=== PATIENT | male | born 1950 | race Caucasian/White ===

== ENCOUNTER → 2017-09-26 09:36 | Outpatient (CLI) | payer MEDICARE, SELFPAY ==
[2017-09-26 10:35] LABS: Absolute Neutrophil Count 4.8 X10^3/uL (2.0-7.7); Basophil# 0.02 X10^3/uL; Basophil% 0.3 % (0-1); Eosinophil# 0.12 X10^3/uL; Eosinophils% 1.7 % (0-5); Hematocrit 47.8 % (40-54); Hemoglobin 16.2 g/dl (13.0-16.5); Lymphocyte % 19.6 % (19-41); Mean Corp Hgb Conc 33.9 g/gl (32-36); Mean Corpuscular Hgb 30.5 pg (27.0-32.0); Mean Corpuscular Volume 89.8 fL (80-94); Mean Platelet Vol. 12.4 fl (6.2-12.0); Monocyte# 0.73 X10^3/uL; Monocyte% 10.2 % (0-10); Neutrophil # 4.81 X10^3/uL (2.7-7.7); Neutrophil % 67.5 % (47-70); Platelet Count 176 K/mm3 (150-450); RBC Distribution Width CV 13.5 % (11.6-14.6); RBC Distribution Width SD 44.8 fl (35.1-43.9); Red Blood Count 5.32 M/mm3 (4.6-6.2); White Blood Count 7.1 K/mm3 (4.4-11.0)
[2017-09-26 10:52] LABS: POSITIVE COUNT NO; POSITIVE DIFFERENTIAL NO; POSITIVE MORPHOLOGY NO
[2017-09-26 11:11] LABS: Hemoglobin A1c 5.9 % (4.2-6.3)
[2017-09-26 11:15] LABS: ALB/GLOB Ratio 1.1 RATIO (0.9-2.4); AST(SGOT) 20 U/L (15-37); Alanine Aminotransfer ALT/SGPT 43 U/L (16-61); Albumin, Serum 3.8 g/dL (3.2-5.0); Alkaline Phosphatase 112 U/L (45-117); Anion Gap 6 (5-15); BUN 16 mg/dL (7-18); BUN/Creat Ratio 15.1 RATIO (10-20); Calcium,Total 8.8 mg/dL (8.5-10.1); Chloride 107 mmol/L (98-107); Cholesterol 198 mg/dL (200); Creatinine, Serum 1.06 mg/dL (0.70-1.30); EST Glomerular Filtration Rate 74 mL/min (>60); Est Glom Filt Rate - Afr Amer 90 mL/min (>60); Globulin 3.5 g/dL (2.2-4.2); Glucose 105 mg/dL (74-106); High Density Lipoprotein 38 mg/dL; PSA,Total - Annual Screen 1.05 ng/mL (0.00-4.00); Potassium 4.2 mmol/L (3.5-5.1); Protein, Total 7.3 g/dL (6.4-8.2); Sodium Level 142 mmol/L (136-145); Thyroid Stim Hormone (TSH) 2.07 uIU/mL (0.358-3.74); Triglycerides 165 mg/dL; Very Low Density Lipoprotein 33 mg/dL (5-40)
[2017-09-27 09:49] LABS: Vitamin B12 709 pg/mL (211-911); Vitamin D,25 Hydroxy 25.1 ng/mL (29.95-100.01)
[2017-09-27 13:14] LABS: Protein, Urine (Random) 15.4 mg/dL (<11.9)
== END ==
DX: R73.9 Hyperglycemia, unspecified (principal); E55.9 Vitamin D deficiency, unspecified; E53.9 Vitamin B deficiency, unspecified; I10 Essential (primary) hypertension; Z12.5 Encounter for screening for malignant neoplasm of prostate
CPT/HCPCS: 80053; 80061; 82306; 82570; 82607; 83036; 84153; 84156; 84443; 85025; G0103

== ENCOUNTER → 2018-10-04 14:02 | Outpatient (CLI) | payer OTHER, MEDICARE, SELFPAY ==
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
== END ==
DX: R07.9 Chest pain, unspecified (principal)
CPT/HCPCS: 71250

== ENCOUNTER 2019-06-09 09:36 | Emergency (ER) | payer MEDICARE, OTHER, SELFPAY ==
[2019-06-09 09:37] VITALS: BP 189/104; PULSE 92; RESP 16; TEMP 36.7; O2SAT 97; BMI 26.6
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
== END 2019-06-09 11:27 | disposition home or self-care (01) ==
PROVIDERS: Emergency Provider Physician Assistant Medical
DX: J20.9 Acute bronchitis, unspecified (principal); J45.909 Unspecified asthma, uncomplicated
CPT/HCPCS: 71046; 99282

== ENCOUNTER 2020-02-11 10:46 | Emergency (ER) | payer MEDICARE, OTHER, SELFPAY ==
[2020-02-11 10:48] VITALS: BP 204/124; PULSE 96; RESP 15; TEMP 36.4; O2SAT 97; BMI 26.2
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
== END 2020-02-11 11:24 | disposition home or self-care (01) ==
LOC: ED 11:13
PROVIDERS: Emergency Provider Student in an Organized Health Care Education/Training Program
DX: M25.561 Pain in right knee (principal); M25.562 Pain in left knee; H92.01 Otalgia, right ear; H83.8X1 Other specified diseases of right inner ear
CPT/HCPCS: 99282

== ENCOUNTER → 2020-10-30 09:26 | Outpatient (CLI) | payer MEDICARE, OTHER, SELFPAY ==
--- NOTE | 2020-10-30 | IMM_PTH ---
PATIENT: MEDINA MCKOY II LOC: LAB U#:[id number] AGE/SX: 74/M ROOM: RE10/30/[address]: Dr. Corey Roberts MD : 1950 BED: DIS: SPEC #: [id number] RECD: 11/03/20 10:57 STATUS: MICHELLE REQ #: [id number] ADRY: 10/30/20 00:[address]: Corey Roberts DEPT: IMMUNOHISTOCHEMISTRY RECD BY: Noreen Denton ENTERED: 11/03/20 10:58 SP TYPE: IMMUNO OTHR DR: [facility] Tissues: Neck, NOS Procedures: SMA (add) Vimentin (add) NEUROFIL (add) Pankeratin (initial) S-100 (add) PHYSICIAN & INSTITUTION [place] [id number] SPECIMEN INFORMATION: Tissue Source: Right neck mass, fine needle aspiration Clinical Info: Right neck mass Specimen Number: [id number] CPT code: 61560, 75678 x4 METHODOLOGY: Deparaffinized sections of prefer/formalin-fixed tissue or PAP/DQ stained slides are incubated with monoclonal/polyclonal antibodies/oligonucleotide probes. Localization is made via biotin free immunoperoxidase method. Appropriate controls are performed and reacted as expected. Results on target cell population are indicated in the following table: RESULTS: ANTIBODY / CLONE RESULT AE1-3 (AE1/AE3/PCK26) negative Vimentin (V9) positive Actin (1A4) negative S-100 (4C4.9) positive Neurofil (2F11) negative These tests were developed and their performance characteristics determined by [facility]. They may not have been cleared or approved by the U.S. Food and Drug Administration. The FDA has determined that such clearance or approval is not necessary. The above immunohistochemical/dualISH markers are ordered and reviewed by the Pathologist. 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 See comment. AM:estee 11/04/2020 Comment: A pleomorphic adenoma cannot be ruled out. Case has been reviewed in consultation with Dr. Eagle who concurs with the above diagnosis. IDC:[id number]
--- NOTE | 2020-10-30 | ASPOS_PTH ---
PATIENT: MEDINA MCKOY II LOC: [facility] U#:[id number] AGE/SX: 74/M ROOM: RE10/30/[address]: Dr. Corey Roberts MD : 1950 BED: DIS: SPEC #: [id number] RECD: 10/30/20 11:00 STATUS: MICHELLE NEHA #: [id number] ADRY: 10/30/20 00:[address]: Corey Roberts DEPT: CYTOLOGY RECD BY: Mirza Enriquez ENTERED: 10/30/20 12:18 SP TYPE: ASP HERE OTHR DR: [facility] Tissues: Neck, NOS Procedures: Surgery Specimen Level IV Cytology Other Fine Needle Asp on Site HEADER OPERATION: Right neck mass, fine needle aspiration PRE-OP DIAGNOSIS: Right neck mass TISSUE SUBMITTED: Right neck mass FNA DIAGNOSIS CYTOLOGY Fine needle aspiration, right neck mass (smears and cell block): Consistent with spindle cell neoplasm. See comment. AM:estee 11/04/2020 COMMENT The specimen is evaluated at the time of FNA by Dr. Villeags. 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 A pleomorphic adenoma cannot be ruled out. Immunohistochemistry ([id number]) supports the above diagnosis. Case has been reviewed in consultation with Dr. Eagle who concurs with the above diagnosis. IDC:[id number] CYTOLOGY STUDY Slides are reviewed. CYTOLOGY GROSS Received is 0.25 ml of reddish fluid labeled with the patient's name, and designated right neck mass. Four imprints and four paps are made from the submitted fluid and the rest is added to CytoLyt for cell block preparation. Submitted for cytology study. / AM:estee 10/30/2020 TC:? CPT: 29129, 72582, 69956, 33004 ADDENDUM ADDENDUM ADDENDUM ADDENDUM ADDENDUM ADDENDUM ADDENDUM ADDENDUM ADDENDUM ADDENDUM 12/06/2022 09:11 ADDENDUM 12/06/2022 09:11 ADDENDUM 12/06/2022 09:11 ADDENDUM 12/06/2022 09:11 ADDENDUM 12/06/2022 09:11 This addendum is added to incorporate an outside pathology consultation report. The case was examined at [facility] (#[id number]) and the following diagnosis was rendered. Right neck mass, fine needle aspiration: Spindle cell lesion. Please see complete above mentioned consultation report in EMR
== END ==
PROVIDERS: Referring Provider Otolaryngology; Visit Provider Otolaryngology
DX: R22.1 Localized swelling, mass and lump, neck (principal)
CPT/HCPCS: 10021; 88161; 88305; 88341; 88342

== ENCOUNTER → 2020-11-17 13:46 | Outpatient (CLI) | payer MEDICARE, SELFPAY ==
--- NOTE | 2020-11-17 14:00 | CT_ITS ---
STUDY: CT SOFT TISSUE NECK WITH CONTRAST REASON FOR EXAM: Male, 70 years old. RIGHT NECK MASS RADIATION DOSAGE (If Supplied By Facility): CTDIvol = ( 15.89 ) mGy, DLP = ( 432.76 ) mGycm TECHNIQUE: The patient was scanned in a multi-detector CT scanner. High resolution transaxial imaging was performed following intravenous administration of IV 100mL Isovue-300. Sagittal and coronal images were reconstructed. Individualized dose optimization techniques were used for this CT. COMPARISON: None. FINDINGS: Normal bilateral parotid glands. Normal bilateral territory account manager spaces. Normal bilateral parapharyngeal spaces. Normal bilateral carotid spaces. Normal bilateral sublingual and submandibular glands and spaces. Normal visualized nasopharynx. Normal retropharyngeal space. Normal perivertebral space. Normal visualized bilateral faucial tonsils. The visualized tongue, tongue base and oropharynx are normal. There is a 2.5 cm x 3.3 cm x 3.9 cm rounded inhomogeneous soft tissue mass in the anterior triangle of the right side of the neck. This abuts the right sternocleidomastoid mastoid posteriorly as well as the vascular sheath. This extends medially into the right lateral aspect of the larynx. A neoplastic process should be ruled out. Subcentimeter lymph nodes are seen in the left side of the neck as well. There is no demonstrated solid or cystic mass lesion. There is no abnormal contrast enhancement. Normal epiglottis, bilateral vallecula and hypopharynx. The pre-epiglottic and paraglottic adipose spaces are normal. Normal visualized bilateral piriform sinuses, aryepiglottic folds, vocal cords, and arytenoid-cricoid articulations. Normal subglottic trachea. Normal bilateral lobes of the thyroid gland. Normal visualized pulmonary apices. Normal visualized paranasal sinuses. There is multilevel degenerative changes of the cervical spine. CT/Soft Tissue Neck WITH Contrast IMPRESSION: The palpable amount to correspond to 2.5 cm x 3.3 cm x 3.9 cm rounded homogeneous soft tissue mass in the anterior triangle of the right-sided the neck as described. This most likely represents adenopathy. Electronically Signed: Nigel Shi MD at 14:54 EDT , Service support ,
[2020-11-17 14:05] LABS: CREATININE FINGERSTICK 1.2 mg/dL (0.70-1.30); EGFR FINGERSTICK > 60.0000 mL/min (>60)
== END ==
PROVIDERS: Referring Provider Otolaryngology; Visit Provider Otolaryngology
DX: R22.1 Localized swelling, mass and lump, neck (principal)
CPT/HCPCS: 70491; Q9967

== ENCOUNTER → 2020-12-01 08:05 | Outpatient (CLI) | payer MEDICARE, OTHER, SELFPAY ==
[2020-12-01 09:12] LABS: ALB/GLOB Ratio 0.9 RATIO (0.9-2.4); AST(SGOT) 9 U/L (15-37); Alanine Aminotransfer ALT/SGPT 26 U/L (16-61); Albumin, Serum 3.7 g/dL (3.2-5.0); Alkaline Phosphatase 125 U/L (45-117); Anion Gap 2 (5-15); BUN 20 mg/dL (7-18); BUN/Creat Ratio 17.9 RATIO (10-20); Calcium,Total 9.3 mg/dL (8.5-10.1); Chloride 106 mmol/L (98-107); Cholesterol 181 mg/dL (200); Creatinine, Serum 1.12 mg/dL (0.70-1.30); EST Glomerular Filtration Rate 69 mL/min (>60); Est Glom Filt Rate - Afr Amer 83 mL/min (>60); Globulin 3.9 g/dL (2.2-4.2); Glucose 152 mg/dL (74-106); High Density Lipoprotein 37 mg/dL; Potassium 4.3 mmol/L (3.5-5.1); Protein, Total 7.6 g/dL (6.4-8.2); Sodium Level 139 mmol/L (136-145); Triglycerides 129 mg/dL; Very Low Density Lipoprotein 26 mg/dL (5-40)
[2020-12-01 09:17] LABS: Hemoglobin A1c 6.1 % (3.8-5.6)
== END ==
DX: E11.9 Type 2 diabetes mellitus without complications (principal); I25.10 Atherosclerotic heart disease of native coronary artery without angina pectoris
CPT/HCPCS: 36415; 80053; 80061; 83036

== ENCOUNTER 2021-03-05 12:09 | Emergency (ER) | payer OTHER, MEDICARE, SELFPAY ==
[2021-03-05 12:09] VITALS: BP 195/104; PULSE 104; RESP 18; TEMP 36.4; O2SAT 99; BMI 26.2
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
[2021-03-05 13:54] VITALS: RESP 16
== END 2021-03-05 13:54 | disposition home or self-care (01) ==
LOC: ED 13:04
PROVIDERS: Emergency Provider Emergency Medicine
DX: H53.8 Other visual disturbances (principal); J45.909 Unspecified asthma, uncomplicated; Z79.82 Long term (current) use of aspirin; Z79.899 Other long term (current) drug therapy
CPT/HCPCS: 99283

== ENCOUNTER → 2022-04-19 | Outpatient (CLI) | payer MEDICARE, SELFPAY ==
[2022-04-19 12:45] LABS: Bacteria 0 SEEN /hpf (None Seen); Mucous, Urine 0 SEEN /hpf (<or=2+); Squamous Epithelial Cells - UA 0 SEEN /hpf (0-5)
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
[2022-04-19 14:14] LABS: Absolute Lymphocyte Count 1.44 X10^3/uL (0.83-4.51); Absolute Neutrophil Count 7.3 X10^3/uL (2.0-7.7); Basophil# 0.05 X10^3/uL; Basophil% 0.5 % (0-1); Color, Urine Yellow (Yellow); Eosinophil# 0.19 X10^3/uL; Eosinophils% 1.9 % (0-5); Glucose, Dipstick Normal (Normal); Hemoglobin 15.4 g/dL (13.0-16.5); Ketone-Dipstick 5 mg/dl (Negative); Leukocyte Esterase-Dipstick 25 /ul (Negative); Lymphocyte # 1.44 X10^3/ul (0.83-4.51); Lymphocyte % 14.6 % (19-41); Mean Corp Hgb Conc 32.8 g/dL (32-36); Mean Corpuscular Hgb 29.8 pg (27.0-32.0); Mean Corpuscular Volume 91.1 fL (80-94); Mean Platelet Vol. 12.5 fl (6.2-12.0); Monocyte# 0.79 X10^3/uL; NRBC Flagged by Analyzer 0 % (0-5); Neutrophil # 7.32 X10^3/uL (2.7-7.7); Neutrophil % 74.5 % (47-70); Nitrite-Dipstick Negative (Negative); Occult Blood-Urine 10 /ul (Negative); Platelet Count 206 K/mm3 (150-450); Protein-Dipstick 30 mg/dl (Negative); RBC Distribution Width CV 13.2 % (11.6-14.6); RBC Distribution Width SD 44.3 fl (35.1-43.9); Red Blood Count 5.16 M/mm3 (4.6-6.2); Specific Gravity, Urine 1.025 (1.002-1.030); Urine Bilirubin Dipstick Negative (Negative); Urine Clarity Clear (Clear); Urine Urobilinogen Normal (Normal); White Blood Count 9.8 K/mm3 (4.4-11.0)
[2022-04-19 14:24] LABS: Calcium Oxalate Crystals Ur 1+ /hpf (<or=2+); Red Blood Cells-Urine 0-5 SEEN /hpf (0-5); White Blood Cells 0-5 SEEN /hpf (0-5)
[2022-04-19 14:52] LABS: Hemoglobin A1c 6.7 % (3.8-5.6)
[2022-04-19 14:53] LABS: BNP,B-Type NATRIURETIC PEPTIDE 99.4 pg/mL (0-100)
[2022-04-19 14:57] LABS: Vitamin B12 422 pg/mL (211-911); Vitamin D,25 Hydroxy 33.6 ng/mL
[2022-04-19 14:58] LABS: ALB/GLOB Ratio 0.8 RATIO (0.9-2.4); AST(SGOT) 16 U/L (15-37); Alanine Aminotransfer ALT/SGPT 29 U/L (16-61); Albumin, Serum 3.5 g/dL (3.2-5.0); Alkaline Phosphatase 105 U/L (45-117); Anion Gap 5 (5-15); BUN 22 mg/dL (7-18); BUN/Creat Ratio 19.8 RATIO (10-20); Calcium,Total 9.4 mg/dL (8.5-10.1); Chloride 108 mmol/L (98-107); Cholesterol 187 mg/dL (200); Creatinine, Serum 1.11 mg/dL (0.70-1.30); EST Glomerular Filtration Rate 69 mL/min (>60); Est Glom Filt Rate - Afr Amer 84 mL/min (>60); Globulin 4.2 g/dL (2.2-4.2); Glucose 129 mg/dL (74-106); High Density Lipoprotein 36 mg/dL; Magnesium 2.3 mg/dL (1.6-2.6); PSA,Total- Diagnostic 1.66 ng/mL (0.0-4.0); Potassium 4.1 mmol/L (3.5-5.1); Protein, Total 7.7 g/dL (6.4-8.2); Sodium Level 142 mmol/L (136-145); Thyroid Stim Hormone (TSH) 2.08 uIU/mL (0.358-3.74); Triglycerides 122 mg/dL; Very Low Density Lipoprotein 24 mg/dL (5-40)
[2022-04-19 15:46] LABS: Microalbumin:Creatinine Ratio 117.5 mg/g CRE (<30 mg/g CRE); Protein, Urine (Random) 56.2 mg/dL (<11.9)
== END | disposition home or self-care (01) ==
LOC: LAB 12:39
DX: I25.10 Atherosclerotic heart disease of native coronary artery without angina pectoris (principal); E11.9 Type 2 diabetes mellitus without complications; I10 Essential (primary) hypertension; N40.0 Benign prostatic hyperplasia without lower urinary tract symptoms; D51.9 Vitamin B12 deficiency anemia, unspecified; E55.9 Vitamin D deficiency, unspecified; R06.00 Dyspnea, unspecified
CPT/HCPCS: 36415; 71046; 80053; 80061; 81001; 82043; 82306; 82570; 82607; 83036; 83735; 83880; 84153; 84156; 84443; 85025

== ENCOUNTER → 2022-04-21 | Outpatient (CLI) | payer MEDICARE, SELFPAY | END | disposition home or self-care (01) | LOC: PSN 11:31 | DX: I25.10 Atherosclerotic heart disease of native coronary artery without angina pectoris (principal); E11.9 Type 2 diabetes mellitus without complications; I10 Essential (primary) hypertension; N40.0 Benign prostatic hyperplasia without lower urinary tract symptoms | CPT/HCPCS: 93005 ==

== ENCOUNTER 2023-05-10 12:00 | Emergency (ER) | payer MEDICARE, SELFPAY ==
[2023-05-10 12:01] VITALS: BP 201/106; PULSE 98; RESP 18; TEMP 36.6; O2SAT 100; BMI 25.0
--- NOTE | 2023-05-10 12:55 | RAD_ITS ---
STUDY: X-RAY - LUMBAR SPINE REASON FOR EXAM: Male, 72 years old. Chronic low back pain. TECHNIQUE: 3 view(s) of the lumbar spine were obtained. COMPARISON: Comparison is made with prior study dated December 31, 2009. FINDINGS: Normal lumbar lordosis. There is no substantial scoliosis. There is a normal alignment of the vertebrae. Mild degree of anterior spondylolisthesis at the L1-L2 and L2-L3 levels. Mild degree of disc space narrowing at the L4-L5 level. Normal disc space heights. The patient is status post cholecystectomy. RAD/Lumbar Spine 2 or 3 Views IMPRESSION: Degenerative changes of the spine, as detailed above. Electronically Signed: Nigel Shi MD at 13:16 EDT ,
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
[2023-05-10 15:04] VITALS: RESP 16
== END 2023-05-10 15:05 | disposition home or self-care (01) ==
PROVIDERS: Emergency Provider Emergency Medicine; PCP Family Medicine; Visit Provider Emergency Medicine
DX: M53.3 Sacrococcygeal disorders, not elsewhere classified (principal); M47.816 Spondylosis without myelopathy or radiculopathy, lumbar region; M25.562 Pain in left knee; I10 Essential (primary) hypertension; G62.9 Polyneuropathy, unspecified; Z79.52 Long term (current) use of systemic steroids
CPT/HCPCS: 72100; 99282

== ENCOUNTER → 2023-06-07 | Outpatient (CLI) | payer MEDICARE, SELFPAY ==
[2023-06-07 15:33] LABS: Absolute Lymphocyte Count 0.91 X10^3/uL (0.83-4.51); Absolute Neutrophil Count 9.1 X10^3/uL (2.0-7.7); Basophil# 0.08 X10^3/uL; Basophil% 0.7 % (0-1); Eosinophil# 0.14 X10^3/uL; Eosinophils% 1.2 % (0-5); Hematocrit 47.7 % (40-54); Hemoglobin 14.8 g/dL (13.0-16.5); Lymphocyte # 0.91 X10^3/ul (0.83-4.51); Lymphocyte % 8.1 % (19-41); Mean Corpuscular Volume 93.3 fL (80-94); Monocyte# 0.92 X10^3/uL; Monocyte% 8.2 % (0-10); NRBC Flagged by Analyzer 0 % (0-5); Neutrophil # 9.13 X10^3/uL (2.7-7.7); Neutrophil % 81.2 % (47-70); Platelet Count 239 K/mm3 (150-450); RBC Distribution Width SD 44.2 fl (35.1-43.9); Red Blood Count 5.11 M/mm3 (4.6-6.2); White Blood Count 11.3 K/mm3 (4.4-11.0)
[2023-06-07 15:53] LABS: Vitamin D,25 Hydroxy 26.8 ng/mL
[2023-06-07 16:06] LABS: ALB/GLOB Ratio 0.8 RATIO (0.9-2.4); AST(SGOT) 14 U/L (15-37); Alanine Aminotransfer ALT/SGPT 26 U/L (16-61); Albumin, Serum 3.4 g/dL (3.2-5.0); Alkaline Phosphatase 114 U/L (45-117); Anion Gap 5 (5-15); BUN 20 mg/dL (7-18); BUN/Creat Ratio 21.1 RATIO (10-20); Calcium,Total 9.3 mg/dL (8.5-10.1); Chloride 107 mmol/L (98-107); Creatinine, Serum 0.95 mg/dL (0.70-1.30); EST Glomerular Filtration Rate 83 mL/min (>60); Est Glom Filt Rate - Afr Amer 100 mL/min (>60); Globulin 4.3 g/dL (2.2-4.2); Glucose 123 mg/dL (74-106); Potassium 4.4 mmol/L (3.5-5.1); Protein, Total 7.7 g/dL (6.4-8.2); Sodium Level 139 mmol/L (136-145); Thyroid Stim Hormone (TSH) 1.52 uIU/mL (0.358-3.74)
[2023-06-07 17:07] LABS: Erythrocyte Sedimentation Rate 29 mm/hr (0-20)
[2023-06-11 12:07] LABS: Adrenocorticotropic Hormone 26.7 pg/mL (7.2-63.3)
[2023-06-12 13:07] LABS: ANTINUCLEAR ANTIBODIES DIRECT Negative (Negative)
== END | disposition home or self-care (01) ==
PROVIDERS: PCP Family Medicine; Referring Provider Family Medicine; Visit Provider Family Medicine
DX: M79.10 Myalgia, unspecified site (principal)
CPT/HCPCS: 36415; 80053; 82024; 82306; 84443; 85025; 85652; 86038; 86140

== ENCOUNTER → 2023-06-19 | Outpatient (CLI) | payer MEDICARE, SELFPAY ==
[2023-06-19 09:28] LABS: Bacteria 0 SEEN /hpf (None Seen); Mucous, Urine 0 SEEN /hpf (<or=2+); Red Blood Cells-Urine 0 SEEN /hpf (0-5); Squamous Epithelial Cells - UA 0 SEEN /hpf (0-5); White Blood Cells 0 SEEN /hpf (0-5)
[2023-06-19 10:18] LABS: Erythrocyte Sedimentation Rate 17 mm/hr (0-20)
[2023-06-19 10:20] LABS: Absolute Neutrophil Count 14.7 X10^3/uL (2.0-7.7); Basophil# 0.05 X10^3/uL; Basophil% 0.3 % (0-1); Eosinophil# 0.01 X10^3/uL; Eosinophils% 0.1 % (0-5); Hemoglobin 14.9 g/dL (13.0-16.5); Lymphocyte % 6.6 % (19-41); Mean Corpuscular Volume 93.4 fL (80-94); Mean Platelet Vol. 12.3 fl (6.2-12.0); Monocyte# 0.69 X10^3/uL; Monocyte% 4.1 % (0-10); NRBC Flagged by Analyzer 0 % (0-5); Neutrophil # 14.68 X10^3/uL (2.7-7.7); Neutrophil % 87.8 % (47-70); Platelet Count 301 K/mm3 (150-450); RBC Distribution Width CV 13.2 % (11.6-14.6); RBC Distribution Width SD 45.2 fl (35.1-43.9); Red Blood Count 5.14 M/mm3 (4.6-6.2); White Blood Count 16.7 K/mm3 (4.4-11.0)
[2023-06-19 10:37] LABS: Hemoglobin A1c 6.9 % (3.8-5.6)
[2023-06-19 10:49] LABS: Vitamin B12 510 pg/mL (211-911); Vitamin D,25 Hydroxy 32.2 ng/mL
[2023-06-19 11:01] LABS: ALB/GLOB Ratio 0.8 RATIO (0.9-2.4); AST(SGOT) 11 U/L (15-37); Alanine Aminotransfer ALT/SGPT 31 U/L (16-61); Albumin, Serum 3.3 g/dL (3.2-5.0); Alkaline Phosphatase 122 U/L (45-117); Anion Gap 7 (5-15); BUN 33 mg/dL (7-18); BUN/Creat Ratio 26.2 RATIO (10-20); CPK Total, Creatine Kinase 36 U/L (39-308); Calcium,Total 9.7 mg/dL (8.5-10.1); Chloride 103 mmol/L (98-107); Cholesterol 149 mg/dL (200); Creatinine, Serum 1.26 mg/dL (0.70-1.30); EST Glomerular Filtration Rate 60 mL/min (>60); Est Glom Filt Rate - Afr Amer 72 mL/min (>60); Globulin 4.3 g/dL (2.2-4.2); Glucose 203 mg/dL (74-106); High Density Lipoprotein 48 mg/dL; Magnesium 2.4 mg/dL (1.6-2.6); Potassium 4.2 mmol/L (3.5-5.1); Protein, Total 7.6 g/dL (6.4-8.2); Rheumatoid Factor < 10.0 IU/mL (<15); Sodium Level 138 mmol/L (136-145); Thyroid Stim Hormone (TSH) 1.47 uIU/mL (0.358-3.74); Triglycerides 83 mg/dL; Uric Acid 5.9 mg/dL (3.5-7.2); Very Low Density Lipoprotein 17 mg/dL (5-40)
[2023-06-19 13:55] LABS: Color, Urine Yellow (Yellow); Glucose, Dipstick Normal (Normal); Ketone-Dipstick 5 mg/dl (Negative); Leukocyte Esterase-Dipstick Negative /ul (Negative); Nitrite-Dipstick Negative (Negative); Occult Blood-Urine Negative /ul (Negative); Protein-Dipstick 30 mg/dl (Negative); Specific Gravity, Urine 1.025 (1.002-1.030); Urine Bilirubin Dipstick Negative (Negative); Urine Clarity Clear (Clear); Urine Urobilinogen Normal (Normal)
[2023-06-19 14:06] LABS: Calcium Oxalate Crystals Ur 1+ /hpf (<or=2+)
[2023-06-20 16:09] LABS: Anti-Nuclear Antibody Test Negative (.)
== END | disposition home or self-care (01) ==
DX: I10 Essential (primary) hypertension (principal); E11.9 Type 2 diabetes mellitus without complications; N40.0 Benign prostatic hyperplasia without lower urinary tract symptoms; E55.9 Vitamin D deficiency, unspecified; D51.9 Vitamin B12 deficiency anemia, unspecified; M25.50 Pain in unspecified joint; E78.5 Hyperlipidemia, unspecified
CPT/HCPCS: 36415; 80053; 80061; 81001; 82306; 82550; 82607; 83036; 83735; 84443; 84550; 85025; 85652; 86038; 86431

== ENCOUNTER → 2023-06-21 | Outpatient (CLI) | payer MEDICARE, SELFPAY ==
[2023-06-21 12:34] LABS: Erythrocyte Sedimentation Rate 12 mm/hr (0-20)
[2023-06-21 12:37] LABS: Absolute Lymphocyte Count 0.58 X10^3/uL (0.83-4.51); Absolute Neutrophil Count 15.5 X10^3/uL (2.0-7.7); Basophil# 0.07 X10^3/uL; Basophil% 0.4 % (0-1); Eosinophil# 0.01 X10^3/uL; Eosinophils% 0.1 % (0-5); Hematocrit 50.2 % (40-54); Hemoglobin 15.4 g/dL (13.0-16.5); Lymphocyte # 0.58 X10^3/ul (0.83-4.51); Lymphocyte % 3.5 % (19-41); Mean Corp Hgb Conc 30.7 g/dL (32-36); Mean Corpuscular Hgb 28.9 pg (27.0-32.0); Mean Corpuscular Volume 94.2 fL (80-94); Mean Platelet Vol. 12.7 fl (6.2-12.0); Monocyte# 0.26 X10^3/uL; Monocyte% 1.6 % (0-10); NRBC Flagged by Analyzer 0 % (0-5); Neutrophil # 15.46 X10^3/uL (2.7-7.7); Neutrophil % 92.8 % (47-70); POSITIVE DIFFERENTIAL YES; Platelet Count 279 K/mm3 (150-450); RBC Distribution Width CV 13.4 % (11.6-14.6); RBC Distribution Width SD 46.5 fl (35.1-43.9); Red Blood Count 5.33 M/mm3 (4.6-6.2); White Blood Count 16.7 K/mm3 (4.4-11.0)
[2023-06-21 12:44] LABS: Differential Indicated SCAN CRITERIA MET
[2023-06-21 13:05] LABS: Differential Comment SCANNED
[2023-06-21 13:09] LABS: ALB/GLOB Ratio 0.9 RATIO (0.9-2.4); AST(SGOT) 12 U/L (15-37); Alanine Aminotransfer ALT/SGPT 30 U/L (16-61); Albumin, Serum 3.6 g/dL (3.2-5.0); Alkaline Phosphatase 116 U/L (45-117); Anion Gap 6 (5-15); BUN 26 mg/dL (7-18); BUN/Creat Ratio 24.1 RATIO (10-20); CRP 7.73 mg/L (0.0-3.0); Calcium,Total 9.4 mg/dL (8.5-10.1); Chloride 104 mmol/L (98-107); Creatinine, Serum 1.08 mg/dL (0.70-1.30); EST Glomerular Filtration Rate 71 mL/min (>60); Est Glom Filt Rate - Afr Amer 86 mL/min (>60); Globulin 4.2 g/dL (2.2-4.2); Glucose 269 mg/dL (74-106); Potassium 4.1 mmol/L (3.5-5.1); Protein, Total 7.8 g/dL (6.4-8.2); Rheumatoid Factor < 10.0 IU/mL (<15); Sodium Level 137 mmol/L (136-145)
[2023-06-21 13:31] LABS: Hepatitis B Surface Antibody Reactive; Hepatitis B Surface Antigen Non-Reactive (Nonreactive); Hepatitis C Antibody Non-Reactive (Nonreactive)
[2023-06-22 12:09] LABS: ANTINUCLEAR ANTIBODIES DIRECT Negative (Negative)
[2023-06-23 13:07] LABS: CCP IgG Antibodies 9 units (0-19)
== END | disposition home or self-care (01) ==
PROVIDERS: Referring Provider Internal Medicine Rheumatology; Visit Provider Internal Medicine Rheumatology
DX: M06.4 Inflammatory polyarthropathy (principal); Z79.899 Other long term (current) drug therapy
CPT/HCPCS: 36415; 80053; 85025; 85652; 86038; 86140; 86200; 86431; 86706; 86803; 87340

== ENCOUNTER → 2023-06-23 | Outpatient (CLI) | payer MEDICARE, SELFPAY ==
--- NOTE | 2023-06-23 12:44 | CDU_ITS ---
Reason For Study: Amaurosis Fugax Rt. Velocities/BP Lt. Velocities/BP Prox CCA 96.1/7.7 cm/sec. Prox CCA 115.5/12.3 cm/sec. Mid CCA 107.0/13.9 cm/sec. Mid CCA 67.0/13.0 cm/sec. Dist CCA 121.6/21.2 cm/sec. Dist CCA 58.4/14.2 cm/sec. Prox ICA 77.8/13.9 cm/sec. Prox ICA 46.9/15.7 cm/sec. Mid ICA 66.7/9.1 cm/sec. Mid ICA 56.3/19.5 cm/sec. Dist ICA 70.5/20.4 cm/sec. Dist ICA 76.1/21.4 cm/sec. Rt. ICA/CCA = 0.7. Lt. ICA/CCA = 1.1. Prox ECA 113.3/9.0 cm/sec. Prox ECA 146.2/16.7 cm/sec. Rt. Vert. 49.7/8.1 cm/sec. Lt. Vert. 39.3/8.1 cm/sec. Right Extracranial Non-vascularized heterogenous area measuring approximately 4.95cm x 4.26cm is noted on the throat/thyroid area. Patient states area is known and he has seen a specialist. There is homogeneous, smooth atherosclerotic plaque noted in the right common carotid artery. There is intimal thickening but no significant atherosclerotic plaque noted in the right internal carotid artery. The right external carotid artery is not well visualized. Antegrade flow is noted in the right vertebral artery. Left Extracranial There is homogeneous, smooth atherosclerotic plaque noted in the left common carotid artery. There is intimal thickening but no significant atherosclerotic plaque noted in the left internal carotid artery. There is homogeneous, smooth atherosclerotic plaque noted in the left external carotid artery. Antegrade flow is noted in the left vertebral artery. Procedure Carotid Duplex [id number]. This is a Carotid Duplex examination using B-mode, color flow and specral Doppler. The exam was diagnostic. Exam performed in department. VL/Carotid Duplex Ultrasound Interpretation Summary Normal right extracranial internal carotid. Normal left extracranial internal carotid. Patent and antegrade vertebrals bilaterally. Non-vascularized heterogenous area measuring approximately 4.95cm x 4.26cm is n oted on the throat/thyroid area Ordering Physician: Matt Fisher Referring Physician: N/A Performed By: Vega Ellison RVT
== END | disposition home or self-care (01) ==
LOC: CVS 12:42
PROVIDERS: Referring Provider Ophthalmology; Visit Provider Ophthalmology
DX: G45.3 Amaurosis fugax (principal)
CPT/HCPCS: 93880

== ENCOUNTER → 2023-09-13 | Outpatient (CLI) | payer MEDICARE, SELFPAY ==
[2023-09-13 08:55] LABS: Vitamin B12 776 pg/mL (211-911); Vitamin D,25 Hydroxy 22.5 ng/mL
[2023-09-13 09:25] LABS: ALB/GLOB Ratio 0.9 RATIO (0.9-2.4); AST(SGOT) 17 U/L (15-37); Alanine Aminotransfer ALT/SGPT 25 U/L (16-61); Albumin, Serum 3.5 g/dL (3.2-5.0); Alkaline Phosphatase 120 U/L (45-117); Anion Gap 5 (5-15); BUN 22 mg/dL (7-18); BUN/Creat Ratio 17.6 RATIO (10-20); Calcium,Total 9.9 mg/dL (8.5-10.1); Chloride 104 mmol/L (98-107); Creatinine, Serum 1.25 mg/dL (0.70-1.30); EST Glomerular Filtration Rate 60 mL/min (>60); Est Glom Filt Rate - Afr Amer 73 mL/min (>60); Glucose 369 mg/dL (74-106); Magnesium 2.1 mg/dL (1.6-2.6); Potassium 4.2 mmol/L (3.5-5.1); Protein, Total 7.5 g/dL (6.4-8.2); Sodium Level 137 mmol/L (136-145); Thyroid Stim Hormone (TSH) 2.22 uIU/mL (0.358-3.74)
[2023-09-13 10:39] LABS: Hemoglobin A1c 10.9 % (3.8-5.6)
[2023-09-14 13:08] LABS: Adrenocorticotropic Hormone 38.4 pg/mL (7.2-63.3)
== END | disposition home or self-care (01) ==
LOC: LAB 08:07
PROVIDERS: PCP Family Medicine
DX: E11.65 Type 2 diabetes mellitus with hyperglycemia (principal); M06.9 Rheumatoid arthritis, unspecified; E55.9 Vitamin D deficiency, unspecified; D51.9 Vitamin B12 deficiency anemia, unspecified; I10 Essential (primary) hypertension; Z79.52 Long term (current) use of systemic steroids
CPT/HCPCS: 36415; 80053; 82024; 82306; 82533; 82607; 83036; 83735; 84443

== ENCOUNTER → 2023-09-28 | Outpatient (CLI) | payer MEDICARE, SELFPAY ==
[2023-09-28 08:30] LABS: Insulin 4.3 mU/L (2.6-37.6)
== END | disposition home or self-care (01) ==
LOC: LAB 07:41
PROVIDERS: PCP Family Medicine; Referring Provider Family Medicine; Visit Provider Family Medicine
DX: E11.9 Type 2 diabetes mellitus without complications (principal)
CPT/HCPCS: 36415; 83525

== ENCOUNTER → 2023-11-02 | Outpatient (CLI) | payer MEDICARE, SELFPAY ==
[2023-11-02 10:45] LABS: Absolute Lymphocyte Count 0.85 X10^3/uL (0.83-4.51); Absolute Neutrophil Count 8.8 X10^3/uL (2.0-7.7); Basophil# 0.06 X10^3/uL; Basophil% 0.6 % (0-1); Eosinophil# 0.03 X10^3/uL; Eosinophils% 0.3 % (0-5); Hematocrit 46.3 % (40-54); Hemoglobin 14.5 g/dL (13.0-16.5); Lymphocyte # 0.85 X10^3/ul (0.83-4.51); Lymphocyte % 8.2 % (19-41); Mean Corp Hgb Conc 31.3 g/dL (32-36); Mean Corpuscular Volume 95.7 fL (80-94); Mean Platelet Vol. 12.3 fl (6.2-12.0); Monocyte# 0.63 X10^3/uL; NRBC Flagged by Analyzer 0 % (0-5); Neutrophil # 8.77 X10^3/uL (2.7-7.7); Neutrophil % 84.1 % (47-70); Platelet Count 198 K/mm3 (150-450); RBC Distribution Width CV 14.1 % (11.6-14.6); Red Blood Count 4.84 M/mm3 (4.6-6.2); White Blood Count 10.4 K/mm3 (4.4-11.0)
[2023-11-02 11:15] LABS: AST(SGOT) 15 U/L (15-37); Alanine Aminotransfer ALT/SGPT 24 U/L (16-61); Albumin, Serum 3.7 g/dL (3.2-5.0); Alkaline Phosphatase 96 U/L (45-117); Anion Gap 3 (5-15); BUN 29 mg/dL (7-18); BUN/Creat Ratio 28.4 RATIO (10-20); Calcium,Total 9.6 mg/dL (8.5-10.1); Chloride 110 mmol/L (98-107); Creatinine, Serum 1.02 mg/dL (0.70-1.30); EST Glomerular Filtration Rate 76 mL/min (>60); Est Glom Filt Rate - Afr Amer 92 mL/min (>60); Globulin 3.6 g/dL (2.2-4.2); Glucose 162 mg/dL (74-106); Potassium 4.5 mmol/L (3.5-5.1); Protein, Total 7.3 g/dL (6.4-8.2); Sodium Level 140 mmol/L (136-145)
== END | disposition home or self-care (01) ==
LOC: LAB 10:03
PROVIDERS: PCP Family Medicine; Visit Provider Internal Medicine Rheumatology
DX: M06.4 Inflammatory polyarthropathy (principal); I10 Essential (primary) hypertension; Z79.899 Other long term (current) drug therapy
CPT/HCPCS: 36415; 80053; 85025

== ENCOUNTER → 2023-12-13 | Outpatient (CLI) | payer MEDICARE, SELFPAY ==
[2023-12-13 18:12] LABS: Hemoglobin A1c 7.1 % (3.8-5.6)
== END | disposition home or self-care (01) ==
LOC: LAB 13:28
PROVIDERS: PCP Family Medicine; Referring Provider Family Medicine; Visit Provider Family Medicine
DX: E11.9 Type 2 diabetes mellitus without complications (principal)
CPT/HCPCS: 36415; 83036

== ENCOUNTER 2024-02-10 08:11 | Inpatient (IN) | payer OTHER, SELFPAY ==
[2024-02-10] VITALS (47 sets, daily range): BP systolic 94–218; BP diastolic 67–138; PULSE 75–153; RESP 16–28; TEMP 35.6–37.6; O2SAT 92–100; BMI 27.2; BMI 26.4
--- NOTE | 2024-02-10 08:37 | EKG12_ITS ---
Test Reason : Blood Pressure : / mmHG Vent. Rate : 078 BPM Atrial Rate : 078 BPM P-R Int : 178 ms QRS Dur : 082 ms QT Int : 450 ms P-R-T Axes : 063 021 099 degrees QTc Int : 513 ms Normal sinus rhythm Left ventricular hypertrophy with repolarization abnormality ( Sokolow-Floyd ) Cannot rule out Anteroseptal infarct (cited on or before 28-APR-2024) Prolonged QT Abnormal ECG When compared with ECG of 28-APR-2024 00:54, Significant changes have occurred Confirmed by Jimi Chavez ([id number]), news assignment editor KEYL RUBIO ([id number]) on 05/02/2024 1:10:41 PM Referred By: Confirmed By:Jimi Chavez
--- NOTE | 2024-02-10 08:37 | CT_ITS ---
STUDY: CTA CHEST REASON FOR EXAM: Male, 73 years old. CP, SOB, tachycardia RADIATION DOSAGE (If Supplied By Facility): CTDIvol = ( 18.42 ) mGy, DLP = ( 560.28 ) mGycm TECHNIQUE: The examination was performed with the intravenous administration of IV 100mL Isovue-370. Post-processing of the angiographic images was performed, with multiplanar reformation and 3D reconstruction. The protocol utilizes one or more of the following dose reduction techniques: automated exposure control, adjustment of mA and/or kV according to patient size,and/or use of iterative reconstruction technique. COMPARISON: October 04, 2018 FINDINGS: Normal enhancement of the main pulmonary artery and right and left pulmonary arteries. Normal enhancement of the bilateral peripheral pulmonary arteries. There is no demonstrated pulmonary embolism. Normal thoracic aorta and visualized great vessels. There are peripheral calcifications of the thoracic aorta. There is no demonstrated aortic dissection. There are calcifications of the coronary arteries. Normal mediastinum. Normal hilar regions. There is an endotracheal tube in place terminating 2.2 cm above the sapna. There are bilateral pleural effusions, left greater than right greater than left pleural effusion is partially loculated within the left major fissure. There are bilateral groundglass and patchy opacities as well as bilateral interlobular septal thickening. Normal chest wall structures. Normal osseous structures. The limited images of the upper abdomen demonstrate a left renal cyst. There is an enteric tube in place terminating within the gastric body. CT/CTA Chest W/WO Contrast IMPRESSION: No demonstrated pulmonary embolism or arterial dissection. Bilateral groundglass and patchy opacities concerning for multifocal edema and/or pneumonia. Bilateral pleural effusions. Bilateral interlobular septal thickening likely secondary to pulmonary edema. Atherosclerosis. Electronically Signed: Katelyn Mckenzie MD at 10:23 EDT ,
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
[2024-02-10] MEDS: Aspirin 81 MG TAB.CHEW 324 MG PO (08:44)
[2024-02-10] MEDS: Nitroglycerin Oint 1 INCH PACKET TD (08:45)
[2024-02-10 08:46] LABS: Absolute Lymphocyte Count 1.43 X10^3/uL (0.83-4.51); Absolute Neutrophil Count 8.1 X10^3/uL (2.0-7.7); Basophil# 0.05 X10^3/uL; Basophil% 0.5 % (0-1); Eosinophil# 0.15 X10^3/uL; Eosinophils% 1.4 % (0-5); Hematocrit 48.3 % (40-54); Hemoglobin 15.6 g/dL (13.0-16.5); Lymphocyte # 1.43 X10^3/ul (0.83-4.51); Lymphocyte % 13.3 % (19-41); Mean Corp Hgb Conc 32.3 g/dL (32-36); Mean Corpuscular Hgb 31.2 pg (27.0-32.0); Mean Corpuscular Volume 96.6 fL (80-94); Mean Platelet Vol. 12.6 fl (6.2-12.0); Monocyte% 8.3 % (0-10); NRBC Flagged by Analyzer 0 % (0-5); Neutrophil # 8.14 X10^3/uL (2.7-7.7); Neutrophil % 75.5 % (47-70); Platelet Count 234 K/mm3 (150-450); RBC Distribution Width CV 14.6 % (11.6-14.6); RBC Distribution Width SD 50.9 fl (35.1-43.9); White Blood Count 10.8 K/mm3 (4.4-11.0)
--- NOTE | 2024-02-10 09:03 | RAD_ITS ---
INDICATION: og tube placement EXAMINATION/TECHNIQUE: X-RAY - XR Abdomen 1 View COMPARISON: Chest radiograph dated February 10, 2024 FINDINGS: BOWEL GAS PATTERN: Non-obstructive. No bowel or stomach distention. There is an orogastric tube in place terminating within the expected region of the gastric body. FREE AIR: Not assessed on a single supine view. ORGANOMEGALY: Not seen. CALCIFICATIONS: No abnormal calcifications observed. LOWER CHEST: There are stable bilateral patchy opacities. There is an endotracheal tube in place terminating 3.6 cm above the sapna. BONES AND SOFT TISSUES: No acute pathology. RAD/Abdomen Single View (Portable) IMPRESSION: Orogastric tube terminating within the expected region of the gastric body. Bilateral ill-defined opacities may reflect edema and/or an infectious process. Electronically Signed: Katelyn Mckenzie MD at 10:08 EDT ,
[2024-02-10] MEDS: Propofol 10MG/Ml 1,000 MG/100 ML Bottle 4.7 MG CONT INF (09:05)
[2024-02-10 09:06] LABS: BNP,B-Type NATRIURETIC PEPTIDE 539.8 pg/mL (0-100)
[2024-02-10] MEDS: 0.9% Normal Saline (1000mL) 1,000 ML 999 ML IV (09:06)
[2024-02-10] MEDS: fentaNYL 100 MCG/2 ML Ampul 50 MCG IV (09:07)
[2024-02-10 09:09] LABS: Anion Gap 6 (5-15); BUN 32 mg/dL (7-18); Calcium,Total 9.9 mg/dL (8.5-10.1); Chloride 106 mmol/L (98-107); Creatinine, Serum 1.28 mg/dL (0.70-1.30); EST Glomerular Filtration Rate 59 mL/min (>60); Est Glom Filt Rate - Afr Amer 71 mL/min (>60); Estimated Creatinine Clearance 50.42 ml/min; Glucose 257 mg/dL (74-106); Potassium 3.8 mmol/L (3.5-5.1); Sodium Level 138 mmol/L (136-145); Troponin-I HS (w/2H Reflex) 1513 pg/mL (3.0-78.0)
[2024-02-10] MEDS: Succinylcholine Chloride 200 MG/10 ML SYRINGE 100 MG IV (09:13)
[2024-02-10] MEDS: Etomidate 20 MG/10 ML Vial IV (09:14)
--- NOTE | 2024-02-10 09:20 | RAD_ITS ---
INDICATION: ET tube placement EXAMINATION/TECHNIQUE: X-RAY - XR Chest 1 View COMPARISON: February 10, 2024 at 9:23 AM FINDINGS: LINES/DEVICES: There is an endotracheal tube in place terminating within the expected region of the gastric body. LUNGS: There are ill-defined opacities throughout the visualized right lung and the left mid and lower lung associated with bilateral prominent interstitial markings. No pneumothorax. MEDIASTINUM AND CARDIOVASCULAR STRUCTURES: Cardiac silhouette not enlarged. Central airways and mediastinal contour are unremarkable. BONES AND SOFT TISSUES: Unremarkable. RAD/Chest 1 View (Portable) IMPRESSION: Endotracheal tube terminating within the expected region of the gastric body. Bilateral ill-defined opacities associated with prominent interstitial markings may reflect edema and/or an infectious process. Electronically Signed: Katelyn Mckenzie MD at 10:07 EDT ,
[2024-02-10 09:29] LABS: Allen Test Positive; Base Excess -5 mmol/L (-2 to +2); Bicarbonate 23.3 mmol/L (22-26); Blood Gas Specimen Type ART; Mode AC; O2 Delivery Device Adult Vent; PEEP 5; PO2 417 mmHG (75-100); RR 16; SITE L Radial; SO2 100 % (95-99); Total Carbon Dioxide 25 mmol/L; pCO2 60.4 mmHg (35-45)
[2024-02-10 09:34] LABS: CPK Total, Creatine Kinase 57 U/L (39-308); Triglycerides 137 mg/dL
--- NOTE | 2024-02-10 09:58 | ED.RN ---
this rn attempted to call dtr at this time. when called, another persons name is on the voicemail so this rn called the son listed instead. pts son is located in [place] and will call sister to come be with the patient. charge nurse made aware.
--- NOTE | 2024-02-10 10:27 | ED.RN ---
this rn spoke with patient's daughter on the phone. this rn went over labs that we had avaliable and told dtr that pt was intubated and clinically very sick and would probably like it if someone could come be with him. pts dtr states hes pretty far away right now, i dont know if i can. this rn tells pt that we will call with updates.
[2024-02-10 10:34] LABS: International Normalized Ratio 0.9; Prothrombin Time (Protime)PT. 12.3 SECONDS (11.7-14.9)
[2024-02-10 10:35] LABS: Partial Thromboplast Time 29.1 Seconds (24.1-36.2)
[2024-02-10] MEDS: Furosemide 40 MG/4 ML Vial IV ×2 (10:35→17:46)
[2024-02-10] MEDS: Heparin Injection (Vial) 5,000 UNIT/ML VIAL 4000 UNIT IV (10:36)
[2024-02-10] MEDS: HEPARIN/D5w 25,000 UNITS 25,000 UNITS/250 ML IV.SOLN. 9 UNITS CONT INF (10:36)
[2024-02-10 10:41] LABS: Reflex Troponin-HS? (from REC) Y
[2024-02-10] MEDS: fentaNYL 100 MCG/2 ML Ampul IV (10:52)
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
--- NOTE | 2024-02-10 10:59 | ED.RN ---
pts watch removed and placed in a specimen cup. specimen cup inserted into shoe along with pts wallet and glasses. pt also has a cell phone, small dollar bills in shorts pocket and car keys.
[2024-02-10 11:08] LABS: Troponin-I HS 934 pg/mL (3.0-78.0)
[2024-02-10] MEDS: Midazolam 50 MG in 0.9% Normal Saline (100mL Bag) 90 ML CONT INF (11:15)
[2024-02-10 11:18] LABS: Magnesium 2.4 mg/dL (1.6-2.6); Phosphorus 4.1 mg/dL (2.5-4.9)
[2024-02-10] MEDS: Propofol 10MG/Ml 1,000 MG/100 ML Bottle 23.3 MG CONT INF (12:45)
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
--- NOTE | 2024-02-10 13:40 | CPS ---
1315 increased TV to [address] Olsen.
[2024-02-10] MEDS: fentaNYL drip 100 ML 2.5 MCG CONT INF (13:45)
[2024-02-10] MEDS: Chlorhexidine 15 ML PO ×2 (14:00→21:28)
[2024-02-10 14:31] LABS: Allen Test Positive; Base Excess -2 mmol/L (-2 to +2); Bicarbonate 22.7 mmol/L (22-26); Blood Gas Specimen Type ART; Mode AC; O2 Delivery Device Adult Vent; PEEP 5; PO2 76 mmHG (75-100); RR 16; SITE R Radial; SO2 96 % (95-99); Total Carbon Dioxide 24 mmol/L; pCO2 33.2 mmHg (35-45); pH 7.44 (7.35-7.45)
--- NOTE | 2024-02-10 14:37 | CPS ---
Called Dr Jade and gave ABG results. No changes @this time.
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
[2024-02-10 16:24] LABS: Bedside Glucose 223 mg/dL (74-106)
[2024-02-10 17:00] LABS: Partial Thromboplast Time 45.3 Seconds (24.1-36.2)
[2024-02-10] MEDS: Insulin Glargine-YFGN 100 UNIT/ML Pen 10 UNIT SC (17:43)
[2024-02-10] MEDS: Insulin Lispro 100 UNIT/ML INSULN.PEN SC (17:45)
[2024-02-10] MEDS: Pantoprazole Sodium 40 MG in 0.9% Normal Saline (100mL MB+) 100 ML 330 MG IV (17:49)
[2024-02-10] MEDS: 0.9% Saline Lock 10 ML Syringe IV (17:50)
[2024-02-10] MEDS: Propofol 10MG/Ml 1,000 MG/100 ML Bottle 11.7 MG CONT INF (19:00)
[2024-02-10] MEDS: Atorvastatin Calcium 40 MG Tablet PO (21:27)
[2024-02-10] MEDS: Senna/Docusate Sodium 1 Tablet 2 TABLET GT (21:27)
[2024-02-10] MEDS: Carvedilol 3.125 MG TABLET PO (21:27)
[2024-02-11] VITALS (29 sets, daily range): BP systolic 84–157; BP diastolic 54–97; PULSE 69–107; RESP 11–21; TEMP 36.6–37.7; O2SAT 93–99; BMI 25.1
[2024-02-11] MEDS: Propofol 10MG/Ml 1,000 MG/100 ML Bottle 14 MG CONT INF (03:46)
[2024-02-11 04:17] LABS: Absolute Lymphocyte Count 1.37 X10^3/uL (0.83-4.51); Absolute Neutrophil Count 8.7 X10^3/uL (2.0-7.7); Basophil# 0.04 X10^3/uL; Basophil% 0.4 % (0-1); Eosinophils% 0.9 % (0-5); Hematocrit 39.9 % (40-54); Lymphocyte # 1.37 X10^3/ul (0.83-4.51); Lymphocyte % 12.1 % (19-41); Mean Corp Hgb Conc 32.6 g/dL (32-36); Mean Corpuscular Hgb 30.8 pg (27.0-32.0); Mean Corpuscular Volume 94.5 fL (80-94); Mean Platelet Vol. 12.1 fl (6.2-12.0); Monocyte# 1.06 X10^3/uL; Monocyte% 9.4 % (0-10); NRBC Flagged by Analyzer 0 % (0-5); Neutrophil # 8.66 X10^3/uL (2.7-7.7); Neutrophil % 76.5 % (47-70); Platelet Count 183 K/mm3 (150-450); RBC Distribution Width CV 14.7 % (11.6-14.6); RBC Distribution Width SD 50.3 fl (35.1-43.9); Red Blood Count 4.22 M/mm3 (4.6-6.2); White Blood Count 11.3 K/mm3 (4.4-11.0)
[2024-02-11 04:32] LABS: Bedside Glucose 116 mg/dL (74-106)
[2024-02-11 04:46] LABS: AST(SGOT) 177 U/L (15-37); Alanine Aminotransfer ALT/SGPT 58 U/L (16-61); Albumin, Serum 2.8 g/dL (3.2-5.0); Alkaline Phosphatase 96 U/L (45-117); Anion Gap 7 (5-15); BUN 28 mg/dL (7-18); BUN/Creat Ratio 26.2 RATIO (10-20); Calcium,Total 8.2 mg/dL (8.5-10.1); Chloride 109 mmol/L (98-107); Cholesterol 137 mg/dL (200); Creatinine, Serum 1.07 mg/dL (0.70-1.30); EST Glomerular Filtration Rate 72 mL/min (>60); Est Glom Filt Rate - Afr Amer 87 mL/min (>60); Estimated Creatinine Clearance 55.49 ml/min; Globulin 2.9 g/dL (2.2-4.2); Glucose 128 mg/dL (74-106); High Density Lipoprotein 37 mg/dL; Potassium 3.2 mmol/L (3.5-5.1); Protein, Total 5.7 g/dL (6.4-8.2); Sodium Level 142 mmol/L (136-145); Thyroid Stim Hormone (TSH) 1.74 uIU/mL (0.358-3.74); Triglycerides 143 mg/dL; Very Low Density Lipoprotein 29 mg/dL (5-40)
[2024-02-11] MEDS: Potassium Chloride 10mEq/100mL 10 MEQ/100 ML IV.SOLN. 100 MEQ IV BOLUS ×4 (05:57→09:24)
[2024-02-11 06:35] LABS: Partial Thromboplast Time 53.8 Seconds (24.1-36.2)
[2024-02-11] MEDS: 0.9% Saline Lock 10 ML Syringe IV ×3 (08:00→17:21)
[2024-02-11 09:15] LABS: Bacteria 0 SEEN /hpf (None Seen); Mucous, Urine 0 SEEN /hpf (<or=2+); Squamous Epithelial Cells - UA 0 SEEN /hpf (0-5)
[2024-02-11] MEDS: Furosemide 40 MG/4 ML Vial IV ×2 (09:20→17:21)
[2024-02-11 09:22] LABS: Color, Urine Yellow (Yellow); Glucose, Dipstick Normal (Normal); Ketone-Dipstick 50 mg/dl (Negative); Leukocyte Esterase-Dipstick 500 /ul (Negative); Nitrite-Dipstick Negative (Negative); Occult Blood-Urine 250 /ul (Negative); Protein-Dipstick 30 mg/dl (Negative); Specific Gravity, Urine 1.025 (1.002-1.030); Urine Bilirubin Dipstick Negative (Negative); Urine Clarity Sl. Cloudy (Clear); Urine Urobilinogen 1 mg/dl (Normal)
[2024-02-11] MEDS: Chlorhexidine 15 ML PO (09:27)
[2024-02-11 09:31] LABS: Red Blood Cells-Urine 10-25 SEEN /hpf (0-5)
[2024-02-11 09:32] LABS: Amorphous Sediment 1+; White Blood Cells 5-10 SEEN /hpf (0-5)
[2024-02-11] MEDS: HEPARIN/D5w 25,000 UNITS 25,000 UNITS/250 ML IV.SOLN. 12 UNITS CONT INF (10:54)
[2024-02-11] MEDS: Losartan Potassium 50 MG Tablet PO ×2 (10:55→20:49)
[2024-02-11] MEDS: Carvedilol 3.125 MG TABLET PO ×2 (10:55→20:49)
--- NOTE | 2024-02-11 10:56 | PCM.PN.HOSP ---
Reason for Visit Reason for Visit: Diagnoses Non-ST elevation (NSTEMI) myocardial infarction (02/10/24) Acute pulmonary edema (02/10/24) Respiratory failure, unspecified with hypoxia (02/10/24) Subjective Subjective Patient was seen and examined today, he was on the ventilator and he was alert, he responded appropriately to questions, I made the decision this morning to extubate the patient. I talked with cardiology briefly about his care. Objective Data Objective Data Vital Signs: Vital Signs Temp Pulse Resp BP Pulse Ox O2 Del Method O2 Flow Rate 99.1 F 107 H 12 131/87 H 95 Mechanical Ventilator 2 02/11/24 04:00 02/11/24 08:54 02/11/24 08:54 02/11/24 07:00 02/11/24 08:54 02/11/24 08:00 02/10/24 08:21 FiO2 30 02/11/24 08:00 Oxygen Flow Rate (L/min) 2 Oxygen Delivery Method Mechanical Ventilator Weight: 71.7 kg Body Mass Index (BMI) 25.1 Intake & Output: Intake and Output for Last 24 Hours 02/09/24 02/10/24 02/11/24 23:59 23:59 23:59 Intake Total 1575.96 / 1591.58 622.42 / 622.42 Output Total 3375 / 3375 250 / 250 Balance -1799.04 / -1783.42 372.42 / 372.42 Lab / Micro Data 02/11/24 04:00 02/11/24 04:00 Labs: Laboratory Results - last 24 hr 02/10/24 10:35: Phosphorus 4.1, Magnesium 2.4, Troponin I High Sens 934 H* 02/10/24 16:00: APTT Cancelled 02/10/24 16:05: POC Glucose 223 H 02/10/24 16:40: APTT 45.3 H 02/10/24 23:40: APTT 44.0 H 02/11/24 04:00: WBC 11.3 H, RBC 4.22 L, Hgb 13.0, Hct 39.9 L, MCV 94.5 H, MCH 30.8, MCHC 32.6, RDW Std Deviation 50.3 H, RDW Coeff of Gracie 14.7 H, Plt Count 183, MPV 12.1 H, Immature Gran % (Auto) 0.700, Neut % (Auto) 76.5 H, Lymph % (Auto) 12.1 L, [place] % (Auto) 9.4, Eos % (Auto) 0.9, Baso % (Auto) 0.4, Absolute Neuts (auto) 8.7 H, Absolute Lymphs (auto) 1.37, Nucleated RBC % 0, Sodium 142, Potassium 3.2 L, Chloride 109 H, Carbon Dioxide 26.0, Anion Gap 7, BUN 28 H, Creatinine 1.07, Estim Creat Clear Calc 55.49, Est GFR (MDRD) Af Amer 87, Est GFR (MDRD) Non-Af 72, BUN/Creatinine Ratio 26.2 H, Glucose 128 H, Calcium 8.2 L, Total Bilirubin 0.50, AST 177 H, ALT 58, Alkaline Phosphatase 96, Total Protein 5.7 L, Albumin 2.8 L, Globulin 2.9, Albumin/Globulin Ratio 1.0, Triglycerides 143, Cholesterol 137, LDL Cholesterol 71, VLDL Cholesterol 29, HDL Cholesterol 37 L, TSH 1.74 02/11/24 04:15: POC Glucose 116 H 02/11/24 06:15: APTT 53.8 H 02/11/24 09:05: Urine Color Yellow, Urine Clarity Sl. Cloudy, Urine pH 5.0, Ur Specific [place] 1.025, Urine Protein 30 H, Urine Glucose (UA) Normal, Urine Ketones 50 H, Urine Occult Blood 250 H, Urine Nitrite Negative, Urine Bilirubin Negative, Urine Urobilinogen 1 H, Ur Leukocyte Esterase 500 H, Urine RBC 10-25 SEEN, Urine WBC 5-10 SEEN, Ur Squamous Epith Cells 0 SEEN, Amorphous Sediment 1+, Urine Bacteria 0 SEEN, Urine Mucus 0 SEEN Micro: Microbiology 02/10/24 08:09 Sputum, Expectorated/Coughed Gram Stain - Final ABG Data ABG results: ABG 02/10/24 02/10/24 09:31 14:26 Specimen Type Cancelled ART Sample Site Cancelled R Radial pH Cancelled 7.44 Bicarbonate Actual Cancelled 22.7 Total CO2 Cancelled 24 Base Excess Cancelled -2 O2 Saturation Cancelled 96 O2 % Cancelled 30.0 ABG pCO2 Cancelled 33.2 L ABG pO2 Cancelled 76 Madi Test Cancelled Positive Respiration Rate Cancelled 16 O2 Delivery Device Cancelled Adult Vent Liter Flow Cancelled Minute Volume Cancelled Vent Mode Cancelled AC Inspiratory Time Cancelled Expiratory Time Cancelled Tidal Volume Cancelled 450.0 Mean Airway Pressure Cancelled POC PEEP Cancelled 5 Peak Inspir Pressure Cancelled POC Pressure Suppt Cancelled Pressure Control Cancelled Pressure High Cancelled Pressure Low Cancelled Time High Cancelled Time Low Cancelled EPAP Cancelled IPAP Cancelled Blood Gas Comments Cancelled Crit Call To/Read Back Cancelled Blood Gas Notified Whom Cancelled Blood Gas Notified Time Cancelled Clinical Comments Cancelled Physical Exam Const alert, oriented x3, no apparent distress and healthy appearing Constitutional Narrative: Patient is alert, he is remains on the ventilator at the time my examination, he is not sedated General Appearance: cooperative, well kempt and well developed Orientation / Consciousness: awake, oriented to person, oriented to place and oriented to time HEENT normocephalic and moist oral mucous membranes Eyes PERRL, EOMs intact bilaterally and conjunctivae normal Neck supple, no JVD, thyroid normal and no carotid bruits General: trachea midline Resp normal respiratory effort and clear to auscultation bilaterally Auscultation: Negative for rales, rhonchi or wheezes Cardio regular rate, regular rhythm, S1 normal heart sound, S2 normal heart sound, no murmurs, no rub and no gallops GI normal to inspection, nondistended, normoactive bowel sounds, soft to palpation, non-tender and non-distended Extremity no clubbing, cyanosis or edema Skin no rashes or lesions noted General Skin Exam: no breakdown Neuro oriented x3, CN's II-XII intact bilaterally, moves all extremities, no focal motor deficits and no sensory deficits noted Neuro Narrative: Patient is alert and on the ventilator, he responds appropriately Sensorium / Orientation: awake and alert Psych affect normal Assessment & Plan Assessment/Plan (1) Acute hypoxemic respiratory failure: PLAN: Plan 1. Acute hypoxic respiratory failure-felt to be secondary to flash pulmonary edema, again I have ordered the patient to be extubated today, will observe him ICU #2 flash pulmonary edema-cardiology is participating in his care-patient may undergo a heart catheterization tomorrow, he remains on IV diuresis #3 [id number] cardiology is participating in his care, he will most likely undergo cardiac catheterization tomorrow if he remains medically stable #4 essential hypertension-patient's blood pressure will be monitored and his medications will be adjusted as necessary #5 type 2 diabetes-patient's blood sugar will be monitored, sliding scale insulin will be administered as necessary #6 hypokalemia-patient was given IV potassium, labs will be monitored Total clinical time spent by myself addressing the patient's medical issues, reviewing all of his data, and collaborating with patient's care team: 35 minutes Charges/Coding Visit Charges Inpatient E&M: 56087 Subs Hosp L2
[2024-02-11] MEDS: Pantoprazole Sodium 40 MG in 0.9% Normal Saline (100mL MB+) 100 ML 330 MG IV (11:02)
[2024-02-11] MEDS: Insulin Lispro 100 UNIT/ML INSULN.PEN SC ×2 (11:03→16:07)
[2024-02-11] MEDS: Insulin Glargine-YFGN 100 UNIT/ML Pen 10 UNIT SC (11:04)
[2024-02-11 11:13] LABS: Bedside Glucose 113 mg/dL (74-106)
[2024-02-11 11:25] LABS: Bedside Glucose 179 mg/dL (74-106)
--- NOTE | 2024-02-11 12:26 | PN.CC_ITS ---
Objective Data Objective Data Vital Signs: Vital Signs Last response 3 Temperature 37.1 C 02/11/24 12:00 Temperature Source Temporal 02/11/24 12:00 Pulse Rate 100 02/11/24 12:00 Respiratory Rate 19 H 02/11/24 12:00 Respiratory Effort Normal 02/11/24 12:00 Respiratory Depth Normal 02/11/24 12:00 Respiratory Pattern Normal 02/11/24 12:00 Blood Pressure 126/79 H 02/11/24 12:00 Blood Pressure Mean 94 02/11/24 12:00 Blood Pressure Source Monitor 02/11/24 12:00 Blood Pressure Position Sitting 02/11/24 12:00 Blood Pressure Location Left Arm 02/11/24 12:00 Pulse Ox 96 02/11/24 12:00 Oxygen Delivery Method Room Air 02/11/24 12:00 Oxygen Flow Rate (L/min) 2 02/11/24 11:00 Fraction of Inspired Oxygen (FIO2) 25 02/11/24 09:00 I&O: I&O Last 24 Hours 3 02/10/24 02/11/24 02/11/24 23:59 11:59 23:59 Intake Total 567.03 / 1591.58 783.03 / 1143.03 360 / 1143.03 Output Total 3375 / 3375 250 / 1650 1400 / 1650 Balance -2807.97 / -1783.42 533.03 / -506.97 -1040 / -506.97 I&O: Total Stay 3 02/10/24 08:11 thru 02/11/24 12:00 Intake Total 2718.99 Output Total 5025 Balance -2306.01 Current Meds Ordered / Administered: Current meds ordered / Administered 3 Generic Name Dose Route Start Last Admin Trade Name Freq PRN Reason Stop Dose Admin Acetaminophen 650 mg 02/10/24 12:57 Acetaminophen 325 Mg Tablet PO Q6H PRN PRN Pain 1-10 Or Fever >100.7 Atorvastatin Calcium 40 mg 02/10/24 22:00 02/10/24 21:27 Atorvastatin Calcium 40 Mg Tablet PO 40 mg QHS BLACK Administration Carvedilol 3.125 mg 02/10/24 22:00 02/11/24 10:55 Carvedilol 3.125 Mg Tablet PO 3.125 mg BID BLACK Administration Furosemide 40 mg 02/10/24 18:00 02/11/24 09:20 Furosemide 40 Mg/4 Ml Vial IV 40 mg BID@1000,1800 BLACK Administration Heparin Sodium (Porcine) 0 unit 02/10/24 10:20 Heparin Injection (Vial) 5,000 Unit/Ml Vial IV UD PRN dose adjustment Protocol Sodium Chloride 250 mls @ 15 mls/hr 02/10/24 13:06 IV .[id number] PRN Additional IVPB Infusion Sodium Chloride 250 mls @ 15 mls/hr 02/10/24 13:06 IV .[id number] PRN Saline Flush Pantoprazole Sodium 40 mg/ 110 mls @ 330 mls/hr 02/10/24 16:55 02/11/24 11:02 Sodium Chloride IV 330 mls/hr Q24 BLACK Administration Insulin Glargine 10 unit 02/10/24 16:35 02/11/24 11:04 Insulin Glargine-Yfgn 100 Unit/Ml Pen SC 10 unit DAILY BLACK Administration Insulin Human Lispro 0 unit 02/10/24 18:00 02/11/24 11:03 Insulin Lispro 100 Unit/Ml Insuln.Pen SC 2 units Q6 BLACK Administration Protocol Losartan Potassium 50 mg 02/11/24 10:25 02/11/24 10:55 Losartan Potassium 50 Mg Tablet PO 50 mg BID BLACK Administration Protocol Nitroglycerin 0.4 mg 02/10/24 12:57 Nitroglycerin (Inpatient Use) 0.4 Mg Tab.Subl SL Q5M PRN CARDIAC/CHEST PAIN Prochlorperazine Edisylate 5 mg 02/10/24 12:57 Prochlorperazine 10 Mg/2 Ml Vial IV Q4H PRN PRN Breakthrough Nausea/Vomiting Sodium Chloride 10 - 40 ml 02/10/24 13:06 02/11/24 09:23 0.9% Saline Lock 10 Ml Syringe IV 10 ml UD PRN Administration SALINE FLUSH Lab / Micro Data Attestation: I reviewed the patient's lab results. 02/11/24 04:00 02/11/24 04:00 Labs: Laboratory Results - last 24 hr 02/10/24 16:00: APTT Cancelled 02/10/24 16:05: POC Glucose 223 H 02/10/24 16:40: APTT 45.3 H 02/10/24 23:08: POC Glucose 113 H 02/10/24 23:40: APTT 44.0 H 02/11/24 04:00: WBC 11.3 H, RBC 4.22 L, Hgb 13.0, Hct 39.9 L, MCV 94.5 H, MCH 30.8, MCHC 32.6, RDW Std Deviation 50.3 H, RDW Coeff of Gracie 14.7 H, Plt Count 183, MPV 12.1 H, Immature Gran % (Auto) 0.700, Neut % (Auto) 76.5 H, Lymph % (Auto) 12.1 L, [place] % (Auto) 9.4, Eos % (Auto) 0.9, Baso % (Auto) 0.4, Absolute Neuts (auto) 8.7 H, Absolute Lymphs (auto) 1.37, Nucleated RBC % 0, Sodium 142, Potassium 3.2 L, Chloride 109 H, Carbon Dioxide 26.0, Anion Gap 7, BUN 28 H, Creatinine 1.07, Estim Creat Clear Calc 55.49, Est GFR (MDRD) Af Amer 87, Est GFR (MDRD) Non-Af 72, BUN/Creatinine Ratio 26.2 H, Glucose 128 H, Calcium 8.2 L, Total Bilirubin 0.50, AST 177 H, ALT 58, Alkaline Phosphatase 96, Total Protein 5.7 L, Albumin 2.8 L, Globulin 2.9, Albumin/Globulin Ratio 1.0, Triglycerides 143, Cholesterol 137, LDL Cholesterol 71, VLDL Cholesterol 29, HDL Cholesterol 37 L, TSH 1.74 02/11/24 04:15: POC Glucose 116 H 02/11/24 06:15: APTT 53.8 H 02/11/24 09:05: Urine Color Yellow, Urine Clarity Sl. Cloudy, Urine pH 5.0, Ur Specific [place] 1.025, Urine Protein 30 H, Urine Glucose (UA) Normal, Urine Ketones 50 H, Urine Occult Blood 250 H, Urine Nitrite Negative, Urine Bilirubin Negative, Urine Urobilinogen 1 H, Ur Leukocyte Esterase 500 H, Urine RBC 10-25 SEEN, Urine WBC 5-10 SEEN, Ur Squamous Epith Cells 0 SEEN, Amorphous Sediment 1+, Urine Bacteria 0 SEEN, Urine Mucus 0 SEEN 02/11/24 11:03: POC Glucose 179 H Micro: Microbiology 02/10/24 08:09 Sputum, Expectorated/Coughed Gram Stain - Final ABG Data ABG results: ABG 02/10/24 02/10/24 09:31 14:26 Specimen Type Cancelled ART Sample Site Cancelled R Radial pH Cancelled 7.44 Bicarbonate Actual Cancelled 22.7 Total CO2 Cancelled 24 Base Excess Cancelled -2 O2 Saturation Cancelled 96 O2 % Cancelled 30.0 ABG pCO2 Cancelled 33.2 L ABG pO2 Cancelled 76 Madi Test Cancelled Positive Respiration Rate Cancelled 16 O2 Delivery Device Cancelled Adult Vent Liter Flow Cancelled Minute Volume Cancelled Vent Mode Cancelled AC Inspiratory Time Cancelled Expiratory Time Cancelled Tidal Volume Cancelled 450.0 Mean Airway Pressure Cancelled POC PEEP Cancelled 5 Peak Inspir Pressure Cancelled POC Pressure Suppt Cancelled Pressure Control Cancelled Pressure High Cancelled Pressure Low Cancelled Time High Cancelled Time Low Cancelled EPAP Cancelled IPAP Cancelled Blood Gas Comments Cancelled Crit Call To/Read Back Cancelled Blood Gas Notified Whom Cancelled Blood Gas Notified Time Cancelled Clinical Comments Cancelled Assessment and Plan . Assessment and plan: #acute respiratory failure in the setting of bilateral infiltrates, likely edema #NSTEMI #acute pulmonary edema #diabetes Suggest: 1. SBT anticipate extubation shortly 2. standard ICU px 3. Risk stratification/ LHC per Cards Discussed acer with staff. No family at bedside this AM Critical Care Time: 50 minutes The entirety of this encounter was done via Telemedicine Physical Exam Const alert General Appearance: patient mechanically ventilated HEENT head/scalp atraumatic Neck full ROM and no JVD Resp Auscultation: clear to auscultation bilaterally Cardio regular rate Subjective Subjective Improved globally; awake, alert nodding with ETT in place
[2024-02-11 16:28] LABS: Bedside Glucose 207 mg/dL (74-106)
[2024-02-12] VITALS (14 sets, daily range): BP systolic 100–139; BP diastolic 48–97; PULSE 68–89; RESP 15–19; TEMP 36.7–37; O2SAT 91–99
[2024-02-12 00:22] LABS: Bedside Glucose 146 mg/dL (74-106)
[2024-02-12 05:50] LABS: Anion Gap 6 (5-15); BUN 30 mg/dL (7-18); BUN/Creat Ratio 29.7 RATIO (10-20); Calcium,Total 8.5 mg/dL (8.5-10.1); Chloride 107 mmol/L (98-107); Creatinine, Serum 1.01 mg/dL (0.70-1.30); EST Glomerular Filtration Rate 77 mL/min (>60); Est Glom Filt Rate - Afr Amer 93 mL/min (>60); Estimated Creatinine Clearance 58.78 ml/min; Glucose 131 mg/dL (74-106); Potassium 3.1 mmol/L (3.5-5.1); Sodium Level 139 mmol/L (136-145)
[2024-02-12 05:52] LABS: Bedside Glucose 146 mg/dL (74-106)
--- NOTE | 2024-02-12 08:12 | DCINST_ITS ---
Discharge Instructions Diet Discharge Diet: 1800 Calorie Control Diet Activity Discharge Activity: Return to Normal Activity Weight Bearing Status: Full weight bearing Follow Up Care Test Results: Test results from this visit will be discussed in further detail at your follow- up appointment, if applicable. Discharge Plan Admission Admit Date/Time: 02/10/24 10:47 Primary Reason for Your Visit: respiratory failure, NSTEMI Attending Provider: Milton Navarro Primary Care Provider: Dawna Ashley Consulting Providers: Maikel Hargrove; Nick Olsen Instructions Additional Instructions / Restrictions: Take aspirin 81 mg daily Discharge Orders/Prescriptions Prescriptions: New losartan 50 mg Tablet 50 mg PO BID Qty: 60 0RF carvedilol 3.125 mg Tablet 3.125 mg PO BID Qty: 60 0RF atorvastatin [Lipitor] 20 mg tablet 20 mg PO DAILY Qty: 30 0RF furosemide [Lasix] 40 mg tablet 40 mg PO DAILY Qty: 30 0RF Continued prednisone 5 mg tablet 5 mg PO QDAY losartan 100 mg tablet 50 mg PO QDAY nitroglycerin 0.4 mg/hr patch 24 hour 1 patch topical QDAY niacin 500 mg tablet 500 mg PO DAILY magnesium oxide 400 mg magnesium tablet 400 mg PO DAILY methotrexate (PF) 25 mg/0.4 mL auto-injector 25 mg subcut QWEEK ascorbic acid (vitamin C) 1,000 mg capsule 1 g PO DAILY Discontinued Jardiance 10 mg tablet 10 mg PO DAILY Qty: 30 5RF Referrals / Follow Up: Dawna Ashley MD [Primary Care Provider] - See Referral Note (This week) Disposition Disposition (needs filled in before D/C Order can be placed): Home, Self Care
[2024-02-12] MEDS: Potassium Chloride Oral Tablet 20 MEQ 40 MEQ PO (08:33)
[2024-02-12] MEDS: Losartan Potassium 50 MG Tablet PO (08:38)
[2024-02-12] MEDS: Carvedilol 3.125 MG TABLET PO (08:38)
--- NOTE | 2024-02-12 08:51 | PCM.DC.SUM ---
Providers Date of Admission: 02/10/24 Date of Discharge: 02/12/24 Primary Care Physician: Dawna Ashley MD Consultations 02/10/24 12:57 Consult: Cardiology Routine Consulting Provider: Maikel Hargrove Reason for Consult: Chest Pain/NSTEMI EMERGENT Consult: No Notified: Yes Date Notified: 02/10/24 Time Notified: 10:53 Method of Notification: ED Physician Initiated Consult: Director Of Learning / Pulmonary Medicine Routine Consulting Provider: Intensivists/Pulmonary Med Reason for Consult: VENT management, inbtubated EMERGENT Consult: No Notified: Yes Date Notified: 02/10/24 Time Notified: 10:58 Method of Notification: Verbal Reason For Visit: ACUTE HYPOXIC RESPIRATORY FAILURE DUE TO PULMONARY Diagnosis Discharge Diagnosis (1) Acute hypoxemic respiratory failure: Status: Acute Code(s): J96.01 - Acute respiratory failure with hypoxia Plan 1. Acute hypoxic respiratory failure-felt to be secondary to flash pulmonary edema, again I have ordered the patient to be extubated today, will observe him ICU #2 flash pulmonary edema-cardiology is participating in his care-patient may undergo a heart catheterization tomorrow, he remains on IV diuresis #3 [id number] cardiology is participating in his care, he will most likely undergo cardiac catheterization tomorrow if he remains medically stable #4 essential hypertension-patient's blood pressure will be monitored and his medications will be adjusted as necessary #5 type 2 diabetes-patient's blood sugar will be monitored, sliding scale insulin will be administered as necessary #6 hypokalemia-patient was given IV potassium, labs will be monitored #7 acute congestive heart failure with pulmonary edema-ejection fraction unknown due to patient's refusal to undergo echocardiogram. Total clinical time spent by myself addressing the patient's medical issues, reviewing all of his data, and collaborating with patient's care team: 35 minutes Medications at Discharge Home Medications ascorbic acid (vitamin C) 1,000 mg capsule 1 g PO DAILY [facility] 02/08/24 losartan 100 mg tablet 50 mg PO QDAY heart 02/08/24 magnesium oxide 400 mg PO DAILY [facility] 02/08/24 methotrexate (PF) 25 mg/0.4 mL subcutaneous auto-injector 25 mg subcut QWEEK rheumatiod arthritis 02/08/24 niacin 500 mg tablet 500 mg PO DAILY [facility] 02/08/24 nitroglycerin 0.4 mg/hr transdermal 24 hour patch 1 patch topical QDAY heart 02/08/24 prednisone 5 mg tablet 5 mg PO QDAY rheumatoid arthritis 02/08/24 atorvastatin 20 mg tablet (Lipitor) 20 mg PO DAILY #30 tabs 02/12/24 carvedilol 3.125 mg tablet 3.125 mg PO BID #60 tabs 02/12/24 furosemide 40 mg tablet (Lasix) 40 mg PO DAILY #30 tabs 02/12/24 losartan 50 mg tablet 50 mg PO BID #60 tabs 02/12/24 Hospital Course Operations None Procedures None Summary of Care Provided Minutes Spent on Discharge: 32 Hospital Course: This 73-year-old white male was seen in the emergency room at [facility] with complaints of shortness of breath, during his emergency room evaluation, he became more acutely short of breath and had to be emergently intubated. Patient's chest x-ray showed pulmonary edema, patient's cardiac enzymes were elevated, patient's beta nitric peptide was elevated. CTA of the chest was performed that showed no demonstrated pulmonary embolism or arterial dissection, there is bilateral groundglass and patchy opacities concerning for edema, there is also noted to be bilateral pleural effusions. Patient was admitted to ICU, he was seen in consultation by critical care and was given IV diuresis. Patient was seen in consultation by cardiology, his blood pressure medications were adjusted and additional cardiac enzymes were obtained which were elevated. It was felt that the patient did have a non-STEMI. On 02/11/2024, patient appeared to be stable for extubation, he underwent extubation that day and did well off the ventilator. The plans were for the patient undergo cardiac catheterization, however, on 02/12/2024, patient stated that he did not wish to undergo any more testing and did not wish to undergo a cardiac catheterization or an echocardiogram. He preferred to follow-up with his physician for a second opinion. On 02/12/2024, patient was seen and examined: On examination he appeared in good health and spirits. Vital signs as documented. Skin warm and dry and without overt rashes. Neck without JVD, neck was supple, trachea midline, thyroid was normal. Lungs clear bilaterally, normal air movement was noted. Heart exam notable for regular rhythm, normal sounds and absence of murmurs, rubs or gallops. Abdomen unremarkable and without evidence of organomegaly, masses, or abdominal aortic enlargement. Bowel sounds are present, abdomen is not distended. Extremities nonedematous, no cyanosis was noted, no clubbing was noted. Neuro: Cranial nerves II through XII are grossly intact, no focal motor deficits were noted, sensation to light touch and pinprick intact, motor exam 5/5 throughout. Psych: Patient is alert and oriented x3, he does not appear anxious or depressed, he does not appear agitated. Patient was felt to be stable for discharge home on 02/12/2024, patient appeared aware of the consequences of not undergoing further testing while he was in the hospital here, he was instructed to follow-up this week with his PCP for further recommendations. Weight / BMI Weight Weight: 71.7 kg Body Mass Index (BMI) 25.1 ABG / Lab / Microbiology Data 02/11/24 04:00 02/12/24 05:24 Laboratory: Laboratory Results - last 24 hr 02/10/24 23:08: POC Glucose 113 H 02/11/24 09:05: Urine Color Yellow, Urine Clarity Sl. Cloudy, Urine pH 5.0, Ur Specific [place] 1.025, Urine Protein 30 H, Urine Glucose (UA) Normal, Urine Ketones 50 H, Urine Occult Blood 250 H, Urine Nitrite Negative, Urine Bilirubin Negative, Urine Urobilinogen 1 H, Ur Leukocyte Esterase 500 H, Urine RBC 10-25 SEEN, Urine WBC 5-10 SEEN, Ur Squamous Epith Cells 0 SEEN, Amorphous Sediment 1+, Urine Bacteria 0 SEEN, Urine Mucus 0 SEEN 02/11/24 11:03: POC Glucose 179 H 02/11/24 16:05: POC Glucose 207 H 02/12/24 00:02: POC Glucose 146 H 02/12/24 05:24: Sodium 139, Potassium 3.1 L, Chloride 107, Carbon Dioxide 26.0, Anion Gap 6, BUN 30 H, Creatinine 1.01, Estim Creat Clear Calc 58.78, Est GFR (MDRD) Af Amer 93, Est GFR (MDRD) Non-Af 77, BUN/Creatinine Ratio 29.7 H, Glucose 131 H, Calcium 8.5 02/12/24 05:34: POC Glucose 146 H Microbiology: Microbiology 02/10/24 08:09 Sputum, Expectorated/Coughed Gram Stain - Final D/C Instructions Discharge Diet: 1800 Calorie Control Diet Weight Bearing Status: Full weight bearing Meaningful Use Info Meaningful Use Meaningful Use Diagnoses (Choose all that apply): AMI and CHF AMI/Post PCI/Angioplasty Aspirin given w/in 24hrs of arrival?: Yes ASA at discharge?: Yes Antiplatelet Therapy at Discharge:: Yes Statins at discharge?: Yes Mark/ARB at discharge?: Yes Beta Angelic at discharge?: Yes Done w/ Acute [place] measure.: Yes CHF MARK/ARB ordered at discharge?: Yes Documented LVEF (%): 0 Ischemic Stroke Statin Dosing Therapy Reference: STATIN DOSE THERAPY REFERENCE: * Patients > 75 years receive moderate or high dose statin therapy. * Patients 75 years or YOUNGER should receive HIGH intensity statin dose unless contraindicated. You will be required to document reason for non-treatment if statin daily dose does not meet guidelines. HIGH DOSE STATIN THERAPY DAILY Atorvastatin > than or = to 40 mg Rosuvastatin > than or = to 20 mg Amlodipine + Atorvastatin > than or = to 2.5/40 mg Ezetimibe + Simvastatin 10/80 mg Simvastatin 80mg Discharge Plan Admission Admit Date/Time: 02/10/24 10:47 Primary Reason for Your Visit: respiratory failure, NSTEMI Attending Provider: Milton Navarro Primary Care Provider: Dawna Ashley Consulting Providers: Maikel Hargrove; Nick Olsen Instructions Additional Instructions / Restrictions: Take aspirin 81 mg daily Discharge Orders/Prescriptions Prescriptions: New losartan 50 mg Tablet 50 mg PO BID Qty: 60 0RF carvedilol 3.125 mg Tablet 3.125 mg PO BID Qty: 60 0RF atorvastatin [Lipitor] 20 mg tablet 20 mg PO DAILY Qty: 30 0RF furosemide [Lasix] 40 mg tablet 40 mg PO DAILY Qty: 30 0RF Continued prednisone 5 mg tablet 5 mg PO QDAY losartan 100 mg tablet 50 mg PO QDAY nitroglycerin 0.4 mg/hr patch 24 hour 1 patch topical QDAY niacin 500 mg tablet 500 mg PO DAILY magnesium oxide 400 mg magnesium tablet 400 mg PO DAILY methotrexate (PF) 25 mg/0.4 mL auto-injector 25 mg subcut QWEEK ascorbic acid (vitamin C) 1,000 mg capsule 1 g PO DAILY Discontinued Jardiance 10 mg tablet 10 mg PO DAILY Qty: 30 5RF Referrals / Follow Up: Dawna Ashley MD [Primary Care Provider] - See Referral Note (This week) Disposition Disposition (needs filled in before D/C Order can be placed): Home, Self Care Charges/Coding Visit Charges Inpatient E&M: 58667 Disch Hosp >30min
--- NOTE | 2024-02-12 09:40 | CASEMGMT ---
RN CM Face to Face with patient for initial transition planning/care coordination assessment. RN CM introduced self and role at [facility]. Patient sitting in chair, alert and oriented. Patient willing to participate in assessment and is able to answer all questions appropriately. Care providers, pharmacy, and demographics verified. PCP: Gabi Specialists: , Data Conversion Operator; Zeina Benjamin, RA Preferred Pharmacy: [facility] Insurance: [place], [facility] Prescription Benefit: yes Living Will/HPOA: yes, daughterStacey LNOK: daughter, son Living Arrangements: Patient lives alone in a 2 story home with bed and bath on first floor, ramp to enter the home. Patient is independent Transportation: self, friends DME/HHC: Patient states he has shower chair, crutches, and glucometer with supplies at home. No previous HHC or SNF Patient wishes to discharge home, denies need for home health at this time. Patient states he has no further needs or concerns at this time. CM to follow for discharge planning needs that may arise. Disposition Plan: Patient to discharge home with family support and follow-up plans in place. Nicolette MCINTOSH, RN, CM
== END 2024-02-12 10:54 | disposition home or self-care (01) | DRG 208 ==
LOC: ED 10:57 → ICU 11:39
PROVIDERS: Admitting Provider Internal Medicine; Emergency Provider Emergency Medicine; PCP Family Medicine; Visit Provider Internal Medicine
DX: J96.01 Acute respiratory failure with hypoxia (principal); I21.4 Non-ST elevation (NSTEMI) myocardial infarction; I16.1 Hypertensive emergency; I11.0 Hypertensive heart disease with heart failure; I50.9 Heart failure, unspecified; E11.9 Type 2 diabetes mellitus without complications; J45.909 Unspecified asthma, uncomplicated; J96.02 Acute respiratory failure with hypercapnia; E87.6 Hypokalemia; Z79.84 Long term (current) use of oral hypoglycemic drugs; Z79.899 Other long term (current) drug therapy
CPT/HCPCS: 31500; 31720; 36600; 51702; 71045; 71275; 74018; 80048; 80053; 80061; 81001; 82550; 82803; 82962; 83735; 83880; 84100; 84443; 84478; 84484; 85025; 85610; 85730; 87070; 87086; 87205; 93005; 94002; 94003; 94660; 94668; 94762; 97162; 97802; 99252; 99285; J7030; Q9967; A4216; G0463; J1940

== ENCOUNTER → 2024-02-23 | Outpatient (CLI) | payer MEDICARE, SELFPAY ==
[2024-02-23 11:59] LABS: Anion Gap 5 (5-15); BUN 27 mg/dL (7-18); BUN/Creat Ratio 23.7 RATIO (10-20); Calcium,Total 9.6 mg/dL (8.5-10.1); Chloride 106 mmol/L (98-107); Creatinine, Serum 1.14 mg/dL (0.70-1.30); EST Glomerular Filtration Rate 67 mL/min (>60); Est Glom Filt Rate - Afr Amer 81 mL/min (>60); Glucose 223 mg/dL (74-106); Potassium 4.6 mmol/L (3.5-5.1); Sodium Level 138 mmol/L (136-145)
== END | disposition home or self-care (01) ==
LOC: LAB 10:18
PROVIDERS: PCP Family Medicine; Referring Provider Physician Assistant Medical; Visit Provider Physician Assistant Medical
DX: E87.6 Hypokalemia (principal)
CPT/HCPCS: 36415; 80048

== ENCOUNTER → 2024-03-08 | Outpatient (CLI) | payer MEDICARE, SELFPAY ==
--- NOTE | 2024-03-08 09:48 | ECHOCS_ITS ---
Reason For Study: NSTEMI Procedure This was a 2D Doppler, Color Flow transthoracic echocardiogram. The study was technically difficult. Contrast injection was performed. Exam performed in department. Left Ventricle Normal LV size. Mild concentric left ventricular hypertrophy. Mid to distal septal and apical hypokinesis. Estimated left ventricular systolic ejection fraction 35%. Right Ventricle Normal right ventricle. Atria The left atrium is mildly enlarged. Normal right atrium. Mitral Valve Mild (1+) mitral valve insufficiency. Tricuspid Valve Trivial tricuspid valve insufficiency. Unable to estimate RV systolic pressure due to insufficient tricuspid regurgitant envelope. Aortic Valve Trisinus/trileaflet aortic valve. Mild (1+) aortic valve insufficiency. Pulmonic Valve The pulmonic valve is not well visualized. Great Vessels Normal sized aortic root. Pericardium/Pleural No pericardial effusion. Medication 22 gauge I.V. with prn adaptor inserted into right arm. Diluted definity 1.5ml given slow IV push to enhance endocardial definition. MMode/2D Measurements & Calculations LVIDd: 5.0 cm IVSd: 1.6 cm LVOT diam: 1.8 cm LVIDs: 3.6 cm LVPWd: 1.4 cm RVDd: 2.6 cm FS: 28.2 % LVOT area: 2.6 cm2 Ao root diam: 3.4 cm LAV(MOD-bp): 43.2 ml LVAd ap4: 39.9 cm2 LAV(MOD-bp) Indexed: 23.6 ml/m2 LVLd ap4: 8.2 cm LAV(MOD-sp2): 42.3 ml EDV(MOD-sp4): 154.0 ml LAV(MOD-sp4): 41.0 ml EDV(sp4-el): 163.7 ml LVAs ap4: 31.0 cm2 LVLs ap4: 7.6 cm ESV(MOD-sp4): 98.7 ml ESV(sp4-el): 107.3 ml EF(MOD-sp4): 35.9 % EF(sp4-el): 34.4 % SV(MOD-sp4): 55.3 ml SV(sp4-el): 56.3 ml LA A4 area: 15.5 cm2 LA dimension(2D): 4.0 cm RA A4 area: 9.5 cm2 TAPSE: 2.2 cm Time Measurements MV dec time: 0.18 sec Doppler Measurements & Calculations MV E max jacob: 73.0 cm/sec Lat Peak E' Jacob: 7.2 cm/sec Med Peak E' Jacob: 6.0 cm/sec MV A max jacob: 80.8 cm/sec E/E' lat: 10.2 E/E' med: 12.3 MV E/A: 0.90 MV V2 max: 109.5 cm/sec MV dec slope: 399.8 cm/sec2 Ao V2 max: 119.4 cm/sec MV max P.8 mmHg Ao max P.7 mmHg MV V2 mean: 54.5 cm/sec Ao V2 mean: 79.4 cm/sec MV mean P.5 mmHg Ao mean P.0 mmHg MV V2 VTI: 23.0 cm Ao V2 VTI: 23.4 cm MVA(VTI): 2.2 cm2 AV (velocity ratio): 0.81 GAGAN(I,D): 2.1 cm2 GAGAN(V,D): 2.1 cm2 AI max jacob: 472.6 cm/sec LV V1 max: 94.9 cm/sec SV(LVOT): 49.8 ml AI max P.3 mmHg LV V1 max P.6 mmHg LV V1 mean P.8 mmHg AI dec slope: 382.6 cm/sec2 LV V1 mean: 62.9 cm/sec AI P1/2t: 361.8 msec LV V1 VTI: 18.8 cm PA V2 max: 123.7 cm/sec PA V2 mean: 87.1 cm/sec ECHO/Echo Complete W/ Contrast Interpretation Summary Mid to distal septal and apical hypokinesis. Estimated left ventricular systoli c ejection fraction 35-40%%. The left atrium is mildly enlarged. Mild (1+) mitral valve insufficiency. Mild (1+) aortic valve insufficiency. Ordering Physician: Dawna Ashley Referring Physician: Dawna Ashley Performed By: Rebecca Shultz RCS
== END | disposition home or self-care (01) ==
PROVIDERS: PCP Family Medicine; Referring Provider Family Medicine; Visit Provider Family Medicine
DX: I21.4 Non-ST elevation (NSTEMI) myocardial infarction (principal); J81.1 Chronic pulmonary edema
CPT/HCPCS: 93306; Q9957; A4216; C8929

== ENCOUNTER 2024-04-27 23:05 | Inpatient (IN) | payer OTHER, SELFPAY ==
[2024-04-27 23:05] VITALS: BP 200/127; PULSE 127; RESP 26; TEMP 37.1; O2SAT 99; BMI 27.4
[2024-04-27 23:07] VITALS: BP 200/127; PULSE 127; RESP 18; TEMP 36.9; O2SAT 99
--- NOTE | 2024-04-27 23:09 | EKG12_ITS ---
Test Reason : REPEAT Blood Pressure : / mmHG Vent. Rate : 135 BPM Atrial Rate : 000 BPM P-R Int : 000 ms QRS Dur : 082 ms QT Int : 294 ms P-R-T Axes : 000 045 153 degrees QTc Int : 441 ms Atrial fibrillation with rapid ventricular response Minimal voltage criteria for LVH, may be normal variant ( Sokolow-Floyd ) Anteroseptal infarct , age undetermined Marked ST abnormality, possible lateral subendocardial injury Abnormal ECG Confirmed by Jimi Chavez ([id number]), editorial cartoonist TOSHIA MAGALLON ([id number]) on 04/29/2024 9:39:39 AM Referred By: SERGEI Confirmed By:Jimi Chavez
[2024-04-27 23:25] VITALS: PULSE 158; RESP 12; RESP 38; O2SAT 97
--- NOTE | 2024-04-27 23:35 | RAD_ITS ---
EXAM: XR CHEST, 1 VIEW CLINICAL INDICATION: chest pain chest pain TECHNIQUE: Frontal view of the chest. COMPARISON: Chest x-ray 02/10/2024 and 04/19/2022. FINDINGS: LUNGS AND PLEURAL SPACES: There are chronic fibrotic changes left lower lung field. There are bilateral interstitial and airspace infiltrates which probably represent CHF with pulmonary edema. Inflammatory or atypical infectious process is thought to be less likely but is not entirely excluded. No pneumothorax. No effusion. HEART: Unremarkable. Cardiac silhouette not enlarged. MEDIASTINUM: Central airways and mediastinal contour are unremarkable. BONES/JOINTS: There are multilevel degenerative changes in the visualized spine. No acute fracture. SOFT TISSUES: Unremarkable. VASCULATURE: There is atherosclerotic calcification of the aortic arch. RAD/Chest 1 View (Portable) IMPRESSION: Bilateral pulmonary infiltrates, probably representing pulmonary edema. Electronically Signed: James Lozada MD at 2:07 EDT Reading Location ID and State: [facility] / [place] , Service support ,
[2024-04-27] MEDS: Nitroglycerin SL (ED/IMG/CATH) 0.4 MG TABLET SL (23:39)
[2024-04-27] MEDS: Furosemide 40 MG/4 ML Vial IV (23:39)
[2024-04-27 23:50] VITALS: O2SAT 99
[2024-04-28] VITALS (45 sets, daily range): BP systolic 115–202; BP diastolic 74–167; PULSE 71–175; RESP 10–29; TEMP 36.6–37.2; O2SAT 93–100; BMI 26.2
[2024-04-28 00:03] LABS: Anion Gap 7 (5-15); BUN 30 mg/dL (7-18); BUN/Creat Ratio 25.6 RATIO (10-20); Calcium,Total 9.8 mg/dL (8.5-10.1); Chloride 105 mmol/L (98-107); Creatinine, Serum 1.17 mg/dL (0.70-1.30); EST Glomerular Filtration Rate 65 mL/min (>60); Est Glom Filt Rate - Afr Amer 79 mL/min (>60); Estimated Creatinine Clearance 55.01 ml/min; Glucose 267 mg/dL (74-106); Magnesium 2.1 mg/dL (1.6-2.6); Potassium 3.7 mmol/L (3.5-5.1); Sodium Level 137 mmol/L (136-145)
[2024-04-28] MEDS: Captopril 12.5 MG Tablet PO (00:03)
[2024-04-28 00:18] LABS: Absolute Lymphocyte Count 2.89 X10^3/uL (0.83-4.51); Absolute Neutrophil Count 7.6 X10^3/uL (2.0-7.7); Basophil# 0.09 X10^3/uL; Basophil% 0.7 % (0-1); Eosinophil# 0.33 X10^3/uL; Eosinophils% 2.6 % (0-5); Hematocrit 44.5 % (40-54); Hemoglobin 14.2 g/dL (13.0-16.5); Lymphocyte # 2.89 X10^3/ul (0.83-4.51); Lymphocyte % 22.8 % (19-41); Mean Corp Hgb Conc 31.9 g/dL (32-36); Mean Corpuscular Hgb 31.7 pg (27.0-32.0); Mean Corpuscular Volume 99.3 fL (80-94); Mean Platelet Vol. 12.3 fl (6.2-12.0); Monocyte# 1.61 X10^3/uL; Monocyte% 12.7 % (0-10); NRBC Flagged by Analyzer 0 % (0-5); Neutrophil # 7.63 X10^3/uL (2.7-7.7); Neutrophil % 60.2 % (47-70); POSITIVE DIFFERENTIAL YES; Platelet Count 252 K/mm3 (150-450); RBC Distribution Width CV 14.6 % (11.6-14.6); RBC Distribution Width SD 52.1 fl (35.1-43.9); Red Blood Count 4.48 M/mm3 (4.6-6.2); White Blood Count 12.7 K/mm3 (4.4-11.0)
[2024-04-28 00:29] LABS: Differential Indicated SCAN CRITERIA MET
--- NOTE | 2024-04-28 00:39 | EKG12_ITS ---
Test Reason : TACHY Blood Pressure : / mmHG Vent. Rate : 135 BPM Atrial Rate : 135 BPM P-R Int : 152 ms QRS Dur : 086 ms QT Int : 278 ms P-R-T Axes : 068 058 051 degrees QTc Int : 417 ms Sinus tachycardia Possible Left atrial enlargement Minimal voltage criteria for LVH, may be normal variant ( Sokolow-Floyd ) Nonspecific ST and T wave abnormality Abnormal ECG Confirmed by Jimi Chavez ([id number]), avid editor TOSHIA MAGALLON ([id number]) on 04/30/2024 8:32:18 AM Referred By: SERGEI Confirmed By:Jimi Chavez
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
[2024-04-28 00:50] LABS: BNP,B-Type NATRIURETIC PEPTIDE 252.8 pg/mL (0-100)
--- NOTE | 2024-04-28 01:03 | ED.RN ---
HOME NITRO PATCH REMOVED AT THIS TIME. SITE CLEAN, DRY, INTACT.
[2024-04-28] MEDS: Nitroglycerin Infusion 250 ML 3 MG CONT INF (01:07)
[2024-04-28] MEDS: APIXABAN 5 MG TABLET PO (01:07)
[2024-04-28 01:08] LABS: Differential Comment SCANNED
[2024-04-28] MEDS: Diltiazem 125 MG in Dextrose 5%-Water (100mL Bag) 100 ML IV (01:13)
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
--- NOTE | 2024-04-28 02:24 | ED.RN ---
Report called to ICU nurse, Noé, at this time. No further questions by the receiving nurse, they are ready for the pt.
--- NOTE | 2024-04-28 02:36 | RAD_ITS ---
EXAM: XR CHEST, 1 VIEW CLINICAL INDICATION: AE CHF. AE CHF. TECHNIQUE: Frontal view of the chest. COMPARISON: Chest x-ray 04/27/2024 and 02/10/2024. FINDINGS: LUNGS AND PLEURAL SPACES: There is interstitial prominence lower lungs bilaterally which probably represents acute CHF or underlying chronic interstitial lung disease. Lungs are hyperexpanded. No pneumothorax. No effusion. HEART: Unremarkable. Cardiac silhouette not enlarged. MEDIASTINUM: Central airways and mediastinal contour are unremarkable. BONES/JOINTS: There are multilevel degenerative changes in the visualized spine. No acute fracture. SOFT TISSUES: Unremarkable. VASCULATURE: There is atherosclerotic calcification of the aortic arch. RAD/Chest 1 View (Portable) IMPRESSION: Suspect acute CHF or underlying chronic interstitial lung disease. Electronically Signed: James Lozada MD at 3:46 EDT Reading Location ID and State: [facility] / [place] , Service support ,
[2024-04-28 06:56] LABS: Absolute Lymphocyte Count 0.78 X10^3/uL (0.83-4.51); Absolute Neutrophil Count 9.8 X10^3/uL (2.0-7.7); Basophil# 0.06 X10^3/uL; Basophil% 0.5 % (0-1); Eosinophil# 0.09 X10^3/uL; Eosinophils% 0.7 % (0-5); Hematocrit 40.5 % (40-54); Hemoglobin 13.1 g/dL (13.0-16.5); Lymphocyte # 0.78 X10^3/ul (0.83-4.51); Lymphocyte % 6.5 % (19-41); Mean Corp Hgb Conc 32.3 g/dL (32-36); Mean Platelet Vol. 11.9 fl (6.2-12.0); Monocyte# 1.16 X10^3/uL; Monocyte% 9.7 % (0-10); NRBC Flagged by Analyzer 0 % (0-5); Neutrophil # 9.84 X10^3/uL (2.7-7.7); Neutrophil % 81.9 % (47-70); Platelet Count 212 K/mm3 (150-450); RBC Distribution Width CV 14.5 % (11.6-14.6); Red Blood Count 4.22 M/mm3 (4.6-6.2)
[2024-04-28 07:29] LABS: AST(SGOT) 64 U/L (15-37); Alanine Aminotransfer ALT/SGPT 33 U/L (16-61); Albumin, Serum 3.5 g/dL (3.2-5.0); Alkaline Phosphatase 103 U/L (45-117); Anion Gap 7 (5-15); BUN 26 mg/dL (7-18); BUN/Creat Ratio 27.9 RATIO (10-20); Calcium,Total 9.1 mg/dL (8.5-10.1); Chloride 107 mmol/L (98-107); Creatinine, Serum 0.93 mg/dL (0.70-1.30); EST Glomerular Filtration Rate 84 mL/min (>60); Est Glom Filt Rate - Afr Amer 102 mL/min (>60); Estimated Creatinine Clearance 63.84 ml/min; Globulin 3.4 g/dL (2.2-4.2); Glucose 184 mg/dL (74-106); Magnesium 1.8 mg/dL (1.6-2.6); Phosphorus 3.5 mg/dL (2.5-4.9); Potassium 3.8 mmol/L (3.5-5.1); Protein, Total 6.9 g/dL (6.4-8.2); Sodium Level 140 mmol/L (136-145)
[2024-04-28] MEDS: Spironolactone 25 MG Tablet PO (08:46)
[2024-04-28] MEDS: Losartan Potassium 25 MG Tablet PO ×2 (08:46→12:37)
[2024-04-28] MEDS: Ascorbic Acid 500 MG Tablet 1000 MG PO (08:46)
[2024-04-28] MEDS: Folic Acid 1 MG Tablet PO (08:47)
[2024-04-28] MEDS: Furosemide 40 MG/4 ML Vial IV (08:47)
[2024-04-28] MEDS: predniSONE 5 MG Tablet PO (08:47)
[2024-04-28] MEDS: Magnesium Chloride 64 MG Delay Rel.Tablet 128 MG PO (08:47)
[2024-04-28] MEDS: Diltiazem 125 MG in Dextrose 5%-Water (100mL Bag) 100 ML 15 MG IV (10:18)
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
--- NOTE | 2024-04-28 11:53 | RDU_ITS ---
Reason For Study: HTN Right Renal Artery Left Renal Artery Right renal artery ostium 69.5/20.4 Left renal artery ostium 86.7/28.3 RSV/EDV. PSV/EDV. Right renal artery proximal Left renal artery proximal PSV/EDV 119.8/43.1 PSV/EDV. 100.3/32.7 . Right renal artery mid 110.7/37.6 Left renal artery mid 94.8/23.6 PSV/EDV. PSV/EDV . Right renal artery distal Left renal artery distal 129.5/43.6 138.1/41.3 PSV/EDV. PSV/EDV. Right RAR 1.78. Left RAR 1.66. Right Renal Parenchyma Left Renal Parenchyma Upper Pole Medula 39.2/14.5 Left upper pole medulla 21.9/6.5 PSV/EDV. PSV/EDV . Right upper pole medulla EDR 0.40 . Left upper pole medulla EDR 0.30 . Right upper pole medulla R.I. Left upper pole medulla R.I. 0.70 . 0.63 . UP Cortex 14.8/5.4 PSV/EDV. Upper Ds Cortx 21.9/9.8 PSV/EDV. Left upper pole cortex EDR 0.40 . Right upper pole cortex EDR 0.40 . Left upper pole cortex R.I. 0.63 . Right upper pole cortex R.I. 0.55 . Left lower Pole medulla 30.7/8.7 Right lower Pole medulla 32.9/9.8 PSV/EDV . PSV/EDV . Left lower pole medulla EDR 0.30 . Right lower pole medulla EDR 0.30 . Left lower pole medulla R.I. 0.72 . Right lower pole medulla R.I. Lower Pole Cortx 19.7/7.6 PSV/EDV. 0.70 . Left lower pole cortex EDR 0.40 . Lower Pole Cortex 18.1/7.1 PSV/EDV. Left lower pole cortex R.I. 0.61 . Right lower pole cortex EDR 0.40 . Left Renal Hilar Right lower pole cortex R.I. 0.61 . LT Hilar avg 72.4/23.0 PSV/EDV . Right Renal Hilar Left hilar acceleration time 50 Right Hilar avg 75.7/25.2 PSV/EDV. m/sec. Right hilar acceleration time 50 Left Renal Dimensions m/sec. Left kidney size 8.25 cm . Right Renal Dimensions Left cortical dimension 1.40 cm . Right kidney size 12.36 cm . Multiple anechoic non vascularized Right cortical dimension 1.93 cm . areas noted on kidney measuring Multiple anechoic non vascularized approximately 4.05cm x 4.65cm and areas noted on kidney measuring 4.19cm x 3.79cm. approximately 3.57cm x 3.31cm and 2.33cm x 2.33cm. Aorta Proximal abdominal aorta 2.30 x 2.28 cm . Proximal abdominal aorta peak systolic velocity is 59.7 cm/sec . Distal abdominal aorta 1.28 x 1.23 cm . Distal abdominal aorta peak systolic velocity is 77.8 cm/sec . VL/Renal Artery Duplex Ultrasound Interpretation Summary Right renal artery patent with normal velocities and no evidence of stenosis. Left renal artery patent with normal velocities and no evidence of stenosis. Right renal vein patent. Left renal vein patent. Right kidney normal in size. Multiple anechoic non vascularized areas noted on kidney measuring approximately 3.57cm x 3.31cm and 2.33cm x 2.33cm Left kidney diminshed in size.Multiple anechoic non vascularized areas noted on kidney measuring approximately 4.05cm x 4.65cm and 4.19cm x 3.79cm. Ordering Physician: Aryan Machuca Referring Physician: Dawna Ashley Performed By: Vega Ellison RVT
[2024-04-28] MEDS: Aspirin E.C. 81 MG Tablet PO (12:37)
[2024-04-28] MEDS: Nitroglycerin Oint 1 INCH PACKET TD ×2 (12:38→20:08)
[2024-04-28] MEDS: Carvedilol 3.125 MG TABLET PO ×2 (12:39→20:08)
[2024-04-28] MEDS: Empagliflozin 10 MG Tablet PO (12:39)
[2024-04-28] MEDS: 0.9% Saline Lock 10 ML Syringe IV (12:40)
[2024-04-28 13:16] LABS: Troponin-I HS 8884 pg/mL (3.0-78.0)
[2024-04-28 13:18] LABS: D-Dimer Quantitative (DVT/PE) 0.57 FEU/ug/m (0.27-0.49)
--- NOTE | 2024-04-28 14:46 | PCM.PN.BLA ---
Progress Note Here for CHF exacerbation, no real chest pain. Cardiology was consulted and obtained a D-dimer and troponin. The troponin was over 8000 and cardiology was notified, EKG was obtained which did not show a STEMI no changes were made in terms of care at this point. D-dimer was elevated but normal for age will continue current therapy appreciate cardiology's assistance.
[2024-04-28] MEDS: Furosemide 40 MG Tablet PO (17:28)
[2024-04-28] MEDS: Losartan Potassium 50 MG Tablet PO (20:08)
--- NOTE | 2024-04-28 23:20 | CPS ---
Pt refused BiPAP for tonight.
[2024-04-29] VITALS (10 sets, daily range): BP systolic 122–159; BP diastolic 70–108; PULSE 62–81; RESP 12–18; TEMP 36.4; O2SAT 94–99
[2024-04-29] MEDS: Senna/Docusate Sodium 1 Tablet 2 TABLET PO ×2 (01:42→08:58)
[2024-04-29] MEDS: Nitroglycerin Oint 1 INCH PACKET TD (05:41)
--- NOTE | 2024-04-29 07:58 | PN.CARD_ITS ---
Subjective Subjective Patient reports he is feeling much better today he is up in the chair at the bedside. He denies any shortness of breath is completely resolved since his diuresis. The patient's had no recurrence of his atrial fibrillation which occurred 04/28/2024 and was transient. Heart rate is now in the 60-70 bpm range. In sinus rhythm. The patient continues to decline any invasive evaluation. He is resistant to adding beta-rafal therapy to his medical regimen. 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 He did not give me the physician's name. I did request that he have that physician send me information and his recommendations once he is evaluated. Patient's enzymes troponin was 8884, repeat is pending. Patient denies any recurrence of his shortness of breath or indigestion type feeling that started this event on the evening of his presentation. This is a second hypertensive emergency that he is experienced since January 2024. The patient tells me that he had a catheterization remotely and had normal coronary arteries and carotid ultrasounds that showed no significant stenosis. He also tells me that high-dose prednisone caused him to have an anterior wall infarct or the current changes on his EKG was noticed after that. He does tell me that he did not have an anterior wall infarct on his EKG at the time of his previous cath when his coronaries were said to be normal. Objective Data Vital Signs: Vital Signs Temp Pulse Resp BP Pulse Ox O2 Del Method O2 Flow Rate 97.8 F 66 15 150/84 H 95 Room Air 4 04/28/24 19:00 04/29/24 07:00 04/29/24 07:00 04/29/24 07:00 04/29/24 07:00 04/29/24 07:00 04/28/24 07:37 FiO2 30 04/28/24 01:00 Oxygen Flow Rate (L/min) 4 Oxygen Delivery Method Room Air Weight: 162 lb 11.218 oz Body Mass Index (BMI) 26.2 Intake & Output: Intake and Output for Last 24 Hours 04/27/24 04/28/24 04/29/24 23:59 23:59 23:59 Intake Total 1480.45 / 1720.45 240 / 240 Output Total 3675 / 3675 400 / 400 Balance -2194.55 / -1954.55 -160 / -160 Lab / Micro Data Attestation: I reviewed the patient's lab results. 04/28/24 06:40 04/28/24 06:40 Labs: Laboratory Results - last 24 hr 04/28/24 12:45: D-Dimer Quant (PE/DVT) 0.57 H*, Troponin I High Sens 8884 H* Rhythm Strip Rhythm Strip: Sinus Rhythm Rate: 70 Cardiology Labs/Tests 04/28/24 12:45: D-Dimer Quant (PE/DVT) 0.57 H* Rhythm: EKG: ECHO: Stress Test: Cardiac Cath: PCI: CT Surgery: Holter monitor: EPS: PPM: CXR: Chest CT Scan: Physical Exam Const alert and oriented x3 HEENT normocephalic Eyes EOMs intact bilaterally Neck no JVD Neck Narrative: No JVD at 90 degrees in the chair. Chest inspection of chest normal Resp normal respiratory effort Auscultation: crackles bilateral base Cardio regular rate, regular rhythm, S1 normal heart sound and S2 normal heart sound Heart Sounds: murmur systolic I/ soft; Negative for click or gallop Extremity no pedal edema Neuro Neuro Narrative: Alert and oriented x 3 Psych mental status grossly normal Assessment & Plan Assessment/Plan (1) Acute on chronic systolic (congestive) heart failure: PLAN: Patient's acute congestive heart failure appears to be compensated. It is recommended that he add beta-rafal therapy to his current losartan and spironolactone as well as diarrhea loop diuretic therapy. However the patient is resistant to add any medications without seeking a second opinion with his physician friend in [place]. It is recommended the patient be on Coreg or an alternative beta-rafal, continue his losartan and spironolactone, and loop diuretic as needed for congestion. 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 He was evaluated in my office April 22 and this was discussed in detail. I did discuss the significance of this second hypertensive emergency resulting in acute congestive heart failure and an elevated troponin of 8884. His EKG is consistent with an old anterior septal infarct but he reports this occurred after prednisone therapy and that he had a negative cath. However, he does admit that the cath occurred prior to his EKG showing these changes. Ideally the patient should undergo invasive cardiac catheterization, he should have beta-blockers added and titrated to heart rate response, and he should be titrated while being monitored given his history of bradycardia. However, the patient is adamant that he wants to be discharged today he is a retired registered nurse and reports that if he is going to then he is okay with that. (2) Hypertensive emergency: PLAN: Patient's blood pressure is well-controlled at this point in time. But this is his second hypertensive emergency since January 2020 for both of which wanted up needing respiratory support to clear. (3) Atrial fibrillation with rapid ventricular response: PLAN: The patient had complained of heart rates in the 40-44 bpm range in his home environment on his pulse oximeter and his blood pressure machine. Most of the time his heart rate is 70?90. He stopped his Coreg because of these intermittent bradycardic events. In retrospect given his paroxysmal atrial fibs which was transient, this may have been what his devices were picking up in his home environment. I would recommend that he be on long-term oral anticoagulation therapy given this paroxysmal atrial fibs but it is unlikely that he will take it. The patient's [id number] score is 3 which would recommend oral anticoagulation to lower his yearly stroke risk of 3.2%. (4) Bradycardia: PLAN: As noted above the bradycardia may be related to his atrial fibrillation and his device is in his home environment not picking up every pulse. The patient was scheduled April 22 to obtain a Holter monitor which will be placed May 10 by the patient's report. This is in hopes of catching the bradycardia in his home environment. I did offer to institute beta-rafal therapy while the patient was here on telemetry but he is requesting discharge to home and does not want to start beta-blockers. PLAN: Plan 1. Recommend oral anticoagulation therapy long-term for paroxysmal atrial fibrillation. 2. Recommend addition of beta-rafal Coreg or metoprolol tartrate as tolerated. 3. Continue current losartan and spironolactone and as needed furosemide. 4. Proceed with Holter monitor as scheduled May 10, 2024. 5. The patient wishes to obtain second opinion with a personal friend graduate fellow in [place]. I recommend he get this done as soon as possible. 6. Patient should follow-up in the [facility] office after he has obtained his second opinion. Charges/Coding Visit Charges Inpatient E&M: 50556 Subs Hosp L3
[2024-04-29 08:19] LABS: Absolute Lymphocyte Count 1.52 X10^3/uL (0.83-4.51); Absolute Neutrophil Count 5.9 X10^3/uL (2.0-7.7); Basophil# 0.06 X10^3/uL; Basophil% 0.7 % (0-1); Eosinophil# 0.17 X10^3/uL; Eosinophils% 1.9 % (0-5); Hematocrit 45.1 % (40-54); Hemoglobin 14.4 g/dL (13.0-16.5); Lymphocyte # 1.52 X10^3/ul (0.83-4.51); Lymphocyte % 17.3 % (19-41); Mean Corp Hgb Conc 31.9 g/dL (32-36); Mean Corpuscular Volume 97.2 fL (80-94); Monocyte% 11.4 % (0-10); NRBC Flagged by Analyzer 0 % (0-5); Neutrophil # 5.92 X10^3/uL (2.7-7.7); Neutrophil % 67.4 % (47-70); Platelet Count 227 K/mm3 (150-450); RBC Distribution Width CV 14.6 % (11.6-14.6); RBC Distribution Width SD 51.1 fl (35.1-43.9); Red Blood Count 4.64 M/mm3 (4.6-6.2); White Blood Count 8.8 K/mm3 (4.4-11.0)
[2024-04-29 08:26] LABS: Anion Gap 10 (5-15); BUN 29 mg/dL (7-18); BUN/Creat Ratio 25.7 RATIO (10-20); Calcium,Total 9.6 mg/dL (8.5-10.1); Chloride 104 mmol/L (98-107); Creatinine, Serum 1.13 mg/dL (0.70-1.30); EST Glomerular Filtration Rate 68 mL/min (>60); Est Glom Filt Rate - Afr Amer 82 mL/min (>60); Estimated Creatinine Clearance 52.54 ml/min; Glucose 149 mg/dL (74-106); Potassium 3.8 mmol/L (3.5-5.1); Sodium Level 140 mmol/L (136-145)
[2024-04-29] MEDS: Aspirin E.C. 81 MG Tablet PO (08:43)
[2024-04-29] MEDS: Ascorbic Acid 500 MG Tablet 1000 MG PO (08:43)
[2024-04-29] MEDS: predniSONE 5 MG Tablet PO (08:43)
[2024-04-29] MEDS: Magnesium Chloride 64 MG Delay Rel.Tablet 128 MG PO (08:44)
[2024-04-29] MEDS: Spironolactone 25 MG Tablet PO (08:44)
[2024-04-29] MEDS: Folic Acid 1 MG Tablet PO (08:45)
[2024-04-29] MEDS: Losartan Potassium 50 MG Tablet PO (08:49)
[2024-04-29 08:50] LABS: Troponin-I HS 4267 pg/mL (3.0-78.0)
[2024-04-29] MEDS: Carvedilol 3.125 MG TABLET PO (08:58)
[2024-04-29] MEDS: Methotrexate Pf 50 MG/2ML VIAL 25 MG SC (09:27)
--- NOTE | 2024-04-29 10:02 | NURSING ---
1000 Pt left AMA. MATHEW aware
--- NOTE | 2024-04-29 10:37 | DS.PCM_ITS ---
Providers Date of Admission: 04/28/24 Date of Discharge: 04/29/24 Primary Care Physician: Dawna Ashley MD Consultations 04/28/24 11:15 Consult: Cardiology Routine Consulting Provider: Aryan Machuca Reason for Consult: Pulmonary Edema/ A-fib RVR EMERGENT Consult: No MD Notified: Yes Date Notified: 04/28/24 Time Notified: 11:15 Method of Notification: Verbal Reason For Visit: AE CHF AFIB WITH RVR AND UNCONTROLLED Diagnosis Discharge Diagnosis (1) Acute on chronic systolic (congestive) heart failure: Status: Chronic Code(s): I50.23 - Acute on chronic systolic (congestive) heart failure (2) Hypertensive emergency: Status: Acute Code(s): I16.1 - Hypertensive emergency (3) Atrial fibrillation with rapid ventricular response: Status: Acute Code(s): I48.91 - Unspecified atrial fibrillation (4) Bradycardia: Status: Acute Code(s): R00.1 - Bradycardia, unspecified Medications at Discharge Home Medications ascorbic acid (vitamin C) 1,000 mg capsule 1 g PO DAILY [facility] [employer] 02/08/24 magnesium oxide 400 mg PO DAILY [facility] 02/08/24 prednisone 5 mg tablet 5 mg PO QDAY rheumatoid arthritis 02/08/24 multivitamin (Daily Multi-Vitamin tablet) 1 tab PO DAILY 02/23/24 acetaminophen 325 mg tablet 650 mg PO ONCE 04/22/24 folic acid 1 mg tablet 1 mg PO QDAY 04/22/24 losartan 50 mg tablet 25 mg PO BID 04/22/24 spironolactone 25 mg tablet 25 mg PO QDAY #90 tabs 04/22/24 ciclopirox 0.77 % topical gel 1 applic topical DAILY FEET 04/28/24 furosemide 40 mg tablet 40 mg PO DAILY 04/28/24 methotrexate sodium (PF) 25 mg/mL injection solution 25 mg subcut QWEEK 04/28/24 nitroglycerin 0.4 mg sublingual tablet 0.4 mg sublingual Q5M CHEST PAIN 04/28/24 tadalafil 5 mg tablet 5 mg PO UD 04/28/24 Hospital Course Operations None Procedures None Summary of Care Provided Minutes Spent on Discharge: 45 Hospital Course: Patient is a 73-year-old male with a past medical history as outlined was admitted to the ED on 04/28/2024 with a complaint of chest pain, shortness of breath and palpitations which started 2 hours prior to admission. He said he had acute onset shortness of breath with cough which is productive of frothy red sputum. He said he had had a similar episode in the past when he was admitted here in January 2024 and managed for acute hypoxic respiratory failure due to flash pulmonary edema in the setting of non-STEMI. He was intubated and placed on ventilator then. This admission however when he came in the ED he requested intubation and mechanical ventilation. However he was started on BiPAP and diuresed with IV Lasix and given Cardizem as he was in A-fib with RVR. He subsequently rapidly improved. Patient in the ED stated that he had flash pulmonary edema. BNP was 258 and chest x-ray showed evidence of pulmonary edema. He was again admitted to be managed for acute on chronic exacerbation of heart failure with with reduced ejection fraction and A-fib with RVR. Patient's initial troponin was over 8000 and trended down to 4000. Cardiology was consulted and patient was advised to have a cardiac cath. Patient however refused to have a cardiac cath because he said he only had flash pulmonary edema and felt like he was being asked to do something that was not needed. He preferred to follow-up with his geomagnetist on outpatient basis as he wanted a second opinion and if his outpatient cardiology stated that the cardiac cath was beneficial but he would consider getting it. Cardiology has stated was consulted. Since patient did not wish to have cardiac cath, he was counseled that in light of his markedly elevated troponins and presentation of acute on chronic exacerbation of heart failure as well as non-STEMI, I could not discharge him as being medically stable to go home. Patient expressed understanding and said he would sign out AGAINST MEDICAL ADVICE. Patient therefore proceeded to sign out AGAINST MEDICAL ADVICE at 10 AM on 04/29/2024. Patient was seen and examined prior to discharge. He felt well and had no complaints. He was on room air. He felt much better and he felt his flash pulmonary edema had resolved. He again reiterated that he was not going to get the cardiac cath and wanted a second opinion before deciding about having it. 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 Labs and vitals reviewed. Of note he did have a renal artery duplex which showed that the right renal artery was patent and the left renal artery was also patent. Physical Exam Const alert, oriented x3 and no apparent distress General Appearance: cooperative and comfortable Orientation / Consciousness: awake Exam Limitations: no limitations HEENT normocephalic, head/scalp atraumatic, hearing grossly normal bilaterally, moist oral mucous membranes and oropharynx normal Mouth: oral and palatal mucosa normal and dry mucous membranes Eyes PERRL and conjunctivae normal Neck no lymphadenopathy and supple Resp normal respiratory effort, no retractions, no use of accessory muscles and clear to auscultation bilaterally Cardio regular rate, regular rhythm, S1 normal heart sound, S2 normal heart sound and no murmurs GI normal to inspection, nondistended, normoactive bowel sounds, soft to palpation, non-tender and non-distended Extremity normal to inspection, full ROM and no clubbing, cyanosis or edema Skin no rashes or lesions noted, skin turgor normal and no jaundice Neuro oriented x3, CN's II-XII intact bilaterally, moves all extremities, no focal motor deficits and no sensory deficits noted Sensorium / Orientation: awake, alert and oriented to person Motor Exam: strength 5/5 throughout Psych affect normal Weight / BMI Weight Weight: 162 lb 11.218 oz Body Mass Index (BMI) 26.2 ABG / Lab / Microbiology Data 04/29/24 05:37 04/29/24 05:37 Laboratory: Laboratory Results - last 24 hr 04/28/24 12:45: D-Dimer Quant (PE/DVT) 0.57 H*, Troponin I High Sens 8884 H* 04/29/24 05:37: WBC 8.8, RBC 4.64, Hgb 14.4, Hct 45.1, MCV 97.2 H, MCH 31.0, M CHC 31.9 L, RDW Std Deviation 51.1 H, RDW Coeff of Gracie 14.6, Plt Count 227, MPV 12.0, Immature Gran % (Auto) 1.300 H, Neut % (Auto) 67.4, Lymph % (Auto) 17.3 L, Wharton % (Auto) 11.4 H, Eos % (Auto) 1.9, Baso % (Auto) 0.7, Absolute Neuts (auto) 5.9, Absolute Lymphs (auto) 1.52, Nucleated RBC % 0, Sodium 140, Potassium 3.8, Chloride 104, Carbon Dioxide 27.0, Anion Gap 10, BUN 29 H, Creatinine 1.13, Estim Creat Clear Calc 52.54, Est GFR (MDRD) Af Amer 82, Est GFR (MDRD) Non-Af 68, BUN/Creatinine Ratio 25.7 H, Glucose 149 H, Calcium 9.6, Troponin I High Sens 4267 H* D/C Instructions Discharge Diet: Low fat / Low cholesterol Discharge Activity: Return to Normal Activity Weight Bearing Status: Weight bearing as tolerated Meaningful Use Info Meaningful Use Meaningful Use Diagnoses (Choose all that apply): AMI AMI/Post PCI/Angioplasty Aspirin given w/in 24hrs of arrival?: Yes ASA at discharge?: Yes Antiplatelet Therapy at Discharge:: No Reason Antiplatelet Therapy not ordered:: left AMA Statins at discharge?: No Reason statins not ordered:: Drug Interaction (left AMA) Mark/ARB at discharge?: Yes Beta Angelic at discharge?: Yes Done w/ Acute MS measure.: Yes Documented LVEF (%): 35 Ischemic Stroke Statin Dosing Therapy Reference: STATIN DOSE THERAPY REFERENCE: * Patients > 75 years receive moderate or high dose statin therapy. * Patients 75 years or YOUNGER should receive HIGH intensity statin dose unless contraindicated. You will be required to document reason for non-treatment if statin daily dose does not meet guidelines. HIGH DOSE STATIN THERAPY DAILY Atorvastatin > than or = to 40 mg Rosuvastatin > than or = to 20 mg Amlodipine + Atorvastatin > than or = to 2.5/40 mg Ezetimibe + Simvastatin 10/80 mg Simvastatin 80mg Discharge Plan Admission Admit Date/Time: 04/28/24 02:04 Primary Reason for Your Visit: shortness of breath Attending Provider: Mahi Ochoa Primary Care Provider: Dawna Ashley Consulting Providers: Brandon Alexander; Aryan Machuca; Wally Jackson Instructions Patient Instructions: Heart Attack Dc, Heart Attack Meds, AFib Discharge Orders/Prescriptions Prescriptions: No Action prednisone 5 mg tablet 5 mg PO QDAY magnesium oxide 400 mg magnesium tablet 400 mg PO DAILY ascorbic acid (vitamin C) 1,000 mg capsule 1 g PO DAILY multivitamin [Daily Multi-Vitamin] Tablet 1 tab PO DAILY acetaminophen 325 mg tablet 650 mg PO ONCE losartan 50 mg tablet 25 mg PO BID folic acid 1 mg tablet 1 mg PO QDAY spironolactone 25 mg tablet 25 mg PO QDAY Qty: 90 3RF furosemide 40 mg tablet 40 mg PO DAILY ciclopirox 0.77 % gel 1 applic topical DAILY nitroglycerin 0.4 mg tablet, sublingual 0.4 mg sublingual Q5M methotrexate sodium (PF) 25 mg/mL solution 25 mg subcut QWEEK tadalafil 5 mg tablet 5 mg PO UD Referrals / Follow Up: Dawna Ashley MD [Primary Care Provider] - Disposition Disposition (needs filled in before D/C Order can be placed): Against Medical Advice Charges/Coding Visit Charges Inpatient E&M: 46424 Disch Hosp >30min
[2024-04-29 13:39] LABS: Pathologist Review Reviewed
== END 2024-04-29 10:00 | disposition left against medical advice (07) | DRG 280 ==
LOC: ED 04-28 00:47 → ICU 04-28 01:45
PROVIDERS: Internal Medicine Cardiovascular Disease; Admitting Provider Internal Medicine; Emergency Provider Emergency Medicine; PCP Family Medicine; Visit Provider Student in an Organized Health Care Education/Training Program
DX: I11.0 Hypertensive heart disease with heart failure (principal); I21.4 Non-ST elevation (NSTEMI) myocardial infarction; J96.01 Acute respiratory failure with hypoxia; I50.23 Acute on chronic systolic (congestive) heart failure; I16.1 Hypertensive emergency; E11.9 Type 2 diabetes mellitus without complications; I48.0 Paroxysmal atrial fibrillation; I25.10 Atherosclerotic heart disease of native coronary artery without angina pectoris; I25.2 Old myocardial infarction; R00.1 Bradycardia, unspecified; E66.3 Overweight; Z68.27 Body mass index [BMI] 27.0-27.9, adult; Z79.52 Long term (current) use of systemic steroids; Z79.899 Other long term (current) drug therapy; Z53.29 Procedure and treatment not carried out because of patient's decision for other reasons
CPT/HCPCS: 71045; 80048; 80053; 83735; 83880; 84100; 84443; 84484; 85025; 85379; 93005; 93975; 94002; 94003; 94762; 99285; A4216; J1940; J9260

== ENCOUNTER → 2024-05-10 | Outpatient (CLI) | payer MEDICARE, SELFPAY ==
--- OUTSIDE RECORDS SUMMARY | 2024-05-10 09:19 | XMS RPT_ITS | CCD ---
Author Organization [facility] Care Team Providers Care Manager Practice Name Role Phone Jolene Alvarenga Unavailable Unavailable Unavailable Johnathon, Dr. Bejarano Attending Unavailable Johnathon, Dr. Bejarano Referring Unavailable Lyle, Dr. Jolene Rea Primary Care Unavailable Johnathon, Dr. Bejarano Attending Unavailable Armando, Dr. Corey Lau Referring Unavailable yLle, Dr. Jolene Rea Primary Care Unavailable Johnathon, Dr. Bejarano Attending Unavailable Johnathon, Dr. Bejarano Referring Unavailable Lyle, Dr. Jolene Rea Primary Care Unavailable Johnathon, Dr. Bejarano Attending Unavailable Lyle, Dr. Jolene Rea Primary Care Unavailable Unavailable Primary Care Provider UnavailSTEVEN Lloyd Attending Unavailable JACEY BANDA Admitting Unavailable KIRA GELLER Referring Unavailable Dawna Greenberg MD Primary Care Provider DAWNA GREENBERG Primary Care Unavailable JEAN-CLAUDE CEJA Referring Unavailable JEAN-CLAUDE CEJA Attending Unavailable Allergies Allergy Classification Reported Allergen(s) Allergy Type Date of Onset Reaction(s) Facility (4 sources) Bacitracin; Translations: [BACITRACIN] Drug Allergy 11-06-2008 Rash [facility] Medications Current Medications Medication Drug Class(es) Dates Sig (Normalized) Sig (Original) 200 actuat albuterol 0.09 mg/actuat metered dose inhaler (2 sources) beta2-Adrenergic Agonist Start: 11-25-2008 ALBUTEROL 90 MCG/ACTUATION AEROSOL INHALER Use as directed four(4) times daily. 0 11/25/2008 Active Comment on above: Use as directed four (4) times daily. ascorbic acid 1000 mg oral tablet (1 source) Vitamin C take 1 tablet by mouth once daily Ascorbic Acid (VITAMIN C) 1,000 mg tablet Take 1,000 mg by mouth once daily. Active aspirin 81 mg delayed release oral tablet (5 sources) Platelet Aggregation Inhibitor, Nonsteroidal Anti-inflammatory Drug Start: 11-25-2008 take 0.5 tablet by mouth once daily aspirin(ECOTRIN LOW STRENGTH 81 MG TAB) Take 325 mg by mouth once daily. 1/2 tablet daily 0 11/25/2008 Active Start: 11-25-2008 aspirin(ECOTRI N LOW STRENGTH 81 MG TAB) Take by mouth. Pt reports no longer taking 0 11/25/2008 Active Aspirin 325 MG O ral Tablet Quantity: 0 Refills: 0 Ordered: 11-Oct-2022 DO Active Comment on above: Take by mouth. Pt re ports no longer taking atenolol 25 mg oral tablet (2 sources) beta-Adrenergic Angelic Start: 05-30-20 take 1 tablet by mouth twice daily atenolol (TENORMIN) 25 mg tablet Take 1 tablet by mouth twice daily. 0 05/30/2014 Active Comment on above: Take 1 tablet by carmen th twice daily. enteric contrast (will be provided with radiology test) (1 source) Start: 03-13-20 End: 03-14-20 enteric contrast (will be provided with radiology test) Indications: Monoclonal gammopathy For CT ABD/PEL W IVCON Routine order Administer, As Directed One Time Only, via Oral, Rectal, both Oral and Rectal, Enteric Tube, Stoma or Indwelling Catheter, Enteric Contrast as designated per enteric contrast guidelines 1 Each 03/13/2024 03/14/2024 Active folic acid 1 mg oral tablet (1 source) Start: 02-29-20 take 2 tablets by mouth once folic acid 1 mg tablet Take 2 tablets by mouth every afternoon. 02/29/2024 Active furosemide 40 mg oral tablet (1 source) Loop Diuretic Start: 02-12-20 furosemide (LASIX) 40 mg tablet Take 20 mg by mouth every afternoon. 02/12/2024 Active ibuprofen 600 mg oral tablet (2 sources) Nonsteroidal Anti-inflammatory Drug Start: 11-07-19 ibuprofen(MOTRIN 600 MG TAB) one three tablet times daily 0 11/06/2008 Active Comment on above: one three tablet raphael es daily iv contrast (will be provided with radiology test) (2 sources) Start: 03-13-20 End: 03-14-20 iv contrast (will be provided with radiology test) Indications: Monoclonal gammopathy CT ABD/PEL -Inject, intravenously, once for 1 dose.No IV access, insert saline lock prior to the beginning of sedation, infusion, injection of imaging exam. Discontinue saline lock post exam. If Pt. has a central line or IVAD, may access for administration according to line specific nursing protocol. Once exam is complete flush line and de-access according to line specific nursing protocol in the CT contrast administration guidelines link. 1 Each 03/13/2024 03/14/2024 Active Start: 03-13-2024 End: 03-13-2024 inject 1 dose intravenously once, then inject 1 dose intravenously once iv contrast (will be provided with radiology test) Indications: Monoclonal gammopathy Inject 1 Each intravenously one time only for [address] Neck W IVCON No IV access, insert saline lock prior to the sedation, infusion, injection for imaging exam. Discontinue saline lock post exam. If Pt. has a central line or IVAD, may access for administration according to line specific nursing protocol. Once exam is complete flush line and de-access according to line specific nursing protocol in the CT contrast administration guidelines link. 1 Each 03/13/2024 03/13/2024 Active losartan potassium 50 mg oral tablet (1 source) Angiotensin 2 Receptor Angelic Start: 02-12-2024 take 1 tablet by mouth once daily losartan (COZAAR) 50 mg tablet Take 1 tablet by mouth once daily. 02/12/2024 Active magnesium aspart,citrate,oxi de 400 mg magnesium cap (1 source) take 1 capsule by mouth once daily magnesium aspart,citrate,oxid e 400 mg magnesium cap Take 1 capsule by mouth once daily. Active methotrexate 25 mg/ml injectable solution (1 source) Folate Analog Metabolic Inhibitor Start: 01-08-2024 inject 25 mg by subcutaneous injection every week methotrexate sodium 25 mg/mL soln Inject 25 mg subcutaneously one time a week. 01/08/2024 Active MULTIVITAMIN TAB (2 sources) Start: 11-25-2008 take 1 tablet by mouth once daily MULTIVITAMIN TAB Take 1 tablet by mouth once daily. 0 11/25/2008 Active Start: 11-25-2008 MULTIVITAMIN T AB Take one(1) tablet daily. 0 11/25/2008 Active Comment on above: Take one(1) tablet d aily. nitroglycerin 0.4 mg sublingual tablet (2 sources) Nitrate Vasodilator Start: 05-14-2023 nitroglycerin sublingual (NITROQUICK) 0.4 mg SL tablet Dissolve 1 tablet under the tongue as needed for chest pain. If no pain relief call 911. 30 tablet 1 05/14/2023 Active Comment on above: Dissolve 1 tablet un namrata the tongue as needed for chest pain. If no pain relief call 911. omega-3 fatty acids/vitamin e(FISH OIL 1,000 MG CAP) (2 sources) Start: 11-25-2008 omega-3 fatty acids/vitamin e(FISH OIL 1,000 MG CAP) 0 11/25/2008 Active Start: 11-25-2008 omega-3 fatty acids/vitamin e(FISH OIL 1,000 MG CAP) OTC NUTRITIONAL SUPPLEMENT (1 source) take 1 tablet by mouth once daily OTC NUTRITIONAL SUPPLEMENT Take 1 tablet by mouth once daily. L-Arginine Active potassium chloride 10 meq extended release oral capsule (1 source) Start: 4 take 1 capsule by mouth once potassium chloride SR (MICRO-K) 10 mEq CR capsule Take 1 capsule by mouth every afternoon. 02/21/2024 Active pravastatin sodium 20 mg oral tablet (2 sources) HMG-CoA Reductase Inhibitor Start: 4 take 1 tablet by mouth once daily at bedtime pravastatin (PRAVACHOL) 20 mg tablet Take 1 tablet by mouth daily at bedtime. 0 05/30/2014 Active Comment on above: Take 1 tablet by carmen th daily at bedtime. predniSONE 5 mg oral tablet (1 source) Start: 4 End: 4 take 1 tablet by mouth once daily predniSONE (DELTASONE) 5 mg tablet Take 5 mg by mouth once daily. 03/05/2024 04/04/2024 Active Problems Active Problems Problem Classification Problem Date Documented Da te Episodic/Chronic Acquired foot deformities (2 sources) Acquired hallux valgus; Translations: [Hallux valgus (acquired), unspecified foot] Onset: 11-19-2008 11-19-2008 Chronic Acute myocardial infarction (2 sources) Myocardial infarction; Translations: [Non-ST elevation (NSTEMI) myocardial infarction] Onset: 05-13-2023 05-14-2023 Chronic Neoplasms of unspecified nature or uncertain behavior (2 sources) Monoclonal gammopathy (clinical); Translations: [Monoclonal gammopathy] Onset: 03-13-2024 03-13-2024 Chronic Other skin disorders (10 sources) Mass of neck; Translations: [Swelling, mass, or lump in head and neck] Episodic Past or Other Problems Problem Classification Problem Date Documented Da te Episodic/Chronic Nonspecific chest pain (4 sources) Chest pain; Translations: [Chest pain, unspecified] Onset: 05-12-2023 05-14-2023 Episodic Other connective tissue disease (2 sources) Plantar fascial fibromatosis; Translations: [Plantar fascial fibromatosis] Onset: 11-19-2008 11-19-2008 Episodic Other skin disorders (6 sources) Localized swelling, mass and lump, neck; Translations: [Localized swelling, mass and lump, neck] Onset: 10-11-2022 Episodic Results Test Name Value Interpretation Reference Range Facility Basic metabolic 2000 panelOr desiree By: Yee Hinkle on 03-13-2024 Anion gap [Moles/Vol] 11 mmol/L 8 - 15 mmol/L [facility] Calcium [Mass/Vol] 10.3 mg/dL High 8.5 - 10. 2 mg/dL [facility] Chloride [Moles/Vol] 103 mmol/L 98 - 10 7 mmol/L [facility] CO2 [Moles/Vol] 24 mmol/L 22 - 30 mmol/L [facility] Creatinine [Mass/Vol] 0.89 mg/dL 0.73 - 1.22 mg/dL [facility] GFR/1.73 sq M.predicted among non-blacks MDRD (S/P/Bld) [Vol rate/Area] 90 mL/min/{1.73_m2} - PINF [facility] Comment on above: Estimated Glomerular Filtration Rate (eGFR) is calculated using the 2020 CKD-EPI creatinine equation. This equation utilizes serum creatinine, sex, and age as parameters. The creatinine assay has traceable calibration to isotope dilution-mass spectrometry. Refer to KDIGO guidelines for clinical interpretation. In patients with unstable renal function, e.g. those with acute kidney injury, the eGFR may not accurately reflect actual GFR. Glucose [Mass/Vol] 178 mg/dL High 74 - 99 mg/dL [facility] Comment on above: The [place] Diab[employer] s Association (ADA) provides guidance for cutoff values for fasting glucose and random glucose. The ADA defines fasting as no caloric intake for at least 8 hours. Fasting plasma glucose results between 100 to 125 mg/dL indicate increased risk for diabetes (prediabetes). Fasting plasma glucose results greater than or equal to 126 mg/dL meet the criteria for diagnosis of diabetes. In the absence of unequivocal hyperglycemia, results should be confirmed by repeat testing. In a patient with classic symptoms of hyperglycemia or hyperglycemic crisis, random plasma glucose results greater than or equal to 200 mg/dL meet the criteria for diagnosis of diabetes. Reference: Standards of Medical Care in Diabetes 2016, [place] Diabetes Association. Diabetes Care. 2016.39(Suppl 1). Interpretation and review of laboratory results Abnormal [facility] Potassium [Moles/Vol] 4.1 mmol/L 3.7 - 5.1 mmol/L [facility] Sodium [Moles/Vol] 138 mmol/L 136 - 144 mmol/L [facility] Urea nitrogen [Mass/Vol] 36 mg/dL High 9 - 24 mg/dL [facility] Basic metabolic 2000 panelon 03-13-2024 Anion gap [Moles/Vol] 11 mmol/L Normal 8-15 [facility] Comment on above: Order Comment: Dentoni sagar Type: BLOOD SPECIMEN Ordering Facility: [facility] Address: [address] [place] [address] Performed By: #### 2 4321-2 #### [facility] CLIA [id number] [address] [place] [address] [place] Calcium [Mass/Vol] 10.3 mg/dL High 8.5-10.2 [facility] Comment on above: Order Comment: Dentoni men Type: BLOOD SPECIMEN Ordering Facility: [facility] Address: [address] [place] [address] Performed By: #### 2 4321-2 #### [facility] CLIA [id number] [address] [place] [address] [place] Chloride [Moles/Vol] 103 mmol/L Normal 98-107 [facility] Comment on above: Order Comment: Dentoni men Type: BLOOD SPECIMEN Ordering Facility: [facility] Address: [address] [place] [address] Performed By: #### 2 4321-2 #### [facility] CLIA [id number] [address] [place] [address] [place] CO2 [Moles/Vol] 24 mmol/L Normal 22-30 [facility] Comment on above: Order Comment: Speci men Type: BLOOD SPECIMEN Ordering Facility: [facility] Address: [address] [place] [address] Performed By: #### 2 4321-2 #### [facility] CLIA [id number] [address] [place] [address] [place] Creatinine [Mass/Vol] 0.89 mg/dL Normal 0.73-1.22 [facility] Comment on above: Order Comment: Speci men Type: BLOOD SPECIMEN Ordering Facility: [facility] Address: [address] [place] [address] Performed By: #### 2 4321-2 #### [id number] [address] [place] [address] [place] Creatinine and Glomerular filtration rate.predicted panel (S/P/Bld) 90 mL/min/1.73m??? Normal >=60 [facility] Comment on above: Order Comment: Speci men Type: BLOOD SPECIMEN Ordering Facility: [facility] Address: [address] [place] [address] Result Comment: Dejah mated Glomerular Filtration Rate (eGFR) is calculated using the 2020 CKD-EPI creatinine equation. This equation utilizes serum creatinine, sex, and age as parameters. The creatinine assay has traceable calibration to isotope dilution-mass spectrometry. Refer to KDIGO guidelines for clinical interpretation. In patients with unstable renal function, e.g. those with acute kidney injury, the eGFR may not accurately reflect actual GFR. Performed By: #### 2 4321-2 #### [facility] CLIA [id number] [address] [place] [address] [place] Glucose [Mass/Vol] 178 mg/dL High 74-99 [facility] Comment on above: Order Comment: Marcela men Type: BLOOD SPECIMEN Ordering Facility: [facility] Address: [address] [place] [address] Result Comment: The [place] Diabetes Association (ADA) provides guidance for cutoff values for fasting glucose and random glucose. The ADA defines fasting as no caloric intake for at least 8 hours. Fasting plasma glucose results between 100 to 125 mg/dL indicate increased risk for diabetes (prediabetes). Fasting plasma glucose results greater than or equal to 126 mg/dL meet the criteria for diagnosis of diabetes. In the absence of unequivocal hyperglycemia, results should be confirmed by repeat testing. In a patient with classic symptoms of hyperglycemia or hyperglycemic crisis, random plasma glucose results greater than or equal to 200 mg/dL meet the criteria for diagnosis of diabetes. Reference: Standards of Medical Care in Diabetes 2016, [place] Diabetes Association. Diabetes Care. 2016.39(Suppl 1). Performed By: #### 2 4321-2 #### [facility] [id number] [address] [place] [address] [place] Potassium [Moles/Vol] 4.1 mmol/L Normal 3.7-5.1 [facility] Comment on above: Order Comment: Marcela kieth Type: BLOOD SPECIMEN Ordering Facility: [facility] Address: [address] [place] [address] Performed By: #### 2 4321-2 #### [facility] [id number] [address] [place] [address] [place] Sodium [Moles/Vol] 138 mmol/L Normal 136-144 [facility] Comment on above: Order Comment: Dentoni men Type: BLOOD SPECIMEN Ordering Facility: [facility] Address: [address] [place] [address] Performed By: #### 2 4321-2 #### [facility] CLIA [id number] [address] [place] [address] [place] Urea nitrogen [Mass/Vol] 36 mg/dL High 9-24 [facility] Comment on above: Order Comment: Speci men Type: BLOOD SPECIMEN Ordering Facility: [facility] Address: [address] [place] [address] Performed By: #### 2 4321-2 #### [facility] DAHLIA [id number] [address] [place], [place] [id number] [place] CBC W Auto Differential pane l (Bld)on 03-13-2024 Basophils (Bld) [#/Vol] [facility] Basophils/100 WBC (Bld) 0.2 % [facility] Differential cell count method Nom (Bld) Auto [facility] Eosinophils (Bld) [#/Vol] 0.03 10*3/uL [facility] Eosinophils/100 WBC (Bld) 0.3 % [facility] Erythrocyte distribution width (RBC) [Ratio] 14.8 % 11.5 - 15.0 % [facility] Hematocrit (Bld) [Volume fraction] 44.7 % 39.0 - 51.0 % [facility] Hemoglobin (Bld) [Mass/Vol] 14.5 g/dL 13.0 - 17.0 g/dL [facility] Immature granulocytes (Bld) [#/Vol] 0.05 10*3/uL [facility] Immature granulocytes/100 WBC (Bld) 0.6 % [facility] Interpretation and review of laboratory results Abnormal [facility] Lymphocytes (Bld) [#/Vol] 0.80 10*3/uL Low [facility] Lymphocytes/100 WBC (Bld) 9.0 % [facility] MCH (RBC) [Entitic mass] 31.4 pg 26.0 - 34.0 pg [facility] MCHC (RBC) [Mass/Vol] 32.4 g/dL 30.5 - 36.0 g/dL [facility] MCV (RBC) [Entitic vol] 96.8 fL 80.0 - 100.0 fL [facility] Monocytes (Bld) [#/Vol] 0.49 10*3/uL [facility] Monocytes/100 WBC (Bld) 5.5 % [facility] Neutrophils (Bld) [#/Vol] 7.51 10*3/uL High [facility] Neutrophils/100 WBC (Bld) 84.4 % [facility] Nucleated RBC (Bld) [#/Vol] [facility] Nucleated RBC/100 WBC (Bld) [Ratio] 0.0 % /100 WBC [facility] Platelet mean volume (Bld) [Entitic vol] 12.1 fL 9.0 - 12.7 fL [facility] Platelets (Bld) [#/Vol] 184 10*3/uL [facility] RBC (Bld) [#/Vol] 4.62 10*6/uL 4.20 - 6.0 0 m/uL [facility] WBC (Bld) [#/Vol] 8.90 10*3/uL [facility] Basophils (Bld) [#/Vol] 10*3/uL Normal <0.11 [facility] Comment on above: Order Comment: Speci men Type: BLOOD SPECIMEN Ordering Facility: [facility] Address: [address] [place] [address] Performed By: #### 5 7021-8 #### [facility] CLIA [id number] [address] [place] [address] [place] Basophils/100 WBC (Bld) 0.2 % Normal [facility] Comment on above: Order Comment: Speci men Type: BLOOD SPECIMEN Ordering Facility: [facility] Address: [address] [place] [address] Performed By: #### 5 7021-8 #### [facility] CLIA [id number] [address] [place] [address] [place] Differential cell count method Nom (Bld) Auto Normal [facility] Comment on above: Order Comment: Speci men Type: BLOOD SPECIMEN Ordering Facility: [facility] Address: [address] [place] [address] Performed By: #### 5 7021-8 #### [facility] CLIA [id number] [address] [place] [address] [place] Eosinophils (Bld) [#/Vol] 0.03 10*3/uL Normal <0.46 [facility] Comment on above: Order Comment: Speci men Type: BLOOD SPECIMEN Ordering Facility: [facility] Address: [address] [place] [address] Performed By: #### 5 7021-8 #### [facility] CLIA [id number] [address] [place] [address] [place] Eosinophils/100 WBC (Bld) 0.3 % Normal [facility] Comment on above: Order Comment: Speci men Type: BLOOD SPECIMEN Ordering Facility: [facility] Address: [address] [place], [place] [id number] Performed By: #### 5 7021-8 #### [facility] CLIA [id number] [address] [place] [address] [place] Erythrocyte distribution width (RBC) [Ratio] 14.8 % Normal 11.5-15.0 [facility] Comment on above: Order Comment: Speci men Type: BLOOD SPECIMEN Ordering Facility: [facility] Address: [address] [place] [address] Performed By: #### 5 7021-8 #### [facility] [id number] [address] [place] [address] [place] Hematocrit (Bld) [Volume fraction] 44.7 % Normal 39.0-51.0 [facility] Comment on above: Order Comment: Speci men Type: BLOOD SPECIMEN Ordering Facility: [facility] Address: [address] [place] [address] Performed By: #### 5 7021-8 #### [facility] CLIA [id number] [address] [place] [address] [place] Hemoglobin (Bld) [Mass/Vol] 14.5 g/dL Normal 13.0-17.0 [facility] Comment on above: Order Comment: Speci men Type: BLOOD SPECIMEN Ordering Facility: [facility] Address: [address] [place], [place] [address] Performed By: #### 5 7021-8 #### [facility] CLIA [id number] [address] [place] [address] [place] Immature granulocytes (Bld) [#/Vol] 0.05 10*3/uL Normal <0.10 [facility] Comment on above: Order Comment: Speci men Type: BLOOD SPECIMEN Ordering Facility: [facility] Address: [address] [place] [address] Performed By: #### 5 7021-8 #### [facility] CLIA [id number] [address] [place] [address] [place] Immature granulocytes/100 WBC (Bld) 0.6 % Normal [facility] Comment on above: Order Comment: Speci men Type: BLOOD SPECIMEN Ordering Facility: [facility] Address: [address] [place] [address] Performed By: #### 5 7021-8 #### [facility] CLIA [id number] [address] [place] [address] [place] Lymphocytes (Bld) [#/Vol] 0.80 10*3/uL Low 1.00-4.00 [facility] Comment on above: Order Comment: Speci men Type: BLOOD SPECIMEN Ordering Facility: [facility] Address: [address] [place] [address] Performed By: #### 5 7021-8 #### [facility] CLIA [id number] [address] [place] [address] [place] Lymphocytes/100 WBC (Bld) 9.0 % Normal [facility] Comment on above: Order Comment: Speci men Type: BLOOD SPECIMEN Ordering Facility: [facility] Address: [address] [place] [address] Performed By: #### 5 7021-8 #### [facility] CLIA [id number] [address] [place] [address] [place] MCH (RBC) [Entitic mass] 31.4 pg Normal 26.0-34.0 [facility] Comment on above: Order Comment: Speci men Type: BLOOD SPECIMEN Ordering Facility: [facility] Address: [address] [place] [address] Performed By: #### 5 7021-8 #### [facility] CLIA [id number] [address] [place] [address] [place] MCHC (RBC) [Mass/Vol] 32.4 g/dL Normal 30.5-36.0 [facility] Comment on above: Order Comment: Speci men Type: BLOOD SPECIMEN Ordering Facility: [facility] Address: [address] [place] [address] Performed By: #### 5 7021-8 #### [facility] CLIA [id number] [address] [place] [address] [place] MCV (RBC) [Entitic vol] 96.8 fL Normal 80.0-100.0 [facility] Comment on above: Order Comment: Speci men Type: BLOOD SPECIMEN Ordering Facility: [facility] Address: [address] [place] [address] Performed By: #### 5 7021-8 #### [facility] CLIA [id number] [address] [place] [address] [place] Monocytes (Bld) [#/Vol] 0.49 10*3/uL Normal <0.87 [facility] Comment on above: Order Comment: Speci men Type: BLOOD SPECIMEN Ordering Facility: [facility] Address: [address] [place] [address] Performed By: #### 5 7021-8 #### [facility] CLIA [id number] [address] [place] [address] [place] Monocytes/100 WBC (Bld) 5.5 % Normal [facility] Comment on above: Order Comment: Speci men Type: BLOOD SPECIMEN Ordering Facility: [facility] Address: [address] [place] [address] Performed By: #### 5 7021-8 #### [facility] CLIA [id number] [address] [place] [address] [place] Neutrophils (Bld) [#/Vol] 7.51 10*3/uL High 1.45-7.50 [facility] Comment on above: Order Comment: Speci men Type: BLOOD SPECIMEN Ordering Facility: [facility] Address: [address] [place] [address] Performed By: #### 5 7021-8 #### [facility] [facility] CLIA [id number] [address] [place] [address] [place] Neutrophils/100 WBC (Bld) 84.4 % Normal [facility] Comment on above: Order Comment: Speci men Type: BLOOD SPECIMEN Ordering Facility: [facility] Address: [address] [place] [address] Performed By: #### 5 7021-8 #### [facility] CLIA [id number] [address] [place] [address] [place] Nucleated RBC (Bld) [#/Vol] 10*3/uL Normal <0.01 [facility] Comment on above: Order Comment: Speci men Type: BLOOD SPECIMEN Ordering Facility: [facility] Address: [address] [place] [address] Performed By: #### 5 7021-8 #### [facility] CLIA [id number] [address] [place] [address] [place] Nucleated RBC/100 WBC (Bld) [Ratio] 0.0 /100 WBC Normal [facility] Comment on above: Order Comment: Speci men Type: BLOOD SPECIMEN Ordering Facility: [facility] Address: [address] [place] [address] Performed By: #### 5 7021-8 #### [facility] CLIA [id number] [address] [place] [address] [place] Platelet mean volume (Bld) [Entitic vol] 12.1 fL Normal 9.0-12.7 [facility] Comment on above: Order Comment: Speci men Type: BLOOD SPECIMEN Ordering Facility: [facility] Address: [address] [place] [address] Performed By: #### 5 7021-8 #### [facility] CLIA [id number] [address] [place] [address] [place] Platelets (Bld) [#/Vol] 184 10*3/uL Normal 150-400 [facility] Comment on above: Order Comment: Speci men Type: BLOOD SPECIMEN Ordering Facility: [facility] Address: [address] [place] [address] Performed By: #### 5 7021-8 #### [facility] CLIA [id number] [address] [place] [address] [place] RBC (Bld) [#/Vol] 4.62 10*6/uL Normal 4.20-6.00 [facility] Comment on above: Order Comment: Speci men Type: BLOOD SPECIMEN Ordering Facility: [facility] Address: [address] [place] [address] Performed By: #### 5 7021-8 #### [facility] CLIA [id number] [address] [place] [address] [place] WBC (Bld) [#/Vol] 8.90 10*3/uL Normal 3.70-11.00 [facility] Comment on above: Order Comment: Speci men Type: BLOOD SPECIMEN Ordering Facility: [facility] Address: [address] [place] [address] Performed By: #### 5 7021-8 #### [facility] CLIA [id number] [address] [place] [address] [place] CNOVSPon 03-13-2024 CNOVSP Visit (SP) Office ([facility]) MEDINA MCKOY II ([id number]) 1950 M Date Time Provider Department 03/13/24 11:00 AM JEAN-CLAUDE CEJA During your visit today, we recorded the following information about you: Temperature Pulse Blood pressure Weight 99.1 degrees 81/minute 165/95 74.6 kg Height 1.71 m Jean-Claude Ceja MD 03/13/2024 12:34 PM Signed HISTORY OF PRESENT ILLNESS: Medina Mckoy II is a 73 year old male SPEP done by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 [address] [place] [address] Performed By: #### L [id number] #### [facility] CLIA [id number] [address] [place] [address] [facility] [place] Platelets (Bld) [#/Vol] 197 10*3/uL Normal 150-400 [facility] Comment on above: Order Comment: Speci men Type: BLOOD SPECIMEN Ordering Facility: [facility] Address: [address] [place] [address] Performed By: #### L [id number] #### [facility] CLIA [id number] [address] [place] [address] [place] RBC (Bld) [#/Vol] 4.85 10*6/uL Normal 4.20-6.00 [facility] Comment on above: Order Comment: Speci men Type: BLOOD SPECIMEN Ordering Facility: [facility] Address: [address] [place] [address] Performed By: #### L [id number] #### [facility] CLIA [id number] [address] [place] [address] [place] WBC (Bld) [#/Vol] 10.25 10*3/uL Normal 3.70-11.00 [facility] Comment on above: Order Comment: Speci men Type: BLOOD SPECIMEN Ordering Facility: [facility] Address: [address] [place] [address] Performed By: #### L [id number] #### [facility] CLIA [id number] [address] [place] [address] [place] Erythrocyte distribution width (RBC) [Ratio] 13.2 % Normal 11.5-15.0 [facility] Comment on above: Order Comment: Speci men Type: BLOOD SPECIMEN Ordering Facility: [facility] Address: [address] [place] [address] Performed By: #### 5 8410-2 #### [facility] CLIA [id number] [address] Hematocrit (Bld) [Volume fraction] 43.7 % Normal 39.0-51.0 [facility] Comment on above: Order Comment: Speci men Type: BLOOD SPECIMEN Ordering Facility: [facility] Address: [address] [place] [address] Performed By: #### 5 8410-2 #### [facility] CLIA [id number] [address] [facility] Hemoglobin (Bld) [Mass/Vol] 14.2 g/dL Normal 13.0-17.0 [facility] Comment on above: Order Comment: Speci men Type: BLOOD SPECIMEN Ordering Facility: [facility] Address: [address] [place] [address] Performed By: #### 5 8410-2 #### [facility] CLIA [id number] [address] MCH (RBC) [Entitic mass] 29.3 pg Normal 26.0-34.0 [facility] Comment on above: Order Comment: Speci men Type: BLOOD SPECIMEN Ordering Facility: [facility] Address: [address] [place] [address] Performed By: #### 5 8410-2 #### [facility] CLIA [id number] [address] [place] [facility] MCHC (RBC) [Mass/Vol] 32.5 g/dL Normal 30.5-36.0 [facility] Comment on above: Order Comment: Speci men Type: BLOOD SPECIMEN Ordering Facility: [facility] Address: [address] [place] [address] Performed By: #### 5 8410-2 #### [facility] CLIA [id number] [address] MCV (RBC) [Entitic vol] 90.1 fL Normal 80.0-100.0 [facility] Comment on above: Order Comment: Speci men Type: BLOOD SPECIMEN Ordering Facility: [facility] Address: [address] [place] [address] Performed By: #### 5 8410-2 #### [facility] CLIA [id number] [address] Nucleated RBC (Bld) [#/Vol] 10*3/uL Normal <0.01 [facility] Comment on above: Order Comment: Speci men Type: BLOOD SPECIMEN Ordering Facility: [facility] Address: [address] [place] [address] Performed By: #### 5 8410-2 #### [facility] CLIA [id number] [address] Platelet mean volume (Bld) [Entitic vol] 12.0 fL Normal 9.0-12.7 [facility] Comment on above: Order Comment: Speci men Type: BLOOD SPECIMEN Ordering Facility: [facility] Address: [address] [place] [address] Performed By: #### 5 8410-2 #### [facility] CLIA [id number] [address] Platelets (Bld) [#/Vol] 215 10*3/uL Normal 150-400 [facility] Comment on above: Order Comment: Speci men Type: BLOOD SPECIMEN Ordering Facility: [facility] Address: [address] [place] [address] Performed By: #### 5 8410-2 #### [facility] CLIA [id number] [address] RBC (Bld) [#/Vol] 4.85 10*6/uL Normal 4.20-6.00 [facility] Comment on above: Order Comment: Speci men Type: BLOOD SPECIMEN Ordering Facility: [facility] Address: [address] [place], [place] [address] [address] Performed By: #### 5 8410-2 #### [facility] CLIA [id number] [address] [place] [address] [facility] [place] WBC (Bld) [#/Vol] 10.66 10*3/uL Normal 3.70-11.00 [facility] Comment on above: Order Comment: Speci men Type: BLOOD SPECIMEN Ordering Facility: [facility] Address: [address] [place] [id number] Performed By: #### 5 8410-2 #### [facility] CLIA [id number] [address] CONSULTon 05-13-2023 CONSULT HNO ID: [id number] Author: Oj Foss MD Service: Clinical Cardiology Author Type: Physician Type: Consults Filed: 05/13/2023 9:35 AM Note Text: CARDIOLOGY CONSULT NOTE SERVICE DATE: 05/13/2023 SERVICE TIME: 9:00 AM CONSULTING PHYSICIAN: Oj Foss PCP: No primary care provider on file. ATTENDING: Steven Miller DO REASON FOR CONSULT: Chest Pain and elevated troponins CHIEF COMPLAINT: Chest pain [R07.9] HPI:Cardiac consultation at the request of Dr. Kira Geller. Mr. Mckoy is a 72 year old male who is seen today for chest pain, elevated troponins. He has a history of idiopathic neuropathy, benign neck tumor , sacroiliac pain but otherwise no other documented medical history. He was admitted to [facility] with chief complaints of chest pain. Apparently, his symptoms have been ongoing for the last few days. He described the pain as a dull 8/10 in intensity in the retrosternal region without radiation to the neck, left arm, jaw. The pain occured when he was changing oil for his car. He did not describe any significant dyspnea. We were consulted for the finding of elevated troponins. His troponins went from 393-383 to 390 ng/L. In terms of cardiac workup, he has not had any recent stress test/coronary angiography. At present, the patient is comfortable lying in bed, talking to me in full sentences, denies any chest discomfort. 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 He had several reservations about the use of statins. He mentioned that in his reading, statins do not prevent heart disease . 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 PAST MEDICAL HISTORY Diagnosis Date Neuropathy bilateral idiopathic legs PAST SURGICAL HISTORY Procedure Laterality Date APPENDECTOMY HX CHOLECYSTECTOMY HX INGUINAL HERNIA REPAIR HX SOCIAL HISTORY Social History Tobacco Use Smoking status: Never Substance Use Topics Alcohol use: Yes Alcohol/week: 17.5 standard drinks of alcohol Types: 7 Glasses of Wine (5oz) per week Drug use: Never No family history on file. ALLERGIES: ALLERGIES Allergen Reactions Bacitracin Rash MEDICATIONS: pravastatin (PRAVACHOL) 20 mg tabletTake 1 tablet by mouth daily at bedtime.Disp: Rfl: 0 atenolol (TENORMIN) 25 mg tabletTake 1 tablet by mouth twice daily.Disp: Rfl: 0 aspirin(ECOTRIN LOW STRENGTH 81 MG TAB)Take by mouth. Pt reports no longer takingDisp: Rfl: 0 ALBUTEROL 90 MCG/ACTUATION AEROSOL INHALERUse as directed four(4) times daily.Disp: Rfl: 0 MULTIVITAMIN TABTake one(1) tablet daily.Disp: Rfl: 0 omega-3 fatty acids/vitamin e(FISH OIL 1,000 MG CAP)Disp: Rfl: 0 ibuprofen(MOTRIN 600 MG TAB)one three tablet times dailyDisp: Rfl: 0 REVIEW OF SYSTEMS: GENERAL: Negative for:Weight loss and Weight gain HEENT: Negative for:Nosebleeds RESPIRATORY: Negative for:Shortness of breath GASTROINTESTINAL: Negative for:Blood in stool MUSCULOSKELETAL: Negtive for: Muscle or joint pain, stiffness, Joint swelling SKIN: No rash HEMATOLOGICAL/LYMPHATIC : Negative for: Easy bruising and Easy bleeding CARDIOVASCULAR: As stated in HPI. 10 system review negative except as stated in HPI PHYSICAL EXAMINATION: BP 165/99 Pulse 98 Temp (Src) 97.7 (Oral) Resp 18 Ht 5' 7 (1.70m) Wt 157 lb 10.1 oz (71.5kg) SpO2 98% BMI 24.68 kg/(m2). O2 Therapy: Room Air General: Well appearing, in no acute distress, speaking in complete sentences., Well appearing. Psych: Normal Affect Eyes: No subconjunctival hemorrhage Skin: No rash, bruising Oropharynx: Mucous membranes normal Neck: - jugular venous distention, no carotid bruits. 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 I was not able to auscultate any bruits over the tumor or his carotid arteries. Lymph: No cervical lymphadenopathy Lungs: Clear to auscultation bilaterally, no wheezing or rhonchi. Heart: S1, S2 normal, no murmur Extremities: No peripheral edema Neuro: Grossly nonfocal LABS: 12 lead EKG May 12 2023 12:58:42 : Normal sinus rhythm and Nonspecific St-T wave changes QTc 428 msec. Past 72 Hour Labs: Recent Labs 05/13/23 0506 05/12/23 2243 05/12/23 1506 05/12/23 1335 WBC 10.25 10.66 -- 14.39* RBC 4.85 4.85 -- 5.15 HB 14.2 14.2 -- 15.3 HCT 44.0 43.7 -- 47.8 MCV 90.7 90.1 -- 92.8 MCH 29.3 29.3 -- 29.7 MCHC 32.3 32.5 -- 32.0 RDWCV 13.3 13.2 -- 13.1 PLT 197 215 -- 222 MPV 11.6 12.0 -- 12.1 GLUC 146* -- -- 160* BUN 30* -- -- 30* CREAT 0.99 -- -- 1.00 NA 144 -- -- 140 K 4.0 -- -- 3.7 CHLOR 108* -- -- 102 CO2 26 -- -- 25 TPROT 6.4 -- -- -- ALB 3.6* -- -- -- CA 9.2 -- -- 10.2 ALKPHOS 112 -- -- -- TBILI 0.3 -- -- -- AST 30 -- -- -- ALT 22 -- -- -- PTSEC -- 11.0 < > -- APTT 48.1* 36.9* < > -- INR -- 1.0 < > -- MG -- -- -- 2.1 < > = valu (more content not included)... Normal [facility] Comprehensive metabolic 2000 panelon 05-13-2023 Albumin [Mass/Vol] 3.6 g/dL Low 3.9-4.9 [facility] Comment on above: Order Comment: Speci men Type: BLOOD SPECIMEN Ordering Facility: [facility] Address: [address] [place] [address] Performed By: #### 1 4979-9 #### [facility] CLIA [id number] [address] ALP [Catalytic activity/Vol] 112 U/L Normal 38-113 [facility] Comment on above: Order Comment: Speci men Type: BLOOD SPECIMEN Ordering Facility: [facility] Address: [address] [place] [address] Performed By: #### 1 4979-9 #### [facility] CLIA [id number] [address] ALT With P-5'-P [Catalytic activity/Vol] 22 U/L Normal 10-54 [facility] Comment on above: Order Comment: Speci men Type: BLOOD SPECIMEN Ordering Facility: [facility] Address: [address] [place] [address] Performed By: #### 1 4979-9 #### [facility] CLIA [id number] [address] Anion gap [Moles/Vol] 10 mmol/L Normal 9-18 [facility] Comment on above: Order Comment: Speci men Type: BLOOD SPECIMEN Ordering Facility: [facility] Address: [address] [place] [address] Performed By: #### 1 4979-9 #### [facility] CLIA [id number] [address] AST With P-5'-P [Catalytic activity/Vol] 30 U/L Normal 14-40 [facility] Comment on above: Order Comment: Speci men Type: BLOOD SPECIMEN Ordering Facility: [facility] Address: [address] [place] [address] Performed By: #### 1 4979-9 #### [facility] CLIA [id number] [address] [place] Bilirubin [Mass/Vol] 0.3 mg/dL Normal 0.2-1.3 [facility] Comment on above: Order Comment: Speci men Type: BLOOD SPECIMEN Ordering Facility: [facility] Address: [address] [place] [address] Performed By: #### 1 4979-9 #### [facility] CLIA [id number] [address] [place] Calcium [Mass/Vol] 9.2 mg/dL Normal 8.5-10.2 [facility] Comment on above: Order Comment: Speci men Type: BLOOD SPECIMEN Ordering Facility: [facility] Address: [address] [place] [address] Performed By: #### 1 4979-9 #### [facility] CLIA [id number] [address] [place] Chloride [Moles/Vol] 108 mmol/L High 97-105 [facility] Comment on above: Order Comment: Speci men Type: BLOOD SPECIMEN Ordering Facility: [facility] Address: [address] [place] [address] Performed By: #### 1 4979-9 #### [facility] CLIA [id number] [address] [place] CO2 [Moles/Vol] 26 mmol/L Normal 22-30 [facility] Comment on above: Order Comment: Speci men Type: BLOOD SPECIMEN Ordering Facility: [facility] Address: [address] [place] [address] Performed By: #### 1 4979-9 #### [facility] CLIA [id number] [address] [place] [address] [place] Creatinine [Mass/Vol] 0.99 mg/dL Normal 0.73-1.22 [facility] Comment on above: Order Comment: Speci men Type: BLOOD SPECIMEN Ordering Facility: [facility] Address: [address] [place] [address] Performed By: #### 1 4979-9 #### [facility] CLIA [id number] [address] [place] [address] [place] Creatinine and Glomerular filtration rate.predicted panel (S/P/Bld) 81 mL/min/1.73m??? Normal >=60 [facility] Comment on above: Order Comment: Marcela keith Type: BLOOD SPECIMEN Ordering Facility: [facility] Address: [address] [place] [address] Result Comment: Dejah mated Glomerular Filtration Rate (eGFR) is calculated using the 2020 CKD-EPI creatinine equation. This equation utilizes serum creatinine, sex, and age as parameters. The creatinine assay has traceable calibration to isotope dilution-mass spectrometry. Refer to KDIGO guidelines for clinical interpretation. In patients with unstable renal function, e.g. those with acute kidney injury, the eGFR may not accurately reflect actual GFR. Performed By: #### 1 4979-9 #### [facility] CLIA [id number] [address] [place] [address] [place] Glucose [Mass/Vol] 146 mg/dL High 74-99 [facility] Comment on above: Order Comment: Marcela keith Type: BLOOD SPECIMEN Ordering Facility: [facility] Address: [address] [place] [address] Result Comment: The [place] Diabetes Association (ADA) provides guidance for cutoff values for fasting glucose and random glucose. The ADA defines fasting as no caloric intake for at least 8 hours. Fasting plasma glucose results between 100 to 125 mg/dL indicate increased risk for diabetes (prediabetes). Fasting plasma glucose results greater than or equal to 126 mg/dL meet the criteria for diagnosis of diabetes. In the absence of unequivocal hyperglycemia, results should be confirmed by repeat testing. In a patient with classic symptoms of hyperglycemia or hyperglycemic crisis, random plasma glucose results greater than or equal to 200 mg/dL meet the criteria for diagnosis of diabetes. Reference: Standards of Medical Care in Diabetes 2016, [place] Diabetes Association. Diabetes Care. 2016.39(Suppl 1). Performed By: #### 1 4979-9 #### [facility] CLIA [id number] [address] [place] [address] [place] Potassium [Moles/Vol] 4.0 mmol/L Normal 3.7-5.1 [facility] Comment on above: Order Comment: Marcela keith Type: BLOOD SPECIMEN Ordering Facility: [facility] Address: [address] [place] [address] Performed By: #### 1 4979-9 #### [facility] CLIA [id number] [address] [place] [facility] Protein [Mass/Vol] 6.4 g/dL Normal 6.3-8.0 [facility] Comment on above: Order Comment: Speci men Type: BLOOD SPECIMEN Ordering Facility: [facility] Address: [address] [place] [address] Performed By: #### 1 4979-9 #### [facility] CLIA [id number] [address] [place] [facility] Sodium [Moles/Vol] 144 mmol/L Normal 136-144 [facility] Comment on above: Order Comment: Speci men Type: BLOOD SPECIMEN Ordering Facility: [facility] Address: [address] [place] [address] Performed By: #### 1 4979-9 #### [facility] CLIA [id number] [address] [place] Urea nitrogen [Mass/Vol] 30 mg/dL High 9-24 [facility] Comment on above: Order Comment: Speci men Type: BLOOD SPECIMEN Ordering Facility: [facility] Address: [address] [place] [address] Performed By: #### 1 4979-9 #### [facility] CLIA [id number] [address] ECHOon 05-13-2023 Echocardiography Echocardiography Report: Transthoracic Echo [facility] Date of service: 05/13/2023 11:58:42 AM HOME Ordering physician: JACEY BANDA Indication: Chest Pain Technologist: Nicolette Campuzano [facility] Interpreting physician: Oj Foss MD PATIENT: Name: MR. MEDINA MCKOY II : 1950 Age: 72 years Gender: M Primary rhythm: sinus. Height: 170.20 cm BSA: 1.84 m Weight: 71.50 kg BMI: 24.7 kg/m Heart rate 79 bpm Blood pressure 189/107 mmHg Color Doppler was utilized to interrogate the cardiac valves assessed and spectral Doppler was utilized to determine the flow velocities and pressure gradients reported in this exam. Myocardial strain analysis was performed in this exam to aid in the assessment of cardiac function. MEASUREMENTS: Value Indexed Normal Max aortic dimension 3.4 cm Ao < 3.8 Left atrium diameter 3.3 cm (2D) Left atrial volume 60 ml (biplane A-L) 33 ml/m Parris <= 34 LV ID (diastole) 4.2 cm (2D) 2.28 cm/m LV ID (systole) 3.0 cm (2D) 1.64 cm/m IVS, leaflet tips 1.8 cm (2D) Posterior wall thickness 1.4 cm (2D) Left ventricular mass 280 g (2D) 152 g/m Global peak long strain -11.5 % LV stroke volume 50 ml (2D biplane) LVOT stroke volume 47 ml 25 ml/m LV end diastolic volume 84 ml (2D biplane) 45.7 ml/m 34<=EDVi<75 LV end systolic volume 34 ml (2D biplane) 18.6 ml/m Ejection Fraction 59 % (2D biplane) EF > 52 FINDINGS: LEFT VENTRICLE The left ventricle is normal in size. There is moderate concentric left ventricular hypertrophy. Left ventricular systolic function is normal. Global LV myocardial strain is abnormal. Grade I left ventricular diastolic dysfunction. Mitral annular lateral E/e': 12.2. Mitral annular septal E/e': 9.2. Wall Motion: The mid anteroseptal segment is mildly hypokinetic. All remaining scored segments are normal. RIGHT VENTRICLE The right ventricle is normal in size. Right ventricular systolic function is normal. RV systolic tissue Doppler velocity is 14.0 cm/s. Tricuspid annular displacement is 1.9 cm. Estimated right ventricular systolic pressure is not reported due to an insufficient tricuspid regurgitation signal. Estimated right atrial pressure is 3 mmHg based on IVC assessment. LEFT ATRIUM The left atrial cavity is normal in size. RIGHT ATRIUM The right atrial cavity is normal in size. Inferior Vena Cava: The inferior vena cava appears normal measuring 2.0 cm. The vessel decreases greater than 50 percent with inspiration. MITRAL VALVE The mitral valve leaflets are structurally normal. There is mild (1+) mitral valve regurgitation. The pressure half time is 49 msec. The peak mitral E/A ratio is 0.86. The average mitral E/e' ratio is 10.7. The mitral flow deceleration time is 170 msec. TRICUSPID VALVE The tricuspid valve leaflets are structurally normal. There is trace tricuspid valve regurgitation. AORTIC VALVE There is mild (1+) aortic valve regurgitation. Tricuspid aortic valve. There is mild thickening. The peak gradient is 4 mmHg (peak velocity = 106.1 cm/s). The LVOT mean velocity is 55.2 cm/s. The LVOT diameter is 2.0 cm. The LVOT stroke volume index is 25 ml/m . PULMONIC VALVE The pulmonic valve cusps are structurally normal. There is trace (trace - 1+) pulmonic valve regurgitation. The peak gradient is 4 mmHg. AORTA The visualized aorta is normal in size. Measurements - Sinus: 3.4 cm. Mid ascending aorta 3.1 cm. PULMONARY ARTERIES The pulmonary arteries are unseen or not interrogated. PERICARDIUM There is no pericardial effusion. CONCLUSIONS: - Exam indication: Chest Pain - The left ventricle is normal in size. There is moderate concentric left ventricular hypertrophy. Left ventricular systolic function is normal. EF = 59 5% (2D biplane) Global peak long strain-11.5 % - The right ventricle is normal in size. Right ventricular systolic function is normal. RV systolic tissue Doppler velocity is 14.0 cm/s. - There is no pericardial effusion. - The patient has not had a prior CC echocardiographic exam for comparison. * * * Final * * * [facility] : [id number] [id number] Normal [facility] HIGH SENSITIVITY TROPONIN To n 05-13-2023 Troponin T.cardiac High sensitivity method [Mass/Vol] 237 ng/L High <12 [facility] Comment on above: Order Comment: Speci men Type: BLOOD SPECIMEN Ordering Facility: [facility] Address: [address] [place] [address] Result Comment: When assessing risk for acute coronary syndromes: In patients undergoing blood draw greater than or equal to 2 hours from symptom onset, with history of very low to moderate risk and non-ischemic ECG, an initial hs-Troponin T less than 12 ng/L AND a 1 hour delta hs-Troponin T less than 3 ng/L should be considered very low risk for 30 day MACE. Performed By: #### L [id number] #### [facility] CLIA [id number] [address] [place] [address] [place] HISTORY PHYSICALon HISTORY PHYSICAL HNO ID: [id number] Author: Jacey Banda MD Service: Hospital Medicine Author Type: Physician Type: HANDP Filed: 05/13/2023 6:26 AM Note Text: DEPARTMENT OF HOSPITAL MEDICINE HISTORY AND PHYSICAL EXAM AUTHOR: Jacey Banda MD PATIENT NAME: Medina Mckoy II : 1950 Primary Care Physician: No primary care provider on file. NIGHT AND WEEKEND COVERAGE: From 7am - 7pm, please call Sound Physician on duty After 7pm, please call cross cover pager #[phone] Subjective CHIEF COMPLAINT / REASON FOR ADMISSION: Chest pain HPI: This is a 72 year old male has a past medical history of Neuropathy. presented with Chest pain for last few days prior to arrival to the hospital. Chest pain pain as severe (8/10), central, dull, nonradiating. Initially chest pain was mild, intermittent but gradually getting more persistent. No resting chest pain currently. The patient was seen and examined at bedside, appears alert and awake with no acute distress. Denied any resting ongoing chest pain, resting SOB, hemoptysis, productive cough, fever, ongoing palpitation, active abdominal pain, hematemesis, rectal bleeding, rene, hematuria, any other and GI complaints, and any new focal neuro deficits. PAST MEDICAL HISTORY Diagnosis Date Neuropathy bilateral idiopathic legs PAST SURGICAL HISTORY Procedure Laterality Date APPENDECTOMY HX CHOLECYSTECTOMY HX INGUINAL HERNIA REPAIR HX Family History: Reviewed and no pertinent family history Social History Tobacco Use Smoking status: Never Substance Use Topics Alcohol use: Yes Alcohol/week: 17.5 standard drinks of alcohol Types: 7 Glasses of Wine (5oz) per week Drug use: Never TOBHX Tobacco Use: Never ALCHX Alcohol Use: Approximately 10.5 oz/week [which includes 7 Glasses of Wine (5oz) per week] DRUGHX Drug Use: Never ALLERGIES: ALLERGIES Allergen Reactions Bacitracin Rash HOME MEDICATIONS: pravastatin (PRAVACHOL) 20 mg tablet, Take 1 tablet by mouth daily at bedtime., Disp: , Rfl: 0 atenolol (TENORMIN) 25 mg tablet, Take 1 tablet by mouth twice daily., Disp: , Rfl: 0 aspirin(ECOTRIN LOW STRENGTH 81 MG TAB), Take by mouth. Pt reports no longer taking, Disp: , Rfl: 0 ALBUTEROL 90 MCG/ACTUATION AEROSOL INHALER, Use as directed four(4) times daily., Disp: , Rfl: 0 MULTIVITAMIN TAB, Take one(1) tablet daily., Disp: , Rfl: 0 omega-3 fatty acids/vitamin e(FISH OIL 1,000 MG CAP), , Disp: , Rfl: 0 ibuprofen(MOTRIN 600 MG TAB), one three tablet times daily, Disp: , Rfl: 0 ROS: Pertinent positives and negatives are noted in the HPI, all other systems are reviewed and negative Objective Vitals: BP 165/99 Pulse 98 Temp (Src) 97.7 (Oral) Resp 18 Ht 5' 7 (1.70m) Wt 157 lb 10.1 oz (71.5kg) SpO2 98% BMI 24.68 kg/(m2). O2 Therapy: Room Air Physical Exam: GENERAL: Appears tired and weak otherwise hemodynamically stable at present. HEENT: PERRLA, no icterus. OP clear and no exudates. NECK: Supple, There is no LAD or thyromegaly. JVD None. RESPIRATORY: Bilateral equal vesicular breath sound with no wheezing. Lung bases are clear. HEART: No tachycardia at bedside and regular rhythm. ABDOMEN: Soft, nondistended, nontender. Bowel sound is present. EXTREMITIES: All peripheral pulses are present. No calf tenderness or swelling. No pedal edema is present.. NEUROLOGY: Alert and awake. No new focal neuro deficit. Admission Lab/Imaging/Procedure workup: Most recent labs and imaging results. Results for orders placed or performed during the hospital encounter of 05/12/23 ACTIVATED PTT Result Value Ref Range APTT 36.9 (H) 23.0 - 32.4 sec PROTHROMBIN TIME/PT Result Value Ref Range PT Sec 11.0 9.7 - 13.0 sec INR 1.0 0.9 - 1.3 CBC Result Value Ref Range WBC 10.66 3.70 - 11.00 k/uL RBC 4.85 4.20 - 6.00 m/uL Hemoglobin 14.2 13.0 - 17.0 g/dL Hematocrit 43.7 39.0 - 51.0 % MCV 90.1 80.0 - 100.0 fL MCH 29.3 26.0 - 34.0 pg MCHC 32.5 30.5 - 36.0 g/dL RDW-CV 13.2 11.5 - 15.0 % Platelet Count 215 150 - 400 k/uL MPV 12.0 9.0 - 12.7 fL Absolute nRBC <0.01 <0.01 k/uL CBC Result Value Ref Range WBC 10.25 3.70 - 11.00 k/uL RBC 4.85 4.20 - 6.00 m/uL Hemoglobin 14.2 13.0 - 17.0 g/dL Hematocrit 44.0 39.0 - 51.0 % MCV 90.7 80.0 - 100.0 fL MCH 29.3 26.0 - 34.0 pg MCHC 32.3 30.5 - 36.0 g/dL RDW-CV 13.3 11.5 - 15.0 % Platelet Count 197 150 - 400 k/uL MPV 11.6 9.0 - 12.7 fL Absolute nRBC <0.01 <0.01 k/uL COMP METABOLIC PANEL Result Value Ref Range Protein, Total 6.4 6.3 - 8.0 g/dL Albumin 3.6 (L) 3.9 - 4.9 g/dL Calcium, Total 9.2 8.5 - 10.2 mg/dL Bilirubin, Total 0.3 0.2 - 1.3 mg/dL Alkaline Phosphatase 112 38 - 113 U/L AST 30 14 - 40 U/L ALT 22 10 - 54 U/L Glucose 146 (H) 74 - 99 mg/dL BUN 30 (H) 9 - 24 mg/dL Creatinine 0.99 0.73 - 1.22 mg/dL Sodium 144 136 - 144 mmol/L Potassium 4.0 3.7 - 5.1 mmol/L Chloride 108 (H) 97 - 105 mmol/L C (more content not included)... Normal [facility] Hepatic function 2000 panelo n 05-13-2023 Albumin [Mass/Vol] 3.7 g/dL Low 3.9-4.9 [facility] Comment on above: Order Comment: Speci men Type: BLOOD SPECIMEN Ordering Facility: [facility] Address: [address] [place] [address] Performed By: #### 2 4325-3 #### [facility] CLIA [id number] [address] ALP [Catalytic activity/Vol] 111 U/L Normal 38-113 [facility] Comment on above: Order Comment: Speci men Type: BLOOD SPECIMEN Ordering Facility: [facility] Address: [address] [place] [address] Performed By: #### 2 4325-3 #### [facility] CLIA [id number] [address] ALT With P-5'-P [Catalytic activity/Vol] 22 U/L Normal 10-54 [facility] Comment on above: Order Comment: Speci men Type: BLOOD SPECIMEN Ordering Facility: [facility] Address: [address] [place] [address] Performed By: #### 2 4325-3 #### [facility] CLIA [id number] [address] AST With P-5'-P [Catalytic activity/Vol] 25 U/L Normal 14-40 [facility] Comment on above: Order Comment: Speci men Type: BLOOD SPECIMEN Ordering Facility: [facility] Address: [address] [place] [address] Performed By: #### 2 4325-3 #### [facility] CLIA [id number] [address] Bilirubin [Mass/Vol] 0.3 mg/dL Normal 0.2-1.3 [facility] Comment on above: Order Comment: Speci men Type: BLOOD SPECIMEN Ordering Facility: [facility] Address: [address] [place] [address] Performed By: #### 2 4325-3 #### [facility] CLIA [id number] [address] Bilirubin.conjugated [Mass/Vol] mg/dL Normal <0.2 [facility] Comment on above: Order Comment: Marcela keith Type: BLOOD SPECIMEN Ordering Facility: [facility] Address: [place] [address] Performed By: #### 2 4325-3 #### [facility] CLIA [id number] [address] Protein [Mass/Vol] 6.5 g/dL Normal 6.3-8.0 [facility] Comment on above: Order Comment: Marcela sagar Type: BLOOD SPECIMEN Ordering Facility: [facility] Address: [place] [address] Performed By: #### 2 4325-3 #### [facility] CLIA [id number] [address] [facility] NURSING PROGon 05-13-2023 NURSING PROG HNO ID: [id number] Author: Bina Abdi RN Service: Nursing Author Type: Registered Nurse Type: Nursing Progress Note Filed: 05/13/2023 7:33 PM Note Text: Pt has elevated BP 187/99 and has new orders for atenolol to be given. 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 RN educated pt on the importance of decreasing BP to a safe range and the risks if not done. Pt adamant about not taking medication. Dr. Foss of cardiology was notified. Normal [facility] PT panel Coag (PPP)on 2022 INR Coag (PPP) [Relative time] 1.0 {INR} Normal 0.9-1.3 [facility] Comment on above: Order Comment: Marcela keith Type: BLOOD SPECIMEN Ordering Facility: [facility] Address: [address] [place] [address] Result Comment: Darby min K Antagonist (VKA) Therapeutic Range: INR 2 to 3 (Target INR of 2.5) Note: For patients treated with VKA drugs, such as warfarin, the [place] [employer] 2012 Guideline recommends a therapeutic INR range of 2 to 3 (target INR of 2.5). This recommendation includes high-risk patients with antiphospholipid syndrome with previous arterial or venous thromboembolism, current-generation mechanical or bioprosthetic aortic heart valve replacement. Note: Patients with mechanical aortic valve replacement and additional risk factors for thromboembolic events (atrial fibrillation, previous thromboembolism, LV dysfunction, hypercoagulable conditions) or an older generation mechanical AVR (i.e., ball in-Cage) or any mechanical MVR should have a INR therapeutic range of 2.5 to 3.5 (target INR of 3). Luis GH, et al. Chest 2012, 141:7S-47S Buzz RA et al. [facility] 2017, 70: 252-289 Performed By: #### 1 4979-9 #### [facility] CLIA [id number] [address] [place] [address] [facility] PT Coag (PPP) [Time] 11.0 s Normal 9.7-13.0 [facility] Comment on above: Order Comment: Marcela keith Type: BLOOD SPECIMEN Ordering Facility: [facility] Address: [address] [place] [address] Performed By: #### 1 4979-9 #### [facility] CLIA [id number] [address] [place] [address] [place] aPTT PPPon 05-13-2023 aPTT Coag (PPP) [Time] 46.2 s High 23.0-32.4 [facility] Comment on above: Order Comment: Marcela keith Type: BLOOD SPECIMEN Ordering Facility: [facility] Address: [address] [place] [address] Performed By: #### L [id number] #### [facility] CLIA [id number] [address] [place] [address] [facility] aPTT Coag (PPP) [Time] 50.4 s High 23.0-32.4 [facility] Comment on above: Order Comment: Marcela keith Type: BLOOD SPECIMEN Ordering Facility: [facility] Address: [address] [place] [address] Performed By: #### 1 4979-9 #### [facility] CLIA [id number] [address] [place] [address] [place] aPTT Coag (PPP) [Time] 48.1 s High 23.0-32.4 [facility] Comment on above: Order Comment: Speci men Type: BLOOD SPECIMEN Ordering Facility: [facility] Address: [address] [place] [address] Performed By: #### L [id number] #### [facility] CLIA [id number] [address] [place] [address] STATES [facility] aPTT Coag (PPP) [Time] 36.9 s High 23.0-32.4 [facility] Comment on above: Order Comment: Speci men Type: BLOOD SPECIMEN Ordering Facility: [facility] Address: [address] [place] [address] Performed By: #### 1 4979-9 #### [facility] CLIA [id number] [address] [place] [address] [place] Basic metabolic 2000 panelon 05-12-2023 Anion gap [Moles/Vol] 13 mmol/L Normal 9-18 [facility] Comment on above: Order Comment: Speci men Type: BLOOD SPECIMEN Ordering Facility: [facility] Address: [address] [place] [address] Performed By: #### 1 4979-9 #### [facility] CLIA [id number] [address] [place] [address] [place] Calcium [Mass/Vol] 10.2 mg/dL Normal 8.5-10.2 [facility] Comment on above: Order Comment: Speci men Type: BLOOD SPECIMEN Ordering Facility: [facility] Address: [address] [place] [address] Performed By: #### 1 4979-9 #### [facility] CLIA [id number] [address] [place] Chloride [Moles/Vol] 102 mmol/L Normal 97-105 [facility] Comment on above: Order Comment: Speci men Type: BLOOD SPECIMEN Ordering Facility: [facility] Address: [address] [place] [address] Performed By: #### 1 4979-9 #### [facility] CLIA [id number] [address] [place] CO2 [Moles/Vol] 25 mmol/L Normal 22-30 [facility] Comment on above: Order Comment: Speci men Type: BLOOD SPECIMEN Ordering Facility: [facility] Address: [address] [place] [address] Performed By: #### 1 4979-9 #### [facility] CLIA [id number] [address] [place] [address] [place] Creatinine [Mass/Vol] 1.00 mg/dL Normal 0.73-1.22 [facility] Comment on above: Order Comment: Speci men Type: BLOOD SPECIMEN Ordering Facility: [facility] Address: [address] [place] [address] Performed By: #### 1 4979-9 #### [facility] CLIA [id number] [address] Creatinine and Glomerular filtration rate.predicted panel (S/P/Bld) 80 mL/min/1.73m??? Normal >=60 [facility] Comment on above: Order Comment: Speci men Type: BLOOD SPECIMEN Ordering Facility: [facility] Address: [address] [place] [address] Result Comment: Dejah mated Glomerular Filtration Rate (eGFR) is calculated using the 2020 CKD-EPI creatinine equation. This equation utilizes serum creatinine, sex, and age as parameters. The creatinine assay has traceable calibration to isotope dilution-mass spectrometry. Refer to KDIGO guidelines for clinical interpretation. In patients with unstable renal function, e.g. those with acute kidney injury, the eGFR may not accurately reflect actual GFR. Performed By: #### 1 4979-9 #### [facility] CLIA [id number] [address] [place] Glucose [Mass/Vol] 160 mg/dL High 74-99 [facility] Comment on above: Order Comment: Speci men Type: BLOOD SPECIMEN Ordering Facility: [facility] Address: [address] [place] [address] Result Comment: The [place] Diabetes Association (ADA) provides guidance for cutoff values for fasting glucose and random glucose. The ADA defines fasting as no caloric intake for at least 8 hours. Fasting plasma glucose results between 100 to 125 mg/dL indicate increased risk for diabetes (prediabetes). Fasting plasma glucose results greater than or equal to 126 mg/dL meet the criteria for diagnosis of diabetes. In the absence of unequivocal hyperglycemia, results should be confirmed by repeat testing. In a patient with classic symptoms of hyperglycemia or hyperglycemic crisis, random plasma glucose results greater than or equal to 200 mg/dL meet the criteria for diagnosis of diabetes. Reference: Standards of Medical Care in Diabetes 2016, [place] Diabetes Association. Diabetes Care. 2016.39(Suppl 1). Performed By: #### 1 4979-9 #### [facility] CLIA [id number] [address] [place] Potassium [Moles/Vol] 3.7 mmol/L Normal 3.7-5.1 [facility] Comment on above: Order Comment: Speckain keith Type: BLOOD SPECIMEN Ordering Facility: [facility] Address: [address] [place] [address] Performed By: #### 1 4979-9 #### [facility] CLIA [id number] [address] [place] Sodium [Moles/Vol] 140 mmol/L Normal 136-144 [facility] Comment on above: Order Comment: Marcela keith Type: BLOOD SPECIMEN Ordering Facility: [facility] Address: [address] [place] [address] Performed By: #### 1 4979-9 #### [facility] CLIA [id number] [address] [place] Urea nitrogen [Mass/Vol] 30 mg/dL High 9-24 [facility] Comment on above: Order Comment: Dentoni sagar Type: BLOOD SPECIMEN Ordering Facility: [facility] Address: [address] [place] [address] Performed By: #### 1 4979-9 #### [facility] CLIA [id number] [address] [place] CBC panel Auto (Bld)on 05-12 Erythrocyte distribution width (RBC) [Ratio] 13.1 % Normal 11.5-15.0 [facility] Comment on above: Order Comment: Speci men Type: BLOOD SPECIMEN Ordering Facility: [facility] Address: [address] [place] [address] Performed By: #### L [id number] #### [facility] CLIA [id number] [address] [place] [address] [place] Hematocrit (Bld) [Volume fraction] 47.8 % Normal 39.0-51.0 [facility] Comment on above: Order Comment: Speci men Type: BLOOD SPECIMEN Ordering Facility: [facility] Address: [address] [place] [address] Performed By: #### L [id number] #### [facility] CLIA [id number] [address] [place] [address] [place] Hemoglobin (Bld) [Mass/Vol] 15.3 g/dL Normal 13.0-17.0 [facility] Comment on above: Order Comment: Speci men Type: BLOOD SPECIMEN Ordering Facility: [facility] Address: [address] [place] [address] Performed By: #### L [id number] #### [facility] CLIA [id number] [address] [place] [address] [place] MCH (RBC) [Entitic mass] 29.7 pg Normal 26.0-34.0 [facility] Comment on above: Order Comment: Speci men Type: BLOOD SPECIMEN Ordering Facility: [facility] Address: [address] [place] [address] Performed By: #### L [id number] #### [facility] CLIA [id number] [address] [place] [address] [place] MCHC (RBC) [Mass/Vol] 32.0 g/dL Normal 30.5-36.0 [facility] Comment on above: Order Comment: Speci men Type: BLOOD SPECIMEN Ordering Facility: [facility] Address: [address] [place] [address] Performed By: #### L [id number] #### [facility] CLIA [id number] [address] [place] [address] [place] MCV (RBC) [Entitic vol] 92.8 fL Normal 80.0-100.0 [facility] Comment on above: Order Comment: Speci men Type: BLOOD SPECIMEN Ordering Facility: [facility] Address: [address] [place] [address] Performed By: #### L [id number] #### [facility] CLIA [id number] [address] [place] [address] [place] Platelet mean volume (Bld) [Entitic vol] 12.1 fL Normal 9.0-12.7 [facility] Comment on above: Order Comment: Speci men Type: BLOOD SPECIMEN Ordering Facility: [facility] Address: [address] [place] [address] Performed By: #### L [id number] #### [facility] CLIA [id number] [address] [place] [address] [place] Platelets (Bld) [#/Vol] 222 10*3/uL Normal 150-400 [facility] Comment on above: Order Comment: Speci men Type: BLOOD SPECIMEN Ordering Facility: [facility] Address: [address] [place] [address] Performed By: #### L [id number] #### [facility] CLIA [id number] [address] [place] [address] [place] RBC (Bld) [#/Vol] 5.15 10*6/uL Normal 4.20-6.00 [facility] Comment on above: Order Comment: Speci men Type: BLOOD SPECIMEN Ordering Facility: [facility] Address: [address] [place] [address] Performed By: #### L [id number] #### [facility] CLIA [id number] [address] [place] [address] [place] WBC (Bld) [#/Vol] 14.39 10*3/uL High 3.70-11.00 [facility] Comment on above: Order Comment: Speci men Type: BLOOD SPECIMEN Ordering Facility: [facility] Address: [address] [place], [place] [address] Performed By: #### L [id number] #### [facility] CLIA [id number] [address] [place] [address] [facility] ED NOTEon 05-12-2023 ED NOTE HNO ID: [id number] Author: Xiomara Welsh RN Service: Emergency Medicine Author Type: Registered Nurse Type: ED Notes Filed: 05/12/2023 8:07 PM Note Text: Pt requesting return of keys and for security to keep carr fob. [place] provided to patient. [facility] ED NOTE HNO ID: [id number] Author: Xiomara Welsh RN Service: Emergency Medicine Author Type: Registered Nurse Type: ED Notes Filed: 05/12/2023 6:56 PM Note Text: Pt provided this nurse with car keys - keys provided to security with patient label. [facility] ED NOTE HNO ID: [id number] Author: Xiomara Welsh RN Service: Emergency Medicine Author Type: Registered Nurse Type: ED Notes Filed: 05/12/2023 6:56 PM Note Text: Pt update; waiting on room at [facility] for patient. [facility] ED NOTE HNO ID: [id number] Author: Xiomara Welsh RN Service: Emergency Medicine Author Type: Registered Nurse Type: ED Notes Filed: 05/12/2023 3:02 PM Note Text: Patient informed: Name of medication, why we are giving it, possible side effects, what they may expect to feel, and was offered a chance to ask questions prior to the administration of lopressor. Patient verbalizes understanding and denies any further questions as this time. [facility] ED NOTE HNO ID: [id number] Author: Xiomara Welsh RN Service: Emergency Medicine Author Type: Registered Nurse Type: ED Notes Filed: 05/12/2023 1:06 PM Note Text: Pt speaking in complete sentences; no evidence of SOB. Denies CP at this time. [facility] ED NOTE HNO ID: [id number] Author: Xiomara Welsh RN Service: Emergency Medicine Author Type: Registered Nurse Type: ED Notes Filed: 05/12/2023 12:57 PM Note Text: Pt placed on prednisone 05/10 for back pain. Pt reports day 2 of taking prednisone pt reported SOB while changing oil care. Pt reports midsternal CP and reports taking an ASA. Pt reports relaxing after this. Pt reports this worked. Pt reports mild discomfort this morning while doing this dishes; pt rested and went away. Pt reports hx of stable angina. Normal [facility] ED PROV NOTEon 05-12-2023 ED PROV NOTE HNO ID: [id number] Author: Kira Geller MD Service: Emergency Medicine Author Type: Physician Type: ED Provider Notes Filed: 05/12/2023 4:50 PM Note Text: ED Provider Note Patient Name: Medina Mckoy II : 1950 SERVICE DATE: 05/12/23 History Patient presents with: Chest Pain Medina Mckoy II is a 72 year old male with history of hyperlipidemia who presents with midsternal chest pain. - Symptoms began 1 days prior to arrival. Onset was sudden and symptoms are resolved. - Severity: mild - Timin episode - Quality: dull - Pain is exacerbated by nothing. - Pain is not exacerbated by inspiration. - Symptoms are associated with shortness of breath today while washing dishes. - Symptoms are not associated with numbness and vomiting. - Improved by rest. Patient states that yesterday while he was changing his oil about 24 hours ago he developed midsternal chest discomfort was on and off for about an hour did seem to get better when he rested he seemed to be okay for the rest of the day today he got little short of breath while he was washing some dishes and he became concerned that this might be cardiac. Patient is a retired cardiac nurse and says that he wanted to come to the ER to get checked to make sure that he was not having heart attack. He does state he was given the diagnosis of stable angina many years ago he had a stress test at that time that was normal . He thinks his chest pain might be secondary to course of prednisone that he started for back pain. He took 2 days of this but stopped taking it today because this not of a side effect had occurred. He has taken prednisone in the past and not had the symptoms. No family history of coronary artery disease patient is not a smoker.. PAST MEDICAL HISTORY Diagnosis Date Neuropathy bilateral idiopathic legs PAST SURGICAL HISTORY Procedure Laterality Date APPENDECTOMY HX CHOLECYSTECTOMY HX INGUINAL HERNIA REPAIR HX No family history on file. Social History Tobacco Use Smoking status: Never Smokeless tobacco: Not on file Substance and Sexual Activity Alcohol use: Yes Alcohol/week: 17.5 standard drinks of alcohol Types: 7 Glasses of Wine (5oz) per week Drug use: Never Sexual activity: Never ALLERGIES Allergen Reactions Bacitracin Rash Review of Systems Constitutional: Negative for chills and fever. Respiratory: Positive for shortness of breath. Negative for cough and wheezing. Cardiovascular: Positive for chest pain. Negative for palpitations. Gastrointestinal: Negative for abdominal pain, nausea and vomiting. Musculoskeletal: Negative for back pain and neck pain. 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 Allergic/Immunologic: Negative for environmental allergies, food allergies and immunocompromised state. Psychiatric/Behavioral: Negative for confusion. The patient is not nervous/anxious. Physical Exam Vitals [05/12/23 1258] BP Pulse Temp Temp src Resp SpO2 Weight Height 189/104 (!) 91 36.4 ?C (97.6 ?F) Temporal (!) 100 100 % 72.6 kg (160 lb) 1.702 m (5' 7 ) Physical Exam Vitals and nursing note reviewed. Constitutional: Appearance: He is well-developed. HENT: Head: Normocephalic and atraumatic. Neck: Trachea: No tracheal deviation. Comments: Visible mass right anterior neck Cardiovascular: Rate and Rhythm: Normal rate and regular rhythm. Pulses: Radial pulses are 2+ on the right side and 2+ on the left side. Heart sounds: Normal heart sounds. Pulmonary: Effort: Pulmonary effort is normal. No respiratory distress. Breath sounds: Normal breath sounds. Chest: Chest wall: No deformity or tenderness. Musculoskeletal: Cervical back: Normal range of motion. Right lower leg: No tenderness. No edema. Left lower leg: No tenderness. No edema. Skin: General: Skin is warm and dry. Capillary Refill: Capillary refill takes less than 2 seconds. Neurological: General: No focal deficit present. Mental Status: He is alert and oriented to person, place, and time. Psychiatric: Mood and Affect: Mood normal. Behavior: Behavior normal. Diagnostic Testing ED Labs Ordered and Reviewed - No data to display Procedures ED Course / Clinical Impression Clinical Impressions as of 05/12/23 1454 NSTEMI (non-ST elevated myocardial infarction) (HCC) MDM / Disposition / Plan 72-year-old gentleman pain-free at this point but he had an episode yesterday of discomfort lasting about an hour off-and-on and an episode of dyspnea with very little exertion today which is also resolved. He does have significant risk factors. This does sound anginal but may not actually be stable angina at this time. EKG showed nonspecific changes no comparison available. He has already taken aspirin today troponin is o (more content not included)... Normal [facility] EKGon 05-12-2023 Electrocardiogram Ventricular Rate : 9 1 BPM Atrial Rate : 91 BPM P-R Interval : 156 ms QRS Duration : 90 ms Q-T Interval : 348 ms QTC Calculation(Bazett) : 428 ms Calculated P Unity : 66 degrees Calculated R Unity : 37 degrees Calculated T Unity : 107 degrees NORMAL SINUS RHYTHM POSSIBLE LEFT ATRIAL ENLARGEMENT MINIMAL VOLTAGE CRITERIA FOR LVH, MAY BE NORMAL VARIANT ( Sokolow-Floyd ) NONSPECIFIC ST AND T WAVE ABNORMALITY ABNORMAL ECG NO PREVIOUS ECGS AVAILABLE Confirmed by MD FOSS VINAYAK ([id number]) on 05/14/2023 1:17:12 PM NAME : MEDINA MCKOY PID : [id number] : 1950 Gender : Male Race : ORD : Procedure Date : May 12 2023 12:58:42 Edit Date : May 14 2023 13:17:13 Diagnosis: NORMAL SINUS RHYTHM POSSIBLE LEFT ATRIAL ENLARGEMENT MINIMAL VOLTAGE CRITERIA FOR LVH, MAY BE NORMAL VARIANT ( Sokolow-Floyd ) NONSPECIFIC ST AND T WAVE ABNORMALITY ABNORMAL ECG NO PREVIOUS ECGS AVAILABLE Confirmed by MD FOSS VINAYAK ([id number]) on 05/14/2023 1:17:12 PM Test Reason : Location : 150 : [facility] Overread By : MD FOSS VINAYAK Edited By : MD FOSS VINAYAK Referred By : , Acquired by : [id number], Normal [facility] HIGH SENSITIVITY TROPONIN T (INITIAL)on 05-12-2023 Troponin T.cardiac High sensitivity method [Mass/Vol] 393 ng/L High <12 [facility] Comment on above: Order Comment: Speci men Type: BLOOD SPECIMEN Ordering Facility: [facility] Address: [address] [place] [address] Result Comment: When assessing risk for acute coronary syndromes: In patients undergoing blood draw greater than or equal to 2 hours from symptom onset, with history of very low to moderate risk and non-ischemic ECG, an initial hs-Troponin T less than 12 ng/L AND a 1 hour delta hs-Troponin T less than 3 ng/L should be considered very low risk for 30 day MACE. Performed By: #### L [id number] #### [facility] CLIA [id number] [address] [place] [address] [place] HIGH SENSITIVITY TROPONIN T (SECOND)on 05-12-2023 Troponin T.cardiac High sensitivity method [Mass/Vol] 383 ng/L High <12 [facility] Comment on above: Order Comment: Marcela keith Type: BLOOD SPECIMEN Ordering Facility: [facility] Address: [address] [place] [address] Result Comment: When assessing risk for acute coronary syndromes: In patients undergoing blood draw greater than or equal to 2 hours from symptom onset, with history of very low to moderate risk and non-ischemic ECG, an initial hs-Troponin T less than 12 ng/L AND a 1 hour delta hs-Troponin T less than 3 ng/L should be considered very low risk for 30 day MACE. Performed By: #### 1 [id number] #### [facility] CLIA [id number] [address] [place] HIGH SENSITIVITY TROPONIN T (THIRD) 3 HRS AFTER INITIALon 05-12-2023 Troponin T.cardiac High sensitivity method [Mass/Vol] 390 ng/L High <12 [facility] Comment on above: Order Comment: Marcela keith Type: BLOOD SPECIMEN Ordering Facility: [facility] Address: [address] [place] [address] Result Comment: When assessing risk for acute coronary syndromes: In patients undergoing blood draw greater than or equal to 2 hours from symptom onset, with history of very low to moderate risk and non-ischemic ECG, an initial hs-Troponin T less than 12 ng/L AND a 1 hour delta hs-Troponin T less than 3 ng/L should be considered very low risk for 30 day MACE. Performed By: #### L [id number] #### [facility] CLIA [id number] [address] [place] [address] [facility] Magnesium SerPl-mCncon 05-12 Magnesium [Mass/Vol] 2.1 mg/dL Normal 1.7-2.3 [facility] Comment on above: Order Comment: Marcela keith Type: BLOOD SPECIMEN Ordering Facility: [facility] Address: [address] [place] [address] Performed By: #### L [id number] #### [facility] CLIA [id number] [address] [place] [id number] [facility] PT panel Coag (PPP)on 2022 INR Coag (PPP) [Relative time] 1.0 {INR} Normal 0.9-1.3 [facility] Comment on above: Order Comment: Marcela keith Type: BLOOD SPECIMEN Ordering Facility: [facility] Address: [address] [place] [address] Result Comment: Darby min K Antagonist (VKA) Therapeutic Range: INR 2 to 3 (Target INR of 2.5) Note: For patients treated with VKA drugs, such as warfarin, the [employer] 2012 Guideline recommends a therapeutic INR range of 2 to 3 (target INR of 2.5). This recommendation includes high-risk patients with antiphospholipid syndrome with previous arterial or venous thromboembolism, current-generation mechanical or bioprosthetic aortic heart valve replacement. Note: Patients with mechanical aortic valve replacement and additional risk factors for thromboembolic events (atrial fibrillation, previous thromboembolism, LV dysfunction, hypercoagulable conditions) or an older generation mechanical AVR (i.e., ball in-Cage) or any mechanical MVR should have a INR therapeutic range of 2.5 to 3.5 (target INR of 3). Luis GH, et al. Chest 2012, 141:7S-47S Buzz ANGELO et al. [facility] 2017, 70: 252-289 Performed By: #### 3 4528-0, 01386-8 #### [facility] CLIA [id number] [address] [id number] [facility] PT Coag (PPP) [Time] 10.4 s Normal <13.1 [facility] Comment on above: Order Comment: Marcela keith Type: BLOOD SPECIMEN Ordering Facility: [facility] Address: [place] [address] Performed By: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 Ventricle: The right ventricle is normal in size. There is normal right ventricular global systolic function. Right Atrium: The right atrium is normal in size. Aortic Valve: The aortic valve is trileaflet. There is mild aortic valve regurgitation. The peak instantaneous gradient of the aortic valve is 6.2 mmHg. The mean gradient of the aortic valve is 4.0 mmHg. Mitral Valve: The mitral valve is mild to moderately thickened. There is no evidence of mitral valve regurgitation. Tricuspid Valve: The tricuspid valve is structurally normal. There is trace to mild tricuspid regurgitation. Pulmonic Valve: The pulmonic valve is not well visualized. There is no indication of pulmonic valve regurgitation. Pericardium: There is no pericardial effusion noted. Aorta: The aortic root is normal. Systemic Veins: The inferior vena cava appears to be of normal size. There is IVC inspiratory collapse greater than 50%. CONCLUSIONS: 1. The left ventricular systolic function is normal with a 60-65% estimated ejection fraction. 2. Spectral Doppler shows an impaired relaxation pattern of left ventricular diastolic filling. 3. There is mild aortic valve regurgitation. QUANTITATIVE DATA SUMMARY: 2D MEASUREMENTS: Normal Ranges: LAs: 3.40 cm (2.7-4.0cm) IVSd: 1.20 cm (0.6-1.1cm) LVPWd: 1.20 cm (0.6-1.1cm) LVIDd: 4.38 cm (3.9-5.9cm) LVIDs: 3.08 cm LV Mass Index: 101.9 g/m2 LV % FS 29.7 % LA VOLUME: Normal Ranges: LA Vol A2C: 66.2 ml LA Vol Index A2C: 35.5 ml/m2 LA Area A4C: 14.9 cm2 LA Area A2C: 18.3 cm2 LA Major Unity A2C: 4.3 cm LA Vol A4C: 39.0 ml LA Vol A2C: 54.0 ml RA VOLUME BY A/L METHOD: Normal Ranges: RA Vol A4C: 32.1 ml (8.3-19.5ml) RA Vol Index A4C: 17.3 ml/m2 RA Area A4C: 12.9 cm2 RA Major Unity A4C: 4.4 cm M-MODE MEASUREMENTS: Normal Ranges: Ao Root: 3.50 cm (2.0-3.7cm) AoV Exc: 2.10 cm (1.5-2.5cm) LAs: 3.20 cm (2.7-4.0cm) AORTA MEASUREMENTS: Normal Ranges: AoV Exc: 2.10 cm (1.5-2.5cm) LV SYSTOLIC FUNCTION BY 2D PLANIMETRY (MOD): Normal Ranges: EF-A4C View: 52.3 % (>55%) EF-A2C View: 56.3 % EF-Biplane: 54.2 % LV DIASTOLIC FUNCTION: Normal Ranges: MV Peak E: 0.47 m/s (0.7-1.2 m/s) MV Peak A: 0.68 m/s (0.42-0.7 m/s) E/A Ratio: 0.70 (1.0-2.2) MITRAL VALVE: Normal Ranges: MV DT: 251 msec (150-240msec) AORTIC VALVE: Normal Ranges: AoV Vmax: 1.24 m/s (<1.7m/s) AoV Peak P.2 mmHg (<20mmHg) AoV Mean P.0 mmHg (1.7-11.5mmHg) LVOT Max Jacob: 0.92 m/s (<1.1m/s) AoV VTI: 25.10 cm (18-25cm) LVOT VTI: 17.00 cm LVOT Diameter: 2.00 cm (1.8-2.4cm) AoV Area, VTI: 2.13 cm2 (2.5-5.5cm2) AoV Area,Vmax: 2.32 cm2 (2.5-4.5cm2) AoV Dimensionless Index: 0.68 RIGHT VENTRICLE: RV 1 3.5 cm RV 2 2.2 cm RV 3 7.0 cm TRICUSPID VALVE/RVSP: Normal Ranges: Peak TR Velocity: 2.51 m/s RV Syst Pressure: 28.2 mmHg (< 30mmHg) PULMONIC VALVE: Normal Ranges: PV Max Jacob: 1.0 m/s (0.6-0.9m/s) PV Max P.2 mmHg [id number] Ruben Siddiqui MD Electronically signed on 11/12/2020 at 2:29:53 PM Final Normal [facility] Left Heart Catheterizationon 11-12-2020 Left Heart Catheterization [facility], Tobacco Wrapping Machine Tender [address] [place] [address] Cardiovascular Catheterization Report Patient Name: MEDINA Bhakta [address] Jarvis MCKOY Physician: Study Date: 11/12/2020 Verifying Physician: Soledad Kang MD MRN/PID: [id number] Manager Of Corporate Communications: Accession/Order#: [id number] Referring Physician: [id number] Jolene Alvarenga Date of : 1950 Referring Physician: Gender: M Referring Physician: Soledad Kang MD Study: Left Heart Catheterization Indications: MEDINA MCKOY is a 70 year old male who presents with hypertension, dyslipidemia, Family history and tobacco Use - former. New onset angina <=2 months, with a chest pain assessment of typical angina. Study performed as an elective cath procedure. Medical History: Stress test performed: No. CTA performed: NoTayler Fletcher accessed: No. LVEF Assessed: No. Procedure Description: After infiltration with 2% Lidocaine, the right femoral artery was cannulated with a modified Seldinger technique. Subsequently a 4 Armenian sheath was placed in the right femoral artery. Selective coronary catheterization was performed using a 4 Fr catheter(s) exchanged over a guide wire to cannulate the coronary arteries. A JL 4 tip catheter was used for left coronary injections. A 3DRC tip catheter was used for right coronary injections. Multiple injections of contrast were made into the left and right coronary arteries with angiograms recorded in multiple projections. Retrograde left heart catheterizion was accomplished with a 4 Fr. pigtail catheter. A single plane left ventriculogram was recorded in the 30 degree LI projection. The contrast dose was 20 ml injected at 10 ml/sec. The catheter was then withdrawn across the aortic valve under continuous pressure monitoring and removed. After completion of the procedure, femoral artery angiography was performed. This demonstrated a common femoral artery puncture appropriate for closure. Quick Clot the arterial sheath was pulled and pressure was applied to the site. Coronary Angiography: The coronary circulation is right dominant. Left Main Coronary Artery: There is 50% stenosis in the distal left main coronary artery. Left Anterior Descending Coronary Artery Distribution: There is 90% stenosis in the ostial left anterior descending artery. This vessel is diffusely diseased. There is 70% stenosis in the proximal left anterior descending artery. There is 90% stenosis in the the mid left anterior descending artery. There is 50% stenosis in the the distal and 2nd Diag left anterior descending artery. Circumflex Coronary Artery Distribution: There is 90% stenosis in the the ostial Circumflex artery. There is 50% stenosis in the Prox Ramus Circumflex artery. Right Coronary Artery Distribution: There is 75% stenosis in the the proximal and the mid Right Coronary Artery. The distal right coronary artery showed 50% stenosis. Left Ventriculography: The estimated left ventricular ejection fraction is normal at 65%. Hemo Personnel: + -----+ + Name Duty + -----+ + Jarvis Kang MD PROC 1 + -----+ + Emil Chavez RN PROC SCRUB 1 + -----+ + Marleni Lyn RN PROC CIRC 1 + -----+ + Cheryl Marin RT PROC RECORD 1 + -----+ + Hailey Preciado RN PROC RECORD 2 + -----+ + Lesa Zapien RN PROC NURSE 1 + -----+ + Donna Adam RN PROC NURSE 2 + -----+ + Sedation Time: + --+ + Sedation Start/End Times Time + --+ + Start 11/12/2020 07:56:24 + --+ + Drugs Fentanyl 50 mcg IV per physician for sed + --+ + End 11/12/2020 08:23:11 + --+ + Equipment Used: + +- + Date/Time Description + +- + 11/12/2020 7:50:59 AM {Sheath} - 4F [place] Sheath w/ Wire - Qty: 1 Part #: [id number] + +- + 11/12/2020 7:50:59 AM {4 Fr Catheter} - 4F JL4 Diagnostic Catheter - Qty: 1 Part #: 11 + +- + 11/12/2020 7:50:59 AM {4 Fr Catheter} - 4F 3DRC - Qty: 1 Part #: 1 + +- + (more content not included)... Normal [facility] Order Reconciliationon 11-12 Order Reconciliation Page 1 Discharge Reconciliation Document Reconciliation Type: Discharge requested on behalf of Venita Moy (Advanced Practice Nurse) done by Venita Moy ([facility]) Discharge - Reconciliation: 12-Nov-2020 14:42 by: Venita Moy ([facility]) Discharge - Reset to Incomplete: 12-Nov-2020 15:00 by: Venita Moy ([facility]) Discharge - Reconciliation: 12-Nov-2020 15:02 by: Venita Moy ([facility]) Home Medications EnteredHOME MEDICATIONS AT DISCHARGE DateReconciliation Comment/ Additional Information aspirin 325 mg oral tablet 0.5 tab(s) orally once a day 09-Nov-2020 08:32 Discontinued; Discontinue from ORM Metoprolol Succinate ER 25 mg oral tablet, extended release 1 tab(s) orally once a day 09-Nov-2020 08:33 Metoprolol Succinate ER 25 mg oral tablet, extended release 1 tab(s) orally once a day 09-Nov-2020 08:33 Metoprolol Succinate ER 25 mg oral tablet, extended release is continued as Metoprolol Succinate ER 25 mg oral tablet, extended release Nitrostat 0.4 mg sublingual tablet 1 tab(s) sublingual every 5 minutes, As Needed 09-Nov-2020 08:34 Nitrostat 0.4 mg sublingual tablet 1 tab(s) sublingual every 5 minutes x 3 doses, as needed for chest pain Discontinued; Copy/Discontinue Nitrostat 0.4 mg sublingual tablet is continued and modified ProAir HFA 90 mcg/inh inhalation aerosol 2 puff(s) inhaled every 6 hours, As Needed 09-Nov-2020 08:35 ProAir HFA 90 mcg/inh inhalation aerosol 2 puff(s) inhaled every 6 hours, As Needed 09-Nov-2020 08:35 ProAir HFA 90 mcg/inh inhalation aerosol is continued as ProAir HFA 90 mcg/inh inhalation aerosol Current OrdersDateHOME MEDICATIONS AT DISCHARGE DateReconciliation Comment/ Additional Information Atorvastatin Tablet (LIPITOR)DOSE = 80 mg Oral Daily 12-Nov-2020 08:53 atorvastatin 80 mg oral tablet 1 tab(s) orally once a day 12-Nov-2020 14:38 Prescription is created for atorvastatin 80 mg oral tablet Losartan Tablet (COZAAR)DOSE = 50 mg Oral Daily 12-Nov-2020 08:53 losartan 50 mg oral tablet 1 tab(s) orally once a day 12-Nov-2020 14:39 Prescription is created for losartan 50 mg oral tablet Metoprolol Tartrate Tablet (LOPRESSOR)DOSE = 25 mg Oral 2 Times a Day 12-Nov-2020 09:06 Metoprolol Tartrate is not required Perflutren Lipid Microsphere (Activated) 1.3 mL / NaCL 0.9% T.V. 10 mL Injectable DOSE = 0.5 mL IntraVenous Push Once, PRN image enhancementCa.[id number] mL/Kg/DOSE x 75.5 Kg = 0.5 mL/Dose (Daily Total is 0.5 mL)Clinician Notes: 1. Dilute 1.3 m 12-Nov-2020 09:35 Perflutren Lipid Microsphere (Activated) 1.3 mL / NaCL 0.9% T.V. 10 mL Injectable is not required Sodium Chloride 0.9% Infusion IV Bag Volume = 1,000 mL Run at: 100 mL/hr IntraVenous 09-Nov-2020 08:52 Sodium Chloride 0.9% Infusion is not required Home Medications Added During Discharge Reconciliation Activity as Tolerated 12-Nov-2020, Routine, Assistance Level: None, Restrictions: None, Limit your activities and rest today. Additional Patient Instructions Do not engage in sports, heavy work or lifting. Additional Patient Instructions Return to [facility] for cardiac surgery as instructed by surgery team You will have appointment with Dr. Kang scheduled after you have your bypass surgery aspirin 81 mg oral tablet, chewable 1 tab(s) orally once a day Discharge Discharge Diagnosis< I25.10 Atherosclerosis of coronary artery without angina pectoris, unspecified vessel or lesion type, unspe;Z98.890 Status post cardiac catheterization Discharge Provider, Samia Kang Instructions for Staff Only: if meets discharge criteria post cath and ok with ct surgery Discharge Disposition : .Home Condition at Discharge: Satisfactory Discharge Communication Instructions for Nursing Only: Remove IV prior to discharge from hospital. Do not remove any midline, if present, without an order from the provider. Discharge Instructions - PHR After your discharge from the hospital, two Summary of Care Documents will be available online in your Personal Health Record (PHR). 1.Consolidated-Clinical Document Architecture (C-CDA) Patient Discharge Summary This document is a summary of your hospital stay to be kept for your reference.2.C-CDA Visit Summary This document is a summary of your hospital stay to be shared with your follow-up providers (doctor, warehouse processor, physical therapist, etc.). May drive mupirocin 2% topical ointment 1 application in each nostril 2 times a day All Active Home Medications at time of Discharge Reconciliation: 12-Nov-2020 15:02 Activity as Tolerated 12-Nov-2020, Routine, Assistance Level: None, Restrictions: None, Limit your activities and rest today. Additional Patient Instructions Do not engage in sports, heavy work or lifting. Additional Patient Instructions Return to [facility] for cardiac surgery as instructed by surgery team You will have appointment with Dr. Kang scheduled after you have your bypass ani (more content not included)... Normal [facility] Patient Profile - Preop v2on 11-12-2020 Patient Profile - Preop v2 Profile: Initial Info: How to be AddressedRiichard Spoken Language PreferredEnglish Source of Informationpatient Are you currently using the Personal Electronic Health Record or [employer] Stated Reason for Admissionchest pain and shortness of breath Primary Contact Name and Richard Franco daughter [phone] Limitations on Visitors/Phone Callsnone Patient Belongingsnone Medications Brought to Hospitalno General Health: Weight in kg75.5 kilogram(s) Weight in koz130.4 pound(s) Weight Methodactual (measured) Scale Typestanding Height in feet5 feet Height in inches7 inch(es) Height in cm170.1 centimeter(s) Height Methodstated BMI (kg/m2)26.093 square meter Patient or Family Member Reaction to Anesthesiano previous reaction Blood Avoidance/Restrictionsn one Previous Transfusion Reactionno Health Mgmt: Symptoms/Conditions Managed at Homecardiovascular; respiratory; cancer Cancer Symptoms/Conditionsskin ; removed per cryo Cardiovascular Symptoms/Conditionshype rtension Cardiovascular Management Strategiesroutine screening; medication therapy Respiratory Symptoms/Conditionsasth ma Respiratory Management Strategiesuses inhalers Barriers to Managing Healthnone Relationship/Environ: Living Arrangementshouse Lives Withalone Resource/Environmental Concernsnone [facility] Anticipated at Transitionnone Substance: Current or Former Substance Use never: Cigarette/Tobacco, e-Cigarette/Vaping, Street Drugs YES: Alcohol Alcohol Use Statuscurrent alcohol Alcohol Amount1-2 drinks Alcohol Frequencydaily Alcohol Typewine Problems Related to Alcohol Useno Risk Screens: COVID-19 Screening Completedno exposure or symptoms Advance Directive/DNRyes Advance Directive typeLiving Will, Durable Power of Roof Designer for Healthcare Living Will AvailabilityLiving Will not available now Durable Power of Roof Designer AvailabilityDPOA not available now During the past month, have you often been bothered by feeling down, depressed or hopelessno During the past month, have you often had little interest or pleasure in doing thingsno Have you had any thoughts of harming yourselfno Have you had any thoughts of harming anyone elseno Are you or have you been threatened or abused physically,emotionally or sexually abused by anyoneyes Do you feel UNSAFE going back to the place you are livingno Has anyone ever threatened to hurt your family or your petsno Does anyone ever try to keep you from having/contacting other friends or doing things outside your homeno Do you feel anyone has exploited or taken advantage of you financially or of your personal propertyno Patient is Able to be Assessed for Learningyes Factors Influencing Readiness to Learninterest in learning Factors that Impact Ability to Learnnone Devices/Methods Used to Communicatenone Learning Preferenceswritten material; verbal instruction; skill demonstration Cultural Considerationsnone Developmental Considerationsnone Islam Considerationsnone Other learner availableno [place] RiskPatient location auto qualifies him/her for HIGH RISK. Are there any cultural, spiritual, anabaptist practices/values/needs that are important for us to knowno Do you want a visit/item from [facility] Would you like your Pipelines Supervisor/Technical Service Representative notifiedno Pain Scalenumerical 0-10 Pain Scale Educationteaching provided Current Pain Level0 = None Acceptable Pain Level10 = Severe Expression of Pain (nonverbal)verbalizatio n Lifestyle Changes/Adaptations in Response to Painno change Barriers to Reporting Painnone Chronic Painno Information Review: Allergies, Home Meds and Significant Events have been Reviewed and Verified with Patient/Familyyes Allergy, Intolerance, Adverse Event: Allergies: lisinopril: Drug, Other, Active Darvocet-N 100: Drug, Other, Active Electronic Signatures: Donna Adam) (Signed 12-Nov-2020 07:06) Authored: Initial Info, General Health, Health Mgmt, Relationship/Environ, Substance, Risk Screens, Additional Information Last Updated: 12-Nov-2020 07:06 by Donna Adam) Normal [facility] Preop Checkliston 11-12-2020 Preop Checklist Preop Checklist: Preop Checklist: Arrival [id number] Arrival Time05:56 Procedure Typeforleft heart cath Heart Rate73 beats per minute Respiratory Rate16 breath per minute Blood Pressure Ahugarai116 mm/Hg Blood Pressure Uzehfqkum116 mm/Hg NPO [id number] 19:00 ID Band Onyes Allergy Bandyes Consent Signedyes H&P Completeyes Anesthesia Assessment Completedpending EKG Performedyes Chest X-Ray Performednot ordered HCG Urine TestN/A Chlorhexadine Bath Givennot applicable Nasal Antiseptic Appliednot applicable Hair Washednot applicable Soap and water bath with hair shampoo the night before surgerynot applicable Hat placed on infant prior to transportnot applicable SCD's Appliedno ADELINE Hose Appliedno Denturesnot applicable Prostheticsnot applicable Hearing Aidsnot applicable Valuables Securednot applicable Glasses / Contactsglasses with pt Bowel Prepno Cardiovascular Assessment: Apicalregular Radial Pulsespalpable Pedal Pulsespalpable Extremitieswarm Respiratory Assessment: Respirationsunlabored regular Air Exchangeequal Breath Soundsclear Neurological Assessment: Level of Consciousnessalert, oriented Mobilitymoves all extremities Able to Express Selfyes Age Appropriateyes Emotional Statuscalm Skin Assessment: Skin Site(s) with Current Compromisenone Preop Education: Surgical Site Infection Preventionyes Pain Scales and Managementyes Language / Communication: Language / CommunicationEnglish Electronic Signatures: Donna Adam) (Signed 12-Nov-2020 06:32) Authored: Preop Checklist Last Updated: 12-Nov-2020 06:32 by Donna Adam) Normal [facility] US CAROTID BILATERAL DUPLEXo n 11-12-2020 US CAROTID BILATERAL DUPLEX STUDY: Carotid Ultrasound; 11/12/2020 5:56 AM. INDICATION: Preoperative testing. CABG. COMPARISON: None available. ACCESSION NUMBER(S): [id number] ORDERING CLINICIAN: ZULEYKA MUELELR CNP TECHNIQUE: Realtime grayscale, color, and spectral doppler of the bilateral carotid arteries. FINDINGS: Mild atherosclerotic plaque formation in the right carotid bulb, proximal ICA and ECA identified. The peak systolic and end diastolic velocities in the right CCA, ICA and ECA are 80/18, 74/31 and 79 cm/sec respectively. The right ICA/CCA ratio is 0.9. Antegrade flow seen in the right vertebral artery. Mild atherosclerotic plaque formation in the left carotid bulb, proximal ICA and ECA identified. The peak systolic and end diastolic velocities in the left CCA, ICA and ECA are 50/16, 61/17 and 82 cm/sec respectively. The left ICA/CCA ratio is 1.2. Antegrade flow seen in the left vertebral artery. Incidentally noted is an enlarged and heterogeneous lymph node visualized within the right neck measuring 3.6 x 2.6 x 3.2 cm. IMPRESSION: Less than 50% stenosis of the bilateral internal carotid arteries by NASCET criteria. Atypical appearing lymph node within the right neck. Recommend CT of the neck with intravenous contrast for further assessment of the remaining aspects of the neck. Signed by Raj Evans MD Electronically signed by: RAJ EVANS MD Normal [facility] HEMOGLOBIN A1Con 10-21-2020 Glucose [Mass/Vol] 143 mg/dL Normal [facility] Comment on above: Performed By: #### H BA1E #### [facility] [address] [place] [address] HbA1c (Bld) [Mass fraction] 6.6 % Normal [facility] Comment on above: Result Comment: Diag nosis of Diabetes-Adults Non-Diabetic: < or = 5.6% Increased risk for developing diabetes: 5.7-6.4% Diagnostic of diabetes: > or = 6.5% . Monitoring of Diabetes Age (y) Therapeutic Goal (%) Adults: >18 <7.0 Pediatrics: 13-18 <7.5 7-12 <8.0 0- 6 7.5-8.5 [employer]. Diabetes Care 33(S1), Jul 2009. Performed By: #### H BA1E #### [facility] [address] [place] [address] ALBUMIN, URINE SPOTon 2020 ALBUMIN,URINE 64.3 mg/L Normal Not Established [facility] Comment on above: Performed By: #### A LBSP #### [address] [id number] ALBUMIN/CREAT RATIO 69.1 ug/mg case management manager High 0.0 - 30.0 U [facility] Comment on above: Performed By: #### A LBSP #### [address] [id number] CBC AND DIFFERENTIALon 10-20 % AUTOMATED IMMATURE GRAN 0.7 % Normal 0.0 - 0.9 [facility] Comment on above: Result Comment: Christin ture Granulocyte Count (IG) includes promyelocytes, myelocytes and metamyelocytes but does not include bands. Percent differential counts (%) should be interpreted in the context of the absolute cell counts (cells/L). Performed By: #### C BCDF #### [address] [id number] Basophils (Bld) [#/Vol] 0.06 10*3/uL Normal 0.00 - 0.10 [facility] Comment on above: Performed By: #### C BCDF #### [address] [id number] Basophils/100 WBC (Bld) 0.6 % Normal 0.0 - 2.0 [facility] Comment on above: Performed By: #### C BCDF #### [address] [id number] Eosinophils (Bld) [#/Vol] 0.13 10*3/uL Normal 0.00 - 0.70 [facility] Comment on above: Performed By: #### C BCDF #### [address] [id number] Eosinophils/100 WBC (Bld) 1.2 % Normal 0.0 - 6.0 [facility] Comment on above: Performed By: #### C BCDF #### [address] [id number] Erythrocyte distribution width (RBC) [Ratio] 13.2 % Normal 11.5 - 14.5 [facility] Comment on above: Performed By: #### C BCDF #### [address] [id number] Hematocrit (Bld) [Volume fraction] 51.9 % Normal 41.0 - 52.0 [facility] Comment on above: Performed By: #### C BCDF #### [address] [id number] Hemoglobin (Bld) [Mass/Vol] 16.6 g/dL Normal 13.5 - 17.5 [facility] Comment on above: Performed By: #### C BCDF #### [address] [id number] Lymphocytes (Bld) [#/Vol] 1.15 10*3/uL Low 1.20 - 4.80 [facility] Comment on above: Performed By: #### C BCDF #### [address] [id number] Lymphocytes/100 WBC (Bld) 10.9 % Normal 13.0 - 44.0 [facility] Comment on above: Performed By: #### C BCDF #### [address] [id number] MCHC (RBC) [Mass/Vol] 32.0 g/dL Normal 32.0 - 36.0 [facility] Comment on above: Performed By: #### C BCDF #### [address] [id number] MCV (RBC) [Entitic vol] 92 fL Normal 80 - 100 [facility] Comment on above: Performed By: #### C BCDF #### [address] [id number] Monocytes (Bld) [#/Vol] 0.72 10*3/uL Normal 0.10 - 1.00 [facility] Comment on above: Performed By: #### C BCDF #### [address] [id number] Monocytes/100 WBC (Bld) 6.8 % Normal 2.0 - 10.0 [facility] Comment on above: Performed By: #### C BCDF #### [address] [id number] Neutrophils (Bld) [#/Vol] 8.41 10*3/uL High 1.20 - 7.70 [facility] Comment on above: Performed By: #### C BCDF #### [address] [id number] Neutrophils/100 WBC (Bld) 79.8 % Normal 40.0 - 80.0 [facility] Comment on above: Performed By: #### C BCDF #### [address] [id number] Platelets (Bld) [#/Vol] 191 10*3/uL Normal 150 - 450 [facility] Comment on above: Performed By: #### C BCDF #### [address] [id number] RBC 5.64 x10E12/L Normal 4.50 - 5.90 [facility] Comment on above: Performed By: #### C BCDF #### [address] [id number] WBC (Bld) [#/Vol] 10.5 10*3/uL Normal 4.4 - 11.3 [facility] Comment on above: Performed By: #### C BCDF #### [address] [id number] CHEST 2 VIEW PA AND LATon CHEST 2 VIEW PA AND LAT Patient Name: MEDINA MCKOY STUDY: CHEST 2 VIEW PA AND LAT; 10/20/2020 1:51 pm INDICATION: E11.9 N40.0 D51.9 I10 R07.9 E55.9. COMPARISON: No priors ACCESSION NUMBER(S): [id number] ORDERING CLINICIAN: JOLENE ALVARENGA FINDINGS: Left-sided scarring/atelectasis at the base. Pleural thickening in the left mid lung as well. The right lung is clear. There is no focal lung consolidation or effusion. There is no edema. The cardiac silhouette is within normal limits for size. IMPRESSION: Left lung pleural thickening/scarring. Electronically signed by: JOVANNY CERON MD Normal [facility] COMPREHENSIVE PANELon 2020 Albumin [Mass/Vol] 4.4 g/dL Normal 3.4 - 5.0 [facility] Comment on above: Performed By: #### V TDOH #### [address] [id number] ALP [Catalytic activity/Vol] 125 U/L Normal 33 - 136 [facility] Comment on above: Performed By: #### V TDOH #### [address] [id number] ALT [Catalytic activity/Vol] 26 U/L Normal 10 - 52 [facility] Comment on above: Result Comment: Elizabeth ents treated with Sulfasalazine may generate falsely decreased results for ALT. Performed By: #### V TDOH #### [address] [id number] Anion gap [Moles/Vol] 15 mmol/L Normal 10 - 20 [facility] Comment on above: Performed By: #### V TDOH #### [address] [id number] AST [Catalytic activity/Vol] 20 U/L Normal 9 - 39 [facility] Comment on above: Performed By: #### V TDOH #### [address] [id number] Bilirubin [Mass/Vol] 0.5 mg/dL Normal 0.0 - 1.2 [facility] Comment on above: Performed By: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 negative other than HPI. PHYSICAL EXAMINATION: VITAL SIGNS: BP 165/95 Pulse 81 Temp (Src) 99.1 (Temporal) Ht 5' 7.323 (1.71m) Wt 164 lb 8 oz (74.6kg) SpO2 98% BMI 25.52 kg/(m^2). GENERAL APPEARANCE: Well appearing, in no acute distress, alert and oriented x3, well-hydrated, well nourished. 3-4 cm mass left neck, been there for 4 years, etiology unclear per patient. Otherwise no adenopathy. I spent a total of 45 minutes on the date of the service which included preparing to see the patient, [id number] patient care, completing clinical documentation, obtaining and/or reviewing separately obtained history, performing a medically appropriate examination, counseling and educating the patient/family/caregiver, ordering medications, tests, or procedures, independently interpreting results (not separately reported), and communicating results to the patient/family/caregiver. Electronically Signed: Jean-Claude Ceja MD March 13, 2024 11:37 AM documented in this encounter [facility] Note 05-18-2023 Telephone Encounter - Rochelle Lau LPN - 05/18/2023 8:38 AM EDTTelephone Encounter - Rochelle Lau LPN - 05/17/2023 1:53 PM EDT Note Date & Type Note Facility 05-18-2023 Miscellaneous Notes Formattin g of this note might be different from the original. Spoke with patient about test results. Patient verbalizes understanding. Patient reports that he is still in the process of speaking with his holistic doctor- he has not decided next steps in plan of care as of yet- will return call to office and give update. Rochelle Lau LPN Voicemail msg left for patient to return call to [facility] to review test results. Office phone number provided. Rochelle Lau LPN ----- Message from Oj Foss MD sent at 05/17/2023 1:43 PM EDT ----- Pt has an LAD distribution defect on the resting study, which may represent artifact, or NC. Pt did not have the stress portion done, and left against medical advice. I would let the patient know about the findings. I do not think he wants a heart cath ( at least that is what he told me in the hospital). Let us see how he feels now. He mentioned something about following up with a holistic doctor, and I respect that. documented in this encounter [facility] Progress note 05-14-2023 Note Date & Type Note Facility 05-14-2023 Note HNO ID: [id number] Author: Miguel Ángel Gonzáles RT(R) Service: Nuclear Medicine Author Type: Technologist Type: Progress Notes Filed: 05/16/2023 8:40 AM Note Text: RADIOLOGY SERVICE PROGRESS NOTE SERVICE DATE: 05/16/2023 SERVICE TIME: 8:38 AM PATIENT IDENTITY VERIFICATION COMPLETED USING TWO (2) STANDARD IDENTIFIERS: Name and Date of confirmed by patient verbally FALL SCREENING: Has the patient had 2 falls in the last year or 1 fall with injury or currently using an Ambulatory Assistive Device (Walker, Cane, Wheelchair, Crutches, etc.)? No PATIENT GENDER DATA: .male ALLERGIES: Reviewed and unchanged MEDICATIONS REVIEWED: No PATIENT RELEVANT IMPLANT DATA REVIEWED: Not Applicable CREATININE: Creatinine Date Value Ref Range Status 05/13/2023 0.99 0.73 - 1.22 mg/dL Final 05/12/2023 1.00 0.73 - 1.22 mg/dL Final 11/25/2008 0.91 0.70 - 1.40 mg/dL Final Estimated Glomerular Filtration Rate Date Value Ref Range Status 05/13/2023 81 >=60 mL/min/1.73m? Final Comment: Estimated Glomerular Filtration Rate (eGFR) is calculated using the 2020 CKD-EPI creatinine equation. This equation utilizes serum creatinine, sex, and age as parameters. The creatinine assay has traceable calibration to isotope dilution-mass spectrometry. Refer to KDIGO guidelines for clinical interpretation. In patients with unstable renal function, e.g. those with acute kidney injury, the eGFR may not accurately reflect actual GFR. eGFR- Date Value Ref Range Status 11/25/2008 >60 Final P.O.C.T. RESULTS: N/A May 16, [address] PERFORMED: No IV SITE: Inpatient - refer to [facility] documentation POST EXAM PIV STATUS: Left in for next appointment PROCEDURE TYPE: NM Stress: 14.2 mCi [id number] was administered IV for Rest Imaging at 755 by ir. Stress was cancelled patien refused mCi [id number] was administered IV for Stress Imaging at na by na. ADMINISTRATION TIME: 755 PATIENT DISCHARGED TO: Patient taken to IP transport area for return to RNF/ICU/ED. A Diagnostic radioactive procedure has taken place, with no further precautions necessary other than routine body substance precautions. More information regarding radiation safety can be found using this link: [email or web address] SIGNATURE: RT Melany(R) PATIENT NAME: Medina Mckoy II DATE: May 16, 2023 TIME: 8:38 AM PAGER/CONTACT #: [facility] Progress note 05-13-2023 Note Date & Type Note Facility 05-13-2023 Note HNO ID: [id number] Author: Kb Hancock MD Service: Hospital Medicine Author Type: Physician Type: Progress Notes Filed: 05/13/2023 11:53 AM Note Text: DEPARTMENT OF HOSPITAL MEDICINE PROGRESS NOTE SERVICE DATE: 05/13/2023 SERVICE TIME: 11:50 AM Hospital Medicine/Primary Attending: Kb Hancock MD NIGHT AND WEEKEND COVERAGE: [place] COVERAGE: From 7am - 7pm, please call sound After 7pm, please call cross cover pager #[phone] Subjective INTERVAL HPI: no more chest pain, feeling well MEDICATIONS: Reviewed Objective PHYSICAL EXAM: BP 187/99 Pulse 82 Temp (Src) 98.1 (Oral) Resp 20 Ht 5' 7 (1.70m) Wt 157 lb 10.1 oz (71.5kg) SpO2 97% BMI 24.68 kg/(m2). O2 Therapy: Room Air Physical Exam Performed GENERAL: Alert, no distress, cooperative LUNGS: Lungs clear to auscultation, Good diaphragmatic excursion CARDIAC: Normal S1 and S2; no rubs, murmurs, or gallops ABDOMEN: Abdomen soft, non-tender, BS normal, No masses or organomegaly EXTREMITIES: Extremities normal, no deformities, edema, clubbing or skin discoloration. Good capillary refill., No ulcers Lines, Drains, and Airways Line Duration Peripheral 05/12/23 Left Forearm 20 Gauge 1 day Peripheral 05/12/23 Right Arm 20 Gauge 1 day DATA: Diagnostic tests reviewed for today's visit: Most recent labs and imaging results. Assessment/Plan # Chest Pain with troponin elevation - NSTEMI Has on and off chest pain, has multiple cardiac risk factors, and hemodynamically stable No arrhythmia observed on telemonitoring Initial Troponin is elevated - will trend 3 sets of Troponin and serial EKGs Antiplatelets, Start IV heparin. Continue aspirin, atenolol. Start Lipitor 40 mg daily, if patient agrees to take it # Hypertension Will resume home medications as needed. Monitor vitals and adjust BP meds as needed # Code Status: Full code Medication and Non-Pharmacologic VTE Prophylaxis/Anticoagulants Anticoagulant AND Antiplatelet Medications (From admission, onward) Start Dose Route Frequency Last Action Ordered Stop 05/13/23 0900 aspirin, enteric coated 81 mg tab(s) 81 mg ORAL DAILY Given, 05/13 1033 05/13/23 0225 -- 05/12/23 2230 heparin iv infusion 25,000 units in NaCl 0.45% 250 mL LOW DOSE/ACS NOMOGRAM (Heparin Infusion + Bolus for Subtherapeutic PTTAC) 0-30 mL/hr See Hyperspace for full Linked Orders Report. 0-3,000 Units/hr INTRAVENOUS CONTINUOUS Rate/Dose Calculated - Heparin, 05/13 0556 05/12/232215 -- 05/12/232229 vte current anticoag therapy (sd,id) 05/12/232229 activity - mobilize patient ([place]) VTE Prophylaxis: VTE prophylaxis appropriate Disposition: Home Plan of care discussed with: Provider, RN, Patient SIGNATURE: Kb Hancock MD PATIENT NAME: Medina Mckoy II DATE: May 13, 2023 TIME: 11:50 AM etx [id number] [facility] History of Present illness Narrative 2022 Note Date & Type Note Facility 2022 History of Present illness Narrative This patient was seen in September 2022 at the request of a local colleague. He has had a right-sided neck mass for more than 4 years. He had some scans at the time that I do not have access to. 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 The lesion has grown over the past few years. He denies any symptoms related to the presence of this mass. On October 11, [address] scanning. I personally reviewed that scan. He does have a very large mass in his right neck that probably measures 7 to 8 cm x 5 cm x 5 cm. It pushes the pharynx toward the midline. I also do not see the jugular vein. [id number] Work Phone: Clinical Note 11-12-2020 Note Date & Type Note Facility 11-12-2020 Note History & Physical R eviewed: I have reviewed the History and Physical dated: 04-Nov-2020 History and Physical reviewed and relevant findings noted. Patient examined to review pertinent physical findings.: No significant changes Home Medications Reviewed: no changes noted Allergies Reviewed: no changes noted Airway/Sedation Assessment: Mouth Opening OKyes Neck Flexibility OKyes Loose Teethno Oropharyngeal ClassificationClass I ASA PS ClassificationASA III Sedation Planmoderate (sedation level of 3-4) ERAS (Enhanced Recovery After Surgery): ERAS Patient: no Consent: COVID-19 Consent: COVID-19 Risk ConsentSurgeon has reviewed carr risks related to the risk of katie COVID-19 and if they contract COVID-19 what the risks are. Signatures/Attestation: Note Completion: Attending Provider Inpatient Certification StatementObservation patient/other outpatient visits Electronic Signatures: Jarvis Kang) (Signed 12-Nov-2020 07:49) Authored: History & Physical Reviewed, Airway/Sedation, ERAS, Consent, Note Completion Last Updated: 12-Nov-2020 07:49 by Jarvis Kang) [facility] Evaluation note Note Date & Type Note Facility Evaluation note Diagnosis Monoclonal gammopathy- Primary Monoclonal paraproteinemia documented in this encounter [facility] Summary Purpose Family History No Family History Records FoundUnknown Family Member Name Dates Details No pertinent family history: Other(V49.89, Z78.9) Status:Active Unknown Family Member Name Dates Details No pertinent family history: Other(V49.89, Z78.9) Status:Active Unknown Family Member Name Dates Details No pertinent family history: Other(V49.89, Z78.9) Status:Active Advance Directives No Advanced Directives Records FoundNo Advanced Directives Records FoundNo Advanced Directives Records FoundNo Advanced Directives Records FoundNo Advanced Directives Records FoundNo Advanced Directives Records Found Chief Complaint Follow-up regarding a right-sided neck mass Reason for Referral Specialty Diagnoses / Procedures Referred By Marcy bryson Referred To Contact CT IMAGING Diagnoses Monoclonal gammopathy Procedures CT NECK SOFT TISSUE W IVCON CT SOFT TISSUE NECK W/[place] [id number] [facility] [place] [id number] Referral ID Status Reason Start Date Expiration Date Visits Requested Visits Authorized [id number] Authorized Auto-Generat ed Referral 03/13/2024 04/12/2025 1 1 Specialty Diagnoses / Procedures Referred By Marcy bryson Referred To Contact CT IMAGING Diagnoses Monoclonal gammopathy Procedures CT ABD/PEL W IVCON CT ABD & PELVIS W/[place] [phone] [facility] [place] [address] Referral ID Status Reason Start Date Expiration Date Visits Requested Visits Authorized [id number] Authorized Auto-Generat ed Referral 03/13/2024 04/12/2025 1 1 Additional Source Comments (unrecognized sect ion and content) No Status Records FoundNo Status Records FoundNo Status Records FoundNo Status Records FoundNo Status Records FoundNo Status Records Found INFORMATION SOURCE (unrecogn ized section and content) DATE CREATED AUTHOR 11/18/2020 [facility] DATE CREATED AUTHOR AUTHOR'S ORGANIZ ATION 10/15/2022 [employer] DATE CREATED AUTHOR AUTHOR'S ORGANIZ ATION 10/20/2022 [facility] DATE CREATED AUTHOR AUTHOR'S ORGANIZ ATION 05/08/[address] [facility] DATE CREATED AUTHOR AUTHOR'S ORGANIZ ATION 07/07/2023 [facility] DATE CREATED AUTHOR AUTHOR'S ORGANIZ ATION 03/15/2024 [facility] Source Comments (unrecognize d section and content) In the event this informatio n is protected by the Federal Confidentiality of Alcohol and Drug Abuse Patient Records regulations: The Federal rules restrict any use of the information to criminally investigate or prosecute any alcohol or drug abuse patient.[facility] the event this information is protected by the Federal Confidentiality of Alcohol and Drug Abuse Patient Records regulations: The Federal rules restrict any use of the information to criminally investigate or prosecute any alcohol or drug abuse patient.[facility] Reason for Visit (unrecogniz ed section and content) Reason Comments Results Reason Comments New Patient Care Teams (unrecognized sec tion and content) Manager Practice Relationship Specialty Start Date End Date Dawna Greenberg MD [address] [facility] [address] [place] [address] PCP - General Internal Medicine 03/13/24 FOR RECORDS PERTAINING TO PATIENTS WHO ARE OR HAVE BEEN ENROLLED IN A CHEMICAL DEPENDENCY/SUBSTANCEABUSE PROGRAM, SOME INFORMATION MAY BE OMITTED. This clinical summary was aggregated from multiple sources. Caution should be exercised in using it in the provision of clinical care. This summary normalizes information from multiple sources, and as a consequence, information in this document may materially change the coding, format and clinical context of patient data. In addition, data may be omitted in some cases. CLINICAL DECISIONS SHOULD BE BASED ON THE PRIMARY CLINICAL RECORDS. [employer] provides no warranty or guarantee of the accuracy or completeness of information in this document.
== END | disposition home or self-care (01) ==
PROVIDERS: PCP Family Medicine; Referring Provider Internal Medicine Cardiovascular Disease; Visit Provider Internal Medicine Cardiovascular Disease
DX: I11.0 Hypertensive heart disease with heart failure (principal); I50.9 Heart failure, unspecified; R00.1 Bradycardia, unspecified
CPT/HCPCS: 93225; 93226

== ENCOUNTER → 2024-10-29 | Outpatient (CLI) | payer MEDICARE, SELFPAY ==
[2024-10-29 09:36] LABS: Absolute Lymphocyte Count 0.86 X10^3/uL (0.83-4.51); Absolute Neutrophil Count 6.3 X10^3/uL (2.0-7.7); Basophil# 0.05 X10^3/uL; Basophil% 0.6 % (0-1); Eosinophil# 0.18 X10^3/uL; Eosinophils% 2.2 % (0-5); Hematocrit 44.6 % (40-54); Hemoglobin 14.8 g/dL (13.0-16.5); Lymphocyte # 0.86 X10^3/ul (0.83-4.51); Lymphocyte % 10.6 % (19-41); Mean Corp Hgb Conc 33.2 g/dL (32-36); Mean Corpuscular Hgb 30.9 pg (27.0-32.0); Mean Corpuscular Volume 93.1 fL (80-94); Mean Platelet Vol. 11.5 fl (6.2-12.0); Monocyte# 0.74 X10^3/uL; Monocyte% 9.1 % (0-10); NRBC Flagged by Analyzer 0 % (0-5); Neutrophil # 6.26 X10^3/uL (2.7-7.7); Platelet Count 201 K/mm3 (150-450); RBC Distribution Width CV 14.2 % (11.6-14.6); RBC Distribution Width SD 47.3 fl (35.1-43.9); Red Blood Count 4.79 M/mm3 (4.6-6.2); White Blood Count 8.1 K/mm3 (4.4-11.0)
[2024-10-29 10:37] LABS: Hemoglobin A1c 7.4 % (<=5.6)
[2024-10-29 11:15] LABS: ALB/GLOB Ratio 1.3 RATIO (0.9-2.4); AST(SGOT) 19 U/L (<=37); Alanine Aminotransfer ALT/SGPT 23 U/L (<=46); Albumin, Serum 3.9 g/dL (3.4-4.8); Alkaline Phosphatase 109 U/L (40-129); Anion Gap 12 (5-15); BUN 20 mg/dL (4-19); BUN/Creat Ratio 19.3 RATIO (10-20); Calcium,Total 9.3 mg/dL (7.6-11.0); Carbon Dioxide 21.6 mmol/L (21.0-32.0); Chloride 106 mmol/L (98-108); Cholesterol 152 mg/dL (<=200); Creatinine, Serum 1.03 mg/dL (0.70-1.20); EST Glomerular Filtration Rate 76 (>60); Glucose 170 mg/dL (70-99); High Density Lipoprotein 34 mg/dL; Low Density Lipoprotein Calc. 102 mg/dL; PSA,Total - Annual Screen 2.52 ng/mL (0.02-4.00); Potassium 4.5 mmol/L (3.3-5.1); Protein, Total 6.9 g/dL (5.9-8.4); Sodium Level 139 mmol/L (133-145); Total Bilirubin 0.54 mg/dL (0.00-1.30); Triglycerides 77 mg/dL; Very Low Density Lipoprotein 15 mg/dL (5-40); Vitamin D,25 Hydroxy 21.2 ng/mL (30-100); cholesterol:hdl ratio screen 4.42
== END | disposition home or self-care (01) ==
PROVIDERS: PCP Family Medicine; Referring Provider Family Medicine; Visit Provider Family Medicine
DX: Z12.5 Encounter for screening for malignant neoplasm of prostate (principal); M06.9 Rheumatoid arthritis, unspecified; E11.9 Type 2 diabetes mellitus without complications; I10 Essential (primary) hypertension
CPT/HCPCS: 36415; 80053; 80061; 82306; 83036; 84153; 85025; G0103

== ENCOUNTER → 2025-02-28 | Outpatient (CLI) | payer MEDICARE, SELFPAY ==
[2025-02-28 13:39] LABS: Anion Gap 13 (5-15); BUN 30 mg/dL (4-19); BUN/Creat Ratio 24.0 RATIO (10-20); Calcium,Total 10.4 mg/dL (7.6-11.0); Carbon Dioxide 23.0 mmol/L (21.0-32.0); Chloride 106 mmol/L (98-108); Glucose 164 mg/dL (70-99); Potassium 5.0 mmol/L (3.3-5.1)
== END | disposition home or self-care (01) ==
LOC: LAB 11:38
PROVIDERS: Internal Medicine Cardiovascular Disease; PCP Family Medicine; Referring Provider Family Medicine; Visit Provider Family Medicine
DX: I11.0 Hypertensive heart disease with heart failure (principal); I50.9 Heart failure, unspecified
CPT/HCPCS: 36415; 80048

== ENCOUNTER → 2025-04-28 | Outpatient (CLI) | payer MEDICARE, SELFPAY ==
--- NOTE | 2025-04-28 11:24 | RAD_ITS ---
PROCEDURE: LUMBAR SPINE 2 OR 3 VIEWS 04/28/2025 REASON FOR EXAM: LEFT LEG NUMBNESS TECHNIQUE: Procedure Code: RADSPLL Modality: DX Procedure: LUMBAR SPINE 2 OR 3 VIEWS COMPARISON: None FINDINGS: There is minimal dextroconvex curvature of the lumbar spine. No acute fracture or subluxation. Minimal degenerative disc disease between L3 and S1. Sacroiliac joints are intact. Cholecystectomy clips are noted. Atherosclerotic aortic calcifications are present. RAD/Lumbar Spine 2 or 3 Views IMPRESSION: Mild alignment abnormality and degenerative change. No acute bony abnormality. Reading [facility]
--- NOTE | 2025-04-28 11:24 | RAD_ITS ---
PROCEDURE: LUMBAR SPINE 2 OR 3 VIEWS 04/28/2025 REASON FOR EXAM: LEFT LEG NUMBNESS TECHNIQUE: Procedure Code: RADSPLL Modality: DX Procedure: LUMBAR SPINE 2 OR 3 VIEWS COMPARISON: None FINDINGS: There is minimal dextroconvex curvature of the lumbar spine. No acute fracture or subluxation. Minimal degenerative disc disease between L3 and S1. Sacroiliac joints are intact. Cholecystectomy clips are noted. Atherosclerotic aortic calcifications are present. RAD/Lumbar Spine 2 or 3 Views IMPRESSION: Mild alignment abnormality and degenerative change. No acute bony abnormality. Reading [facility]
== END | disposition home or self-care (01) ==
LOC: MTRAD 11:21
PROVIDERS: PCP Family Medicine; Referring Provider Family Medicine; Visit Provider Family Medicine
DX: R20.0 Anesthesia of skin (principal); R29.898 Other symptoms and signs involving the musculoskeletal system
CPT/HCPCS: 72100

== ENCOUNTER → 2025-04-30 | Outpatient (CLI) | payer MEDICARE, SELFPAY ==
[2025-04-30 14:09] LABS: Squamous Epithelial Cells - UA 0 SEEN /hpf (0-5)
[2025-04-30 15:12] LABS: Hematocrit 42.1 % (40-54); Hemoglobin 14.0 g/dL (13.0-16.5); Immature Granulocytes Count 0.050 X10^3/uL (0.0-0.0); Mean Corp Hgb Conc 33.3 g/dL (32-36); Mean Corpuscular Volume 93.1 fL (80-94); Mean Platelet Vol. 13.3 fl (6.2-12.0); NRBC Flagged by Analyzer 0 % (0-5); Platelet Count 116 K/mm3 (150-450); RBC Distribution Width CV 15.0 % (11.6-14.6); RBC Distribution Width SD 50.7 fl (35.1-43.9); Red Blood Count 4.52 M/mm3 (4.6-6.2); White Blood Count 10.4 K/mm3 (4.4-11.0)
[2025-04-30 15:18] LABS: Color, Urine Amber (Yellow); Glucose, Dipstick Normal (Normal); Ketone-Dipstick 50 mg/dl (Negative); Leukocyte Esterase-Dipstick 25 /ul (Negative); Nitrite-Dipstick Negative (Negative); Occult Blood-Urine 10 /ul (Negative); Protein-Dipstick 100 mg/dl (Negative); Specific Gravity, Urine 1.025 (1.002-1.030); Urine Bilirubin Dipstick Negative (Negative)
[2025-04-30 15:28] LABS: Red Blood Cells-Urine 0-5 SEEN /hpf (0-5)
[2025-04-30 15:29] LABS: Calcium Oxalate Crystals Ur RARE /hpf (<or=2+); Mucous, Urine 1+ /hpf (<or=2+)
[2025-04-30 15:35] LABS: AST(SGOT) 24 U/L (<=37); Alanine Aminotransfer ALT/SGPT 27 U/L (<=46); Albumin, Serum 3.9 g/dL (3.4-4.8); Alkaline Phosphatase 108 U/L (40-129); Anion Gap 12 (5-15); BUN 20 mg/dL (4-19); BUN/Creat Ratio 19.9 RATIO (10-20); Calcium,Total 9.6 mg/dL (7.6-11.0); Carbon Dioxide 21.9 mmol/L (21.0-32.0); Chloride 101 mmol/L (98-108); Globulin 2.9 g/dL (2.2-4.2); Glucose 195 mg/dL (70-99); Potassium 4.5 mmol/L (3.3-5.1)
== END | disposition home or self-care (01) ==
LOC: MFPLAB 12:06
PROVIDERS: PCP Family Medicine; Visit Provider Family Medicine
DX: R10.A2 Flank pain, left side (principal)
CPT/HCPCS: 36415; 80053; 81001; 85025

== ENCOUNTER 2025-05-08 05:48 | Inpatient (IN) | payer OTHER, SELFPAY ==
[2025-05-08] VITALS (28 sets, daily range): BP systolic 141–225; BP diastolic 54–149; PULSE 75–138; RESP 12–99; TEMP 36.6–37.3; O2SAT 91–100; BMI 27.4; BMI 24.2
--- NOTE | 2025-05-08 06:04 | EKG12_ITS ---
Test Reason : DYSRHYTHMIA Blood Pressure : */* mmHG Vent. Rate : 117 BPM Atrial Rate : 117 BPM P-R Int : 148 ms QRS Dur : 84 ms QT Int : 306 ms P-R-T Axes : 54 56 115 degrees QTcB Int : 426 ms Sinus tachycardia with Premature atrial complexes Possible Left atrial enlargement Cannot rule out Anterior infarct (cited on or before 28-Apr-2024) Abnormal ECG Confirmed by HEYDI OLIVERA ([id number]), senior editor TOSHIA MAGALLON ([id number]) on 05/12/2025 6:36:02 AM Referred By: SERGEI Confirmed By: HEYDI OLIVERA
[2025-05-08 06:15] LABS: FI02 2.0; SITE Not entered; VBG BASE EXCESS -1 mmol/L (-1.0-3.5); VBG PO2 45 mmHg (25-40); VBG SO2 79 % (50-70); VBG TCO2 26 mmol/L (23-33)
--- OUTSIDE RECORDS SUMMARY | 2025-05-08 06:17 | XMS RPT_ITS | CCD ---
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 on above: Performed By: #### L 100.0100, L500.4050, L400.0001 ####[facility] [address] [place], [address] Chloride [Moles/Vol] 101 mmol/L Normal 98-108 [facility] Comment on above: Performed By: #### L 100.0100, L500.4050, L400.0001 ####[facility] [address] [place], [address] CO2 [Moles/Vol] 21.9 mmol/L Normal 21.0-32.0 [facility] Comment on above: Performed By: #### L 100.0100, L500.4050, L400.0001 ####[facility] [address] [place], [address] Creatinine [Mass/Vol] 1.02 mg/dL Normal 0.70-1.20 [facility] Comment on above: Performed By: #### L 100.0100, L500.4050, L400.0001 ####[facility] [address] [place], [address] GAP 12 Normal 5-15 [facility] Comment on above: Performed By: #### L 100.0100, L500.4050, L400.0001 ####[facility] [address] [place], [address] GFR/1.73 sq M.predicted among non-blacks MDRD (S/P/Bld) [Vol rate/Area] 77 mL/min/{1.73_m2} Normal >60 [facility] Comment on above: Result Comment: mL/m in/1.73m2 CKD-EPI Creatinine Equation (2020) Performed By: #### L 100.0100, L500.4050, L400.0001 ####[facility] [address] [place], [address] Globulin (S) [Mass/Vol] 2.9 g/dL Normal 2.2-4.2 [facility] Comment on above: Performed By: #### L 100.0100, L500.4050, L400.0001 ####[facility] [address] [place], [address] Glucose [Mass/Vol] 195 mg/dL High 70-99 [facility] Comment on above: Performed By: #### L 100.0100, L500.4050, L400.0001 ####[facility] [address] [place], [address] Potassium [Moles/Vol] 4.5 mmol/L Normal 3.3-5.1 [facility] Comment on above: Performed By: #### L 100.0100, L500.4050, L400.0001 ####[facility] [address] [place], [address] Sodium [Moles/Vol] 136 mmol/L Normal 133-145 [facility] Comment on above: Performed By: #### L 100.0100, L500.4050, L400.0001 ####[facility] [address] [place], [address] T PROT 6.7 g/dL Normal 5.9-8.4 [facility] Comment on above: Performed By: #### L 100.0100, L500.4050, L400.0001 ####[facility] [address] [place], [address] Urea nitrogen [Mass/Vol] 20 mg/dL High 4-19 [facility] Comment on above: Performed By: #### L 100.0100, L500.4050, L400.0001 ####[facility] [address] [place], [address] Urinalysis, Completeon 04-30 CA OX CRYSTAL RARE Normal [facility] Comment on above: Order Comment: COLOR OF URINE MAY AFFECT DIPSTICK RESULTS. CLEAN CATCH Performed By: #### L 400.0001 #### [facility] [address] [place], [address] Mucus Ql (Urine sed) 1+ /hpf Normal [facility] Comment on above: Order Comment: COLOR OF URINE MAY AFFECT DIPSTICK RESULTS. CLEAN CATCH Performed By: #### L 400.0001 #### [facility] [address] [place], [address] RBC 0-5 SEEN Normal 0-5 [facility] Comment on above: Order Comment: COLOR OF URINE MAY AFFECT DIPSTICK RESULTS. CLEAN CATCH Performed By: #### L 400.0001 #### [facility] [address] [place], [address] WBC 0-5 SEEN Normal 0-5 [facility] Comment on above: Order Comment: COLOR OF URINE MAY AFFECT DIPSTICK RESULTS. CLEAN CATCH Performed By: #### L 400.0001 #### [facility] [address] [place], [address] BACTERIA 0 SEEN Normal None Seen [facility] Comment on above: Order Comment: COLOR OF URINE MAY AFFECT DIPSTICK RESULTS. CLEAN CATCH Performed By: #### L 400.0001 #### [facility] [address] [place], [address] EPI,SQUAMOUS 0 SEEN Normal 0-5 [facility] Comment on above: Order Comment: COLOR OF URINE MAY AFFECT DIPSTICK RESULTS. CLEAN CATCH Performed By: #### L 400.0001 #### [facility] [address] [place], [address] BACTERIA 0 SEEN Normal None Seen [facility] Comment on above: Order Comment: Urine , Random Result Comment: PT C ANT DO IT TODAY -EEGG Performed By: #### L 100.0100, L500.4050, L400.0001 ####[facility] [address] [place], [address] EPI,SQUAMOUS 0 SEEN Normal 0-5 [facility] Comment on above: Order Comment: Urine , Random Result Comment: PT C ANT DO IT TODAY -EEGG Performed By: #### L 100.0100, L500.4050, L400.0001 ####[facility] [address] [place], [address] Mucus Ql (Urine sed) 0 SEEN Normal [facility] Comment on above: Order Comment: Urine , Random Result Comment: PT C ANT DO IT TODAY -EEGG Performed By: #### L 100.0100, L500.4050, L400.0001 ####[facility] [address] [place], [address] RBC 0 SEEN Normal 0-5 [facility] Comment on above: Order Comment: Urine , Random Result Comment: PT C ANT DO IT TODAY -EEGG Performed By: #### L 100.0100, L500.4050, L400.0001 ####[facility] [address] [place], [address] WBC 0 SEEN Normal 0-[address] [place] [address] Comment on above: Order Comment: Urine , Random Result Comment: PT C ANT DO IT TODAY -EEGG Performed By: #### L 100.0100, L500.4050, L400.0001 ####[facility] [address] [place], [address] BILIRUBIN URINE Normal Negative [facility] Comment on above: Order Comment: Urine , Random Result Comment: PT C ANT DO IT TODAY -EEGG Performed By: #### L 100.0100, L500.4050, L400.0001 ####[facility] [address] [place], [address] Clarity (U) Normal Clear [facility] Comment on above: Order Comment: Urine , Random Result Comment: PT C ANT DO IT TODAY -EEGG Performed By: #### L 100.0100, L500.4050, L400.0001 ####[facility] [address] [place], [address] Color (U) Normal Yellow [facility] Comment on above: Order Comment: Urine , Random Result Comment: PT C ANT DO IT TODAY -EEGG Performed By: #### L 100.0100, L500.4050, L400.0001 ####[facility] [address] [place], [address] GLUCOSE, UR Normal Normal [facility] Comment on above: Order Comment: Urine , Random Result Comment: PT C ANT DO IT TODAY -EEGG Performed By: #### L 100.0100, L500.4050, L400.0001 ####[facility] [address] [place], [address] KETONE UR Normal Negative [facility] Comment on above: Order Comment: Urine , Random Result Comment: PT C ANT DO IT TODAY -EEGG Performed By: #### L 100.0100, L500.4050, L400.0001 ####[facility] [address] [place], [address] LEUK ESTERASE Normal Negative [facility] Comment on above: Order Comment: Urine , Random Result Comment: PT C ANT DO IT TODAY -EEGG Performed By: #### L 100.0100, L500.4050, L400.0001 ####[facility] [address] [place], [address] Nitrite Ql (U) Normal Negative [facility] Comment on above: Order Comment: Urine , Random Result Comment: PT C ANT DO IT TODAY -EEGG Performed By: #### L 100.0100, L500.4050, L400.0001 ####[facility] [address] [place], [address] OCCULT BLOOD-UR Normal Negative [facility] Comment on above: Order Comment: Urine , Random Result Comment: PT C ANT DO IT TODAY -EEGG Performed By: #### L 100.0100, L500.4050, L400.0001 ####[facility] [address] [place], [address] pH UR Normal 5.0 - 8.0 [facility] Comment on above: Order Comment: Urine , Random Result Comment: PT C ANT DO IT TODAY -EEGG Performed By: #### L 100.0100, L500.4050, L400.0001 ####[facility] [address] [place], [address] PROT DIPSTX Normal Negative [facility] Comment on above: Order Comment: Urine , Random Result Comment: PT C ANT DO IT TODAY -EEGG Performed By: #### L 100.0100, L500.4050, L400.0001 ####[facility] [address] [place], [address] SP.GR. DIPSTX Normal 1.002-1.030 [facility] Comment on above: Order Comment: Urine , Random Result Comment: PT C ANT DO IT TODAY -EEGG Performed By: #### L 100.0100, L500.4050, L400.0001 ####[facility] [address] [place], [address] UR Preservative Normal [facility] Comment on above: Order Comment: Urine , Random Result Comment: PT C ANT DO IT TODAY -EEGG Performed By: #### L 100.0100, L500.4050, L400.0001 ####[facility] [address] [place], [address] UROBILI Normal Normal [facility] Comment on above: Order Comment: Urine , Random Result Comment: PT C ANT DO IT TODAY -EEGG Performed By: #### L 100.0100, L500.4050, L400.0001 ####[facility] [address] [place], [address] Lumbar Spine 2 or 3 Viewson 04-28-2025 Lumbar Spine 2 or 3 Views [facility] [address] [place] [address] Lumbar Spine 2 or 3 Views MR#: [id number] Acct: [id number] Name: MEDINA MCKOY II Rep #: [id number] : 1950 M 74 From: Joe Brumfield MD PCP: Dr. Dawna Greenberg MD Status: REG CLI Study: Lumbar Spine 2 or 3 Views Date of Exam: Exam# [id number] Ordering Dr: Dawan Greenberg MD PROCEDURE: LUMBAR SPINE 2 OR 3 VIEWS 04/28/2025 REASON FOR EXAM: LEFT LEG NUMBNESS TECHNIQUE: Procedure Code: RADSPLL Modality: DX Procedure: LUMBAR SPINE 2 OR 3 VIEWS COMPARISON: None FINDINGS: There is minimal dextroconvex curvature of the lumbar spine. No acute fracture or subluxation. Minimal degenerative disc disease between L3 and S1. Sacroiliac joints are intact. Cholecystectomy clips are noted. Atherosclerotic aortic calcifications are present. RAD/Lumbar Spine 2 or 3 Views IMPRESSION: Mild alignment abnormality and degenerative change. No acute bony abnormality. Reading Location: [facility] CC: Dr. Dawna Greenberg MD Instrumentation Fitter: Signed Normal [facility] Anion gap in Serum or Plasma Ordered By: Jimi Chavez on 02-28-2025 Anion gap [Moles/Vol] 13 mmol/L 11-28 [facility] BUN/creatinine ratioOrdered By: Jimi Chavez on 02-28-2025 Urea nitrogen/Creatinine [Mass ratio] 24.0 mg/mg High 05-05 [facility] Basic Metabolic Profile (BMP )on 02-28-2025 BUN/CRE 24.0 RATIO High [facility] Comment on above: Performed By: #### L 500.2500 ####[facility] [address] [place], [place], [id number] Calcium [Mass/Vol] 10.4 mg/dL Normal 7.6-11.0 [facility] Comment on above: Performed By: #### L 500.2500 ####[facility] [address] [place], [place], [id number] Chloride [Moles/Vol] 106 mmol/L Normal 98-108 [facility] Comment on above: Performed By: #### L 500.2500 ####[facility] [address] [place], [address] CO2 [Moles/Vol] 23.0 mmol/L Normal 21.0-32.0 [facility] Comment on above: Performed By: #### L 500.2500 ####[facility] [address] [place], [address] Creatinine [Mass/Vol] 1.26 mg/dL High 0.70-1.20 [facility] Comment on above: Performed By: #### L 500.2500 ####[facility] [address] [place], [address] GAP 13 Normal 5-15 [facility] Comment on above: Performed By: #### L 500.2500 ####[facility] [address] [place], [address] GFR/1.73 sq M.predicted among non-blacks MDRD (S/P/Bld) [Vol rate/Area] 60 mL/min/{1.73_m2} Normal >60 [facility] Comment on above: Result Comment: mL/m in/1.73m2 CKD-EPI Creatinine Equation (2020) Performed By: #### L 500.2500 ####[facility] [address] [place], [address] Glucose [Mass/Vol] 164 mg/dL High 70-99 [facility] Comment on above: Performed By: #### L 500.2500 ####[facility] [address] [place], [address] Potassium [Moles/Vol] 5.0 mmol/L Normal 3.3-5.1 [facility] Comment on above: Performed By: #### L 500.2500 ####[facility] [address] [place], [place], [address] Sodium [Moles/Vol] 142 mmol/L Normal 133-145 [facility] Comment on above: Performed By: #### L 500.2500 ####[facility] [address] [place], [place], [address] Urea nitrogen [Mass/Vol] 30 mg/dL High 4-19 [facility] Comment on above: Performed By: #### L 500.2500 ####[facility] [address] [place], [place], [address] Carbon dioxide, total [Moles /volume] in Central venous bloodOrdered By: Jimi Chavez on 02-28-2025 CO2 [Moles/Vol] 23.0 mmol/L 21.0-32.0 [facility] Chloride assayOrdered By: Adriana Chavez on 02-28-2025 Chloride [Moles/Vol] 106 mmol/L 98-108 [facility] Glomerular filtration rate ( GFR) estimation/1.73 sq m using serum, plasma, or whole bOrdered By: Jimi Chavez on 02-28-2025 GFR/1.73 sq M.predicted among non-blacks MDRD (S/P/Bld) [Vol rate/Area] 60 mL/min/{1.73_m2} >60 [facility] Comment on above: mL/min/1.73m2 CKD-EP I Creatinine Equation (2020) Potassium measurement (mass/ volume)Ordered By: Jimi Chavez on 02-28-2025 Potassium (Unsp spec) [Mass/Vol] 5.0 mmol/L 3.3-5.1 [facility] Serum creatinine measurement (mass/volume)Ordered By: Jimi Chavez on 02-28-2025 Creatinine [Mass/Vol] 1.26 mg/dL High 0.70-1.20 [facility] Serum glucose measurement (m ass/volume)Ordered By: Jimi Chavez on 02-28-2025 Glucose [Mass/Vol] 164 mg/dL High 70-99 [facility] Serum or plasma calcium amanda urement (mass/volume)Ordered By: Jimi Chavez on 02-28-2025 Calcium [Mass/Vol] 10.4 mg/dL 7.6-11.0 [facility] Serum or plasma urea nitroge n measurement (mass/volume)Ordered By: Jimi Scott on 02-28-2025 Urea nitrogen [Mass/Vol] 30 mg/dL High 4-19 [facility] Sodium levelOrdered By: Matthew hernandez Scott on 02-28-2025 Sodium [Moles/Vol] 142 mmol/L 133-145 [facility] CBC W/Diff, Automatedon 10-15 Absolute Lymph 0.86 X10 3/uL Normal 0.83-4.51 [facility] Comment on above: Performed By: #### L 500.4050, L500.4100, L501.9985, L506.1001, L100.0100, L501.9910 #### [facility] [address] [place], [address] Absolute Neut 6.3 X10 3/uL Normal 2.0-7.7 [facility] Comment on above: Performed By: #### L 500.4050, L500.4100, L501.9985, L506.1001, L100.0100, L501.9910 #### [facility] [address] [place], [address] Basophils/100 WBC (Bld) 0.6 % Normal 0-1 [facility] Comment on above: Performed By: #### L 500.4050, L500.4100, L501.9985, L506.1001, L100.0100, L501.9910 #### [facility] [address] [place], [address] Eosinophils/100 WBC (Bld) 2.2 % Normal 0-5 [facility] Comment on above: Performed By: #### L 500.4050, L500.4100, L501.9985, L506.1001, L100.0100, L501.9910 #### [facility] [address] [place], [address] Erythrocyte distribution width (RBC) [Ratio] 14.2 % Normal 11.6-14.6 [facility] Comment on above: Performed By: #### L 500.4050, L500.4100, L501.9985, L506.1001, L100.0100, L501.9910 #### [facility] [address] [place], [address] Hematocrit (Bld) [Volume fraction] 44.6 % Normal 40-54 [facility] Comment on above: Performed By: #### L 500.4050, L500.4100, L501.9985, L506.1001, L100.0100, L501.9910 #### [facility] [address] [place], [address] Hemoglobin (Bld) [Mass/Vol] 14.8 g/dL Normal 13.0-16.5 [facility] Comment on above: Performed By: #### L 500.4050, L500.4100, L501.9985, L506.1001, L100.0100, L501.9910 #### [facility] [address] [place], [address] IG% 0.500 Normal 0.0-0.9 [facility] Comment on above: Result Comment: IG% - Immature Granulocytes (promyelocytes, myelocytes and metamyelocytes) > 1% indicates that a LEFT SHIFT is Present. Performed By: #### L 500.4050, L500.4100, L501.9985, L506.1001, L100.0100, L501.9910 #### [facility] [address] [place], [address] Lymphocytes/100 WBC (Bld) 10.6 % Low 19-41 [facility] Comment on above: Performed By: #### L 500.4050, L500.4100, L501.9985, L506.1001, L100.0100, L501.9910 #### [facility] [address] [place], [address] MCH (RBC) [Entitic mass] 30.9 pg Normal 27.0-32.0 [facility] Comment on above: Performed By: #### L 500.4050, L500.4100, L501.9985, L506.1001, L100.0100, L501.9910 #### [facility] [address] [place], [address] MCHC (RBC) [Mass/Vol] 33.2 g/dL Normal 32-36 [facility] Comment on above: Performed By: #### L 500.4050, L500.4100, L501.9985, L506.1001, L100.0100, L501.9910 #### [facility] [address] [place], [address] MCV (RBC) [Entitic vol] 93.1 fL Normal 80-94 [facility] Comment on above: Performed By: #### L 500.4050, L500.4100, L501.9985, L506.1001, L100.0100, L501.9910 #### [facility] [address] [place], [address] Monocytes/100 WBC (Bld) 9.1 % Normal 0-10 [facility] Comment on above: Performed By: #### L 500.4050, L500.4100, L501.9985, L506.1001, L100.0100, L501.9910 #### [facility] [address] [place], [address] Neutrophils/100 WBC (Bld) 77.0 % High 47-70 [facility] Comment on above: Performed By: #### L 500.4050, L500.4100, L501.9985, L506.1001, L100.0100, L501.9910 #### [facility] [address] [place], [address] Nucleated RBC (Bld) [#/Vol] 0 10*3/uL Normal 0-5 [facility] Comment on above: Performed By: #### L 500.4050, L500.4100, L501.9985, L506.1001, L100.0100, L501.9910 #### [facility] [address] [place], [address] Platelet mean volume (Bld) [Entitic vol] 11.5 fL Normal 6.2-12.0 [facility] Comment on above: Performed By: #### L 500.4050, L500.4100, L501.9985, L506.1001, L100.0100, L501.9910 #### [facility] [address] [place], [address] Platelets (Bld) [#/Vol] 201 10*3/uL Normal 150-450 [facility] Comment on above: Performed By: #### L 500.4050, L500.4100, L501.9985, L506.1001, L100.0100, L501.9910 #### [facility] [address] [place], [address] RBC (Bld) [#/Vol] 4.79 10*6/uL Normal 4.6-6.2 [facility] Comment on above: Performed By: #### L 500.4050, L500.4100, L501.9985, L506.1001, L100.0100, L501.9910 #### [facility] [address] [place], [address] RDW SD 47.3 fl High 35.1-43.9 [facility] Comment on above: Performed By: #### L 500.4050, L500.4100, L501.9985, L506.1001, L100.0100, L501.9910 #### [facility] [address] [place], [address] WBC (Bld) [#/Vol] 8.1 10*3/uL Normal 4.4-11.0 [facility] Comment on above: Performed By: #### L 500.4050, L500.4100, L501.9985, L506.1001, L100.0100, L501.9910 #### [facility] [address] [place], [address] Comprehensive Metabolic Prof ilon 10-29-2024 Albumin [Mass/Vol] 3.9 g/dL Normal 3.4-4.8 [facility] Comment on above: Performed By: #### L 500.4050, L500.4100, L501.9985, L506.1001, L100.0100, L501.9910 #### [facility] [address] [place], [address] Albumin/Globulin [Mass ratio] 1.3 {ratio} Normal 0.9-2.4 [facility] Comment on above: Performed By: #### L 500.4050, L500.4100, L501.9985, L506.1001, L100.0100, L501.9910 #### [facility] [address] [place], [address] ALK PHOS 109 U/L Normal 40-129 [facility] Comment on above: Performed By: #### L 500.4050, L500.4100, L501.9985, L506.1001, L100.0100, L501.9910 #### [facility] [address] [place], [address] ALT [Catalytic activity/Vol] 23 U/L Normal <=46 [facility] Comment on above: Performed By: #### L 500.4050, L500.4100, L501.9985, L506.1001, L100.0100, L501.9910 #### [facility] [address] [place], [address] AST [Catalytic activity/Vol] 19 U/L Normal <=37 [facility] Comment on above: Performed By: #### L 500.4050, L500.4100, L501.9985, L506.1001, L100.0100, L501.9910 #### [facility] [address] [place], [address] Bilirubin [Mass/Vol] 0.54 mg/dL Normal 0.00-1.30 [facility] Comment on above: Performed By: #### L 500.4050, L500.4100, L501.9985, L506.1001, L100.0100, L501.9910 #### [facility] [address] [place], [address] BUN/CRE 19.3 RATIO Normal 10-20 [facility] Comment on above: Performed By: #### L 500.4050, L500.4100, L501.9985, L506.1001, L100.0100, L501.9910 #### [facility] [address] [place], [address] Calcium [Mass/Vol] 9.3 mg/dL Normal 7.6-11.0 [facility] Comment on above: Performed By: #### L 500.4050, L500.4100, L501.9985, L506.1001, L100.0100, L501.9910 #### [facility] [address] [place], [address] Chloride [Moles/Vol] 106 mmol/L Normal 98-108 [facility] Comment on above: Performed By: #### L 500.4050, L500.4100, L501.9985, L506.1001, L100.0100, L501.9910 #### [facility] [address] [place], [address] CO2 [Moles/Vol] 21.6 mmol/L Normal 21.0-32.0 [facility] Comment on above: Performed By: #### L 500.4050, L500.4100, L501.9985, L506.1001, L100.0100, L501.9910 #### [facility] [address] [place], [address] Creatinine [Mass/Vol] 1.03 mg/dL Normal 0.70-1.20 [facility] Comment on above: Performed By: #### L 500.4050, L500.4100, L501.9985, L506.1001, L100.0100, L501.9910 #### [facility] [address] [place], [address] GAP 12 Normal 5-15 [facility] Comment on above: Performed By: #### L 500.4050, L500.4100, L501.9985, L506.1001, L100.0100, L501.9910 #### [facility] [address] [place], [address] GFR/1.73 sq M.predicted among non-blacks MDRD (S/P/Bld) [Vol rate/Area] 76 mL/min/{1.73_m2} Normal >60 [facility] Comment on above: Result Comment: mL/m in/1.73m2 CKD-EPI Creatinine Equation (2020) Performed By: #### L 500.4050, L500.4100, L501.9985, L506.1001, L100.0100, L501.9910 #### [facility] [address] [place], [address] Globulin (S) [Mass/Vol] 3.0 g/dL Normal 2.2-4.2 [facility] Comment on above: Performed By: #### L 500.4050, L500.4100, L501.9985, L506.1001, L100.0100, L501.9910 #### [facility] [address] [place], [address] Glucose [Mass/Vol] 170 mg/dL High 70-99 [facility] Comment on above: Performed By: #### L 500.4050, L500.4100, L501.9985, L506.1001, L100.0100, L501.9910 #### [facility] [address] [place], [address] Potassium [Moles/Vol] 4.5 mmol/L Normal 3.3-5.1 [facility] Comment on above: Performed By: #### L 500.4050, L500.4100, L501.9985, L506.1001, L100.0100, L501.9910 #### [facility] [address] [place], [address] Sodium [Moles/Vol] 139 mmol/L Normal 133-145 [facility] Comment on above: Performed By: #### L 500.4050, L500.4100, L501.9985, L506.1001, L100.0100, L501.9910 #### [facility] [address] [place], [address] T PROT 6.9 g/dL Normal 5.9-8.4 [facility] Comment on above: Performed By: #### L 500.4050, L500.4100, L501.9985, L506.1001, L100.0100, L501.9910 #### [facility] [address] [place], [address] Urea nitrogen [Mass/Vol] 20 mg/dL High 4-19 [facility] Comment on above: Performed By: #### L 500.4050, L500.4100, L501.9985, L506.1001, L100.0100, L501.9910 #### [facility] [address] [place] [place], [address] Hemoglobin A1con 10-29-2024 HbA1c (Bld) [Mass fraction] 7.4 % High <=5.6 [facility] Comment on above: Result Comment: Norm al < 5.7 % Prediabetic 5.7 - 6.4 % Diabetic >or= 6.5 % Please note range changes. Performed By: #### L 500.4050, L500.4100, L501.9985, L506.1001, L100.0100, L501.9910 #### [facility] [address] [place], [address] Lipid Profileon 10-29-2024 CHOL:HDL 4.42 Normal [facility] Comment on above: Performed By: #### L 500.4050, L500.4100, L501.9985, L506.1001, L100.0100, L501.9910 #### [facility] [address] [place] [place], [address] Cholesterol [Mass/Vol] 152 mg/dL Normal <=200 [facility] Comment on above: Result Comment: Chol esterol level, Desirable <200 mg/dL Borderline high cholesterol 200-239 mg/dL High cholesterol >=240 mg/dL Recommendations of the NCEP Adult Treatment Panel for the following risk-cutoff thresholds for the [place] population. Performed By: #### L 500.4050, L500.4100, L501.9985, L506.1001, L100.0100, L501.9910 #### [facility] [address] [place], [address] Cholesterol in HDL [Mass/Vol] 34 mg/dL Low [facility] Comment on above: Result Comment: Jennifer onal Cholesterol Education Program (NCEP) guidelines: <40 mg/dL: Low HDL-cholesterol (major risk factor for CHD) >= 60 mg/dL: High HDL-cholesterol (negative risk factor for CHD) HDL-cholesterol is affected by a number of factors, e.g. smoking, exercise, hormones, sex and age. Performed By: #### L 500.4050, L500.4100, L501.9985, L506.1001, L100.0100, L501.9910 #### [facility] [address] [place], [address] Cholesterol in LDL [Mass/Vol] 102 mg/dL Normal [facility] Comment on above: Result Comment: Bord emqbgd=141-053 mg/dL Higher Jckd=083 mg/dL or greater Performed By: #### L 500.4050, L500.4100, L501.9985, L506.1001, L100.0100, L501.9910 #### [facility] [address] [place], [address] Cholesterol in VLDL [Mass/Vol] 15 mg/dL Normal 5-40 [facility] Comment on above: Performed By: #### L 500.4050, L500.4100, L501.9985, L506.1001, L100.0100, L501.9910 #### [facility] [address] [place], [address] Triglyceride [Mass/Vol] 77 mg/dL Normal [facility] Comment on above: Result Comment: The drugs N-Acetylcysteine and Metamizole may falsely depress this assay. Normal range: <150 mg/dL Borderline High: 150-199 mg/dL High: 200-499 mg/dL Very High: >500 mg/dL Performed By: #### L 500.4050, L500.4100, L501.9985, L506.1001, L100.0100, L501.9910 #### [facility] [address] [place], [address] PSA,Total - Annual Screenon 04-15-2025 PSA,TOT SCREEN 2.52 ng/mL Normal 0.02-4.00 [facility] Comment on above: Result Comment: This test was performed using the [employer] tPSA method. Measured values of a patient??sample can vary depending on the testing procedure used. PSA values determined on patient samples by different testing procedures cannot be used interchangeably. If there is a change in PSA assays while monitoring therapy, sequential testing should be performed to confirm baseline values. Performed By: #### L 500.4050, L500.4100, L501.9985, L506.1001, L100.0100, L501.9910 #### [facility] [address] [place], [address] Vitamin D,25 Hydroxyon 10-29 Vitamin D 25-OH 21.2 ng/mL Low 30-100 [facility] Comment on above: Result Comment: Darby min D Status Deficiency: <20 ng/mL (50nmol/L) Insufficiency: 20-30 ng/mL (50-75 nmol/L) Sufficiency: 30-100 ng/mL (75-250 nmol/L) Toxicity: >100 ng/mL (>250 nmol/L) Performed By: #### L 500.4050, L500.4100, L501.9985, L506.1001, L100.0100, L501.9910 #### [facility] [address] [place], [place], [address] Cardiology Visit Reporton Cardiology Visit Report [facility] [address] [place], [place] [address] OFFICE VISIT Date of Service: 08/12/24 MR#: [id number] Acct: [id number] Name: MEDINA MCKOY II Rep #: [id number] : 1950 Provider: GUNNAR Estevez Age/Sex: 73/M [place] [facility] [place] Signed HPI HPI History of Present Illness Details: Medina Mckoy is a 73 year old male that presented to [facility] ER on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 [address] Performed By: #### S ERIMM #### [facility] CLIA [id number] [address] [place] [address] [place] IgM [Mass/Vol] 749 mg/dL High 40-230 [facility] Comment on above: Order Comment: Speci men Type: BLOOD SPECIMEN Ordering Facility: [facility] Address: [address] [place] [address] Performed By: #### S ERIMM #### [facility] CLIA [id number] [address] [place] [address] [place] KAPPA/ARIAS,FREE,SERon 2023 Immunoglobulin light chains.kappa.free (S) [Mass/Vol] 26.7 mg/L High 3.3-19.4 [facility] Comment on above: Order Comment: Speci men Type: BLOOD SPECIMEN Ordering Facility: [facility] Address: [address] [place] [address] Result Comment: Rare ly, increased serum free light chains levels may not be detected or accurately quantified due to prozone phenomenon or in high viscosity samples using this immunoturbidimetric assay. Correlation with other laboratory results and clinical findings is recommended. The [place] Free Light Chain was performed using the Binding Site Optilite immunoturbidimetric method. Result obtained with different assay methods or kits cannot be used interchangeably. Performed By: #### K LFRS #### [facility] CLIA [id number] [address] [place] [address] [place] Immunoglobulin light chains.kappa/Immunoglob ulin light chains.lambda (S) [Mass ratio] 2.41 High 0.26-1.65 [facility] Comment on above: Order Comment: Speci men Type: BLOOD SPECIMEN Ordering Facility: [facility] Address: [address] [place] [address] Performed By: #### K LFRS #### [facility] CLIA [id number] [address] [place] [address] [place] Immunoglobulin light chains.lambda.free [Mass/Vol] 11.1 mg/L Normal 5.7-26.3 [facility] Comment on above: Order Comment: Speci men Type: BLOOD SPECIMEN Ordering Facility: [facility] Address: [address] [place] [address] Result Comment: Rare ly, increased serum free [...] interchangeably. Performed By: #### K LFRS #### [facility] CLIA [id number] [address] [place] [address] [place] PROTEIN ELECTROPHORESIS SERU M (P)on 03-13-2024 Albumin [Mass/Vol] 4.53 g/dL Normal 3.43-5.41 [facility] Comment on above: Order Comment: Speci men Type: BLOOD SPECIMEN Ordering Facility: [facility] Address: [address] [place] [address] Performed By: #### L [id number] #### [facility] CLIA [id number] [address] [place] [address] [place] Alpha 1 globulin Elph [Mass/Vol] 0.29 g/dL Normal 0.18-0.43 [facility] Comment on above: Order Comment: Speci men Type: BLOOD SPECIMEN Ordering Facility: [facility] Address: [address] [place] [address] Performed By: #### L [id number] #### [facility] CLIA [id number] [address] [place] [address] [place] Alpha 2 globulin Elph [Mass/Vol] 0.54 g/dL Normal 0.42-0.98 [facility] Comment on above: Order Comment: Speci men Type: BLOOD SPECIMEN Ordering Facility: [facility] Address: [address] [place] [address] Performed By: #### L [id number] #### [facility] CLIA [id number] [address] [place] [address] [place] Beta globulin Elph [Mass/Vol] 0.80 g/dL Normal 0.61-1.17 [facility] Comment on above: Order Comment: Speci men Type: BLOOD SPECIMEN Ordering Facility: [facility] Address: [address] [place] [address] Performed By: #### L [id number] #### [facility] CLIA [id number] [address] [place] [address] [place] Gamma globulin Elph [Mass/Vol] 1.04 g/dL Normal 0.53-1.51 [facility] Comment on above: Order Comment: Speci men Type: BLOOD SPECIMEN Ordering Facility: [facility] Address: [address] [place] [address] Performed By: #### L [id number] #### [facility] CLIA [id number] [address] [place] [address] [place] INTERPRETATION COMMENT FOR PROTEIN ELECTROPHORESIS See separate immunofixation report for characterization of monoclonal gammopathy. Normal [facility] Comment on above: Order Comment: Speci men Type: BLOOD SPECIMEN Ordering Facility: [facility] Address: [address] [id number] Performed By: #### L [id number] #### [facility] CLIA [id number] [address] [place] [address] [place] M-PROTEIN LOCATION Gamma Fraction 1 Normal [facility] Comment on above: Order Comment: Speci men Type: BLOOD SPECIMEN Ordering Facility: [facility] Address: [address] [place] [address] Performed By: #### L [id number] #### [facility] CLIA [id number] [address] [place] [address] [place] Protein Fractions [Interp] An M protein is identified on protein electrophoresis. Abnormal No definitive M protein is identified on protein electrophores is. [facility] Comment on above: Order Comment: Speci men Type: BLOOD SPECIMEN Ordering Facility: [facility] Address: [address] [place] [address] Performed By: #### L [id number] #### [facility] CLIA [id number] [address] [place] [address] [place] Protein.monoclonal Elph [Mass/Vol] 0.30 g/dL High <=0.00 [facility] Comment on above: Order Comment: Speci men Type: BLOOD SPECIMEN Ordering Facility: [facility] Address: [address] [place] [address] Performed By: #### L [id number] #### [facility] CLIA [id number] [address] [place], [place] [address] [place] SPE STAFF REVIEW Reviewed by Nikhil Mireles MD, Ph.D ([id number]) Normal [facility] Comment on above: Order Comment: Speci men Type: BLOOD SPECIMEN Ordering Facility: [facility] Address: [address] [place], [place] [address] Performed By: #### L [id number] #### [facility] CLIA [id number] [address] [place] [address] [place] Prot SerPl-mCncon 03-13-2024 Protein [Mass/Vol] 7.2 g/dL Normal 6.3-8.0 [facility] Comment on above: Order Comment: Speci men Type: BLOOD SPECIMEN Ordering Facility: [facility] Address: [address] [place] [address] Performed By: #### 2 885-2 #### [facility] CLIA [id number] [address] [place] [address] [place] Absolute lymphocyte countOrd ered By: Clemencia Banerjee on 11-02-2023 Lymphocytes Auto (Unsp spec) [#/Vol] 0.85 10*3/uL 0.83-4.51 [facility] Automated lymphocyte count a s percentage of total leukocytesOrdered By: Clemencia Banerjee on 11-02-2023 Lymphocytes/100 WBC Auto (Unsp spec) 8.2 % 19-41 [facility] Basophil percentageOrdered B y: Clemencia Banerjee on 11-02-2023 Basophils/100 WBC (Bld) 0.6 % 0-1 [facility] Bilirubin [Mass/Vol] 0.40 mg/dL 0.20-1.00 [facility] Comment on above: For patients on eltr ombopag therapy, use of Dimension [place] TBIL is not recommended. Chloride [Moles/Vol] 110 mmol/L 98-107 [facility] Eosinophils/100 WBC (Bld) 0.3 % 0-5 [facility] Glucose [Mass/Vol] 162 mg/dL 74-106 [facility] Comment on above: Fasting Glucose resu lt greater than or equal to 126 mg/dL suggests DIABETES MELLITUS per A.D.A. criteria. Hemoglobin (Bld) [Mass/Vol] 14.5 g/dL 13.0-16.5 [facility] Monocytes/100 WBC (Bld) 6.0 % 0-10 [facility] Neutrophils (Bld) [#/Vol] 8.8 10*3/uL 2.0-7.7 [facility] Neutrophils/100 WBC (Bld) 84.1 % 47-70 [facility] Potassium [Moles/Vol] 4.5 mmol/L 3.5-5.1 [facility] Protein [Mass/Vol] 7.3 g/dL 6.4-8.2 [facility] Sodium [Moles/Vol] 140 mmol/L 136-145 [facility] WBC (Bld) [#/Vol] 10.4 10*3/uL 4.4-11.0 [facility] Determination of erythrocyte mean corpuscular volume (MCV)Ordered By: Clemencia Banerjee on 11-02-2023 MCV (RBC) [Entitic vol] 95.7 fL 80-94 [facility] Erythrocyte distribution wid th ratioOrdered By: Clemencia Lavonne on 11-02-2023 Erythrocyte distribution width (RBC) [Ratio] 14.1 % 11.6-14.6 [facility] Erythrocyte distribution wid th standard deviationOrdered By: [facility] Lavonne on 11-02-2023 Erythrocyte distribution width (RBC) [Entitic vol] 48.0 fL 35.1-43.9 [facility] Hematocrit Auto (Bld) [Volum e fraction]Ordered By: [facility] Lavonne on 11-02-2023 Hematocrit (Bld) [Volume fraction] 46.3 % 40-54 [facility] Immature granulocytes/100 WB C Auto (Bld)Ordered By: [facility] Lavonne on 11-02-2023 Immature granulocytes/100 WBC (Bld) 0.800 % 0.0-0.9 [facility] Comment on above: IG% - Immature Granu locytes (promyelocytes, myelocytes and metamyelocytes) > 1% indicates that a LEFT SHIFT is Present. Laboratory - Chemistry and C hemistry - challengeOrdered By: Clemencia Lavonne on 11-02-2023 Albumin/Globulin [Mass ratio] 1.0 {ratio} 0.9-2.4 [facility] ALP [Catalytic activity/Vol] 96 U/L 45-117 [facility] ALT [Catalytic activity/Vol] 24 U/L 16-61 [facility] CO2 [Moles/Vol] 27.0 mmol/L 21.0-32.0 [facility] Globulin (S) [Mass/Vol] 3.6 g/dL 2.2-4.2 [facility] Urea nitrogen/Creatinine [Mass ratio] 28.4 mg/mg 10-20 [facility] Laboratory - Hematology and Cell countsOrdered By: Clemencia Banerjee on 11-02-2023 MCH (RBC) [Entitic mass] 30.0 pg 27.0-32.0 [facility] MCHC (RBC) [Mass/Vol] 31.3 g/dL 32-36 [facility] Nucleated RBC/100 WBC (Bld) [Ratio] 0 % 0-5 [facility] Platelet mean volume (Bld) [Entitic vol] 12.3 fL 6.2-12.0 [facility] Platelets (Bld) [#/Vol] 198 10*3/uL 150-450 [facility] No Panel InformationOrdered By: Clemencia Banerjee on 11-02-2023 Estimated GFR (MDRD) Amer 92 mL/min >60 [facility] Comment on above: GFR Calc Estimated GFR (MDRD) Non-Af Amer 76 mL/min >60 [facility] Comment on above: Non- GFR Calc RBC Auto (Bld) [#/Vol]Ordere d By: Clemencia Banerjee on 11-02-2023 RBC (Bld) [#/Vol] 4.84 10*6/uL 4.6-6.2 [facility] Serum or plasma calcium amanda urement (mass/volume)Ordered By: Clemencia Banerjee on 11-02-2023 Calcium [Mass/Vol] 9.6 mg/dL 8.5-10.1 [facility] Serum or plasma creatinine m easurement (mass/volume)Ordered By: Clemencia Banerjee on 11-02-2023 Creatinine [Mass/Vol] 1.02 mg/dL 0.70-1.30 [facility] Comment on above: The validity of the calculated GFR & GFRAA in patients over 70 years has not been determined. Clinical correlation is essential. Serum or plasma urea nitroge n measurement (mass/volume)Ordered By: Clemencia Banerjee on 11-02-2023 Urea nitrogen [Mass/Vol] 29 mg/dL -18 [facility] Thin prep Papanicolaou smear with manual screeningOrdered By: Clemencia Banerjee on 11-02-2023 Thin prep Papanicolaou smear with manual screening 3.7 g/dL 3.2-5.0 [facility] Thin prep Papanicolaou smear with manual screening 15 U/L 15-37 [facility] Thin prep Papanicolaou smear with manual screening 3 5-15 [facility] No Panel InformationOrdered By: Dawna Greenberg on 09-28-2023 Insulin Level 4.3 mU/L 2.6-37.6 [facility] Basophil percentageon 2023 Bilirubin [Mass/Vol] 0.60 mg/dL 0.20-1.00 [facility] Comment on above: Slight Lipemia, Resu lt may be falsely increased. For patients on eltrombopag therapy, use of Dimension [place] TBIL is not recommended. Chloride [Moles/Vol] 104 mmol/L 98-107 [facility] Glucose [Mass/Vol] 369 mg/dL 74-106 [facility] Comment on above: Slight Lipemia, Resu lt may be falsely increased.Glucose result greater than or equal to 200 mg/dLsuggests DIABETES MELLITUS per A.D.A. criteria. Potassium [Moles/Vol] 4.2 mmol/L 3.5-5.1 [facility] Comment on above: Slight Lipemia, Resu lt may be falsely increased. Protein [Mass/Vol] 7.5 g/dL 6.4-8.2 [facility] Comment on above: Slight Lipemia, Resu lt may be falsely increased. Sodium [Moles/Vol] 137 mmol/L 136-145 [facility] Laboratory - Chemistry and C hemistry - challengeon 09-13-2023 Albumin/Globulin [Mass ratio] 0.9 {ratio} 0.9-2.4 [facility] ALP [Catalytic activity/Vol] 120 U/L 45-117 [facility] ALT [Catalytic activity/Vol] 25 U/L 16-61 [facility] Comment on above: Slight Lipemia, Resu lt may be falsely increased. CO2 [Moles/Vol] 28.0 mmol/L 21.0-32.0 [facility] Comment on above: Slight Lipemia, Resu lt may be falsely increased. Cobalamin (Vitamin B12) [Mass/Vol] 776 pg/mL 211-911 [facility] Globulin (S) [Mass/Vol] 4.0 g/dL 2.2-4.2 [facility] Magnesium [Mass/Vol] 2.1 mg/dL 1.6-2.6 [facility] Comment on above: Slight Lipemia, Resu lt may be falsely increased. Urea nitrogen/Creatinine [Mass ratio] 17.6 mg/mg 10-20 [facility] No Panel Informationon 09-13 Adrenocorticotropic Hormone 38.4 pg/mL 7.2-63.3 [facility] Comment on above: ACTH reference inter giselle for samples collected between 7 and10 AM.Performed at: [facility] [address] [id number] Director: Deepak Velasquez PhD, Phone: [phone] Estimated GFR (MDRD) Amer 73 mL/min >60 [facility] Comment on above: GFR Calc Estimated GFR (MDRD) Non-Af Amer 60 mL/min >60 [facility] Comment on above: Non- GFR Calc Vitamin D 25-Hydroxy 22.5 ng/mL [facility] Comment on above: Vitamin D 25(OH) Sta tus Range Deficiency <20 ng/mL (50nmol/L) Insufficiency 20 - 30 ng/mL (50 - 75 nmol/L) Sufficiency 30 - 100 ng/mL (75 - 250 nmol/L) Toxicity >100 ng/mL (>250 nmol/L) Serum or plasma calcium amanda urement (mass/volume)on 09-13-2023 Calcium [Mass/Vol] 9.9 mg/dL 8.5-10.1 [facility] Comment on above: Slight Lipemia, Resu lt may be falsely increased. Serum or plasma cortisol dot surement (mass/volume)on 09-13-2023 Cortisol [Mass/Vol] 32.20 ug/dL 3.44-22.45 [facility] Comment on above: Adult (AM) 5.27 - 22 .45 ug/dL Adult (PM) 3.44 - 16.76 ug/dLPlease note revised CORTISOL reference range effective 2019. Serum or plasma creatinine m easurement (mass/volume)on 09-13-2023 Creatinine [Mass/Vol] 1.25 mg/dL 0.70-1.30 [facility] Comment on above: Slight Lipemia, Resu lt may be falsely increased.The validity of the calculated GFR & GFRAA in patients over 70 years has not been determined. Clinical correlation is essential. Serum or plasma thyroid stim ulating hormone (TSH) measurement (units/volume)on 09-13-2023 TSH Qn 2.22 uIU/mL 0.358-3.74 [facility] Serum or plasma urea nitroge n measurement (mass/volume)on 09-13-2023 Urea nitrogen [Mass/Vol] 22 mg/dL 7-18 [facility] Comment on above: Slight Lipemia, Resu lt may be falsely increased. Thin prep Papanicolaou smear with manual screeningon 09-13-2023 Thin prep Papanicolaou smear with manual screening 3.5 g/dL 3.2-5.0 [facility] Thin prep Papanicolaou smear with manual screening 17 U/L 15-37 [facility] Comment on above: Slight Lipemia, Resu lt may be falsely increased. Thin prep Papanicolaou smear with manual screening 5 5-15 [facility] Whole blood hemoglobin A1c/t otal hemoglobin ratio (mass fraction)on 09-13-2023 HbA1c (Bld) [Mass fraction] 10.9 % 3.8-5.6 [facility] Comment on above: Normal < 5.7 % Predi abetic 5.7 - 6.4 % Diabetic >or= 6.5 % Please note range changes. Absolute lymphocyte countOrd ered By: Clemencia Banerjee on 06-21-2023 Lymphocytes Auto (Unsp spec) [#/Vol] 0.58 10*3/uL 0.83-4.51 [facility] Basophil percentageOrdered B y: Clemencia Banerjee on 06-21-2023 Basophils/100 WBC (Bld) 0.4 % 0-1 [facility] Bilirubin [Mass/Vol] 0.50 mg/dL 0.20-1.00 [facility] Comment on above: For patients on eltr ombopag therapy, use of Dimension [place] TBIL is not recommended. Chloride [Moles/Vol] 104 mmol/L 98-107 [facility] Eosinophils/100 WBC (Bld) 0.1 % 0-5 [facility] Glucose [Mass/Vol] 269 mg/dL 74-106 [facility] Comment on above: Glucose result great er than or equal to 200 mg/dLsuggests DIABETES MELLITUS per A.D.A. criteria. Neutrophils (Bld) [#/Vol] 15.5 10*3/uL 2.0-7.7 [facility] Neutrophils/100 WBC (Bld) 92.8 % 47-70 [facility] Potassium [Moles/Vol] 4.1 mmol/L 3.5-5.1 [facility] Protein [Mass/Vol] 7.8 g/dL 6.4-8.2 [facility] Sodium [Moles/Vol] 137 mmol/L 136-145 [facility] WBC (Bld) [#/Vol] 16.7 10*3/uL 4.4-11.0 [facility] Blood erythrocytes count (nu mber/volume)Ordered By: Clemencia Banerjee on 06-21-2023 RBC (Bld) [#/Vol] 5.33 10*6/uL 4.6-6.2 [facility] Blood hemoglobin measurement (mass/volume)Ordered By: Clemencia Banerjee on 06-21-2023 Hemoglobin (Bld) [Mass/Vol] 15.4 g/dL 13.0-16.5 [facility] Blood lymphocytes/100 leukoc ytesOrdered By: Clemencia Banerjee on 06-21-2023 Lymphocytes/100 WBC (Bld) 3.5 % 19-41 [facility] Blood manual differential co mment interpretation (narrative result)Ordered By: Clemencia Banerjee on 06-21-2023 Manual differential comment Jonas (Bld) [Interp] SCANNED [facility] Blood monocytes/100 leukocyt esOrdered By: Clemencia Banerjee on 06-21-2023 Monocytes/100 WBC (Bld) 1.6 % 0-10 [facility] Blood platelet mean volumeOr dered By: Clemencia Banerjee on 06-21-2023 Platelet mean volume (Bld) [Entitic vol] 12.7 fL 6.2-12.0 [facility] Determination of erythrocyte mean corpuscular volume (MCV)Ordered By: Clemencia Banerjee on 06-21-2023 MCV (RBC) [Entitic vol] 94.2 fL 80-94 [facility] Erythrocyte sedimentation ra teOrdered By: Clemencia Banerjee on 06-21-2023 ESR (Bld) [Velocity] 12 mm/h 0-20 [facility] Hematocrit Auto (Bld) [Volum e fraction]Ordered By: Clemenciawarner Banerjee on 06-21-2023 Hematocrit (Bld) [Volume fraction] 50.2 % 40-54 [facility] Laboratory - Chemistry and C hemistry - challengeOrdered By: Clemenciawarner Banerjee on 06-21-2023 ALP [Catalytic activity/Vol] 116 U/L 45-117 [facility] ALT [Catalytic activity/Vol] 30 U/L 16-61 [facility] CO2 [Moles/Vol] 27.0 mmol/L 21.0-32.0 [facility] Globulin (S) [Mass/Vol] 4.2 g/dL 2.2-4.2 [facility] Urea nitrogen/Creatinine [Mass ratio] 24.1 mg/mg 10-20 [facility] Laboratory - Hematology and Cell countsOrdered By: Clemenciawarner Banerjee on 06-21-2023 Erythrocyte distribution width (RBC) [Entitic vol] 46.5 fL 35.1-43.9 [facility] Erythrocyte distribution width (RBC) [Ratio] 13.4 % 11.6-14.6 [facility] Immature granulocytes/100 WBC (Bld) 1.600 % 0.0-0.9 [facility] Comment on above: IG% - Immature Granu locytes (promyelocytes, myelocytes and metamyelocytes) > 1% indicates that a LEFT SHIFT is Present. MCH (RBC) [Entitic mass] 28.9 pg 27.0-32.0 [facility] Nucleated RBC/100 WBC (Bld) [Ratio] 0 % 0-5 [facility] MCHC Auto (RBC) [Mass/Vol]Or dered By: Clemenciawarner Banerjee on 06-21-2023 MCHC (RBC) [Mass/Vol] 30.7 g/dL 32-36 [facility] No Panel InformationOrdered By: Clemencia Banerjee on 06-21-2023 Anti-Nuclear Antibody Screen Negative Negative [facility] Comment on above: Performed at: [place] [facility] [address] [id number] Director: Deepak Velasquez PhD, Phone: [phone] Estimated GFR (MDRD) Amer 86 mL/min >60 [facility] Comment on above: GFR Calc Estimated GFR (MDRD) Non-Af Amer 71 mL/min >60 [facility] Comment on above: Non- GFR Calc Hepatitis B Surface Antigen Non-Reactive Nonreactive [facility] Hepatitis C Antibody Non-Reactive Nonreactive [facility] Comment on above: Non Reactive: < 0.8 Equivocal: >/= 0.8 to < 1.0 Reactive: >/= 1.0The CDC recommends that a reactive/equivocal HCV antibody result be followed up by the HCV Nucleic Acid Amplificationtest ([id number]) Platelets bldOrdered By: Janessa Banerjee on 06-21-2023 Platelets (Bld) [#/Vol] 279 10*3/uL 150-450 [facility] Serum cyclic citrullinated p eptide IgG antibody assay (units/volume)Ordered By: Clemencia Banerjee on 06-21-2023 Cyclic citrullinated peptide IgG Qn 9 units 0-19 [facility] Comment on above: Negative <20 Weak po sitive 20 - 39 Moderate positive 40 - 59 Strong positive >59Performed at: [place] [facility] [address] [id number] Director: Deepak Velasquez PhD, Phone: [phone] Serum hepatitis B virus surf eklsey antibody IgG detectionOrdered By: Clemencia Banerjee on 06-21-2023 HBV surface IgG Ql (S) Reactive [facility] Comment on above: Non Reactive: Incons istent with immunity less than <10 mIU/mL Reactive: Consistent with immunity greater than or equal to 10 mIU/mL Serum or plasma C reactive p rotein measurement (mass/volume)Ordered By: Clemencia Banerjee on 06-21-2023 CRP [Mass/Vol] 7.73 mg/L 0.0-3.0 [facility] Comment on above: C-Reactive Protein ( CRP) provides useful information for thediagnosis, therapy and monitoring of inflammatory processesand associated diseases. For the evaluation of Relative Riskfor Cardiovascular Disease, a High Sensitivity CRP (HSCRP)should be ordered. Serum or plasma albumin amanda urement (mass/volume)Ordered By: Clemencia Banerjee on 06-21-2023 Albumin [Mass/Vol] 3.6 g/dL 3.2-5.0 [facility] Serum or plasma albumin/glob ulin mass ratioOrdered By: Clemencia Banerjee on 06-21-2023 Albumin/Globulin [Mass ratio] 0.9 {ratio} 0.9-2.4 [facility] Serum or plasma calcium amanda urement (mass/volume)Ordered By: Clemencia Banerjee on 06-21-2023 Calcium [Mass/Vol] 9.4 mg/dL 8.5-10.1 [facility] Serum or plasma creatinine m easurement (mass/volume)Ordered By: Clemencia Banerjee on 06-21-2023 Creatinine [Mass/Vol] 1.08 mg/dL 0.70-1.30 [facility] Comment on above: The validity of the calculated GFR & GFRAA in patients over 70 years has not been determined. Clinical correlation is essential. Serum or plasma urea nitroge n measurement (mass/volume)Ordered By: Clemencia Banerjee on 06-21-2023 Urea nitrogen [Mass/Vol] 26 mg/dL 7-18 [facility] Serum rheumatoid factor dete ctionOrdered By: Clemencia Banerjee on 06-21-2023 Rheumatoid factor Ql (S) < 10.0 IU/mL <15 [facility] Thin prep Papanicolaou smear with manual screeningOrdered By: Clemenciawarner Banerjee on 06-21-2023 Thin prep Papanicolaou smear with manual screening 12 U/L 15-37 [facility] Thin prep Papanicolaou smear with manual screening 6 5-15 [facility] Absolute lymphocyte counton 06-19-2023 Lymphocytes Auto (Unsp spec) [#/Vol] 1.10 10*3/uL 0.83-4.51 [facility] Basophil percentageon 2022 Basophil percentage 0 SEEN /hpf 0-5 [facility] Basophils/100 WBC (Bld) 0.3 % 0-1 [facility] Bilirubin [Mass/Vol] 0.40 mg/dL 0.20-1.00 [facility] Comment on above: Slight Lipemia, Resu lt may be falsely increased. For patients on eltrombopag therapy, use of Dimension [place] TBIL is not recommended. Chloride [Moles/Vol] 103 mmol/L 98-107 [facility] Cholesterol [Mass/Vol] 149 mg/dL <200 [facility] Comment on above: Slight Lipemia, Resu lt may be falsely increased. <200 mg/dL Desirable 200-240 mg/dL Borderline >240 mg/dL High Risk Eosinophils/100 WBC (Bld) 0.1 % 0-5 [facility] Glucose [Mass/Vol] 203 mg/dL 74-106 [facility] Comment on above: Slight Lipemia, Resu lt may be falsely increased.Glucose result greater than or equal to 200 mg/dLsuggests DIABETES MELLITUS per A.D.A. criteria. Neutrophils (Bld) [#/Vol] 14.7 10*3/uL 2.0-7.7 [facility] Neutrophils/100 WBC (Bld) 87.8 % 47-70 [facility] Potassium [Moles/Vol] 4.2 mmol/L 3.5-5.1 [facility] Comment on above: Slight Lipemia, Resu lt may be falsely increased. Protein [Mass/Vol] 7.6 g/dL 6.4-8.2 [facility] Comment on above: Slight Lipemia, Resu lt may be falsely increased. Sodium [Moles/Vol] 138 mmol/L 136-145 [facility] Triglyceride [Mass/Vol] 83 mg/dL <199 [facility] Comment on above: The drugs N-Acetylcy steine and Metamizole may falsely depress this assay. Slight Lipemia, Result may be falsely increased.Serum Triglycerides Reference Interval Normal <150 mg/dL Borderline high 150 - 199 mg/dL High 200 - 499 mg/dL Very High > or = 500 mg/dL WBC (Bld) [#/Vol] 16.7 10*3/uL 4.4-11.0 [facility] Bilirubin Test strip Ql (U)o n 06-19-2023 Bilirubin Ql (U) Negative Negative [facility] Blood erythrocytes count (nu mber/volume)on 06-19-2023 RBC (Bld) [#/Vol] 5.14 10*6/uL 4.6-6.2 [facility] Blood hemoglobin measurement (mass/volume)on 06-19-2023 Hemoglobin (Bld) [Mass/Vol] 14.9 g/dL 13.0-16.5 [facility] Blood lymphocytes/100 leukoc yteson 06-19-2023 Lymphocytes/100 WBC (Bld) 6.6 % 19-41 [facility] Blood monocytes/100 leukocyt eson 06-19-2023 Monocytes/100 WBC (Bld) 4.1 % 0-10 [facility] Blood platelet mean volumeon 06-19-2023 Platelet mean volume (Bld) [Entitic vol] 12.3 fL 6.2-12.0 [facility] Calcium oxalate crystals det ection in urine sediment by light microscopyon 06-19-2023 Calcium oxalate crystals LM Ql (Urine sed) 1+ /hpf [facility] Determination of erythrocyte mean corpuscular volume (MCV)on 06-19-2023 MCV (RBC) [Entitic vol] 93.4 fL 80-94 [facility] Erythrocyte sedimentation ra maye 06-19-2023 ESR (Bld) [Velocity] 17 mm/h 0-20 [facility] Hematocrit Auto (Bld) [Volum e fraction]on 06-19-2023 Hematocrit (Bld) [Volume fraction] 48.0 % 40-54 [facility] Ketones Test strip Ql (U)on 06-19-2023 Ketones Ql (U) 5 mg/dl Negative [facility] Laboratory - Chemistry and C hemistry - challengeon 06-19-2023 ALP [Catalytic activity/Vol] 122 U/L 45-117 [facility] ALT [Catalytic activity/Vol] 31 U/L 16-61 [facility] Comment on above: Slight Lipemia, Resu lt may be falsely increased. CK [Catalytic activity/Vol] 36 U/L 39-308 [facility] Comment on above: Slight Lipemia, Resu lt may be falsely increased. CO2 [Moles/Vol] 28.0 mmol/L 21.0-32.0 [facility] Comment on above: Slight Lipemia, Resu lt may be falsely increased. Cobalamin (Vitamin B12) [Mass/Vol] 510 pg/mL 211-911 [facility] Globulin (S) [Mass/Vol] 4.3 g/dL 2.2-4.2 [facility] Magnesium [Mass/Vol] 2.4 mg/dL 1.6-2.6 [facility] Comment on above: Slight Lipemia, Resu lt may be falsely increased. Urea nitrogen/Creatinine [Mass ratio] 26.2 mg/mg 10-20 [facility] Laboratory - Hematology and Cell countson 06-19-2023 Erythrocyte distribution width (RBC) [Entitic vol] 45.2 fL 35.1-43.9 [facility] Erythrocyte distribution width (RBC) [Ratio] 13.2 % 11.6-14.6 [facility] Immature granulocytes/100 WBC (Bld) 1.100 % 0.0-0.9 [facility] Comment on above: IG% - Immature Granu locytes (promyelocytes, myelocytes and metamyelocytes) > 1% indicates that a LEFT SHIFT is Present. MCH (RBC) [Entitic mass] 29.0 pg 27.0-32.0 [facility] Nucleated RBC/100 WBC (Bld) [Ratio] 0 % 0-5 [facility] MCHC Auto (RBC) [Mass/Vol]on 06-19-2023 MCHC (RBC) [Mass/Vol] 31.0 g/dL 32-36 [facility] Mitotic spindle apparatus Ab [Titer] in Serum or Plasmaon 06-19-2023 Mitotic spindle apparatus Ab [Titer] Not Reportable [facility] Mucus LM Ql (Urine sed)on Mucus Ql (Urine sed) 0 SEEN /hpf [facility] Nitrite Test strip Ql (U)on 06-19-2023 Nitrite Ql (U) Negative Negative [facility] No Panel Informationon 06-19 PAUL Nuclear Membrane Pattern Not Reportable [facility] Estimated GFR (MDRD) Amer 72 mL/min >60 [facility] Comment on above: GFR Calc Estimated GFR (MDRD) Non-Af Amer 60 mL/min >60 [facility] Comment on above: Non- GFR Calc Thyroid Stimulating Hormone (TSH) 1.47 uIU/mL 0.358-3.74 [facility] Vitamin D 25-Hydroxy 32.2 ng/mL [facility] Comment on above: Vitamin D 25(OH) Sta tus Range Deficiency <20 ng/mL (50nmol/L) Insufficiency 20 - 30 ng/mL (50 - 75 nmol/L) Sufficiency 30 - 100 ng/mL (75 - 250 nmol/L) Toxicity >100 ng/mL (>250 nmol/L) Platelets bldon 06-19-2023 Platelets (Bld) [#/Vol] 301 10*3/uL 150-450 [facility] Protein Test strip Ql (U)on 06-19-2023 Protein Ql (U) 30 mg/dl Negative [facility] Serum midbody antibody titer by immunofluorescenceon 06-19-2023 Midbody Ab IF (S) [Titer] Not Reportable [facility] Serum multiple nuclear dot p attern antinuclear IgG antibody (PAUL) titer by immunofluoon 06-19-2023 Multiple nuclear dots nuclear IgG pattern IF (S) [Titer] Not Reportable [facility] Serum neuronal nuclear antib alessandro detection by immunofluorescenceon 06-19-2023 Neuronal nuclear Ab IF Ql (S) Not Reportable [facility] Serum nuclear antibody patte rn homogenous titer by immunofluorescenceon 06-19-2023 Homogenous nuclear Ab pattern IF (S) [Titer] Not Reportable [facility] Serum nuclear antibody titer by immunofluorescenceon 06-19-2023 Nuclear Ab IF (S) [Titer] Negative . [facility] Comment on above: Negative <1:80 Borde rline 1:80 Positive >1:80ICAP nomenclature: [id number] more information about Hep-2 cell patterns useANApatterns.org, the official website for theInternational Consensus on Antinuclear Antibody (PAUL)Patterns (ICAP).Performed at: [address] [id number] Director: Deepak Velasquez PhD, Phone: [phone] Serum or plasma albumin aamnda urement (mass/volume)on 06-19-2023 Albumin [Mass/Vol] 3.3 g/dL 3.2-5.0 [facility] Serum or plasma albumin/glob ulin mass ratioon 06-19-2023 Albumin/Globulin [Mass ratio] 0.8 {ratio} 0.9-2.4 [facility] Serum or plasma calcium amanda urement (mass/volume)on 06-19-2023 Calcium [Mass/Vol] 9.7 mg/dL 8.5-10.1 [facility] Comment on above: Slight Lipemia, Resu lt may be falsely increased. Serum or plasma cholesterol in HDL measurement (mass/volume)on 06-19-2023 Cholesterol in HDL [Mass/Vol] 48 mg/dL >40 [facility] Comment on above: The drugs N-Acetylcy steine and Metamizole may falsely depress this assay. Reference Range HDL <40 mg/dL Low HDL Cholesterol HDL >or= 60 mg/dL High HDL Cholesterol Serum or plasma cholesterol in VLDL measurement (mass/volume)on 06-19-2023 Cholesterol in VLDL [Mass/Vol] 17 mg/dL 5-40 [facility] Serum or plasma creatinine m easurement (mass/volume)on 06-19-2023 Creatinine [Mass/Vol] 1.26 mg/dL 0.70-1.30 [facility] Comment on above: Slight Lipemia, Resu lt may be falsely increased.The validity of the calculated GFR & GFRAA in patients over 70 years has not been determined. Clinical correlation is essential. Serum or plasma low density lipoprotein (LDL) cholesterol measurement (mass/volume)on 06-19-2023 Cholesterol in LDL [Mass/Vol] 84 mg/dL 0-130 [facility] Serum or plasma urea nitroge n measurement (mass/volume)on 06-19-2023 Urea nitrogen [Mass/Vol] 33 mg/dL 7-18 [facility] Comment on above: Slight Lipemia, Resu lt may be falsely increased. Serum or plasma uric acid me asurement (mass/volume)on 06-19-2023 Urate [Mass/Vol] 5.9 mg/dL 3.5-7.2 [facility] Comment on above: The drugs N-Acetylcy steine and Metamizole may falsely depress this assay. Serum proliferating cell nuc lear antigen (PCNA) antibody titer by immunofluorescenceon 06-19-2023 PCNA extractable nuclear Ab IF (S) [Titer] Not Reportable [facility] Serum rheumatoid factor dete ctionon 06-19-2023 Rheumatoid factor Ql (S) < 10.0 IU/mL <15 [facility] Serum speckled nuclear antib alessandro pattern titeron 06-19-2023 Speckled nuclear Ab pattern (S) [Titer] Not Reportable [facility] Squamous epithelial cells de tection in urine sediment by light microscopyon 06-19-2023 Epithelial cells.squamous LM Ql (Urine sed) 0 SEEN /hpf 0-5 [facility] Thin prep Papanicolaou smear with manual screeningon 06-19-2023 Thin prep Papanicolaou smear with manual screening 11 U/L 15-37 [facility] Comment on above: Slight Lipemia, Resu lt may be falsely increased. Thin prep Papanicolaou smear with manual screening 7 5-15 [facility] Thin prep Papanicolaou smear with manual screening Not Reportable [facility] Urine blood detectionon RBC Ql (U) Negative Negative [facility] RBC Ql (U) 0 SEEN /hpf 0-5 [facility] Urine clarityon 06-19-2023 Clarity (U) Clear Clear [facility] Urine color determinationon 06-19-2023 Color (U) Yellow Yellow [facility] Urine glucose detectionon Glucose Ql (U) Normal mg/dl Normal [facility] Urine leukocyte esterase det ection by dipstickon 06-19-2023 Leukocyte esterase Test strip Ql (U) Negative Negative [facility] Urine pHon 06-19-2023 pH (U) 6.0 [pH] 5.0 - 8.0 [facility] Urine sediment bacteria coun t by microscopy (number/high power field)on 06-19-2023 Bacteria LM.HPF (Urine sed) [#/Area] 0 /[HPF] None Seen [facility] Urine specific gravity measu rementon 06-19-2023 Specific gravity (U) [Rel density] 1.025 1.002-1.030 [facility] Urobilinogen Auto test strip Ql (U)on 06-19-2023 Urobilinogen Ql (U) Normal mg/dl Normal [facility] Whole blood hemoglobin A1c/t otal hemoglobin ratio (mass fraction)on 06-19-2023 HbA1c (Bld) [Mass fraction] 6.9 % 3.8-5.6 [facility] Comment on above: Normal < 5.7 % Predi abetic 5.7 - 6.4 % Diabetic >or= 6.5 % Please note range changes. Absolute lymphocyte countOrd ered By: Sobia Borges on 06-07-2023 Lymphocytes Auto (Unsp spec) [#/Vol] 0.91 10*3/uL 0.83-4.51 [facility] Basophil percentageOrdered B y: Sobia Borges on 06-07-2023 Basophils/100 WBC (Bld) 0.7 % 0-1 [facility] Bilirubin [Mass/Vol] 0.30 mg/dL 0.20-1.00 [facility] Comment on above: For patients on eltr ombopag therapy, use of Dimension [place] TBIL is not recommended. Chloride [Moles/Vol] 107 mmol/L 98-107 [facility] Eosinophils/100 WBC (Bld) 1.2 % 0-5 [facility] Glucose [Mass/Vol] 123 mg/dL 74-106 [facility] Comment on above: Fasting Glucose resu lt from 100 to 125 mg/dL suggests IMPAIRED HOMEOSTASIS per A.D.A. criteria. Neutrophils (Bld) [#/Vol] 9.1 10*3/uL 2.0-7.7 [facility] Neutrophils/100 WBC (Bld) 81.2 % 47-70 [facility] Potassium [Moles/Vol] 4.4 mmol/L 3.5-5.1 [facility] Protein [Mass/Vol] 7.7 g/dL 6.4-8.2 [facility] Sodium [Moles/Vol] 139 mmol/L 136-145 [facility] WBC (Bld) [#/Vol] 11.3 10*3/uL 4.4-11.0 [facility] Blood erythrocytes count (nu mber/volume)Ordered By: Sobia Borges on 06-07-2023 RBC (Bld) [#/Vol] 5.11 10*6/uL 4.6-6.2 [facility] Blood hemoglobin measurement (mass/volume)Ordered By: Sobia Borges on 06-07-2023 Hemoglobin (Bld) [Mass/Vol] 14.8 g/dL 13.0-16.5 [facility] Blood lymphocytes/100 leukoc ytesOrdered By: Sobia Borges on 06-07-2023 Lymphocytes/100 WBC (Bld) 8.1 % 19-41 [facility] Blood monocytes/100 leukocyt esOrdered By: Sobia Borges on 06-07-2023 Monocytes/100 WBC (Bld) 8.2 % 0-10 [facility] Blood platelet mean volumeOr dered By: Sobia Borges on 06-07-2023 Platelet mean volume (Bld) [Entitic vol] 12.0 fL 6.2-12.0 [facility] Determination of erythrocyte mean corpuscular volume (MCV)Ordered By: Sobia Borges on 06-07-2023 MCV (RBC) [Entitic vol] 93.3 fL 80-94 [facility] Erythrocyte sedimentation ra teOrdered By: Sobia Borges on 06-07-2023 ESR (Bld) [Velocity] 29 mm/h 0-20 [facility] Hematocrit Auto (Bld) [Volum e fraction]Ordered By: Sobia Borges on 06-07-2023 Hematocrit (Bld) [Volume fraction] 47.7 % 40-54 [facility] Laboratory - Chemistry and C hemistry - challengeOrdered By: Sobia Borges on 06-07-2023 ALP [Catalytic activity/Vol] 114 U/L 45-117 [facility] ALT [Catalytic activity/Vol] 26 U/L 16-61 [facility] CO2 [Moles/Vol] 27.0 mmol/L 21.0-32.0 [facility] Globulin (S) [Mass/Vol] 4.3 g/dL 2.2-4.2 [facility] Urea nitrogen/Creatinine [Mass ratio] 21.1 mg/mg 10-20 [facility] Laboratory - Hematology and Cell countsOrdered By: Sobia Borges on 06-07-2023 Erythrocyte distribution width (RBC) [Entitic vol] 44.2 fL 35.1-43.9 [facility] Erythrocyte distribution width (RBC) [Ratio] 13.0 % 11.6-14.6 [facility] Immature granulocytes/100 WBC (Bld) 0.600 % 0.0-0.9 [facility] Comment on above: IG% - Immature Granu locytes (promyelocytes, myelocytes and metamyelocytes) > 1% indicates that a LEFT SHIFT is Present. MCH (RBC) [Entitic mass] 29.0 pg 27.0-32.0 [facility] Nucleated RBC/100 WBC (Bld) [Ratio] 0 % 0-5 [facility] MCHC Auto (RBC) [Mass/Vol]Or dered By: Sobia Borges on 06-07-2023 MCHC (RBC) [Mass/Vol] 31.0 g/dL 32-36 [facility] No Panel InformationOrdered By: Sobia Borges on 06-07-2023 Adrenocorticotropic Hormone 26.7 pg/mL 7.2-63.3 [facility] Comment on above: ACTH reference inter giselle for samples collected between 7 and10 AM.Performed at: [employer] - [facility] [address] [id number] Director: Deepak Velasquez PhD, Phone: [phone] Anti-Nuclear Antibody Screen Negative Negative [facility] Comment on above: Performed at: [employer] [facility] [address] [id number] Director: Deepak Velasquez PhD, Phone: [phone] Estimated GFR (MDRD) Amer 100 mL/min >60 [facility] Comment on above: GFR Calc Estimated GFR (MDRD) Non-Af Amer 83 mL/min >60 [facility] Comment on above: Non- GFR Calc Thyroid Stimulating Hormone (TSH) 1.52 uIU/mL 0.358-3.74 [facility] Vitamin D 25-Hydroxy 26.8 ng/mL [facility] Comment on above: Vitamin D 25(OH) Sta tus Range Deficiency <20 ng/mL (50nmol/L) Insufficiency 20 - 30 ng/mL (50 - 75 nmol/L) Sufficiency 30 - 100 ng/mL (75 - 250 nmol/L) Toxicity >100 ng/mL (>250 nmol/L) Platelets bldOrdered By: Elisabet deshawn Jony on 06-07-2023 Platelets (Bld) [#/Vol] 239 10*3/uL 150-450 [facility] Serum or plasma C reactive p rotein measurement (mass/volume)Ordered By: Sobia Borges on 06-07-2023 CRP [Mass/Vol] 51.10 mg/L 0.0-3.0 [facility] Comment on above: C-Reactive Protein ( CRP) provides useful information for thediagnosis, therapy and monitoring of inflammatory processesand associated diseases. For the evaluation of Relative Riskfor Cardiovascular Disease, a High Sensitivity CRP (HSCRP)should be ordered. Serum or plasma albumin amanda urement (mass/volume)Ordered By: Sobia Borges on 06-07-2023 Albumin [Mass/Vol] 3.4 g/dL 3.2-5.0 [facility] Serum or plasma albumin/glob ulin mass ratioOrdered By: Sobia Borges on 06-07-2023 Albumin/Globulin [Mass ratio] 0.8 {ratio} 0.9-2.4 [facility] Serum or plasma calcium amanda urement (mass/volume)Ordered By: Sobia Borges on 06-07-2023 Calcium [Mass/Vol] 9.3 mg/dL 8.5-10.1 [facility] Serum or plasma creatinine m easurement (mass/volume)Ordered By: Sobia Borges on 06-07-2023 Creatinine [Mass/Vol] 0.95 mg/dL 0.70-1.30 [facility] Comment on above: The validity of the calculated GFR & GFRAA in patients over 70 years has not been determined. Clinical correlation is essential. Serum or plasma urea nitroge n measurement (mass/volume)Ordered By: Sobia Borges on 06-07-2023 Urea nitrogen [Mass/Vol] 20 mg/dL 7-18 [facility] Thin prep Papanicolaou smear with manual screeningOrdered By: Sobia Borges on 06-07-2023 Thin prep Papanicolaou smear with manual screening 14 U/L 15-37 [facility] Thin prep Papanicolaou smear with manual screening 5 5-[facility] Telephone (AGCARDPOB ) MEDINA MCKOY II ([id number]) 1950 Date Time Provider Department 05/17/23 OJ FOSS AGCARDPOB During your visit today, we recorded the following information about you: Rochelle Lau LPN 05/17/2023 1:48 PM Signed ----- Message from Oj Foss MD sent at 05/17/2023 1:43 PM EDT ----- Pt has an LAD distribution defect on the resting study, which may represent artifact, or AK. Pt did not have the stress portion [...] left for patient to return call to [facility] to review test results. Office [...] Rash Date Reviewed: 05/13/2023 Reviewed by: Susan Cintron, CLAUDETTE - Fully Assessed Reason for Visit: Results [...] Encounter Status:Closed by ROCHELLE LAU on 07/06/23 [facility] CARDIAC SPECT REST ONLYon 05-16-2023 [place] CARDIAC SPECT REST ONLY * * *Final Report* * * DATE OF EXAM: May 16 2023 8:33AM [facility] 0090 - [place] CARDIAC SPECT REST ONLY / PROCEDURE REASON: [...] administered radiotracer and dose below. [facility] Date of service: 05/14/2023 8:00:00 AM [...] * * Final * * * RP Instrumentation Fitter: LAYA Transcribe Date/Time: May 14 2023 8:00A Dictated by : MENG SAM MD This examination was interpreted and the report reviewed and electronically signed by: MENG SAM MD on May 16 2023 8:59AM EST [id number] Normal [facility] CNDSon 05-14-2023 CN HNO ID: [id number] Author: Kb Hancock MD Service: Hospital Medicine [...] Attending Provider: Kb Hancock MD Primary Service: MILKA SANTIAGO Consulting: Oj Foss MD REASON FOR HOSPITALIZATION: Chest pain DIAGNOSIS: Principal Problem: Chest pain (POA: Yes) Active Problems: NSTEMI (non-ST elevated myocardial infarction) ([facility]) (POA: Unknown) Resolved Problems: * No resolved [...] patient agrees to take it Patient refused LHC, and refused some of his MEDS initially [...] AMA, 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 SIGNATURE: Kb Hancock MD DATE: May 14, 2023 TIME: 10:41 AM Normal [facility] NURSING PROGon 05-14-2023 NURSING PROG HNO ID: [id number] Author: Sheryl Chicas RN Service: Nursing Author Type: Registered Nurse Type: Nursing Progress Note Filed: 05/14/2023 9:17 AM Note Text: Lexiscan Nuclear Stress Test discussed with patient, voiced understanding and declines testing until he obtains second opinion from cardiology friend". Pros and Cons discussed with pt and prefers to defer at this time. Pt aware resting images are valid for 30 days. Return to room Normal [facility] aPTT PPPon 05-14-2023 aPTT Coag (PPP) [Time] 57.6 s High 23.0-32.4 [facility] Comment on above: Order Comment: Speci men Type: BLOOD SPECIMEN Ordering Facility: [facility] Address: [address] [place] [address] [place] [address] Performed By: #### 1 4979-9 #### [facility] CLIA [id number] [address] STATES OF [facility] aPTT Coag (PPP) [Time] 63.4 s High 23.0-32.4 [facility] Comment on above: Order Comment: Speci men Type: BLOOD SPECIMEN Ordering Facility: [facility] Address: [address] [place] [address] Performed By: #### 1 4979-9 #### [facility] CLIA [id number] [address] CBC panel Auto (Bld)on 05-13 Erythrocyte distribution width (RBC) [Ratio] 13.3 % Normal 11.5-15.0 [facility] Comment on above: Order Comment: Speci men Type: BLOOD SPECIMEN Ordering Facility: [facility] Address: [address] [place] [address] Performed By: #### L [id number] #### [facility] CLIA [id number] [address] [place] Hematocrit (Bld) [Volume fraction] 44.0 % Normal 39.0-51.0 [facility] Comment on above: Order Comment: Speci men Type: BLOOD SPECIMEN Ordering Facility: [facility] Address: [address] [place] [address] Performed By: #### L [id number] #### [facility] CLIA [id number] [address] [place] [address] [place] Hemoglobin (Bld) [Mass/Vol] 14.2 g/dL Normal 13.0-17.0 [facility] Comment on above: Order Comment: Speci men Type: BLOOD SPECIMEN Ordering Facility: [facility] Address: [address] [place] [address] Performed By: #### L [id number] #### [facility] CLIA [id number] [address] [place] [address] [place] MCH (RBC) [Entitic mass] 29.3 pg Normal 26.0-34.0 [facility] Comment on above: Order Comment: Speci men Type: BLOOD SPECIMEN Ordering Facility: [facility] Address: [address] [place] [address] Performed By: #### L [id number] #### [facility] CLIA [id number] [address] MCHC (RBC) [Mass/Vol] 32.3 g/dL Normal 30.5-36.0 [facility] Comment on above: Order Comment: Speci men Type: BLOOD SPECIMEN Ordering Facility: [facility] Address: [address] [place] [address] Performed By: #### L [id number] #### [facility] CLIA [id number] [address] [place] [address] [place] MCV (RBC) [Entitic vol] 90.7 fL Normal 80.0-100.0 [facility] Comment on above: Order Comment: Speci men Type: BLOOD SPECIMEN Ordering Facility: [facility] Address: [address] [place] [address] Performed By: #### L [id number] #### [facility] CLIA [id number] [address] [place] [address] Nucleated RBC (Bld) [#/Vol] 10*3/uL Normal <0.01 [facility] Comment on above: Order Comment: Speci men Type: BLOOD SPECIMEN Ordering Facility: [facility] Address: [address] [place] [address] Performed By: #### L [id number] #### [facility] CLIA [id number] [address] [place] Platelet mean volume (Bld) [Entitic vol] 11.6 fL Normal 9.0-12.7 [facility] Comment on above: Order Comment: Speci men Type: BLOOD SPECIMEN Ordering Facility: [facility] Address: [address] [place] [address] Performed By: #### L [id number] #### [facility] CLIA [id number] [address] [place] [address] [place] Platelets (Bld) [#/Vol] 197 10*3/uL Normal 150-400 [facility] Comment on above: Order Comment: Speci men Type: BLOOD SPECIMEN Ordering Facility: [facility] Address: [address] [place] [address] Performed By: #### L [id number] #### [facility] CLIA [id number] [address] [place] [address] [place] RBC (Bld) [#/Vol] 4.85 10*6/uL Normal 4.20-6.00 [facility] Comment on above: Order Comment: Speci men Type: BLOOD SPECIMEN Ordering Facility: [facility] Address: [address] [place] [address] Performed By: #### L [id number] #### [facility] CLIA [id number] [address] [place] [address] [place] WBC (Bld) [#/Vol] 10.25 10*3/uL Normal 3.70-11.00 [facility] Comment on above: Order Comment: Speci men Type: BLOOD SPECIMEN Ordering Facility: [facility] Address: [address] [place] [address] Performed By: #### L [id number] #### [facility] CLIA [id number] [address] [place] [address] [place] Erythrocyte distribution width (RBC) [Ratio] 13.2 % Normal 11.5-15.0 [facility] Comment on above: Order Comment: Speci men Type: BLOOD SPECIMEN Ordering Facility: [facility] Address: [address] [place] [address] Performed By: #### 5 8410-2 #### [facility] CLIA [id number] [address] [place] [address] OF [facility] Hematocrit (Bld) [Volume fraction] 43.7 % Normal 39.0-51.0 [facility] Comment on above: Order Comment: Speci men Type: BLOOD SPECIMEN Ordering Facility: [facility] Address: [address] [place] [address] Performed By: #### 5 8410-2 #### [facility] CLIA [id number] [address] OF [facility] Hemoglobin (Bld) [Mass/Vol] 14.2 g/dL Normal 13.0-17.0 [facility] Comment on above: Order Comment: Speci men Type: BLOOD SPECIMEN Ordering Facility: [facility] Address: [address] [place] [address] Performed By: #### 5 8410-2 #### [facility] CLIA [id number] [address] MCH (RBC) [Entitic mass] 29.3 pg Normal 26.0-34.0 [facility] Comment on above: Order Comment: Speci men Type: BLOOD SPECIMEN Ordering Facility: [facility] Address: [address] [place] [address] Performed By: #### 5 8410-2 #### [facility] CLIA [id number] [address] MCHC (RBC) [Mass/Vol] 32.5 g/dL Normal 30.5-36.0 [facility] Comment on above: Order Comment: Speci men Type: BLOOD SPECIMEN Ordering Facility: [facility] Address: [address] [place] [address] Performed By: #### 5 8410-2 #### [facility] CLIA [id number] [address] MCV (RBC) [Entitic vol] 90.1 fL Normal 80.0-100.0 [facility] Comment on above: Order Comment: Speci men Type: BLOOD SPECIMEN Ordering Facility: [facility] Address: [address] [place] [address] Performed By: #### 5 8410-2 #### [facility] CLIA [id number] [address] OF [facility] Nucleated RBC (Bld) [#/Vol] 10*3/uL Normal <0.01 [facility] Comment on above: Order Comment: Speci men Type: BLOOD SPECIMEN Ordering Facility: [facility] Address: [address] [place] [address] Performed By: #### 5 8410-2 #### [facility] CLIA [id number] [address] [place] Platelet mean volume (Bld) [Entitic vol] 12.0 fL Normal 9.0-12.7 [facility] Comment on above: Order Comment: Speci men Type: BLOOD SPECIMEN Ordering Facility: [facility] Address: [address] [place] [address] Performed By: #### 5 8410-2 #### [facility] CLIA [id number] [address] [place] Platelets (Bld) [#/Vol] 215 10*3/uL Normal 150-400 [facility] Comment on above: Order Comment: Speci men Type: BLOOD SPECIMEN Ordering Facility: [facility] Address: [address] [place] [address] Performed By: #### 5 8410-2 #### [facility] CLIA [id number] [address] [place] RBC (Bld) [#/Vol] 4.85 10*6/uL Normal 4.20-6.00 [facility] Comment on above: Order Comment: Speci men Type: BLOOD SPECIMEN Ordering Facility: [facility] Address: [address] [place] [address] Performed By: #### 5 8410-2 #### [facility] CLIA [id number] [address] [place] WBC (Bld) [#/Vol] 10.66 10*3/uL Normal 3.70-11.00 [facility] Comment on above: Order Comment: Speci men Type: BLOOD SPECIMEN Ordering Facility: [facility] Address: [address] [place] [address] Performed By: #### 5 8410-2 #### [facility] CLIA [id number] [address] OF [place] CONSULTon 05-13-2023 CONSULT HNO ID: [id number] Author: Oj Foss MD Service: Clinical Cardiology [...] He has a history of idiopathic neuropathy, "benign neck tumor", sacroiliac pain but otherwise no other documented medical history. He was admitted to [facility] with chief complaints of chest pain. Apparently, his symptoms have been ongoing for the last few days. 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 He had several reservations about the use of statins. He mentioned that in his reading, statins "do not prevent heart disease". He mentioned that he was prescribed high-dose [...] pain, stiffness, Joint swelling SKIN: No rash HEMATOLOGICAL/LYMPHATI C: Negative for: Easy bruising and Easy bleeding CARDIOVASCULAR: As stated in HPI. 10 system review negative except as stated in HPI PHYSICAL EXAMINATION: BP 165/99 Pulse 98 Temp (Src) 97.7 (Oral) Resp 18 Ht 5' 7" (1.70m) Wt 157 lb 10.1 oz (71.5kg) [...] (more content not included)... Normal [facility] Comprehensive metabolic 2000 panelon 05-13-2023 Albumin [Mass/Vol] 3.6 g/dL Low 3.9-4.9 [facility] Comment on above: Order Comment: Speckain keith Type: BLOOD SPECIMEN Ordering Facility: [facility] Address: [address] [place] [address] Performed By: #### 1 4979-9 #### [facility] CLIA [id number] [address] STATES OF [facility] ALP [Catalytic activity/Vol] 112 U/L Normal 38-113 [facility] Comment on above: Order Comment: Marcela keith Type: BLOOD SPECIMEN Ordering Facility: [facility] Address: [address] [place] [address] Performed By: #### 1 4979-9 #### [facility] CLIA [id number] [address] ALT With P-5'-P [Catalytic activity/Vol] 22 U/L Normal 10-54 [facility] Comment on above: Order Comment: Speci men Type: BLOOD SPECIMEN Ordering Facility: [facility] Address: [address] [place] [address] Performed By: #### 1 4979-9 #### [facility] CLIA [id number] [address] Anion gap [Moles/Vol] 10 mmol/L Normal 9-18 [facility] Comment on above: Order Comment: Speci men Type: BLOOD SPECIMEN Ordering Facility: [facility] Address: [address] [place] [address] Performed By: #### 1 4979-9 #### [facility] CLIA [id number] [address] AST With P-5'-P [Catalytic activity/Vol] 30 U/L Normal 14-40 [facility] Comment on above: Order Comment: Speci men Type: BLOOD SPECIMEN Ordering Facility: [facility] Address: [address] [place] [address] Performed By: #### 1 4979-9 #### [facility] CLIA [id number] [address] OF [facility] Bilirubin [Mass/Vol] 0.3 mg/dL Normal 0.2-1.3 [facility] Comment on above: Order Comment: Speci men Type: BLOOD SPECIMEN Ordering Facility: [facility] Address: [address] [place] [address] Performed By: #### 1 4979-9 #### [facility] CLIA [id number] [address] Calcium [Mass/Vol] 9.2 mg/dL Normal 8.5-10.2 [facility] Comment on above: Order Comment: Speci men Type: BLOOD SPECIMEN Ordering Facility: [facility] Address: [address] [place] [address] Performed By: #### 1 4979-9 #### [facility] CLIA [id number] [address] [place] Chloride [Moles/Vol] 108 mmol/L High 97-105 [facility] Comment on above: Order Comment: Speci men Type: BLOOD SPECIMEN Ordering Facility: [facility] Address: [address] [place] [address] Performed By: #### 1 4979-9 #### [facility] CLIA [id number] [address] [place] CO2 [Moles/Vol] 26 mmol/L Normal 22-30 [facility] Comment on above: Order Comment: Speci men Type: BLOOD SPECIMEN Ordering Facility: [facility] Address: [address] [place] [address] Performed By: #### 1 4979-9 #### [facility] CLIA [id number] [address] [place] [address] OF [facility] Creatinine [Mass/Vol] 0.99 mg/dL Normal 0.73-1.22 [facility] Comment on above: Order Comment: Speci men Type: BLOOD SPECIMEN Ordering Facility: [facility] Address: [address] [place] [address] Performed By: #### 1 4979-9 #### [facility] CLIA [id number] [address] [place] [address] Creatinine and Glomerular filtration rate.predicted panel (S/P/Bld) 81 mL/min/1.73m??? Normal >=60 [facility] Comment on above: Order Comment: Speci men Type: BLOOD SPECIMEN Ordering Facility: [facility] Address: [address] [place] [address] Result Comment: Dejah mated Glomerular Filtration Rate [...] GFR. Performed By: #### 1 4979-9 #### [facility] CLIA [id number] [address] [place] [address] [place] Glucose [Mass/Vol] 146 mg/dL High 74-99 [facility] Comment on above: Order Comment: Marcela keith Type: BLOOD SPECIMEN Ordering Facility: [facility] Address: [address] [place] [address] Result Comment: The [place] [employer] (ADA) provides guidance for cutoff [...] Standards of Medical Care in Diabetes 2016, [place] [employer]. Diabetes Care. 2016.39(Suppl 1). Performed By: #### 1 4979-9 #### [facility] CLIA [id number] [address] [place] [address] [place] Potassium [Moles/Vol] 4.0 mmol/L Normal 3.7-5.1 [facility] Comment on above: Order Comment: Marcela keith Type: BLOOD SPECIMEN Ordering Facility: [facility] Address: [address] [place] [address] Performed By: #### 1 4979-9 #### [facility] CLIA [id number] [address] [place] [address] [place] Protein [Mass/Vol] 6.4 g/dL Normal 6.3-8.0 [facility] Comment on above: Order Comment: Marcela keith Type: BLOOD SPECIMEN Ordering Facility: [facility] Address: [address] [place] [address] Performed By: #### 1 4979-9 #### [facility] CLIA [id number] [address] [place] Sodium [Moles/Vol] 144 mmol/L Normal 136-144 [facility] Comment on above: Order Comment: Speci men Type: BLOOD SPECIMEN Ordering Facility: [facility] Address: [address] [place] [address] Performed By: #### 1 4979-9 #### [facility] CLIA [id number] [address] [place] Urea nitrogen [Mass/Vol] 30 mg/dL High 9-24 [facility] Comment on above: Order Comment: Speci men Type: BLOOD SPECIMEN Ordering Facility: [facility] Address: [place] [address] Performed By: #### 1 4979-9 #### [facility] CLIA [id number] [address] OF [facility] ECHOon 05-13-2023 Echocardiography Echocardiography Report: Transthoracic Echo [facility] Date of service: 05/13/2023 11:58:42 AM [facility] Ordering physician: JACEY BANDA Indication: Chest Pain Technologist: Nicolette Campuzano [facility] [place] Interpreting physician: Oj Foss MD PATIENT: Name: [...] * * Final * * * CC [employer] [facility] : [id number] sSISUID Normal [facility] HIGH SENSITIVITY TROPONIN To n 05-13-2023 Troponin T.cardiac High sensitivity method [Mass/Vol] 237 ng/L High <12 [facility] Comment on above: Order Comment: Speci men Type: BLOOD SPECIMEN Ordering Facility: [facility] Address: [address] [place] [address] Result Comment: When assessing risk for acute [...] 30 day MACE. Performed By: #### L [id number] #### [facility] CLIA [id number] [address] [place] [address] [place] HISTORY PHYSICALon HISTORY PHYSICAL HNO ID: [id number] Author: Jacey Banda MD Service: Hospital Medicine [...] After 7pm, please call cross cover pager #[phone] Subjective CHIEF COMPLAINT / REASON FOR ADMISSION: [...] (Src) 97.7 (Oral) Resp 18 Ht 5' 7" (1.70m) Wt 157 lb 10.1 oz (71.5kg) [...] (more content not included)... Normal [facility] Hepatic function 2000 panelo n 05-13-2023 Albumin [Mass/Vol] 3.7 g/dL Low 3.9-4.9 [facility] Comment on above: Order Comment: Speci men Type: BLOOD SPECIMEN Ordering Facility: [facility] Address: [address] [place] [address] Performed By: #### 2 4325-3 #### [facility] CLIA [id number] [address] STATES OF [facility] ALP [Catalytic activity/Vol] 111 U/L Normal 38-113 [facility] Comment on above: Order Comment: Speci men Type: BLOOD SPECIMEN Ordering Facility: [facility] Address: [address] [place] [address] Performed By: #### 2 4325-3 #### [facility] CLIA [id number] [address] OF [facility] ALT With P-5'-P [Catalytic activity/Vol] 22 U/L Normal 10-54 [facility] Comment on above: Order Comment: Speci men Type: BLOOD SPECIMEN Ordering Facility: [facility] Address: [address] [place] [address] Performed By: #### 2 4325-3 #### [facility] CLIA [id number] [address] [place] With P-5'-P [Catalytic activity/Vol] 25 U/L Normal 14-40 [facility] Comment on above: Order Comment: Speci men Type: BLOOD SPECIMEN Ordering Facility: [facility] Address: [address] [place] [address] Performed By: #### 2 4325-3 #### [facility] CLIA [id number] [address] Bilirubin [Mass/Vol] 0.3 mg/dL Normal 0.2-1.3 [facility] Comment on above: Order Comment: Speci men Type: BLOOD SPECIMEN Ordering Facility: [facility] Address: [address] [place] [address] Performed By: #### 2 4325-3 #### [facility] CLIA [id number] [address] Bilirubin.conjugated [Mass/Vol] mg/dL Normal <0.2 [facility] Comment on above: Order Comment: Speci men Type: BLOOD SPECIMEN Ordering Facility: [facility] Address: [address] [place] [address] Performed By: #### 2 4325-3 #### [facility] CLIA [id number] [address] OF [facility] Protein [Mass/Vol] 6.5 g/dL Normal 6.3-8.0 [facility] Comment on above: Order Comment: Speci men Type: BLOOD SPECIMEN Ordering Facility: [facility] Address: [address] [place] [address] Performed By: #### 2 4325-3 #### [facility] CLIA [id number] [address] NURSING PROGon 05-13-2023 NURSING PROG HNO ID: [id number] Author: Bina Abdi RN Service: Nursing Author [...] of cardiology was notified. Normal [facility] PT panel Coag (PPP)on 2022 INR Coag (PPP) [Relative time] 1.0 {INR} Normal 0.9-1.3 [facility] Comment on above: Order Comment: Speci men Type: BLOOD SPECIMEN Ordering Facility: [facility] Address: [address] [place], [place] [address] Result Comment: Darby min K Antagonist (VKA) Therapeutic Range: INR 2 to 3 (Target INR of 2.5) Note: For patients treated with VKA drugs, such as warfarin, the [employer] 2012 Guideline recommends [...] to 3.5 (target INR of 3). Luis RDZ, et al. Chest 2012, 141:7S-47S Buzz ANGELO et al. JAC 2017, 70: 252-289 Performed By: #### 1 4979-9 #### [facility] CLIA [id number] [address] [place] PT Coag (PPP) [Time] 11.0 s Normal 9.7-13.0 [facility] Comment on above: Order Comment: Speci men Type: BLOOD SPECIMEN Ordering Facility: [facility] Address: [address] [place] [address] Performed By: #### 1 4979-9 #### [facility] CLIA [id number] [address] [place] aPTT PPPon 05-13-2023 aPTT Coag (PPP) [Time] 46.2 s High 23.0-32.4 [facility] Comment on above: Order Comment: Speci men Type: BLOOD SPECIMEN Ordering Facility: [facility] Address: [address] [place] [address] Performed By: #### L [id number] #### [facility] CLIA [id number] [address] aPTT Coag (PPP) [Time] 50.4 s High 23.0-32.4 [facility] Comment on above: Order Comment: Speci men Type: BLOOD SPECIMEN Ordering Facility: [facility] Address: [address] [place] [address] Performed By: #### 1 4979-9 #### [facility] CLIA [id number] [address] aPTT Coag (PPP) [Time] 48.1 s High 23.0-32.4 [facility] Comment on above: Order Comment: Speci men Type: BLOOD SPECIMEN Ordering Facility: [facility] Address: [address] [place] [address] Performed By: #### L [id number] #### [facility] CLIA [id number] [address] [place], [place] [id number] [place] [address] aPTT Coag (PPP) [Time] 36.9 s High 23.0-32.4 [facility] Comment on above: Order Comment: Speci men Type: BLOOD SPECIMEN Ordering Facility: [facility] Address: [address] [place] [address] Performed By: #### 1 4979-9 #### [facility] CLIA [id number] 1 [place] [address] [place] Basic metabolic 2000 panelon 05-12-2023 Anion gap [Moles/Vol] 13 mmol/L Normal 9-18 [facility] Comment on above: Order Comment: Speci men Type: BLOOD SPECIMEN Ordering Facility: [facility] Address: [address] [place] [address] Performed By: #### 1 4979-9 #### [facility] CLIA [id number] [address] [place] Calcium [Mass/Vol] 10.2 mg/dL Normal 8.5-10.2 [facility] Comment on above: Order Comment: Speci men Type: BLOOD SPECIMEN Ordering Facility: [facility] Address: [address] [place] [address] Performed By: #### 1 4979-9 #### [facility] CLIA [id number] [address] [place] Chloride [Moles/Vol] 102 mmol/L Normal 97-105 [facility] Comment on above: Order Comment: Speci men Type: BLOOD SPECIMEN Ordering Facility: [facility] Address: [address] [place] [address] Performed By: #### 1 4979-9 #### [facility] CLIA [id number] [address] [place] [address] [place] CO2 [Moles/Vol] 25 mmol/L Normal 22-30 [facility] Comment on above: Order Comment: Speci men Type: BLOOD SPECIMEN Ordering Facility: [facility] Address: [address] [place] [address] Performed By: #### 1 4979-9 #### [facility] CLIA [id number] 1 [place] [address] [place] Creatinine [Mass/Vol] 1.00 mg/dL Normal 0.73-1.22 [facility] Comment on above: Order Comment: Marcela keith Type: BLOOD SPECIMEN Ordering Facility: [facility] Address: [address] [place] [address] Performed By: #### 1 4979-9 #### [facility] CLIA [id number] [address] [place] [address] [place] Creatinine and Glomerular filtration rate.predicted panel (S/P/Bld) 80 mL/min/1.73m??? Normal >=60 [facility] Comment on above: Order Comment: Dentonkain keith Type: BLOOD SPECIMEN Ordering Facility: [facility] Address: [address] [place] [address] Result Comment: Dejah mated Glomerular Filtration Rate [...] GFR. Performed By: #### 1 4979-9 #### [facility] CLIA [id number] [address] [place] [address] [place] Glucose [Mass/Vol] 160 mg/dL High 74-99 [facility] Comment on above: Order Comment: Marcela keith Type: BLOOD SPECIMEN Ordering Facility: [facility] Address: [address] [place] [address] Result Comment: The [employer] Diabetes Association (ADA) provides guidance for cutoff [...] Standards of Medical Care in Diabetes 2016, [employer] Diabetes Association. Diabetes Care. 2016.39(Suppl 1). Performed By: #### 1 4979-9 #### [facility] CLIA [id number] [address] [place] Potassium [Moles/Vol] 3.7 mmol/L Normal 3.7-5.1 [facility] Comment on above: Order Comment: Speci men Type: BLOOD SPECIMEN Ordering Facility: [facility] Address: [address] [place] [address] Performed By: #### 1 4979-9 #### [facility] CLIA [id number] [address] [place] Sodium [Moles/Vol] 140 mmol/L Normal 136-144 [facility] Comment on above: Order Comment: Speci men Type: BLOOD SPECIMEN Ordering Facility: [facility] Address: [address] [place] [address] Performed By: #### 1 4979-9 #### [facility] CLIA [id number] [address] [place] [address] [place] Urea nitrogen [Mass/Vol] 30 mg/dL High 9-24 [facility] Comment on above: Order Comment: Speci men Type: BLOOD SPECIMEN Ordering Facility: [facility] Address: [address] [place] [address] Performed By: #### 1 4979-9 #### [facility] CLIA [id number] [address] [place] CBC panel Auto (Bld)on 05-12 Erythrocyte distribution width (RBC) [Ratio] 13.1 % Normal 11.5-15.0 [facility] Comment on above: Order Comment: Speci men Type: BLOOD SPECIMEN Ordering Facility: [facility] Address: [address] [place] [address] Performed By: #### L [id number] #### [facility] CLIA [id number] [address] [place] [address] OF [facility] Hematocrit (Bld) [Volume fraction] 47.8 % Normal 39.0-51.0 [facility] Comment on above: Order Comment: Speci men Type: BLOOD SPECIMEN Ordering Facility: [facility] Address: [address] [place] [address] Performed By: #### L [id number] #### [facility] CLIA [id number] [address] OF [facility] Hemoglobin (Bld) [Mass/Vol] 15.3 g/dL Normal 13.0-17.0 [facility] Comment on above: Order Comment: Speci men Type: BLOOD SPECIMEN Ordering Facility: [facility] Address: [address] [place] [address] Performed By: #### L [id number] #### [facility] CLIA [id number] [address] OF [facility] MCH (RBC) [Entitic mass] 29.7 pg Normal 26.0-34.0 [facility] Comment on above: Order Comment: Speci men Type: BLOOD SPECIMEN Ordering Facility: [facility] Address: [address] [place] [address] Performed By: #### L [id number] #### [facility] CLIA [id number] [address] [place] [address] [place] MCHC (RBC) [Mass/Vol] 32.0 g/dL Normal 30.5-36.0 [facility] Comment on above: Order Comment: Speci men Type: BLOOD SPECIMEN Ordering Facility: [facility] Address: [address] [place] [address] Performed By: #### L [id number] #### [facility] CLIA [id number] [address] [place], [place] [address] [facility] [place] MCV (RBC) [Entitic vol] 92.8 fL Normal 80.0-100.0 [facility] Comment on above: Order Comment: Speci men Type: BLOOD SPECIMEN Ordering Facility: [facility] Address: [address] [place] [address] Performed By: #### L [id number] #### [facility] CLIA [id number] [address] OF [place] Platelet mean volume (Bld) [Entitic vol] 12.1 fL Normal 9.0-12.7 [facility] Comment on above: Order Comment: Speci men Type: BLOOD SPECIMEN Ordering Facility: [facility] Address: [address] [place] [address] Performed By: #### L [id number] #### [facility] CLIA [id number] [address] [place] [address] [facility] [place] Platelets (Bld) [#/Vol] 222 10*3/uL Normal 150-400 [facility] Comment on above: Order Comment: Speci men Type: BLOOD SPECIMEN Ordering Facility: [facility] Address: [address] [place] [address] Performed By: #### L [id number] #### [facility] CLIA [id number] [address] [place] [address] [facility] RBC (Bld) [#/Vol] 5.15 10*6/uL Normal 4.20-6.00 [facility] Comment on above: Order Comment: Speci men Type: BLOOD SPECIMEN Ordering Facility: [facility] Address: [address] [place] [address] Performed By: #### L [id number] #### [facility] CLIA [id number] [address] [place] [address] [facility] WBC (Bld) [#/Vol] 14.39 10*3/uL High 3.70-11.00 [facility] Comment on above: Order Comment: Speci men Type: BLOOD SPECIMEN Ordering Facility: [facility] Address: [address] [place] [address] Performed By: #### L [id number] #### [facility] CLIA [id number] [address] [place] [address] [facility] ED NOTEon 05-12-2023 ED NOTE HNO ID: [id number] Author: Xiomara Welsh, RN Service: Emergency Medicine Author Type: Registered Nurse Type: ED Notes Filed: 05/12/2023 8:07 PM Note Text: Pt requesting return of keys and for security to keep carr fob. [place] provided to patient. Normal [facility] ED NOTE HNO ID: [id number] Author: Xiomara Welsh RN Service: Emergency Medicine Author Type: Registered Nurse Type: ED Notes Filed: 05/12/2023 6:56 PM Note Text: Pt provided this nurse with car keys - keys provided to security with patient label. [facility] ED NOTE HNO ID: [id number] Author: Xiomara Welsh RN Service: Emergency Medicine Author Type: Registered Nurse Type: ED Notes Filed: 05/12/2023 6:56 PM Note Text: Pt update; waiting on room at [facility] for patient. [facility] ED NOTE HNO ID: [id number] Author: Xiomara Welsh RN Service: Emergency Medicine [...] denies any further questions as this time. [facility] ED NOTE HNO ID: [id number] Author: Xiomara Welsh RN Service: Emergency Medicine Author Type: Registered Nurse Type: ED Notes Filed: 05/12/2023 1:06 PM Note Text: Pt speaking in complete sentences; no evidence of SOB. Denies CP at this time. [facility] ED NOTE HNO ID: [id number] Author: Xiomara Welsh RN Service: Emergency Medicine Author Type: Registered Nurse Type: ED Notes Filed: 05/12/2023 12:57 PM Note Text: Pt placed on prednisone 05/10 for back pain. Pt reports day 2 of taking prednisone pt reported SOB while changing oil care. Pt reports midsternal CP and reports taking an ASA. Pt reports "relaxing" after this. Pt reports this worked. Pt reports mild discomfort this morning while doing this dishes; pt rested and went away. Pt reports hx of stable angina. [facility] ED PROV NOTEon 05-12-2023 ED PROV NOTE HNO ID: [id number] Author: Kira Geller MD Service: Emergency Medicine [...] stress test at that time that was "normal". He thinks his chest pain might be [...] environmental allergies, food allergies and immunocompromised state. Psychiatric/Behavioral : Negative for confusion. The patient is not nervous/anxious. Physical Exam Vitals [05/12/23 1258] BP Pulse Temp Temp src Resp SpO2 Weight Height 189/104 (!) 91 36.4 ?C (97.6 ?F) Temporal (!) 100 100 % 72.6 kg (160 lb) 1.702 m (5' 7") Physical Exam Vitals and nursing note reviewed. [...] (more content not included)... Normal [facility] EKGon 05-12-2023 Electrocardiogram Ventricular Rate : 9 1 BPM Atrial Rate : 91 BPM P-R Interval : 156 ms QRS Duration : 90 ms Q-T Interval : 348 ms QTC Calculation(Bazett) : 428 ms Calculated P [place] : 66 degrees Calculated R [place] : 37 degrees Calculated T [place] : 107 degrees NORMAL SINUS RHYTHM POSSIBLE LEFT ATRIAL ENLARGEMENT MINIMAL VOLTAGE CRITERIA FOR LVH, MAY BE NORMAL VARIANT ( Sokolow-Floyd ) NONSPECIFIC ST AND T WAVE ABNORMALITY ABNORMAL ECG NO PREVIOUS ECGS AVAILABLE Confirmed by MD FOSS VINAYAK ([id number]) on 05/14/2023 1:17:12 PM NAME : MEDINA MCKOY PID : [id number] : 1950 Gender : Male Race : ORD : Procedure Date : May 12 2023 12:58:42 Edit Date : May 14 2023 13:17:13 Diagnosis: NORMAL SINUS RHYTHM POSSIBLE LEFT ATRIAL ENLARGEMENT MINIMAL VOLTAGE CRITERIA FOR LVH, MAY BE NORMAL VARIANT ( Sokolow-Floyd ) NONSPECIFIC ST AND T WAVE ABNORMALITY ABNORMAL ECG NO PREVIOUS ECGS AVAILABLE Confirmed by MD FOSS VINAYAK ([id number]) on 05/14/2023 1:17:12 PM Test Reason : Location : 150 : [facility] Overread By : MD FOSS VINAYAK Edited By : MD FOSS VINAYAK Referred By : , Acquired by : [id number], Normal [facility] HIGH SENSITIVITY TROPONIN T (INITIAL)on 05-12-2023 Troponin T.cardiac High sensitivity method [Mass/Vol] 393 ng/L High <12 [facility] Comment on above: Order Comment: Speci men Type: BLOOD SPECIMEN Ordering Facility: [facility] Address: [address] [place] [address] Result Comment: When assessing risk for acute [...] 30 day MACE. Performed By: #### L [id number] #### [facility] CLIA [id number] [address] [place] [address] [place] HIGH SENSITIVITY TROPONIN T (SECOND)on 05-12-2023 Troponin T.cardiac High sensitivity method [Mass/Vol] 383 ng/L High <12 [facility] Comment on above: Order Comment: Marcela keith Type: BLOOD SPECIMEN Ordering Facility: [facility] Address: [address] [place] [address] Result Comment: When assessing risk for acute [...] MACE. Performed By: #### 1 4979-9 #### [facility] CLIA [id number] [address] [place] HIGH SENSITIVITY TROPONIN T (THIRD) 3 HRS AFTER INITIALon 05-12-2023 Troponin T.cardiac High sensitivity method [Mass/Vol] 390 ng/L High <12 [facility] Comment on above: Order Comment: Marcela keith Type: BLOOD SPECIMEN Ordering Facility: [facility] Address: [address] [place] [address] Result Comment: When assessing risk for acute [...] 30 day MACE. Performed By: #### L [id number] #### [facility] CLIA [id number] [address] [place] [address] [place] Magnesium SerPl-mCncon 05-12 Magnesium [Mass/Vol] 2.1 mg/dL Normal 1.7-2.3 [facility] Comment on above: Order Comment: Marcela keith Type: BLOOD SPECIMEN Ordering Facility: [facility] Address: [address] [place] [address] Performed By: #### L [id number] #### [facility] CLIA [id number] [address] [place] [address] [facility] PT panel Coag (PPP)on 2022 INR Coag (PPP) [Relative time] 1.0 {INR} Normal 0.9-1.3 [facility] Comment on above: Order Comment: Marcela keith Type: BLOOD SPECIMEN Ordering Facility: [facility] Address: [place] [address] Result Comment: Darby min K Antagonist (VKA) Therapeutic Range: INR 2 to 3 (Target INR of 2.5) Note: For patients treated with VKA drugs, such as warfarin, the [employer] 2012 Guideline recommends [...] Chest 2012, 141:7S-47S Buzz RA et al. [facility] 2017, 70: 252-289 Performed By: #### 3 4528-0, 83189-9 #### Mamina Shkola [facility] CLIA [id number] [address] [place] [address] [place] [facility] PT Coag (PPP) [Time] 10.4 s Normal <13.1 [facility] Comment on above: Order Comment: Speckain keith Type: BLOOD SPECIMEN Ordering Facility: [facility] Address: [place] [address] Performed By: #### 3 4528-0, 38971-5 #### MojeekDUY [facility] CLIA [id number] [address] [place] [address] [facility] [place] XR CHEST 1V FRONTALon 2022 XR CHEST [...] Other: . IMPRESSION: No acute radiographic abnormality. Instrumentation Fitter: PSCB Transcribe Date/Time: May 12 2023 3:40P Dictated by : CHERI JAVIER MD This examination was interpreted and the report reviewed and electronically signed by: CHERI JAVIER MD on May 12 2023 3:40PM EST [id number] Normal [facility] aPTT PPPon 05-12-2023 aPTT Coag (PPP) [Time] 25.6 s Normal 23.0-32.4 [facility] Comment on above: Order Comment: Speci men Type: BLOOD SPECIMEN Ordering Facility: [facility] Address: [address] [place] [address] Performed By: #### 3 4528-0, 66086-9 #### [facility] CLIA [id number] [address] [place] [address] OF [facility] CT Neck with Contraston 09-15 CT Neck W contrast IV Please click on th e link to view the study images Normal [facility] Work Phone: CT Neck W contrast IV Normal [facility] Work Phone: Established Visit (Otolaryng ology)on 10-11-2022 [...] Oct 11 2022 3:20PM EST (Author) Normal [employer] Tobacco Screening.on 023 Fall risk assessment a) No falls within the last year [facility] Work Phone: Tobacco use status [facility] b) No [facility] Work Phone: No Panel Informationon 10-03 [facility] Work Phone: [facility] Surgical Pathology Depar tmenton 10-03-2022 [facility] Surgical Pathology Department Name MEDINA MCKOY Pathologist: ROSS RUBIO III, D.O. Date of Procedure: 10/03/2022 Date Received: 10/03/2022 Date Reported 10/04/2022 Submitting Physician: DARCI SHABAZZ MD Location: [facility] Other External # FINAL DIAGNOSIS [facility] [place], [place]: [id number] (10/30/20): 1. RIGHT NECK MASS, FINE NEEDLE [...] or group listed as making the Final Interpretation/Diagnos is certifies that they have reviewed this case. Clinical History: RIGHT NECK MASS Specimens Submitted As: A: [facility] C21-170 (10/30/20) Slide/Block Description RECIEVED FROM [facility], [address] [facility] [address] FIFTEEN (15) MICOSCOPIC SLIDES LABELED C21-170 Keep Slides: N Slides Returned: N Personal Consult: N Normal [facility] Comment on above: Performed By: #### U [facility] #### [facility] Surgical Pathology Department [address] [address] [facility] [address] Blood Urea Nitrogen, Serumon 09-27-2022 Urea nitrogen [Mass/Vol] 19 mg/dL 6 - 23 [facility]tolaryng [facility] Work Phone: CREATININEon 09-27-2022 Creatinine [Mass/Vol] 0.95 mg/dL Normal 0.50 - 1.30 [facility] Comment on above: Performed By: #### C REAT #### [address] [id number] GFR/1.73 sq M.predicted among non-blacks MDRD (S/P/Bld) [Vol rate/Area] 85 mL/min/{1.73_m2} Normal >90 [facility] Comment on above: Result Comment: CALC ULATIONS OF ESTIMATED GFR ARE PERFORMED USING THE 2020 CKD-EPI STUDY REFIT EQUATION WITHOUT THE RACE VARIABLE FOR THE IDMS-TRACEABLE CREATININE METHODS. https://jasn.asnjournals.org/content/earlyASN.2020 547285 Performed By: #### C REAT #### [address] [id number] Creatinine, Serumon 09-28-19 Creatinine [Mass/Vol] 0.95 mg/dL See Below [facility] Work Phone: Comment on above: Reference Range: 0.5 0 - 1.30 Creatinine, Serum 85 {mL/min/1.73m2} >90 [facility] Work Phone: Comment on above: CALCULATIONS OF DEJAH MATED GFR ARE PERFORMED USING THE 2020 CKD-EPI STUDY REFIT EQUATION WITHOUT THE RACE VARIABLE FOR THE IDMS-TRACEABLE CREATININE METHODS.https://jasn.asnjournals.org/content/early ASN.7993743944 Initial Visit (Otolaryngolog y)on 09-27-2022 Initial Visit [...]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 A1Con 10-21-2020 Glucose [Mass/Vol] 143 mg/dL Normal [facility] Comment on above: Performed By: #### H BA1E #### [facility] [id number] [place] [address] HbA1c (Bld) [Mass fraction] 6.6 % Normal [facility] Comment on above: Result Comment: Diag nosis of Diabetes-Adults Non-Diabetic: < or = 5.6% Increased risk for developing diabetes: 5.7-6.4% Diagnostic of diabetes: > or = 6.5% . Monitoring of Diabetes Age (y) Therapeutic Goal (%) Adults: >18 <7.0 Pediatrics: 13-18 <7.5 7-12 <8.0 0- 6 7.5-8.5 [employer]. Diabetes Care 33(S1), Jul 2009. Performed By: #### H BA1E #### [facility] [address] [place] [address] ALBUMIN, URINE SPOTon 2020 ALBUMIN,URINE 64.3 mg/L Normal Not Established [facility] Comment on above: Performed By: #### A LBSP #### [address] [id number] ALBUMIN/CREAT RATIO 69.1 ug/mg improvement manager High 0.0 - 30.0 U [facility] Comment on above: Performed By: #### A LBSP #### [address] [id number] CBC AND DIFFERENTIALon 10-20 % AUTOMATED IMMATURE GRAN 0.7 % Normal 0.0 - 0.9 [facility] Comment on above: Result Comment: Christin ture Granulocyte Count (IG) includes promyelocytes, myelocytes and metamyelocytes but does not include bands. Percent differential counts (%) should be interpreted in the context of the absolute cell counts (cells/L). Performed By: #### C BCDF #### [address] [id number] Basophils (Bld) [#/Vol] 0.06 10*3/uL Normal 0.00 - 0.1 0 [facility] Comment on above: Performed By: #### C BCDF #### [address] [id number] Basophils/100 WBC (Bld) 0.6 % Normal 0.0 - 2.0 [facility] Comment on above: Performed By: #### C BCDF #### [address] [id number] Eosinophils (Bld) [#/Vol] 0.13 10*3/uL Normal 0.00 - 0.70 [facility] Comment on above: Performed By: #### C BCDF #### [address] [id number] Eosinophils/100 WBC (Bld) 1.2 % Normal 0.0 - 6.0 [facility] Comment on above: Performed By: #### C BCDF #### [address] [id number] Erythrocyte distribution width (RBC) [Ratio] 13.2 % Normal 11.5 - 14.5 [facility] Comment on above: Performed By: #### C BCDF #### [address] [id number] Hematocrit (Bld) [Volume fraction] 51.9 % Normal 41.0 - 52.0 [facility] Comment on above: Performed By: #### C BCDF #### [address] [id number] Hemoglobin (Bld) [Mass/Vol] 16.6 g/dL Normal 13.5 - 17.5 [facility] Comment on above: Performed By: #### C BCDF #### [address] [id number] Lymphocytes (Bld) [#/Vol] 1.15 10*3/uL Low 1.20 - 4.80 [facility] Comment on above: Performed By: #### C BCDF #### [address] [id number] Lymphocytes/100 WBC (Bld) 10.9 % Normal 13.0 - 44.0 [facility] Comment on above: Performed By: #### C BCDF #### [address] [id number] MCHC (RBC) [Mass/Vol] 32.0 g/dL Normal 32.0 - 36.0 [facility] Comment on above: Performed By: #### C BCDF #### [address] [id number] MCV (RBC) [Entitic vol] 92 fL Normal 80 - 100 [facility] Comment on above: Performed By: #### C BCDF #### [address] [id number] Monocytes (Bld) [#/Vol] 0.72 10*3/uL Normal 0.10 - 1.0 0 [facility] Comment on above: Performed By: #### C BCDF #### [address] [id number] Monocytes/100 WBC (Bld) 6.8 % Normal 2.0 - 10.0 [facility] Comment on above: Performed By: #### C BCDF #### [address] [id number] Neutrophils (Bld) [#/Vol] 8.41 10*3/uL High 1.20 - 7.70 [facility] Comment on above: Performed By: #### C BCDF #### [address] [id number] Neutrophils/100 WBC (Bld) 79.8 % Normal 40.0 - 80.0 [facility] Comment on above: Performed By: #### C BCDF #### [address] [id number] Platelets (Bld) [#/Vol] 191 10*3/uL Normal 150 - 450 [facility] Comment on above: Performed By: #### C BCDF #### [address] [id number] RBC 5.64 x10E12/L Normal 4.50 - 5.90 [facility] Comment on above: Performed By: #### C BCDF #### [address] [id number] WBC (Bld) [#/Vol] 10.5 10*3/uL Normal 4.4 - 11.3 [facility] Comment on above: Performed By: #### C BCDF #### [address] [id number] CHEST 2 VIEW PA AND LATon CHEST 2 VIEW PA AND LAT Patient Name: MEDINA MCKOY STUDY: TH CHEST 2 VIEW PA AND LAT; 10/20/2020 1:51 pm INDICATION: E11.9 N40.0 D51.9 I10 R07.9 E55.9. COMPARISON: No priors ACCESSION NUMBER(S): [id number] ORDERING CLINICIAN: JOLENE ALVARENGA FINDINGS: Left-sided scarring/atelectasis at the base. Pleural thickening in the left mid lung as well. The right lung is clear. There is no focal lung consolidation or effusion. There is no edema. The cardiac silhouette is within normal limits for size. IMPRESSION: Left lung pleural thickening/scarring. Electronically signed by: JOVANNY CERON MD Normal [facility] COMPREHENSIVE PANELon 2020 Albumin [Mass/Vol] 4.4 g/dL Normal 3.4 - 5.0 [facility] Comment on above: Performed By: #### V TDOH #### [address] [id number] ALP [Catalytic activity/Vol] 125 U/L Normal 33 - 136 [facility] Comment on above: Performed By: #### V TDOH #### [address] [id number] ALT [Catalytic activity/Vol] 26 U/L Normal 10 - 52 [facility] Comment on above: Result Comment: Elizabeth ents treated with Sulfasalazine may generate falsely decreased results for ALT. Performed By: #### V TDOH #### [address] [id number] Anion gap [Moles/Vol] 15 mmol/L Normal 10 - 20 [facility] Comment on above: Performed By: #### V TDOH #### [address] [id number] AST [Catalytic activity/Vol] 20 U/L Normal 9 - 39 [facility] Comment on above: Performed By: #### V TDOH #### [address] [id number] Bilirubin [Mass/Vol] 0.5 mg/dL Normal 0.0 - 1.2 [facility] Comment on above: Performed By: #### V TDOH #### [address] [id number] Calcium [Mass/Vol] 9.8 mg/dL Normal 8.6 - 10.3 [facility] Comment on above: Performed By: #### V TDOH #### [address] [id number] Chloride [Moles/Vol] 101 mmol/L Normal 98 - 107 [facility] Comment on above: Performed By: #### V TDOH #### [address] [id number] Creatinine [Mass/Vol] 1.10 mg/dL Normal 0.50 - 1.30 [facility] Comment on above: Performed By: #### V TDOH #### [address] [id number] GFR- AM. >60 Normal >60 [facility] Comment on above: Result Comment: CALC ULATIONS OF ESTIMATED GFR ARE PERFORMED USING THE MDRD STUDY EQUATION FOR THE IDMS-TRACEABLE CREATININE METHODS. CLIN CHEM 2007;53:766-72 Performed By: #### V TDOH #### [address] [id number] GFR-NON AM. >60 Normal >60 [place] [facility] Comment on above: Performed By: #### V TDOH #### [address] [id number] Glucose [Mass/Vol] 112 mg/dL High 74 - 99 [facility] Comment on above: Performed By: #### V TDOH #### [address] [id number] HCO3 (Bld) [Moles/Vol] 28 mmol/L Normal 21 - 32 [facility] Comment on above: Performed By: #### V TDOH #### [address] [id number] Potassium [Moles/Vol] 3.9 mmol/L Normal 3.5 - 5.3 [facility] Comment on above: Performed By: #### V TDOH #### [address] [id number] Protein [Mass/Vol] 7.6 g/dL Normal 6.4 - 8.2 [facility] Comment on above: Performed By: #### V TDOH #### [address] [id number] Sodium [Moles/Vol] 140 mmol/L Normal 136 - 145 [facility] Comment on above: Performed By: #### V TDOH #### [address] [id number] Urea nitrogen [Mass/Vol] 16 mg/dL Normal 6 - 23 [facility] Comment on above: Performed By: #### V TDOH #### [address] [id number] LIPID PANEL (CORONARY RISK 2 )on 10-20-2020 Cholesterol [Mass/Vol] 180 mg/dL Normal 0 - 199 [facility] Comment on above: Result Comment: [...] dosing. Performed By: #### L IPID #### [address] [id number] Cholesterol in HDL [Mass/Vol] 36.0 mg/dL Abnormal [facility] Comment on above: Result Comment: . AGE VERY LOW LOW NORMAL HIGH 0-19 Y < 35 < 40 40-45 ---- 20-24 Y ---- < 40 >45 ---- >24 Y ---- < 40 40-60 >60 . Performed By: #### L IPID #### [address] [id number] Cholesterol in LDL [Mass/Vol] 116 mg/dL High 0 - 99 [facility] Comment on above: Result Comment: . NEAR BORD AGE DESIRABLE OPTIMAL HIGH HIGH VERY HIGH 0-19 Y 0 - 109 --- 110-129 >/= 130 ---- 20-24 Y 0 - 119 --- 120-159 >/= 160 ---- >24 Y 0 - 99 100-129 130-159 160-189 >/=190 . Performed By: #### L IPID #### [address] [id number] Cholesterol in VLDL [Mass/Vol] 28 mg/dL Normal 0 - 40 [facility] Comment on above: Performed By: #### L IPID #### [address] [id number] Cholesterol.total/German[place] sterol in HDL [Mass ratio] 5.0 {ratio} Normal [facility] Comment on above: Result Comment: REF VALUES DESIRABLE < 3.4 HIGH RISK > 5.0 Performed By: #### L IPID #### [address] [id number] Triglyceride [Mass/Vol] 138 mg/dL Normal 0 - 149 [facility] Comment on above: Result Comment: . AGE [...] dosing. Performed By: #### L IPID #### [address] [id number] MAGNESIUMon 10-20-2020 Magnesium [Mass/Vol] 2.00 mg/dL Normal 1.60 - 2.40 [facility] Comment on above: Performed By: #### T PS2 #### [address] [id number] PROSTATE SPECIFIC AGon 10-20 Prostate specific Ag [Mass/Vol] 1.80 ng/mL Normal 0.00 - 4.00 [facility] Comment on above: Result Comment: The FDA requires that the method used for PSA assay be reported to the physician. Values obtained with different assay methods must not be used interchangeably. This test was performed at [facility] using the goTenna PSA assay is a two-site immunoenzymatic sandwich assay. The assay is approved for measurement of prostate-specific antigen (PSA)in serum and may be used in conjunction with a digital rectal examination in men 50 years and older as an aid in detection of prostate cancer. 7-Rkryv-rajqcpkam inhibitors (e.g. Proscar, Finasteride, Avodart, Dutasteride and Nuha) for the treatment of BPH have been shown to lower PSA levels by an average of 50% after 6 months of treatment. Performed By: #### V TDOH #### [address] [id number] TOTAL PROTEIN, URINE SPOTon 10-20-2020 CREATININE,URINE 93.0 mg/dL Normal 20.0 - 370.0 [facility] Comment on above: Performed By: #### T PS2 #### [address] [id number] Performed By: #### A LBSP #### [address] [id number] T. PROTEIN/CREAT RATIO 0.18 mg/mg Creat High 0.00 - 0.17 [facility] Comment on above: Performed By: #### T PS2 #### [address] [id number] TOTAL PROT,URINE SPOT 17 mg/dL Normal 5 - 25 [facility] Comment on above: Performed By: #### T PS2 #### [address] [id number] TSHon 10-20-2020 TSH Qn 2.31 m[IU]/L Normal 0.44 - 3.98 [facility] Comment on above: Result Comment: TSH testing is performed using different testing methodology at [facility] than at [facility]. Direct result comparisons should only be made within the same method. Performed By: #### V TDOH #### [address] [id number] URINALYSISon 10-20-2020 Appearance (U) CLEAR Normal CLEAR [facility] Comment on above: Performed By: #### U A #### [address] [id number] Bilirubin Ql (U) Negative Normal NEGATIVE [facility] Comment on above: Performed By: #### U A #### [address] [id number] Color (U) YELLOW Normal STRAW,YELLOW [facility] Comment on above: Performed By: #### U A #### [address] [id number] Glucose Ql (U) Negative Normal NEGATIVE [facility] Comment on above: Performed By: #### U A #### [address] [id number] Hemoglobin Ql (U) Negative Normal NEGATIVE [facility] Comment on above: Performed By: #### U A #### [address] [id number] Ketones Ql (U) Negative Normal NEGATIVE [facility] Comment on above: Performed By: #### U A #### [address] [id number] Leukocyte esterase Test strip Ql (U) Negative Normal NEGATIVE [facility] Comment on above: Performed By: #### U A #### [address] [id number] Nitrite Ql (U) Negative Normal NEGATIVE [facility] Comment on above: Performed By: #### U A #### [address] [id number] pH (U) 6.0 [pH] Normal 5.0 - 8.0 [facility] Comment on above: Performed By: #### U A #### [address] [id number] Protein Ql (U) Negative Normal NEGATIVE [facility] Comment on above: Performed By: #### U A #### [address] [id number] Specific gravity (U) [Rel density] 1.013 Normal 1.005 - 1.035 [facility] Comment on above: Performed By: #### U A #### [address] [id number] Urobilinogen (U) [Mass/Vol] mg/dL Normal 0.0 - 1.9 [facility] Comment on above: Performed By: #### U A #### [address] [id number] VITAMIN B12on 10-20-2020 Cobalamin (Vitamin B12) [Mass/Vol] 518 pg/mL Normal 211 - 911 [facility] Comment on above: Performed By: #### V TB12 #### [address] [id number] VITAMIN D, 25-HYDROXYon 04-0 VITAMIN D, 25-HYDROXY 19 ng/mL Abnormal [facility] Comment on above: Result Comment: . DEFICIENCY: < 20 NG/ML INSUFFICIENCY: 20-29 NG/ML SUFFICIENCY: 30-100 NG/ML THIS ASSAY ACCURATELY QUANTIFIES THE SUM OF VITAMIN D3, 25-HYDROXY AND VIT D2,25-HYDROXY. Performed By: #### V TDOH #### [address] [id number] Vital Signs Date Time Vital Sign Value Performing Clinician Shae garnica 03-13-2024 11:25-0400 Body height 171 cm Jean-Claude Ceja MD Work Phone: [facility] 03-13-2024 11:25-0400 Body mass index (BMI) [Ratio] 25.52 kg/m2 Jean-Claude Ceja MD Work Phone: [facility] 03-13-2024 11:25-0400 Body temperature 99.1 [degF] Jean-Claude Ceja MD Work Phone: [facility] 03-13-2024 11:25-0400 Body weight 74.62 kg Jean-Claude Ceja MD Work Phone: [facility] 03-13-2024 11:25-0400 Diastolic blood pressure 95 mm[Hg] Jean-Claude Ceja MD Work Phone: [facility] 03-13-2024 11:25-0400 Heart rate 81 /min Jean-Claude Ceja MD Work Phone: [facility] 03-13-2024 11:25-0400 SaO2% (BldA) [Mass fraction] 98 % Jean-Claude Ceja MD Work Phone: [facility] 03-13-2024 11:25-0400 Systolic blood pressure 165 mm[Hg] Jean-Claude Ceja MD Work Phone: [facility] 05-10-2023 15:04-0400 Respiratory rate 16 /min [facility] 05-10-2023 12:01-0400 Body height 170.18 cm [facility] 05-10-2023 12:01-0400 Body mass index (BMI) [Ratio] 25 kg/m2 [facility] 05-10-2023 12:01-0400 Body temperature 97.9 [degF] [facility] 05-10-2023 12:01-0400 Body weight 72.57 kg [facility] 05-10-2023 12:01-0400 Diastolic blood pressure 106 mm[Hg] [facility] 05-10-2023 12:01-0400 Heart rate 98 /min [facility] 05-10-2023 12:01-0400 SaO2% (BldA) [Mass fraction] 100 % [facility] 05-10-2023 12:01-0400 Systolic blood pressure 201 mm[Hg] [facility] 10-11-2022 14:55-0400 Body height 170.18 cm Jolene H Abumeri Work Phone: [facility] [place] Work Phone: 10-11-2022 14:55-0400 Body mass index (BMI) [Ratio] 25.69 kg/m2 Jolene H Abumeri Work Phone: [facility] [place] Work Phone: 10-11-2022 14:55-0400 Body surface area Derived from formula 1.86 m2 Jolene H Abumeri Work Phone: [facility] [place] Work Phone: 10-11-2022 14:55-0400 Body weight 74.39 kg Jolene H Abumeri Work Phone: [facility] [place] Work Phone: 09-27-2022 14:13-0400 Body height 170.18 cm Jolene H Abumeri Work Phone: [facility] [place] Work Phone: 09-27-2022 14:13-0400 Body mass index (BMI) [Ratio] 25.57 kg/m2 Jolene H Abumeri Work Phone: [facility] [place] Work Phone: 09-27-2022 14:13-0400 Body surface area Derived from formula 1.85 m2 Jolene H Abumeri Work Phone: [facility] [place] Work Phone: 09-27-2022 14: Body weight 74.05 kg Jolene Alvarenga Work Phone: -[facility] [place] Work Phone: Encounters Encounter Date Encounter Type Care Provider Facility Start: 04-30-2025 ambulatory Chalon Gabi Facility:[facility] Start: 04-28-2025 ambulatory Chalon Gabi Facility:[facility] Start: 02-28-2025 End: 02-28-2025 ambulatory Dawna Greenberg MD Work Phone: -Laboratory Start: 02-28-2025 End: 02-28-[address] Dawna Greenberg MD -Laboratory Work Phone: Start: 02-28-2025 End: 02-28-2025 ambulatory Chalon Gabi Facility:[facility] Start: 01-08-2025 ambulatory Chalon Gabi Facility:[facility] Start: 10-29-2024 End: 10-29-2024 ambulatory Chalon Gabi Facility:[facility] Start: 08-21-2024 ambulatory Chalon Gabi Facility:[facility] Start: 08-12-2024 End: 08-12-2024 ambulatory Maile MAHER Facility:[facility] Start: 05-22-2024 End: 05-22-2024 ambulatory Chalon Gabi Facility:[facility] Start: 05-20-2024 ambulatory Chalon Gabi Facility:[facility] Start: 05-10-2024 ambulatory Jimi Chavez Facility :[facility] Start: 05-10-2024 End: 05-10-2024 ambulatory Jimi Chavez Facility:[facility] Start: 03-13-2024 End: 03-13-2024 ambulatory Jean-Claude Ceja MD Work Phone: Hematology/Oncology Comment on above: Monoclonal gammopath y (Primary Dx) Start: 03-13-2024 End: 03-13-2024 Patient encounter procedure Jean-Claude Ceja MD Work Phone: Hematology/Oncology Start: 11-02-2023 End: 11-02-2023 ambulatory [facility] Work Phone: Start: 11-02-2023 End: 11-02-2023 [facility] Start: 09-28-2023 End: 09-28-[address] Matt Fisher Work Phone: [facility] Work Phone: Start: 09-28-2023 End: 09-28-[address] [facility] Start: 09-13-2023 End: 09-13-[address] Matt Fisher Work Phone: [facility] Work Phone: Start: 09-13-2023 End: 09-13-[address] [facility] Start: 06-23-2023 Non-patient / Non-visit Dr. Isaias Davis Work Phone: [facility] Start: 06-23-2023 End: 06-23-[address] Isaias Davis Work Phone: [facility] Work Phone: Start: 06-23-2023 End: 06-23-2023 Patient encounter procedure [facility] Work Phone: Start: 06-21-2023 End: 06-21-[address] Isaias Davis Work Phone: [facility] Work Phone: Start: 06-21-2023 End: 06-21-2023 [facility] [place] Work Phone: Start: 06-19-2023 End: 06-19-2023 ambulatory [facility] Work Phone: Start: 06-19-2023 End: 06-19-2023 Patient encounter procedure [facility] Work Phone: Start: 06-07-2023 End: 06-07-2023 ambulatory [facility] Work Phone: Start: 06-07-2023 End: 06-07-2023 Patient encounter procedure [facility], [place] Work Phone: Start: 05-17-2023 Telephone encounter Oj Foss MD Work Phone: [facility] Comment on above: Results Start: 05-13-2023 Evaluation and management of inpatient [facility] Facility:[facility] Start: 05-12-2023 Emergency department patient visit [facility] Facility:[facility] Start: 05-10-2023 End: 05-10-2023 Emergency department patient visit [facility] Work Phone: Start: 10-19-2022 Telephone encounter Jolene Díaz Work Phone: AA-Idfryqxtwynyre-Ogfbh ban Work Phone: Start: 10-17-2022 ambulatory Facility:[facility] Start: 10-12-2022 AUDIT Joleneroberto Gossi Work Phone: EG-Hmtfvjstbamvnl-Pamyu ban Work Phone: Start: 10-11-2022 Office outpatient visit 25 minutes Jolene Rona Abelsai Work Phone: RR-Dwliznxtkykmrx-Cmbaw cherry Work Phone: Start: 10-11-[address] Darci Kaufman lity:[phone] Start: 10-11-[address] Darci Kaufman lity:[id number] Start: 10-04-2022 Chart Update Jolene Alvarenga Work Phone: QF-Pvglrnlktfsjcg-Cknpb cherry Work Phone: Start: 10-03-[address] Darci Kaufman lity:[facility] Start: 09-28-2022 Chart Update Jolene Gossi Work Phone: TW-Mohsvgqggqluqf-Raqmc cherry Work Phone: Start: 09-27-[address] Darci Kaufman lity:[phone] Start: 05-26-2022 Telephone encounter Jolene Díaz Work Phone: RQ-Iyatorrkrlsmbb-Mcrzp an Work Phone: Start: 04-21-2022 End: 04-21-2022 ambulatory [facility] Work Phone: Start: 04-21-2022 End: 04-21-2022 Patient encounter procedure [facility] Start: 04-19-2022 End: 04-19-2022 ambulatory [facility] Work Phone: Start: 04-19-2022 End: 04-19-2022 Patient encounter procedure [facility] Patient encounter status Jolene Alvarenga Work Phone: ZQ-Xybhovmnmzmtmp-Ehslt ban Work Phone: Procedures Date Procedure Procedure Detail Performing Clinician Start: 05-10-2023 X-ray of lumbar spine, two or three views Start: 04-19-2022 Plain chest X-ray Start: 10-20-2020 Lipid 1996 panel - Serum or Plasma Oj Foss MD Work Phone: Appendectomy Jolene H Abumeri Work Phone: Hernia repair Jolene H Abumeri Work Phone: History of appendectomy Hx of appendectom y History of cholecystectomy History of cholecystectomy Operation on gallbladder Hernandez a H Abumeri Work Phone: Tonsillectomy Jolene H Abumeri Work Phone: Plan of Treatment Date Care Activity Detail Author Start: 03-13-2027 Diabetes Screening Diabetes Screenin jewel [facility] Start: 05-13-2026 Diabetes Screening Diabetes Screenin jewel [facility] Start: 10-20-2025 Lipid panel Lipid Screening [facility] Start: 09-12-2024 End: 09-12-2024 ambulatory 09/12/2024 10:00 AM EST Visit (SP) Office Hematology/Oncology [address] [place] [address] [place] [address] [place] [address] 6 MO OV/LABS 09/05* Hematology/Oncology Comment on above: 6 MO OV/LABS 09/05* Start: 09-05-2024 End: 09-05-2024 ambulatory 09/05/2024 11:00 AM EST Results Only [facility] [place] [facility] [address] [place] [address] MGUS* [facility] Comment on above: MGUS* Start: 03-28-2024 End: 03-28-2024 Patient encounter procedure Cat Scan Comment on above: Monoclonal gammopath y [D47.2] Start: 03-17-2024 Influenza vaccination Influenza Vacc ine (#1) [facility] Start: 03-13-2024 End: 06-12-2024 MONOCLONAL PROTEIN, SERUM (BLOOD) [facility] Comment on above: Expected: 03/13/2024 , Expires: 06/12/2024 Start: 03-13-2024 End: 06-12-2024 PROTEIN ELECTROPHORESIS SERUM W/INTERP [facility] Work Phone: Comment on above: Expected: 03/13/2024 , Expires: 06/12/2024 Start: 07-17-2023 Advance Directive Discussion Advance Directive Discussion [facility] Start: 05-10-2023 [facility] Start: 05-10-2023 Referral to service [facility] Start: 03-17-2023 Influenza vaccination Influenza Vacc ine (#1) [facility] Start: 11-08-2022 POV, Provider: Darci Shabazz, Status: Pen, Time: 2:00 PM POV, Provider: Darci Shabazz, Status: Pen, Time: 2:00 PM YD-Rdcybyqnxjzvsz-Wq stlake Work Phone: Start: 10-27-2022 [facility] Provider: Darci Shabazz, Status: Pen, Time: 9:00 AM [facility] Provider: Darci Shabazz, Status: Pen, Time: 9:00 AM SH-Hrgzsyywlxekth-Ym burban Work Phone: Start: 10-11-2022 FUV, Provider: Darci Shabazz, Status: Pen, Time: 2:30 PM FUV, Provider: Darci Shabazz, Status: Pen, Time: 2:30 PM FP-Vdyctjjsxsrhpp-Wz stlake Work Phone: Start: 07-17-2022 Advance Directive Discussion Advance Directive Discussion [facility] Start: 07-17-2022 Depression Assessment Depression Ass essment [facility] Start: 09-15-2015 Pneumococcal Vaccine : 65+ (1 of 1 - PCV) Pneumococcal Vaccine: 65+ (1 of 1 - PCV) [facility] Start: 2010 RSV Vaccine (1 - 1-d ose 60+ series) RSV Vaccine (1 - 1-dose 60+ series) [facility] Start: 2000 Shingrix Vaccine (1 of 2) Armstrong grix Vaccine (1 of 2) [facility] Start: 09-15-1995 Screening for malign ant neoplasm of colon [facility] Start: 1969 Shingrix Vaccine (1 of 2) Armstrong grix Vaccine (1 of 2) [facility] Start: 1969 Urine microalbumin profile DTaP,Tdap,Td Vaccine (1 - Tdap) [facility] Start: 1968 Anxiety Screening Anxiety Screening [facility] Start: 1968 Depression Screening Depression Scre ening [facility] Start: 1968 Hepatitis C screening Hepatitis C Sc julius [facility] Start: 1956 Pneumococcal Vaccine : 65+ (1 of 2 - PCV) Pneumococcal Vaccine: 65+ (1 of 2 - PCV) [facility] Start: 09-15-1955 Covid-19 Vaccine (#1) Covid-19 Vacci ne (#1) [facility] Start: [birth year]-17-1951 Covid-19 Vaccine (#1) Covid-19 Vacci ne (#1) [facility] Start: 1950 Abdominal aortic ane urysm screening Abdominal Aortic Aneurysm Screening [facility] End: 04-12-2025 CT Abdomen and Pelvis W contrast IV CT ABD/PEL W IVCON Radiology Routine Monoclonal gammopathy 1 Occurrences starting 03/13/2024 until 04/12/2025 [facility] Comment on above: 1 Occurrences starti ng 03/13/2024 until 04/12/2025 End: 04-12-2025 CT Neck W contrast IV CT NECK SOFT TISSUE W IVCON Radiology Routine Monoclonal gammopathy 1 Occurrences starting 03/13/2024 until 04/12/2025 [facility] Comment on above: 1 Occurrences starti ng 03/13/2024 until 04/12/2025 Patient Education ED Back Sprain/Strain W [facility] Work Phone: Patient referral [facility] Work Phone: Payers Date Payer Category Payer Self-pay [id number] 2018 Unknown [id number] 2016 Private Health Insurance [facility] [employer] [id number] 2016-Present [phone] [address] [place] [address] PPO [id number] 2011 Medicare MEDICARE MEDICAR E A AND B [id number] 2011-Present [phone] [address] [address] [place] [address] Medicare [id number] 2011 Medicare [id number] 1950 Unknown [id number] [id number]. 594 1950 Unknown [id number] 2.16.840.1.545262.3.579.2. 356 1950 Unknown [id number] 2.16.840.1.850587.3.579.2. 356 1950 Unknown [id number] 2.16.840.1.936075.3.579.2. 356 1950 Unknown [id number] 2.840.1.493136.3.579.2. 356 Medicaid [id number] Unknown [id number] Unknown Unknown [id number] 2.840.1.393095.3.579.2. 462 Unknown [id number] 2.840.1.617210.3.579.2. 462 Unknown [id number] 2.840.1.276629.3.579.2. 462 Unknown [id number] 2.840.1.206647.3.579.2. 462 Unknown [id number] 2.840.1.753966.3.579.2. 462 Unknown [id number] 2.16840.1.147163.3.579.2. 462 Unknown [id number] 2.840.1.959557.3.579.2. 462 Unknown [id number] 2.840.1.660652.3.579.2. 462 Unknown [id number] 2.840.1.670363.3.579.2. 462 Unknown [id number] 2.840.1.528635.3.579.2. 462 Unknown [id number] 2.840.1.239804.3.579.2. 462 Social History Date Type Detail Facility Start: 03-05-2021 End: 05-10-2023 Tobacco smoking status ORIS Unknown if ever smoked [facility] Start: 02-11-2020 None [facility] Start: 02-11-2020 Alone [facility] Start: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
--- NOTE | 2025-05-08 06:20 | RAD_ITS ---
PROCEDURE: CHEST 1 VIEW (PORTABLE) 05/08/2025 REASON FOR EXAM: DYSPNEA TECHNIQUE: Frontal view of the chest. COMPARISON: April 28, 2024 FINDINGS: There is cardiomegaly with central vascular congestion. There is a moderate left pleural effusion with a component of consolidation in the left mid and lower lung, not excluded. There is no pneumothorax. Radiopaque densities are noted at the left apex, unchanged. There is no visible acute bony abnormality. Aortic calcifications are visible. RAD/Chest 1 View (Portable) IMPRESSION: There is cardiomegaly with central vascular congestion. There is a moderate left pleural effusion with a component of consolidation in the left mid and lower lung, not excluded. Reading Location: [facility]
[2025-05-08 06:29] LABS: Hematocrit 41.2 % (40-54); Hemoglobin 13.5 g/dL (13.0-16.5); Immature Granulocytes Count 0.060 X10^3/uL (0.0-0.0); Mean Corp Hgb Conc 32.8 g/dL (32-36); Mean Corpuscular Volume 93.2 fL (80-94); Mean Platelet Vol. 11.7 fl (6.2-12.0); NRBC Flagged by Analyzer 0 % (0-5); Platelet Count 237 K/mm3 (150-450); RBC Distribution Width CV 14.9 % (11.6-14.6); RBC Distribution Width SD 50.6 fl (35.1-43.9); Red Blood Count 4.42 M/mm3 (4.6-6.2); White Blood Count 11.2 K/mm3 (4.4-11.0)
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
[2025-05-08 06:53] LABS: Anion Gap 14 (5-15); BUN 23 mg/dL (4-19); BUN/Creat Ratio 19.7 RATIO (10-20); Calcium,Total 9.4 mg/dL (7.6-11.0); Carbon Dioxide 22.5 mmol/L (21.0-32.0); Chloride 103 mmol/L (98-108); Estimated Creatinine Clearance 53.69 ml/min (50-250); Glucose 239 mg/dL (70-99); Magnesium 2.0 mg/dL (1.5-2.2); Potassium 3.4 mmol/L (3.3-5.1); Pro- Brain NATRIURETIC PEPTIDE 6614 pg/mL (<=900)
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
--- NOTE | 2025-05-08 07:54 | PCA ---
07:34- THIS US [facility]- TALKED TO [facility] AND FAXED PAPERWORK REQUESTED TO [phone]
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
[2025-05-08 09:04] LABS: Troponin T High Sensitivity 24 ng/L (<=22)
--- NOTE | 2025-05-08 09:12 | ECHOLC_ITS ---
Reason For Study Reason For Study: Pulmonary Edema Procedure This was a limited 2D transthoracic echocardiogram. Contrast injection was performed. Exam performed portable in ICU/CCU. Left Ventricle Normal LV size. Mild concentric left ventricular hypertrophy. Global hypokinesis. Anterior, apical and anterior septal severe hypokinesis to akinesis. Estimated LVEF 25-30%. Stage III diastolic dysfunction. Right Ventricle Normal right ventricle. Atria The left atrium is severely enlarged. The right atrium is mildly enlarged. Mitral Valve Moderate (2+) mitral valve insufficiency. Tricuspid Valve Mild (1+) tricuspid valve insufficiency. Right ventricular systolic pressure estimated to be 68 mmHg. Aortic Valve Trisinus/trileaflet aortic valve. Moderate (2+) aortic valve insufficiency. Pulmonic Valve The pulmonic valve is not well visualized. Pericardium/Pleural No pericardial effusion. Medication Diluted definity 1ml given slow IV push to enhance endocardial definition. MMode/2D Measurements & Calculations LVIDd: 5.0 cm IVSd: 1.4 cm LA dimension: 4.7 cm LVIDs: 4.2 cm LVPWd: 1.1 cm RVDd: 3.6 cm FS: 14.6 % LAV(MOD-bp): 71.9 ml LVAd ap4: 41.1 cm2 SV(MOD-sp4): 44.5 ml LAV(MOD-bp) Indexed: 38.6 ml/m2 LVLd ap4: 8.5 cm SI(MOD-sp4): 23.9 ml/m2 LAV(MOD-sp2): 73.8 ml EDV(MOD-sp4): 162.6 ml LAV(MOD-sp4): 68.4 ml EDV(sp4-el): 169.0 ml LVAs ap4: 34.5 cm2 LVLs ap4: 8.3 cm ESV(MOD-sp4): 118.1 ml ESV(sp4-el): 121.6 ml EF(MOD-sp4): 27.4 % EF(sp4-el): 28.0 % SV(sp4-el): 47.4 ml LA A4 area: 22.0 cm2 RA A4 area: 14.7 cm2 Time Measurements MV dec time: 0.12 sec Doppler Measurements & Calculations MV E max ailyn: 99.5 cm/sec MV V2 max: 119.7 cm/sec MV P1/2t max ailyn: 120.8 cm/sec MV A max ailyn: 46.4 cm/sec MV max P.7 mmHg MV P1/2t: 38.8 msec MV E/A: 2.1 MV V2 mean: 64.5 cm/sec MV mean P.0 mmHg MV dec slope: 912.5 cm/sec2 MV V2 VTI: 18.4 cm MVA(P1/2t): 5.7 cm2 AI end-d ailyn: 270.9 cm/sec MR max ailyn: 576.5 cm/sec TR max ailyn: 396.4 cm/sec AI max ailyn: 478.0 cm/sec MR max P.0 mmHg TR max P.0 mmHg AI max P.4 mmHg MR mean ailyn: 481.6 cm/sec MR mean P.0 mmHg AI dec slope: 619.6 cm/sec2 MR VTI: 182.3 cm AI P1/2t: 226.0 msec ECHO/Echo Limited w/Contrast Interpretation Summary Mild concentric left ventricular hypertrophy. Global hypokinesis. Anterior, apical and anterior septal severe hypokinesis to akinesis. Estimated LVEF 25-30%. Stage III diastolic dysfunction. The left atrium is severely enlarged. The right atrium is mildly enlarged. Moderate (2+) mitral valve insufficiency. Mild (1+) tricuspid valve insufficiency. Right ventricular systolic pressure estimated to be 68 mmHg. Moderate (2+) aortic valve insufficiency. Ordering Physician: Nick Olsen Performed By: Donnie Bonner RCS
[2025-05-08] MEDS: Nitroglycerin Oint 1 INCH PACKET TD ×2 (09:23→17:24)
[2025-05-08] MEDS: Aspirin E.C. 81 MG Tablet PO (09:58)
[2025-05-08] MEDS: Senna/Docusate Sodium 1 Tablet 2 TABLET PO (09:58)
[2025-05-08 11:15] LABS: Troponin T High Sens 2 HR 37 ng/L (<=22)
--- NOTE | 2025-05-08 13:08 | CHAPLAIN ---
Type of Pastoral Visit _X__ Initial Visit ___ Follow-up Visit ___ On-call Visit ___ General Patient Visit ___ Spiritual Assessment ___ Family Conference ___ Bereavement ___ Rapid Response ___ Code Blue ___ Other (describe below) Pastoral Care Referral From _X__ Patient ___ Family ___ Nurse ___ Physician ___ Aws Architect ___ Two Way Radio Installer ___ Other (describe below) Sacrament/Intervention _X__ Active listening ___ Anointing ___ Hinduism ___ Bereavement ___ Communion _X__ Desire exploration ___ _X__ Life review _X__ Prayer ___ Reconciliation ___ Sacrament of Sick _X__ Supportive presence ___ Wedding ___ Other (describe below) Pastoral Comments 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
[2025-05-08 13:36] LABS: Troponin T High Sens 4 HR 45 ng/L (<=22)
--- NOTE | 2025-05-08 13:39 | PN.HOSP_ITS ---
Hospitalist Note Serial troponins mildly elevated 24, 37, 45. No significant increase. Twelve- lead EKG showed old septal infarct in February 06. Patient had refused left heart cath during last admission and this admission. He said he had a remote heart cath and showed normal coronary arteries but that was before the abnormal ECG in January 2024. Laboratory Results 05/08/25 06:10: WBC 11.2 H, RBC 4.42 L, Hgb 13.5, Hct 41.2, MCV 93.2, MCH 30.5, MCHC 32.8, RDW Std Deviation 50.6 H, RDW Coeff of Gracie 14.9 H, Plt Count 237, MPV 11.7, Immature Gran % (Auto) 0.500, Neut % (Auto) 72.2 H, Lymph % (Auto) 12.5 L, [place] % (Auto) 12.2 H, Eos % (Auto) 2.2, Baso % (Auto) 0.4, Absolute Neuts (auto) 8.1 H, Absolute Lymphs (auto) 1.40, Nucleated RBC % 0, Sodium 139, Potassium 3.4, Chloride 103, Carbon Dioxide 22.5, Anion Gap 14, BUN 23 H, Creatinine 1.18, Estim Creat Clear Calc 53.69, Est GFR (MDRD) Non-Af 65, BUN/Creatinine Ratio 19.7, Glucose 239 H, Calcium 9.4, Phosphorus 3.5, Magnesium 2.0, Troponin T High Sens 24 H, NT pro BNP II 6614 H 05/08/25 06:11: Specimen Type FRAN, Sample Site Not entered, O2 % 2.0, VBG pH 7.37, VBG pO2 45 H, VBG HCO3 25, VBG Total CO2 26, VBG O2 Sat (Calc) 79 H, VBG Base Excess -1, POC Mix VBG pCO2 Pt Tmp 42.7, O2 Delivery Device Cannula 05/08/25 10:50: Troponin T Hi Sens 2 Hr 37 H 05/08/25 13:00: Troponin T Hi Sens 4Hr 45 H
--- NOTE | 2025-05-08 15:37 | CASEMGMT ---
Social Work SW to room to meet with patient for initial transition planning/care coordination assessment. SW introduced self and role at [facility]. Pt voices understanding and consents to assessment. Pt is A/Ox4 and answers all questions appropriately. Care providers, pharmacy, and demographics verified. PCP: Gabi Specialists: Scott - cardiology, Iggy - Pulmonology Preferred Pharmacy: [facility] Insurance: [place], [facility] Prescription Benefit: yes Living Will/HPOA: Yes, pt states he has a HCPOA naming his dgt Stacey and a living will LNOK: dgt Stacey and Nitza and son Bill Living Arrangements: Pt lives alone in a two story home. Laundry is in the basement and all else is FFSU. Pt has a ramp entrance. Pt is independent with all ADLs and IADLs Transportation: Pt drives and has no concerns DME: shower chair and wheel chair HHC/SNF: none prior PLAN: Pt states he is very independent and does not forsee needing any services upon discharge. SW/RNCM will follow for home oxygen or other needs that may arise. Pt concerns with payment as pt has [facility] coverage. JENSEN explained that the [place] can be billed for this hospital stay and that [place] is notified when pts are admitted to [facility]. If [place] feels pt needs to be seen at a [place] hospital, RNCM will be notified and further discussion will be had with pt regrading transfer. MIKA Flores
--- NOTE | 2025-05-08 21:37 | CPS ---
Patient refused PAP therapy for night time use.
[2025-05-09] VITALS (14 sets, daily range): BP systolic 121–167; BP diastolic 77–109; PULSE 71–97; RESP 14–19; O2SAT 94–100; BMI 24.8
[2025-05-09] MEDS: Nitroglycerin Oint 1 INCH PACKET TD ×2 (02:33→07:07)
[2025-05-09 03:59] LABS: Hematocrit 39.7 % (40-54); Hemoglobin 13.2 g/dL (13.0-16.5); Immature Granulocytes Count 0.060 X10^3/uL (0.0-0.0); Mean Corp Hgb Conc 33.2 g/dL (32-36); Mean Corpuscular Volume 90.6 fL (80-94); Mean Platelet Vol. 11.3 fl (6.2-12.0); NRBC Flagged by Analyzer 0 % (0-5); Platelet Count 227 K/mm3 (150-450); RBC Distribution Width CV 14.9 % (11.6-14.6); RBC Distribution Width SD 49.0 fl (35.1-43.9); Red Blood Count 4.38 M/mm3 (4.6-6.2); White Blood Count 9.9 K/mm3 (4.4-11.0)
[2025-05-09 04:31] LABS: Anion Gap 10 (5-15); BUN 24 mg/dL (4-19); BUN/Creat Ratio 19.2 RATIO (10-20); Calcium,Total 9.2 mg/dL (7.6-11.0); Carbon Dioxide 26.1 mmol/L (21.0-32.0); Chloride 102 mmol/L (98-108); Cholesterol 107 mg/dL (<=200); Estimated Creatinine Clearance 47.55 ml/min (50-250); Glucose 162 mg/dL (70-99); Low Density Lipoprotein Calc. 64 mg/dL; Potassium 4.0 mmol/L (3.3-5.1); Triglycerides 71 mg/dL; Very Low Density Lipoprotein 14 mg/dL (5-40); cholesterol:hdl ratio screen 3.81
[2025-05-09] MEDS: Aspirin E.C. 81 MG Tablet PO (08:24)
--- NOTE | 2025-05-09 11:28 | CASEMGMT ---
This insurance underwriter sales was notified that the pt has concerns regarding [facility] being billed for current hospitalization. This insurance underwriter sales was notified that the [facility] does not currently have any beds available, therefore the VA Declination form is not warranted. Pt informed that the VA should help pay for the hospital stay due to the aforementioned reasons. If this RN CM receives call from the [facility] stating otherwise, will follow up with pt. Pt thanks this insurance underwriter sales and denies further questions or concerns at this time.
--- NOTE | 2025-05-09 11:52 | PCM.DC ---
Discharge Instructions DC O2, CPAP, BIPAP needs Home O2 Discharge instructions: No Dressing / Incision Discharge Activity: Return to Normal Activity Weight Bearing Status: Full weight bearing Follow Up Care Test Results: Test results from this visit will be discussed in further detail at your follow-up appointment, if applicable. Discharge Plan Admission Admit Date/Time: 05/08/25 07:24 Primary Reason for Your Visit: Cardiomyopathy, pulmonary edema Attending Provider: Milton Navarro Primary Care Provider: Dawna Ashley Consulting Providers: Jimi Chavez; Nick Olsen Instructions Additional Instructions / Restrictions: Follow-up with your VA encyclopedia research worker within the next 2 weeks Discharge Orders/Prescriptions Prescriptions: New losartan 50 mg Tablet 100 mg PO DAILY Qty: 60 0RF atorvastatin 40 mg Tablet 40 mg PO QHS Qty: 30 0RF carvedilol 6.25 mg Tablet 6.25 mg PO BIDCM Qty: 60 0RF aspirin 81 mg Tablet,Delayed Release (Dr/Ec) 81 mg PO BREAKFAST Qty: 0 0RF spironolactone 25 mg Tablet 25 mg PO DAILY Qty: 30 0RF Jardiance 10 mg Tablet 10 mg PO DAILY Qty: 30 0RF furosemide [Lasix] 40 mg tablet 40 mg PO DAILY Qty: 30 0RF Continued acetaminophen 325 mg tablet 650 mg PO ONCE vitamin B complex Tablet 1 tab PO QDAY methotrexate sodium (PF) 25 mg/mL solution 25 mg subcut QWEEK tadalafil 5 mg tablet 5 mg PO UD PRN (Reason: sexual activity) folic acid 1 mg tablet 1 mg PO DAILY sulfamethoxazole-trimethoprim 800-160 mg tablet 1 tab PO BID Patient Comments: last taken 05/07/25 in the morning. nitroglycerin 0.4 mg tablet, sublingual 0.4 mg sublingual Q5M Qty: 25 3RF Referrals / Follow Up: Dawna Ashley MD [Primary Care Provider, Family Practice] - In 1 Week Disposition Disposition (needs filled in before D/C Order can be placed): Home, Self Care
--- NOTE | 2025-05-09 12:01 | PCM.DC.SUM ---
Providers Date of Admission: 05/08/25 Date of Discharge: 05/09/25 Primary Care Physician: Dawna Ashley MD Consultations 05/08/25 08:14 Consult: Cardiology Routine Consulting Provider: Jimi Chavez Reason for Consult: pulm edemam HTN emergency, unstable angina EMERGENT Consult: No MD Notified: Yes Date Notified: 05/08/25 Time Notified: 08:14 Method of Notification: Verbal Reason For Visit: PULM EDEMA, HTN Diagnosis Discharge Diagnosis (1) Acute exacerbation of congestive heart failure: Status: Chronic Code(s): I50.9 - Heart failure, unspecified Qualifiers: Heart failure type: systolic Qualified Code(s): I50.23 - Acute on chronic systolic (congestive) heart failure (2) Pulmonary edema: Status: Acute Code(s): J81.1 - Chronic pulmonary edema (3) Hypertensive emergency: Status: Acute Code(s): I16.1 - Hypertensive emergency (4) Diabetes: Status: Chronic Code(s): E11.9 - Type 2 diabetes mellitus without complications Qualifiers: Diabetes mellitus complication detail: with diabetic microalbuminuria Diabetes mellitus complication status: with kidney complications Diabetes mellitus exterminator termite insulin use: without senior living use Diabetes mellitus type: type 2 Qualified Code(s): E11.29 - Type 2 diabetes mellitus with other diabetic kidney complication; R80.9 - Proteinuria, unspecified Plan 1. Acute hypoxic respiratory failure due to pulmonary edema #2 hypertensive emergency #3 type 2 diabetes #4 acute exacerbation of congestive heart failure with decreased ejection fraction #5 cardiomyopathy-type unclear #6 noncompliance with medical care Medications at Discharge Home Medications acetaminophen 325 mg tablet 650 mg PO ONCE 04/22/24 methotrexate sodium (PF) 25 mg/mL injection solution 25 mg subcut QWEEK 04/28/24 tadalafil 5 mg tablet 5 mg PO UD PRN sexual activity 05/22/24 vitamin B complex 1 tab PO QDAY 08/12/24 nitroglycerin 0.4 mg sublingual tablet 0.4 mg sublingual Q5M CHEST PAIN #25 tabs 09/30/24 folic acid 1 mg tablet 1 mg PO DAILY 05/08/25 sulfamethoxazole 800 mg-trimethoprim 160 mg tablet 1 tab PO BID UTI 05/08/25 aspirin 81 mg tablet,delayed release 81 mg PO BREAKFAST #0 tabs 05/09/25 atorvastatin 40 mg tablet 40 mg PO QHS #30 tabs 05/09/25 carvedilol 6.25 mg tablet 6.25 mg PO BIDCM #60 tabs 05/09/25 empagliflozin 10 mg tablet (Jardiance) 10 mg PO DAILY #30 tabs 05/09/25 furosemide 40 mg tablet (Lasix) 40 mg PO DAILY #30 tabs 05/09/25 losartan 50 mg tablet 100 mg (2 x 50 mg) PO DAILY #60 tabs 05/09/25 spironolactone 25 mg tablet 25 mg PO DAILY #30 tabs 05/09/25 Hospital Course Operations None Procedures 2-D Echocardiogram Summary of Care Provided Minutes Spent on Discharge: 32 Hospital Course: This 74-year-old white male was seen in the emergency room at [facility] with complaints of a sudden onset of shortness of breath that day. Patient had been taking blood pressure medication but stopped them on his own. Last echocardiogram from 2023 showed an EF estimated to be 35 to 40%. Blood pressure on admission to the emergency room was 225/150, he received IV Lasix, EKG showed an old anterior septal infarct, labs showed an elevated troponin at 37, repeat troponin was 45. Beta nitric peptide was elevated at 6614. Patient was admitted to ICU, he was seen in consultation by cardiology and had an echocardiogram performed which showed an EF of 25 to 30%. I spent some time talking to the patient about undergoing heart catheterization, it appeared that the patient was willing to do this but cardiology then talked with the patient later on in the morning and he refused to undergo a heart catheterization even though he knew that it was recommended. On 05/10/2025, patient was seen and examined: On examination he appeared in good health and spirits. Vital signs as documented. Skin warm and dry and without overt rashes. Neck without JVD, neck was supple, trachea midline, thyroid was normal. Lungs clear bilaterally, normal air movement was noted. Heart exam notable for regular rhythm, normal sounds and absence of murmurs, rubs or gallops. Abdomen unremarkable and without evidence of organomegaly, masses, or abdominal aortic enlargement. Bowel sounds are present, abdomen is not distended. Extremities nonedematous, no cyanosis was noted, no clubbing was noted. Neuro: Cranial nerves II through XII are grossly intact, no focal motor deficits were noted, sensation to light touch and pinprick intact, motor exam 5/5 throughout. Psych: Patient is alert and oriented x3, he does not appear anxious or depressed, he does not appear agitated. Patient was discharged home in stable condition on 05/10/2025. Weight / BMI Weight Weight: 70.987 kg Body Mass Index (BMI) 24.8 ABG / Lab / Microbiology Data 05/09/25 03:50 05/09/25 03:50 Laboratory: Laboratory Results - last 24 hr 05/08/25 13:00: Troponin T Hi Sens 4Hr 45 H 05/09/25 03:50: WBC 9.9, RBC 4.38 L, Hgb 13.2, Hct 39.7 L, MCV 90.6, MCH 30.1, MCHC 33.2, RDW Std Deviation 49.0 H, RDW Coeff of Gracie 14.9 H, Plt Count 227, MPV 11.3, Immature Gran % (Auto) 0.600, Neut % (Auto) 77.5 H, Lymph % (Auto) 7.4 L, Humphreys % (Auto) 12.2 H, Eos % (Auto) 1.9, Baso % (Auto) 0.4, Absolute Neuts (auto) 7.7, Absolute Lymphs (auto) 0.74 L, Nucleated RBC % 0, Sodium 139, Potassium 4.0, Chloride 102, Carbon Dioxide 26.1, Anion Gap 10, BUN 24 H, Creatinine 1.23 H, Estim Creat Clear Calc 47.55 L, Est GFR (MDRD) Non-Af 62, BUN/Creatinine Ratio 19.2, Glucose 162 H, Hemoglobin A1c 7.1 H, Calcium 9.2, Triglycerides 71, Cholesterol 107, LDL Cholesterol, Calc 64, VLDL Cholesterol 14, HDL Cholesterol 28 L, Cholesterol/HDL Ratio 3.81, TSH 1.590 Radiography Diagnostic Testing: Radiology Impression Echocardiogram 05/08/25 09:12 Interpretation Summary Mild concentric left ventricular hypertrophy. Global hypokinesis. Anterior, apical and anterior septal severe hypokinesis to akinesis. Estimated LVEF 25-30%. Stage III diastolic dysfunction. The left atrium is severely enlarged. The right atrium is mildly enlarged. Moderate (2+) mitral valve insufficiency. Mild (1+) tricuspid valve insufficiency. Right ventricular systolic pressure estimated to be 68 mmHg. Moderate (2+) aortic valve insufficiency. Ordering Physician: Nick Olsen Performed By: Donnie Bonner RCS D/C Instructions Weight Bearing Status: Full weight bearing DC O2, CPAP, BIPAP Needs Home O2 Discharge instructions: No Meaningful Use Info Meaningful Use Meaningful Use Diagnoses (Choose all that apply): None applicable Discharge Plan Admission Admit Date/Time: 05/08/25 07:24 Primary Reason for Your Visit: Cardiomyopathy, pulmonary edema Attending Provider: Milton Navarro Primary Care Provider: Dawna Ashley Consulting Providers: Jimi Chavez; Nick Olsen Instructions Additional Instructions / Restrictions: Follow[facility]up with your [facility] administration project manager within the next 2 weeks Discharge Orders/Prescriptions Prescriptions: New losartan 50 mg Tablet 100 mg PO DAILY Qty: 60 0RF atorvastatin 40 mg Tablet 40 mg PO QHS Qty: 30 0RF carvedilol 6.25 mg Tablet 6.25 mg PO BIDCM Qty: 60 0RF aspirin 81 mg Tablet,Delayed Release (Dr/Ec) 81 mg PO BREAKFAST Qty: 0 0RF spironolactone 25 mg Tablet 25 mg PO DAILY Qty: 30 0RF Jardiance 10 mg Tablet 10 mg PO DAILY Qty: 30 0RF furosemide [Lasix] 40 mg tablet 40 mg PO DAILY Qty: 30 0RF Continued acetaminophen 325 mg tablet 650 mg PO ONCE vitamin B complex Tablet 1 tab PO QDAY methotrexate sodium (PF) 25 mg/mL solution 25 mg subcut QWEEK tadalafil 5 mg tablet 5 mg PO UD PRN (Reason: sexual activity) folic acid 1 mg tablet 1 mg PO DAILY sulfamethoxazole-trimethoprim 800-160 mg tablet 1 tab PO BID Patient Comments: last taken 05/07/25 in the morning. nitroglycerin 0.4 mg tablet, sublingual 0.4 mg sublingual Q5M Qty: 25 3RF Referrals / Follow Up: Dawna Ashley MD [Primary Care Provider, Family Practice] - In 1 Week Disposition Disposition (needs filled in before D/C Order can be placed): Home, Self Care Charges/Coding Visit Charges Inpatient E&M: 55008 Disch Hosp >30min
--- NOTE | 2025-05-09 12:39 | CASEMGMT ---
Per the pt's RN, the pt is refusing the cardiac cath and the hospitalist is opting to DC the pt. TC to [facility] pharmacy who states that the pt has [facility] part D for Rx coverage. [facility] states that the pt's total out of pocket cost is 34.16. RN CM back to the pt's room. Pt states that he is OK with this and denies any further DC needs or concerns.
== END 2025-05-09 12:55 | disposition home or self-care (01) | DRG 189 ==
LOC: ED 07:27 → ICU 08:06
PROVIDERS: Admitting Provider Internal Medicine; Emergency Provider Emergency Medicine; PCP Family Medicine; Visit Provider Internal Medicine
DX: J96.01 Acute respiratory failure with hypoxia (principal); I50.23 Acute on chronic systolic (congestive) heart failure; I16.1 Hypertensive emergency; I20.0 Unstable angina; J81.1 Chronic pulmonary edema; I42.9 Cardiomyopathy, unspecified; Z51.5 Encounter for palliative care; Z66 Do not resuscitate; I11.0 Hypertensive heart disease with heart failure; E11.29 Type 2 diabetes mellitus with other diabetic kidney complication; I48.0 Paroxysmal atrial fibrillation; I25.2 Old myocardial infarction; E66.3 Overweight; Z79.899 Other long term (current) drug therapy; R80.9 Proteinuria, unspecified; Z68.27 Body mass index [BMI] 27.0-27.9, adult; Z90.49 Acquired absence of other specified parts of digestive tract; Z91.199 Patient's noncompliance with other medical treatment and regimen due to unspecified reason
CPT/HCPCS: 71045; 80048; 80061; 82803; 83036; 83735; 83880; 84100; 84443; 84484; 85025; 93005; 93308; 94002; 94660; 94668; 99283; Q9957; A4216; C8924; J1938

== ENCOUNTER 2025-05-12 12:17 | Emergency (ER) | payer MEDICARE, SELFPAY ==
[2025-05-12] VITALS (12 sets, daily range): BP systolic 123–190; BP diastolic 84–107; PULSE 83–128; RESP 16–20; TEMP 36.4–36.6; O2SAT 95–99; BMI 25.4
--- NOTE | 2025-05-12 12:20 | CT_ITS ---
PROCEDURE: STROKE BRAIN/HEAD WITHOUT CONT N/A REASON FOR EXAM: NEURO DEFICIT, ACUTE, STROKE SUSPECTED TECHNIQUE: Procedure Code: CTBR.ST Modality: CT Procedure: STROKE BRAIN/HEAD WITHOUT CONT Coronal and Sagittal reconstruction series were provided. One or more dose reduction techniques were used (e.g., Automated exposure control, adjustment of the mA and/or kV according to patient size, use of iterative reconstruction technique. RADIATION DOSE SUMMARY: CTDlvol: 44.99 mGy DLP: 829.85 mGycm COMPARISON: None FINDINGS: Brain: There is evidence of a 2.1 cm 2.6 cm focal cerebral hematoma in the left frontal lobe with surrounding edema. This may represent an hemorrhagic stroke. CSF Spaces: Mild generalized cerebral atrophy there is evidence of periventricular hypodensity suggestive of chronic small-vessel disease. Mild degree of atrophy of the cerebellum. Sinuses/Mastoids: Clear at visualized levels Bones: Unremarkable CT/STROKE Brain/Head without Cont IMPRESSION: Findings suggestive of a 2.1 cm x 2.6 cm hemorrhagic stroke in the left frontal lobe as described. Cerebral atrophy. Red Alert: Left frontal hemmorhagic stroke The critical findings in the findings and impression above were relayed directl y by me by telephone to Dionna Elizondo on 05/12/2025 at 12:33 pm with readback verification. Reading Location: [id number]
--- NOTE | 2025-05-12 12:21 | CT_ITS ---
PROCEDURE: STROKE CTA HEAD AND NECK W/CON 05/12/2025 REASON FOR EXAM: NEURO DEFICIT, ACUTE, STROKE SUSPECTED TECHNIQUE: Procedure Code: CTCTA.ST.HN Modality: CT Procedure: STROKE CTA HEAD AND NECK W/CON Multiplanar Sagittal and Coronal images were obtained. 3D post processing was performed CONTRAST: Isovue 370 VOLUME: 100 mL One or more dose reduction techniques were used (e.g., Automated exposure control, adjustment of the mA and/or kV according to patient size, use of iterative reconstruction technique). RADIATION DOSE SUMMARY: CTDlvol: 58 mGy DLP: 725 mGycm COMPARISON: Head CT of the same day FINDINGS: Aortic Arch: Atherosclerotic plaque is present. Proximal portion of the descending thoracic aorta measures up to 3.5 cm transverse. Brachiocephalic and Subclavians: Mild atherosclerotic plaque without significant stenosis. RIGHT Carotid: Right CCA: Unremarkable. Right ICA: Minimal plaque at the origin. Maximum stenosis (NASCET): <10 % Right ECA: Unremarkable. LEFT Carotid: Left CCA: Unremarkable Left ICA: Minimal plaque at the origin. Maximum stenosis (NASCET): <10 % Left ECA: Unremarkable. Vertebrals: Left is dominant RIGHT Vertebral: Minimal plaque at the origin is not flow-limiting. Less than 50% narrowing of the V4 segment. LEFT Vertebral: Mild plaque is less than 25% narrowing at the V4 segment. Anatomy: Posterior communicating arteries are not seen. Aneurysm or avm: No intracranial aneurysms or large vascular malformations are identified. Anterior cerebral arteries: Unremarkable. Middle cerebral arteries: No large vessel occlusion. Otherwise unremarkable Basilar artery: Unremarkable. Posterior cerebral arteries: Unremarkable. Other major branches of the posterior circulation: Unremarkable. Major venous structures: Unremarkable. Other findings: Neck: A large mass is seen in the right neck shows some degree of vascularity located anterior to the common carotid with mass effect on the sternocleidomastoid, the right lateral hyoid measuring 5.9 x 4.0 x 5.8 cm. This is not splay the vessels and is not uniformly hypervascular. Lungs: Scarring is seen at the lung apices. Bones: Degenerative disc disease, marginal endplate spurring throughout the cervical spine. CT/STROKE CTA Head AND Neck W/Con IMPRESSION: 1. No large vessel occlusion. No flow-limiting stenosis or aneurysm. 2. Large mass in the right neck worrisome for a malignancy. The abnormality s hown in the brain on the left is possibly a hemorrhagic metastasis. On a nonemergent basis consider contrast-enhanced MRI. Reading Location: [id number]
[2025-05-12 12:28] LABS: Hematocrit 48.0 % (40-54); Hemoglobin 15.6 g/dL (13.0-16.5); Immature Granulocytes Count 0.140 X10^3/uL (0.0-0.0); Mean Corp Hgb Conc 32.5 g/dL (32-36); Mean Corpuscular Volume 92.7 fL (80-94); Mean Platelet Vol. 12.0 fl (6.2-12.0); NRBC Flagged by Analyzer 0 % (0-5); Platelet Count 245 K/mm3 (150-450); RBC Distribution Width CV 14.6 % (11.6-14.6); RBC Distribution Width SD 49.6 fl (35.1-43.9); Red Blood Count 5.18 M/mm3 (4.6-6.2); White Blood Count 15.7 K/mm3 (4.4-11.0)
[2025-05-12 12:38] LABS: Prothrombin Time (Protime)PT. 14.8 SECONDS (11.7-14.9)
[2025-05-12 12:39] LABS: Partial Thromboplast Time 28.0 Seconds (24.1-36.2)
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
[2025-05-12 12:43] LABS: Anion Gap 13 (5-15); BUN 23 mg/dL (4-19); BUN/Creat Ratio 19.2 RATIO (10-20); Calcium,Total 10.2 mg/dL (7.6-11.0); Carbon Dioxide 24.0 mmol/L (21.0-32.0); Chloride 98 mmol/L (98-108); Glucose 226 mg/dL (70-99); Potassium 4.8 mmol/L (3.3-5.1); Troponin T High Sensitivity 50 ng/L (<=22)
--- NOTE | 2025-05-12 13:32 | CM.ED ---
Social work Reason for referral: stroke alert SW responded to stroke alert called in [facility] ED. No family present, but when patient returned from imaging, patient clearly expressed a desire for SW to call patient's daughter, Jie (ph: [phone]). Of note, there are no documents for HCPOA on file and patient could not recall if any were completed. At 1250, Jie answered the phone and SW provided news of patient's current condition; SW answered questions as able. Patient had a brain bleed which requires life flight to a higher level of care. Jie stated Jie's mother was almost to Jie's house to take care of Jie's baby and Jie would be on the way to [facility] ED; Jie lives in [place]. When SW returned to patient's room, it was told to SW that patient was refusing [facility] who already had life flight in route. SW called Jie back at 1255 who stated tearfully that [facility] would also not be Jie's first choice due to being closer to [facility] options. RNs in room explained that patient was already accepted at [facility] and life flight was in route, so choosing another hospital was patient and patient family's choice, though getting this arranged would delay care. Jie and patient both chose [facility] options; SW and 3 RNs in room to witness. Dr Singleton started the new transfer process due to Dr Elizondo being tied up with another urgent situation. At 1310, SW called Jie back and stated patient would be an ED to ED transfer to [facility] via life flight. Jie stated switching route to [facility] and patient was updated. Patient accepted that Jie was in route to [facility] when this SW told patient at 1310. SW was told by Ashley WILKINS that patient was now refusing to go anywhere. At 1320, SW re-entered patient's room where Dr Elizondo (with 2 RNs present) expressed to patient the condition patient was in. Patient refused to go, but was unable to share with Dr Elizondo what was just expressed to him. Patient was unable to do so and Dr Elizondo made the determination that patient was unable/had no capacity to make the decisions for patient's own healthcare. Jie was called again who stated desire for [facility] transfer and spoke with patient, stating it was not an option. Patient stated to Jie that something felt not right about [facility] last time patient was there. Jie asked Dr Elizondo what could occur if patient refused to go. Dr Elizondo stated ability to give patient medication to help settle patient if patient refused to go. Jie had no further concerns or questions at this time. SW to remain available as needed. Brie Gamble, ACCOUNTING LECTURER, VP RHEUMATOLOGY
[2025-05-12] MEDS: Nicardipine HCl-0.9% Sod Chlor 20 MG/200 ML IV.SOLN 50 MG CONT INF (13:34)
--- NOTE | 2025-05-12 13:55 | ED.RN ---
pt getting increasingly agitated and stating he is not going to [facility]. pt does not have the mental capacity at this time to make decisions per dr. dai. pts dtr made decision to transfer and wants to keep life flight scheduled. pt attempting to get out of the bed at this time while attached to the cardene drip. staff assist turned on and pt assisted into the bed and per dtr request pt put in nonviolent soft restraints. restraints applied at 1405.
--- NOTE | 2025-05-12 14:22 | ED.RN ---
report called to Zeina at [facility] in ED at this time.
== END 2025-05-12 14:30 | disposition other institution (70) ==
PROVIDERS: Emergency Provider Student in an Organized Health Care Education/Training Program; PCP Family Medicine; Visit Provider Student in an Organized Health Care Education/Training Program
DX: I63.9 Cerebral infarction, unspecified (principal); I11.0 Hypertensive heart disease with heart failure; I50.23 Acute on chronic systolic (congestive) heart failure; I48.91 Unspecified atrial fibrillation; I61.1 Nontraumatic intracerebral hemorrhage in hemisphere, cortical; E11.9 Type 2 diabetes mellitus without complications; R47.01 Aphasia; R47.1 Dysarthria and anarthria; Z79.82 Long term (current) use of aspirin; R29.708 NIHSS score 8; J45.909 Unspecified asthma, uncomplicated; R45.1 Restlessness and agitation
CPT/HCPCS: 70450; 70496; 70498; 80048; 84484; 85025; 85610; 85730; 93005; 96374; 96375; 96376; 99285; Q9967; A4216

== ENCOUNTER 2025-07-15 14:00 | Outpatient (RCR) | payer MEDICARE, SELFPAY ==
--- NOTE | 2025-06-23 13:36 | HP.PTEVAL_ITS ---
Patient's Visit Information Visit Information Visit Information: MEDINA MCKOY II is a 74 year old M referred to Physical Therapy by Dawna Ashley MD with a diagnosis of CVA. Date of Evaluation: 06/23/25 Physical Therapist: OPAL ArauzT, OCS, CSCS Visit Plan Frequency: 2x /Week Duration: 4-6 Weeks Plan: 2x/week for 4-6 weeks IE hep : start rowing 2-3 min at home and 3x10 sit to stand without UE daily. Treat with instruction in and progression to I home program for LE, UE strength . Please utilize dumblls, barbelss and rowing amchin as he has access to these at home. Give pics when I. Subjective Subjective: Had a stroke Nov 4. Was aphasic and could not speak. Wnt to [place] and in hospital 7 days. Hard time finding the right words. Lost 25# alsodue to methotrexate and kidney issues in last couple months. Feels weakness in legs isince this happened. NH for 9 days and not as active. Hip mm are weak.No falls in last couple years. Holds hand rails on steps, h/o L knee surgery. Can't cook beecause standing is hard for long times. Has two cats and dogs and they get in his way. Live alone with basemnt stairs and up no problem with railing. Sleep is OK except for dogs. Hobbies: dogs and cats.. Just weak with daily activities. Hard to lift 15# bowl. Objective Objective: Walks into and out of PT I. Chair trasnfer I without UE, bd trasnfr I. Steps reciprocally without rail, slight wobbly desdcending. SLS 10 seconds eo. Good balance. reflexes 2/3 patella dna chilles B. Sensation LE WNL to gross light touch B. strength 4/5 L LE adn 4 on R, L still feels slightly weaker in quad. UE aROM WFL adn strength symmetrical at 4/5. Seems to find workds weell today Oriented to place and time adn date and person. Fucntionally dons and doffs coat and hat I , very frinedly. Balance/Special Test Scores Functional Gait Assessment Score: 29 % Disability: 3.3400 Lower Extremity Functional Score: 29 TUG Test Time Seconds: 7 30 Second Chair Rise Test Seconds: 14 Goals Goal 1:: I appropriate HEP for strength to limit futurre prob lems and aid recovery Goal Time Frame: 4-6 Weeks Goal 2:: stand long nough to cook mal without fatigue feelinmg. Goal Time Frame: 4-6 Weeks Goal 3:: 45 LFS score Goal Time Frame: 4-6 Weeks Rehabilitation Potential Physical Therapy Diagnosis: Slight weakness limiting confidence with funciton. Rehabilitation Potential: Good Anticipated Interventions Patient/Client Instruction: Educate patient on: Condition and Plan of Care For the Purpose of:: To improve muscle performance and motor function, To increase tolerance to activity/condition/position and To improve gait and locomotor functions Therapeutic Exercise to Include: Strength training For the Purpose of:: To improve muscle performance and motor function and To improve gait and locomotor functions Text: Thank you for the opportunity to evaluate your patient. For Medicare and Medicare HMO plans, please review the plan of care and approve it. It will need to be FAXED BACK to us at [phone] for Medicare purposes. For Medicare only, by signing this I certify the plan of care. Please let me know if there are questions or concerns regarding this plan of care. Physician Signature: Date:
--- NOTE | 2025-08-27 14:03 | HP.PT.NRP ---
Patient Information Patient Information: MEDINA MCKOY II was seen in my office for initial evaluation on 06/23/25. The following Plan of Care was established for this patient: POC Established Initial Frequency: 2x /Week Initial Duration: 4-6 Weeks Anticipated Interventions Patient/Client Instruction: Educate patient on: Condition and Plan of Care For the Purpose of:: To improve muscle performance and motor function, To increase tolerance to activity/condition/position and To improve gait and locomotor functions Therapeutic Exercise to Include: Strength training For the Purpose of:: To improve muscle performance and motor function and To improve gait and locomotor functions Last Seen Last Seen: This patient was last seen in our office 07/15/25. Pertinent comments regarding their Physical therapy will appear below: Pt seen 7 visits of POC and was feeling better. Did not return for rest of POC. It has been over 4 weeks and i will disconitnue from my care At this point I will be discontinuing this patient from physical therapy. I would be happy to see this patient again in the future if found appropriate by the physician. Thank you! Isaias Alicea, DPT, OCS, CSCS Balance/Gait/Functional tests Balance/Special Test Scores Functional Gait Assessment Score: 29 % Disability: 3.3400 Lower Extremity Functional Score: 29 TUG Test Time Seconds: 7 Tug Test: <10 sec.=free mobile 30 Second Chair Rise Test Seconds: 14
== END 2025-07-15 19:00 | disposition home or self-care (01) ==
LOC: PT 14:00
PROVIDERS: PCP Family Medicine; Referring Provider Family Medicine; Visit Provider Family Medicine
DX: Z86.73 Personal history of transient ischemic attack (TIA), and cerebral infarction without residual deficits (principal)
CPT/HCPCS: 97110; 97161